=== PATIENT | female | born 1965 | race Caucasian/White ===

== ENCOUNTER 2016-12-26 16:21 | Emergency (ER) | payer OTHER ==
[~2016-12-26] VITALS: Ht 170.2 cm; Wt 87.0 kg
[~2016-12-26 16:21] MED LIST: ARIC5TAB PO; ASPI325T PO; BUSP30TA PO; MECL-62 PO; PROZ20CA11 PO; TRAZ100 PO
[2016-12-26 16:24] VITALS: BP 158/86; PULSE 83; RESP 14; TEMP 98.4; O2SAT 96
--- NOTE | 2016-12-27 22:37 | EKG ---
Date Performed: 12/26/2016 Time Performed: 17:28:30 PTAGE: 51 years EKG: Sinus rhythm POSSIBLE LEFT ATRIAL ENLARGEMENT BORDERLINE ECG PREVIOUS TRACING : 07/17/2016 10.08 Compared to the previous tracing, previously ST changes not ed DOCTOR: Nelson Peterson Interpretating Date/Time 12/27/2016 22:36:35
== END 2016-12-26 17:33 | disposition left against medical advice (07) ==
LOC: NED 16:21
DX: R07.9 Chest pain, unspecified (principal); R94.31 Abnormal electrocardiogram [ECG] [EKG]
CPT/HCPCS: 93005; 99281

== ENCOUNTER 2017-02-01 10:28 | Emergency (ER) | payer OTHER ==
[~2017-02-01] VITALS: Ht 170.2 cm; Wt 86.0 kg
[2017-02-01 10:32] VITALS: BP 159/92; PULSE 78; RESP 20; TEMP 97.7; O2SAT 97
[2017-02-01] MEDS ORDERED: LIDOCAINE HCL 2% JELLY 5 ML SYRINGE TOPICAL ONE (11:00)
[2017-02-01] MEDS ORDERED: ACETAMINOPHEN/HYDROcodone 325 MG/5 MG TAB PO ONE (11:00)
[2017-02-01 11:34] LABS: AUTOMATED NEUTROPHIL # 4.7 TH/MM3 (1.8-7.7); BASOPHIL # 0.1 TH/MM3 (0-0.2); BASOPHIL % 1.1 % (0.0-2.0); EOSINOPHIL # 0.4 TH/MM3 (0-0.4); EOSINOPHIL % 5.2 % (0.0-4.0); HEMATOCRIT 40.3 % (35.0-46.0); HEMO FLAGS DIFF FINAL; LYMPH % 24.6 % (9.0-44.0); LYMPHOCYTE # 1.8 TH/MM3 (1.0-4.8); MEAN CELL VOLUME 91.5 FL (80.0-100.0); MEAN CORPUSCULAR HEMOGLOBIN 29.9 PG (27.0-34.0); MEAN CORPUSCULAR HGB CONC 32.6 % (32.0-36.0); MONO % 5.8 % (0.0-8.0); NEUT % 63.3 % (16.0-70.0); PLATELET COUNT 329 TH/MM3 (150-450); RED CELL DISTRIBUTION WIDTH 13.5 % (11.6-17.2); WHITE BLOOD COUNT 7.4 TH/MM3 (4.0-11.0)
[2017-02-01] MEDS ORDERED: LIDO2GEL11 TOPICAL (12:06)
[2017-02-01] MEDS ORDERED: HYDR-3533 PO (12:06)
[2017-02-01] MEDS ORDERED: COLA100C3 PO (12:06)
--- NOTE | 2017-02-01 12:06 | PD ---
HPI Chief Complaint: GI Complaint Time Seen by Provider: 10:47 Travel History International Travel<30 days: No Contact w/Intl Traveler<30days: No Traveled to known affect area: No History of Present Illness HPI Patient is a 51-year-old female who comes in complaining of painful hemorrhoids. She says that she has had hemorrhoids for the past month, but recently they've become more painful and today she has noticed a lot of blood. She says it is hard for her to have a bowel movement, but she is able to. She denies any abdominal pain. She denies nausea or vomiting. She denies dizziness , palpitations, shortness of breath. PFSH Past Medical History Hx Anticoagulant Therapy: Yes (ASA) Bipolar Disorder: Yes Depression: Yes Cardiovascular Problems: Yes (HTN) Cerebrovascular Accident: Yes Hypertension: Yes Musculoskeletal: Yes (knee reeplacement) Respiratory: Yes (COPD) ?: Not Menopausal: Yes : 3 Past Surgical History Appendectomy: Yes Cholecystectomy: Yes Hysterectomy: Yes Neurologic Surgery: Yes (COILED ANEURYSM) Tonsillectomy: Yes Social History Alcohol Use: No Tobacco Use: Yes (1/2PPD) Substance Use: No Allergies-Medications (Allergen,Severity, Reaction): Coded Allergies: Bee Sting (Verified Allergy, Severe, SOB, 02/01/17) Sulfa (Verified Allergy, Severe, SOB, 02/01/17) Ceftin (Verified Allergy, Intermediate, SOB, 02/01/17) Cipro (Verified Allergy, Intermediate, SOB, 02/01/17) Reported Meds & Prescriptions Reported Meds & Active Scripts Active Colace (Docusate Sodium) 100 Mg Cap 100 Mg PO BID 10 Days Lortab (Hydrocodone-Acetaminophen) 5-325 Mg Tab 1 Tab PO Q6H PRN Lidocaine Topical (Lidocaine HCl) 2 % Jel 1 Applic TOPICAL QID 7 Days Meclizine Hcl (Meclizine HCl) 25 Mg Tab 25 Mg PO TID 30 Days Reported Aspirin 325 mg (Aspirin) 325 Mg Tab 325 Mg PO DAILY Buspar (Buspirone HCl) 30 Mg Tab 30 Mg PO BID Trazodone HCl 100 Mg Tab 100 Mg PO HS Aricept (Donepezil HCl) 5 Mg Tab 10 Mg PO DAILY Prozac (Fluoxetine HCl) 20 Mg Cap 20 Mg PO DAILY Review of Systems Except as stated in HPI: all other systems reviewed are Neg General / Constitutional: No: Fever, Chills HENT: No: Headaches, Lightheadedness Cardiovascular: No: Chest Pain or Discomfort Respiratory: No: Shortness of Breath Gastrointestinal: Positive: Constipation, No: Nausea, Vomiting, Abdominal Pain Genitourinary: No: Dysuria Skin: No Change in Pigmentation Neurologic: No: Weakness, Dizziness Physical Exam Narrative GENERAL: Awake and alert, in no acute distress. SKIN: Warm and dry. HEAD: Atraumatic. Normocephalic. EYES: Pupils equal and round. No scleral icterus. ENT: Mucous membranes pink and moist. NECK: Trachea midline. No JVD. CARDIOVASCULAR: Regular rate and rhythm. No murmur appreciated. RESPIRATORY: No accessory muscle use. Clear to auscultation. Breath sounds equal bilaterally. GASTROINTESTINAL: Abdomen soft, non-tender, nondistended. Rectal: Large hemorrhoid, soft to the touch, dried blood around the hemorrhoid. MUSCULOSKELETAL: No obvious deformities. No clubbing. No cyanosis. No edema. NEUROLOGICAL: Awake and alert. No obvious cranial nerve deficits. Motor grossly within normal limits. Normal speech. PSYCHIATRIC: Appropriate mood and affect; insight and judgment normal. Data Data Last Documented VS Vital Signs Date Time Temp Pulse Resp B/P Pulse Ox O2 Delivery O2 Flow Rate FiO2 02/01/17 10:43 18 02/01/17 10:32 97.7 78 159/92 97 Room Air Orders Complete Blood Count With Diff (02/01/17 10:56) Lidocaine 2% Jelly (Xylocaine 2% Jelly) (02/01/17 11:00) Acetamin-Hydrocod 325-5 Mg (Nenzel 5-325 (02/01/17 11:00) Labs Laboratory Tests Test 02/01/17 11:20 White Blood Count 7.4 TH/MM3 Red Blood Count 4.40 MIL/MM3 Hemoglobin 13.1 GM/DL Hematocrit 40.3 % Mean Corpuscular Volume 91.5 FL Mean Corpuscular Hemoglobin 29.9 PG Mean Corpuscular Hemoglobin 32.6 % Concent Red Cell Distribution Width 13.5 % Platelet Count 329 TH/MM3 Mean Platelet Volume 8.2 FL Neutrophils (%) (Auto) 63.3 % Lymphocytes (%) (Auto) 24.6 % Monocytes (%) (Auto) 5.8 % Eosinophils (%) (Auto) 5.2 % Basophils (%) (Auto) 1.1 % Neutrophils # (Auto) 4.7 TH/MM3 Lymphocytes # (Auto) 1.8 TH/MM3 Monocytes # (Auto) 0.4 TH/MM3 Eosinophils # (Auto) 0.4 TH/MM3 Basophils # (Auto) 0.1 TH/MM3 CBC Comment DIFF FINAL Differential Comment MDM Medical Decision Making Medical Screen Exam Complete: Yes Emergency Medical Condition: Yes Medical Record Reviewed: Yes Differential Diagnosis Hemorrhoids versus GI bleed versus anal fissure Narrative Course Patient is a 51-year-old female comes in complaining of rectal bleeding and painful hemorrhoids. Exam shows a large soft hemorrhoid with some bleeding around it. CBC sent to check hemoglobin, shows hemoglobin within normal limits. Patient given lidocaine jelly, pain medicine. Given prescriptions for lidocaine jelly as well as pain medicine. Advised to use sitz baths. Advised follow-up with colorectal surgery. Advised to return to the ED as needed for any worsening symptoms. Diagnosis Primary Impression: Bleeding hemorrhoid Referrals: Pierre Muñoz MD call for appointment Patient Instructions: General Instructions, Hemorrhoids (ED) Additional Instructions: Follow up with colorectal surgery. Use sitz baths and lidocaine jelly for pain relief. Take Lortab as needed for severe pain. Return to the ED as needed for any worsening symptoms. Scripts Docusate Sodium (Colace)100 Mg Nxz120 Mg PO BID 10 Days Ref 0 Prov:Shilpi Chu MD 02/01/17 Hydrocodone-Acetaminophen (Lortab)5-325 Mg Tab1 Tab PO Q6H PRN (PAIN) #10 TAB Ref 0 Prov:Shilpi Chu MD 02/01/17 Lidocaine Topical 2 % Jel1 Applic TOPICAL QID 7 Days Ref 0 Prov:Shilpi Chu MD 02/01/17 Disposition: 01 DISCHARGE HOME Condition: Stable Shilpi Chu MD Feb 01, 2017 12:06
== END 2017-02-01 12:41 | disposition home or self-care (01) ==
LOC: NEPE 10:28
DX: K64.4 Residual hemorrhoidal skin tags (principal); I10 Essential (primary) hypertension; J44.9 Chronic obstructive pulmonary disease, unspecified
CPT/HCPCS: 85025; 99283

== ENCOUNTER 2017-02-03 19:18 | Emergency (ER) | payer OTHER, MEDICAID ==
[~2017-02-03] VITALS: Ht 175.3 cm; Wt 95.0 kg
[~2017-02-03 19:18] MED LIST changes: +COLA100C3 PO; +HYDR-3533 PO; +LIDO2GEL11 TOPICAL
--- NOTE | 2017-02-03 19:28 | PD ---
HPI Chief Complaint: Alcohol/Drug Intoxication Time Seen by Provider: 19:28 Travel History International Travel<30 days: No Contact w/Intl Traveler<30days: No Traveled to known affect area: No History of Present Illness HPI 51-year-old female came to the emergency room brought by EMS with history of significant alcohol intoxication and a fall and head injury. Patient wakes up upon calling her name and tries to answer questions appropriately but with a heavy slur. She is following commands. She is not sure what happened. She remembers coming out of the bar and walking towards her car. Patient was found just outside her car on the ground with her face covered in blood. Bystanders called 911. Vital signs were stable on route. GCS was 13 throughout. Patient admits to drinking alcohol. She told me Amriann and something else which she doesn't remember. She told me she is not a chronic alcoholic and drank today because she is under stress. She takes 1 regular strength aspirin every day. PFSH Past Medical History Narrative Medical List of her past medical, surgical, social and family history was reviewed from the nursing note. Hx Anticoagulant Therapy: Yes (ASA) Bipolar Disorder: Yes Depression: Yes Cardiovascular Problems: Yes (HTN) Cerebrovascular Accident: Yes Hypertension: Yes Musculoskeletal: Yes (knee reeplacement) Respiratory: Yes (COPD) Menopausal: Yes : 3 Past Surgical History Appendectomy: Yes Cholecystectomy: Yes Hysterectomy: Yes Neurologic Surgery: Yes (COILED ANEURYSM) Tonsillectomy: Yes Social History Alcohol Use: No Tobacco Use: Yes (1/2PPD) Substance Use: No Allergies-Medications (Allergen,Severity, Reaction): Coded Allergies: Bee Sting (Verified Allergy, Severe, SOB, 02/03/17) Sulfa (Verified Allergy, Severe, SOB, 02/03/17) Ceftin (Verified Allergy, Intermediate, SOB, 02/03/17) Cipro (Verified Allergy, Intermediate, SOB, 02/03/17) Comments List of allergies reviewed from the nursing note. Reported Meds & Prescriptions Reported Meds & Active Scripts Active Keflex (Cephalexin) 500 Mg Cap 500 Mg PO Q8H Lortab (Hydrocodone-Acetaminophen) 5-325 Mg Tab 1 Tab PO Q6H PRN Reported [place] Carbonate 300 Mg Cap 300 Mg PO BID Clonazepam 0.5 Mg Tab 0.5 Mg PO BID Atorvastatin (Atorvastatin Calcium) 20 Mg Tab 20 Mg PO HS Meclizine (Meclizine HCl) 25 Mg Tab 25 Mg PO TID PRN Amlodipine (Amlodipine Besylate) 5 Mg Tab 5 Mg PO DAILY Escitalopram (Escitalopram Oxalate) 20 Mg Tab 20 Mg PO DAILY Sumatriptan (Sumatriptan Succinate) 50 Mg Tab 50 Mg PO Q6HR PRN If a satisfactory response has not been obtained at 2 hours, a second dose may be administered Trazodone (Trazodone HCl) 100 Mg Tab 100 Mg PO HS Narrative Medication List of her home medications reviewed from the nursing note. Review of Systems Except as stated in HPI: all other systems reviewed are Neg Physical Exam Narrative GENERAL: A significant intoxication, wakes up on calling her name slurred speech SKIN: Warm and dry. Dried blood and dirt covered on her face and hair. HEAD: 1 cm laceration over the right eyebrow. Bleeding is controlled EYES: Pupils equal and round. No scleral icterus. No injection or drainage. ENT: No nasal bleeding or discharge. Mucous membranes pink and moist. NECK: Trachea midline. No JVD. CARDIOVASCULAR: Regular rate and rhythm. No murmur appreciated. RESPIRATORY: No accessory muscle use. Clear to auscultation. Breath sounds equal bilaterally. GASTROINTESTINAL: Abdomen soft, non-tender, nondistended. Hepatic and splenic margins not palpable. MUSCULOSKELETAL: No obvious deformities. No clubbing. No cyanosis. No edema. NEUROLOGICAL: Intoxicated, GCS of 13. No obvious cranial nerve deficits. Motor grossly within normal limits. Slurred speech. PSYCHIATRIC: Appropriate mood and affect; insight and judgment normal. Data Data Last Documented VS Vital Signs Date Time Temp Pulse Resp B/P Pulse Ox O2 Delivery O2 Flow Rate FiO2 02/03/17 23:00 70 14 119/80 99 Nasal Cannula 2 02/03/17 19:[address] Brain W/O Iv Contrast(Rout) (02/03/17 ) Tetanus/Diphtheria Tox Adult (Tetanus/Di (02/03/17 19:30) Cefazolin 2 Gm Premix (Ancef 2 Gm Premix (02/03/17 19:30) Sodium Chlor 0.9% 1000 Ml Inj (Ns 1000 M (02/03/17 19:30) Alcohol (Ethanol) (02/03/17 19:28) Electrocardiogram (02/03/17 19:28) Basic Metabolic Panel (Bmp) (02/03/17 19:28) Ckmb (Isoenzyme) Profile (02/03/17 19:28) Complete Blood Count With Diff (02/03/17:) Magnesium (Mg) (02/03/17 19:28) Prothrombin Time / Inr (Pt) (02/03/17 19:28) Act Partial Throm Time (Ptt) (02/03/17:28) Troponin I (02/03/17:) Chest, Single Ap (02/03/17:28) Ecg Monitoring (02/03/17:28) Bilateral Bp Monitoring (02/03/17:) Iv Access Insert/Monitor (02/03/17:) Oximetry (02/03/17) Oxygen Administration (02/03/17:) Sodium Chloride 0.9% Flush (Ns Flush) (02/03/17 19:30) ^ Cleanse Wound With (02/03/17 19:30) Potassium Chloride (Kcl) (02/03/17 20:30) Potassium Chlor 20 Meq Premix (Kcl 20 Me (02/03/17 20:30) Thiamine Inj (Thiamine Inj) (02/03/17 20:30) Lidocai-Epi 1%-1:100,000 Inj (Xylocaine- (02/03/17 21:00) Labs Laboratory Tests Test 02/03/17 19:40 White Blood Count 9.2 TH/MM3 Red Blood Count 4.52 MIL/MM3 Hemoglobin 13.8 GM/DL Hematocrit 41.3 % Mean Corpuscular Volume 91.3 FL Mean Corpuscular Hemoglobin 30.5 PG Mean Corpuscular Hemoglobin 33.4 % Concent Red Cell Distribution Width 13.6 % Platelet Count 354 TH/MM3 Mean Platelet Volume 8.0 FL Neutrophils (%) (Auto) 53.1 % Lymphocytes (%) (Auto) 35.8 % Monocytes (%) (Auto) 7.0 % Eosinophils (%) (Auto) 3.6 % Basophils (%) (Auto) 0.5 % Neutrophils # (Auto) 4.9 TH/MM3 Lymphocytes # (Auto) 3.3 TH/MM3 Monocytes # (Auto) 0.6 TH/MM3 Eosinophils # (Auto) 0.3 TH/MM3 Basophils # (Auto) 0.0 TH/MM3 CBC Comment DIFF FINAL Differential Comment Prothrombin Time 10.5 SEC Prothromb Time International 1.0 RATIO Ratio Activated Partial 25.1 SEC Thromboplast Time Sodium Level 141 MEQ/L Potassium Level 2.7 MEQ/L Chloride Level 105 MEQ/L Carbon Dioxide Level 22.2 MEQ/L Anion Gap 14 MEQ/L Blood Urea Nitrogen 14 MG/DL Creatinine 1.01 MG/DL Estimat Glomerular Filtration 57 ML/MIN Rate Random Glucose 80 MG/DL Calcium Level 8.4 MG/DL Magnesium Level 2.2 MG/DL Total Creatine Kinase 46 U/L Troponin I LESS THAN 0.02 NG/ML Ethyl Alcohol Level 219 MG/DL [facility] Medical Decision Making Medical Screen Exam Complete: Yes Emergency Medical Condition: Yes Medical Record Reviewed: Yes Interpretation(s) Twelve-lead EKG was reviewed by me. Normal sinus rhythm, normal axis, first- degree AV block, nonspecific ST-T wave changes. Heart rate of 68 bpm Differential Diagnosis Acute alcohol intoxication, intracranial bleed, ACS, fall, syncope Narrative Course 7:39 PM patient said that her last tetanus shot was within 10 years but does not know if it was within 5 years. She is getting tetanus and Ancef. She is getting IV fluid bolus. Awaiting for blood test and CAT scan result. 8:51 PM blood test results and the CAT scan and x-ray results are back. CT scan shows an old cortical in ICA. No acute injuries. Chest x-ray shows bibasilar atelectasis probably from inefficient respirations while being intoxicated. White blood cell count is within normal limit and patient does not have a fever. She will not be treated as a pneumonia. Potassium is being replaced. Alcohol level is high. I have medically cleared her however. There is family members in the room. I will have to take care of her laceration on the forehead. After which patient will be discharged home. 9:42 PM the laceration was repaired by the PA. Please refer to his procedure Notes. Patient will be discharged home. Procedures EKG Prior to Arrival: No Diagnosis Primary Impression: Acute alcohol intoxication Qualified Code: F10.129 - Acute alcohol intoxication, with unspecified complication Additional Impressions: Fall Qualified Code: W19.XXXA - Fall, initial encounter Head injury Qualified Code: S09.90XA - Head injury, initial encounter Facial laceration Qualified Code: S01.81XA - Facial laceration, initial encounter Referrals: Primary Care Physician 2 days Additional Instructions: Please return to the ER if the condition worsens or any other new concerns. The stitches need to come out in 1 week to 10 days. Drink alcohol in moderation. Follow up with her primary care in couple days. Med/Other Pt SpecificInfo: Prescription(s) given Scripts Cephalexin (Keflex)500 Mg Nym041 Mg PO Q8H #30 CAP Ref 0 Prov:Kiara Atkins MD 02/03/17 Disposition: 01 DISCHARGE HOME Condition: Stable Kiara Atkins MD Feb 03, 2017 19:28
[2017-02-03 19:29] VITALS: BP 116/72; PULSE 73; RESP 14; TEMP 97.9; O2SAT 97
[2017-02-03] MEDS ORDERED: SODIUM CHLOR 0.9% 1000 ML INJ 1,000 ML IV ONE (19:30)
[2017-02-03] MEDS ORDERED: SODIUM CHLORIDE 0.9% FLUSH 5 ML FLUSH IVF PRN (19:30)
[2017-02-03] MEDS ORDERED: TETANUS/DIPHTHERIA TOXOID ADULT 0.5 ML VIAL IM ONE (19:30)
[2017-02-03 19:52] LABS: AUTOMATED NEUTROPHIL # 4.9 TH/MM3 (1.8-7.7); BASOPHIL % 0.5 % (0.0-2.0); EOSINOPHIL # 0.3 TH/MM3 (0-0.4); EOSINOPHIL % 3.6 % (0.0-4.0); HEMATOCRIT 41.3 % (35.0-46.0); HEMO FLAGS DIFF FINAL; LYMPH % 35.8 % (9.0-44.0); LYMPHOCYTE # 3.3 TH/MM3 (1.0-4.8); MEAN CELL VOLUME 91.3 FL (80.0-100.0); MEAN CORPUSCULAR HEMOGLOBIN 30.5 PG (27.0-34.0); MEAN CORPUSCULAR HGB CONC 33.4 % (32.0-36.0); NEUT % 53.1 % (16.0-70.0); PLATELET COUNT 354 TH/MM3 (150-450); RED BLOOD COUNT 4.52 MIL/MM3 (4.00-5.30); RED CELL DISTRIBUTION WIDTH 13.6 % (11.6-17.2); WHITE BLOOD COUNT 9.2 TH/MM3 (4.0-11.0)
[2017-02-03] MEDS: ceFAZolin 2 GM PREMIX 50 ML IV ONE ×2 (19:55→21:17)
[2017-02-03 19:59] LABS: APTT (PATIENT) 25.1 SEC (24.3-30.1); PROTHROMBIN TIME - PATIENT 10.5 SEC (9.8-11.6)
[2017-02-03 20:07] LABS: ANION GAP 14 MEQ/L (5-15); BICARBONATE 22.2 MEQ/L (21.0-32.0); BLOOD UREA NITROGEN 14 MG/DL (7-18); CHLORIDE 105 MEQ/L (98-107); GLOMERULAR FILTRATION RATE 57 ML/MIN (>89); MAGNESIUM 2.2 MG/DL (1.5-2.5); SODIUM (NA) 141 MEQ/L (136-145)
[2017-02-03 20:08] LABS: POTASSIUM 2.7 MEQ/L (3.5-5.1)
[2017-02-03 20:16] LABS: CREATINE KINASE 46 U/L (26-192)
--- NOTE | 2017-02-03 20:21 | RADRPT ---
EXAM DATE/TIME: 02/03/2017 19:57 [facility] COMPARISON: No previous studies available for comparison. INDICATIONS : Short of Breath, Apparent Chest Pain. MEDICAL HISTORY : Aneurysm, intracranial. Cerebrovascular disease. Cardiovascular disease SURGICAL HISTORY : Aneurysm coil. ENCOUNTER: Initial ACUITY: 1 day PAIN SCORE: Non-responsive. LOCATION: Bilateral chest FINDINGS: A single view of the chest demonstrates minimal bibasilar densities. Heart mildly enlarged.. The car diomediastinal contours are unremarkable. Osseous structures are intact. CONCLUSION: Cardiomegaly with bibasilar densities which could be atelectasis/infiltrate. Jose Charles MD on February 03, 2017 at 20:18 Board Certified Radiologist. This report was verified electronically.
[2017-02-03] MEDS ORDERED: POTASSIUM CHLOR 20 MEQ PREMIX 100 ML IV ONE (20:30)
[2017-02-03] MEDS ORDERED: POTASSIUM CHLORIDE 20 MEQ CONTROLLED RELEASE TAB PO ONE (20:30)
[2017-02-03] MEDS ORDERED: THIAMINE HCL 200 MG/2 ML VIAL IM ONE (20:30)
--- NOTE | 2017-02-03 20:37 | RADRPT ---
EXAM DATE/TIME: 02/03/2017 20:32 [facility] COMPARISON: CT BRAIN W/O CONTRAST, July 17, 2016, 10:46. INDICATIONS : Found on ground, laceration to right side of head. Complains of headache. ETOH. RADIATION DOSE: 36.13 CTDIvol (mGy) MEDICAL HISTORY : Hypertension. CVA. SURGICAL HISTORY : Tonsillectomy. Coiled aneurysm ENCOUNTER: Initial ACUITY: 1 day PAIN SCALE: 6/10 LOCATION: cranial TECHNIQUE: Multiple contiguous axial images were obtained of the head. Using automated exposure control and adj ustment of the mA and/or kV according to patient size, radiation dose was kept as low as reasonably a chievable to obtain optimal diagnostic quality images. FINDINGS: CEREBRUM: There is evidence of coils in the distal left internal carotid artery. The ventricles are normal for age. No evidence of midline shift, mass lesion, hemorrhage or acute infarction. No extra-axial flui d collections are seen. POSTERIOR FOSSA: The cerebellum and brainstem are intact. The 4th ventricle is midline. The cerebellopontine angle i s unremarkable. EXTRACRANIAL: The visualized portion of the orbits is intact. SKULL: The calvaria is intact. No evidence of skull fracture. CONCLUSION: 1. No acute intracranial abnormality. 2. Status post coiling of distal left ICA. Jose Charles MD on February 03, 2017 at 20:35 Board Certified Radiologist. This report was verified electronically.
[2017-02-03] MEDS ORDERED: LIDOCAINE 1%/EPINEPHrine 1:100,000 SOLN 20 ML VIAL INFIL ONE (21:00)
--- NOTE | 2017-02-03 21:28 | PD ---
Physical Exam Date Seen by Provider: Feb 03, 2017 Time Seen by Provider: 21:27 Narrative Asked to do laceration repair to the right brow. Patient seen by Dr. Atkins. Data Data Last Documented VS Vital Signs Date Time Temp Pulse Resp B/P Pulse Ox O2 Delivery O2 Flow Rate FiO2 02/03/17 19:29 14 91 Nasal Cannula 2 02/03/17 19:29 97.9 73 116/[address] Brain W/O Iv Contrast(Rout) (02/03/17 ) Tetanus/Diphtheria Tox Adult (Tetanus/Di (02/03/17 19:30) Cefazolin 2 Gm Premix (Ancef 2 Gm Premix (02/03/17 19:30) Sodium Chlor 0.9% 1000 Ml Inj (Ns 1000 M (02/03/17 19:30) Alcohol (Ethanol) (02/03/17 19:28) Electrocardiogram (02/03/17 19:28) Basic Metabolic Panel (Bmp) (02/03/17 19:28) Ckmb (Isoenzyme) Profile (02/03/17 19:28) Complete Blood Count With Diff (02/03/17 19:28) Magnesium (Mg) (02/03/17 19:28) Prothrombin Time / Inr (Pt) (02/03/17 19:28) Act Partial Throm Time (Ptt) (02/03/17 19:28) Troponin I (02/03/17 19:28) Chest, Single Ap (02/03/17 19:28) Ecg Monitoring (02/03/17 19:28) Bilateral Bp Monitoring (02/03/17 19:28) Iv Access Insert/Monitor (02/03/17 19:28) Oximetry (02/03/17 19:28) Oxygen Administration (02/03/17 19:28) Sodium Chloride 0.9% Flush (Ns Flush) (02/03/17 19:30) ^ Cleanse Wound With (02/03/17 19:30) Potassium Chloride (Kcl) (02/03/17 20:30) Potassium Chlor 20 Meq Premix (Kcl 20 Me (02/03/17 20:30) Thiamine Inj (Thiamine Inj) (02/03/17 20:30) Lidocai-Epi 1%-1:100,000 Inj (Xylocaine- (02/03/17 21:00) Labs Laboratory Tests Test 3/18/17 19:40 White Blood Count 9.2 TH/MM3 Red Blood Count 4.52 MIL/MM3 Hemoglobin 13.8 GM/DL Hematocrit 41.3 % Mean Corpuscular Volume 91.3 FL Mean Corpuscular Hemoglobin 30.5 PG Mean Corpuscular Hemoglobin 33.4 % Concent Red Cell Distribution Width 13.6 % Platelet Count 354 TH/MM3 Mean Platelet Volume 8.0 FL Neutrophils (%) (Auto) 53.1 % Lymphocytes (%) (Auto) 35.8 % Monocytes (%) (Auto) 7.0 % Eosinophils (%) (Auto) 3.6 % Basophils (%) (Auto) 0.5 % Neutrophils # (Auto) 4.9 TH/MM3 Lymphocytes # (Auto) 3.3 TH/MM3 Monocytes # (Auto) 0.6 TH/MM3 Eosinophils # (Auto) 0.3 TH/MM3 Basophils # (Auto) 0.0 TH/MM3 CBC Comment DIFF FINAL Differential Comment Prothrombin Time 10.5 SEC Prothromb Time International 1.0 RATIO Ratio Activated Partial 25.1 SEC Thromboplast Time Sodium Level 141 MEQ/L Potassium Level 2.7 MEQ/L Chloride Level 105 MEQ/L Carbon Dioxide Level 22.2 MEQ/L Anion Gap 14 MEQ/L Blood Urea Nitrogen 14 MG/DL Creatinine 1.01 MG/DL Estimat Glomerular Filtration 57 ML/MIN Rate Random Glucose 80 MG/DL Calcium Level 8.4 MG/DL Magnesium Level 2.2 MG/DL Total Creatine Kinase 46 U/L Troponin I LESS THAN 0.02 NG/ML Ethyl Alcohol Level 219 MG/DL [facility] Medical Record Reviewed: Yes Supervised Visit with JANESSA: Yes Differential Diagnosis EtOH intoxication. Fall. Facial laceration. Narrative Course Laceration repaired. Please see procedure note. Procedures Procedure Narrative LACERATION LOCATION: Right lateral brow LENGTH: 1.5 cm NUMBER OF STITCHES/KAYLA: 6 simple interrupted REPAIR: The area of the laceration was prepped with Betadine and sterilely draped. The laceration was infiltrated with mL was 1% lidocaine with epi. The wound was copiously irrigated and explored without evidence of foreign body, tendon injury or neurovascular injury. The wound was closed using 6-0 Prolene. This was a single layer repair. The patient was advised to keep the wound clean and dry. Patient tolerated the procedure well. Condition: Stable Shannon,Pierre F. PA Feb 03, 2017 21:28
[2017-02-03] MEDS ORDERED: CEPH-460 PO (21:49)
[2017-02-03 23:00] VITALS: BP 119/80; PULSE 70; RESP 14; O2SAT 99
--- NOTE | 2017-02-04 08:16 | EKG ---
Date Performed: 02/03/2017 Time Performed: 20:00:45 PTAGE: 51 years EKG: Sinus rhythm WITH FIRST DEGREE AV BLOCK LEFT ATRIAL ENLARGEMENT POSSIBLE RIGHT VENTRICULAR CONDUCTION DELAY ABNOR MAL ECG No significant change from prior electrocardiogram. PREVIOUS TRACING : 12/26/2016 17.28 DOCTOR: Isra Ortega Interpretating Date/Time 02/04/2017 08:15:06
[2017-02-05] MEDS ORDERED: SUMA50TA2 PO (17:55)
[2017-02-05] MEDS ORDERED: LITH300C2 PO (17:55)
[2017-02-05] MEDS ORDERED: TRAZ100T4 PO (17:55)
[2017-02-05] MEDS ORDERED: MECL-62 PO (17:55)
[2017-02-05] MEDS ORDERED: ATOR20TA15 PO (17:55)
[2017-02-05] MEDS ORDERED: CLON0.5T PO (17:55)
[2017-02-05] MEDS ORDERED: ESCI20TA PO (17:55)
[2017-02-05] MEDS ORDERED: AMLO5TAB2 PO (17:55)
== END 2017-02-04 00:07 | disposition home or self-care (01) ==
LOC: NEPC 19:18
DX: S01.111A Laceration without foreign body of right eyelid and periocular area, initial encounter (principal); I10 Essential (primary) hypertension; J44.9 Chronic obstructive pulmonary disease, unspecified; F17.210 Nicotine dependence, cigarettes, uncomplicated; I44.0 Atrioventricular block, first degree; R94.31 Abnormal electrocardiogram [ECG] [EKG]; X58.XXXA Exposure to other specified factors, initial encounter; Y93.89 Activity, other specified; Y92.481 Parking lot as the place of occurrence of the external cause; Y99.9 Unspecified external cause status
CPT/HCPCS: 12011; 70450; 71010; 80048; 80307; 82550; 83735; 84484; 85025; 85610; 85730; 90471; 90714; 93005; 96361; 96365; 96367; 96372; 99285; J0690; J3411; J3480; J7030

== ENCOUNTER 2017-02-05 14:17 | Emergency (ER) | payer OTHER, MEDICAID ==
[~2017-02-05] VITALS: Ht 170.2 cm; Wt 84.0 kg
[~2017-02-05 14:17] MED LIST changes: +CEPH-460 PO
[2017-02-05 14:24] VITALS: BP 136/86; PULSE 84; RESP 20; TEMP 98.2; O2SAT 94
[2017-02-05 17:38] VITALS: BP 180/103; PULSE 61; RESP 18; O2SAT 95
[2017-02-05] MEDS ORDERED: diphenhydrAMINE HCL 50 MG/ML VIAL IVP ONE (17:45)
[2017-02-05] MEDS ORDERED: SODIUM CHLORIDE 0.9% FLUSH 5 ML FLUSH IVF PRN (17:45)
[2017-02-05] MEDS ORDERED: PROCHLORPERAZINE INJ 10 MG/2 ML VIAL IVP ONE (17:45)
--- NOTE | 2017-02-05 17:54 | PD ---
HPI . Headache Chief Complaint: Pain: Acute or Chronic Time Seen by Provider: 17:44 Travel History International Travel<30 days: No Contact w/Intl Traveler<30days: No Traveled to known affect area: No History of Present Illness HPI Patient presents complaining with headache, neck pain and swelling around her right eye. She got drunk and fell flat on her face 2 nights ago. She was seen here at that time. She had a laceration of the right eyebrow. She had a CT of her head which was negative for acute findings. She was eventually discharged home. Patient states she has a history of chronic headaches. She has had a headache since her fall 2 days ago. She states that her headache is unrelieved by her usual triptan. She also now states that she has pain in her neck. And, she is concerned about the swelling around her right eye. [id number]: Head DURATION: 2 days TIMING: Continuous CONTEXT: Following a fall with facial injuries ASSOCIATED SYMPTOMS: Neck pain and swelling around her right eye PFSH Past Medical History Hx Anticoagulant Therapy: Yes (ASA) Bipolar Disorder: Yes Depression: Yes Cardiovascular Problems: Yes (HTN) COPD: Yes Cerebrovascular Accident: Yes (TIA X 2) Diminished Hearing: No Hypertension: Yes Musculoskeletal: Yes (knee reeplacement) Respiratory: Yes (COPD) Immunizations Current: Yes Tetanus Vaccination: < 5 Years Influenza Vaccination: Yes ?: Not Menopausal: Yes : 3 Past Surgical History Appendectomy: Yes Cholecystectomy: Yes Hysterectomy: Yes Neurologic Surgery: Yes (COILED ANEURYSM) Tonsillectomy: Yes Social History Alcohol Use: Yes (OCC) Tobacco Use: Yes (1/2PPD) Substance Use: No Allergies-Medications (Allergen,Severity, Reaction): Coded Allergies: Bee Sting (Verified Allergy, Severe, SOB, 02/03/17) Sulfa (Verified Allergy, Severe, SOB, 02/03/17) Ceftin (Verified Allergy, Intermediate, SOB, 02/03/17) Cipro (Verified Allergy, Intermediate, SOB, 02/03/17) Reported Meds & Prescriptions Reported Meds & Active Scripts Active Keflex (Cephalexin) 500 Mg Cap 500 Mg PO Q8H Lortab (Hydrocodone-Acetaminophen) 5-325 Mg Tab 1 Tab PO Q6H PRN Reported [place] Carbonate 300 Mg Cap 300 Mg PO BID Clonazepam 0.5 Mg Tab 0.5 Mg PO BID Atorvastatin (Atorvastatin Calcium) 20 Mg Tab 20 Mg PO HS Meclizine (Meclizine HCl) 25 Mg Tab 25 Mg PO TID PRN Amlodipine (Amlodipine Besylate) 5 Mg Tab 5 Mg PO DAILY Escitalopram (Escitalopram Oxalate) 20 Mg Tab 20 Mg PO DAILY Sumatriptan (Sumatriptan Succinate) 50 Mg Tab 50 Mg PO Q6HR PRN If a satisfactory response has not been obtained at 2 hours, a second dose may be administered Trazodone (Trazodone HCl) 100 Mg Tab 100 Mg PO HS Review of Systems Except as stated in HPI: all other systems reviewed are Neg Eyes: No: Blurred Vision HENT: Positive: Headaches Musculoskeletal: Positive: Pain (neck pain) Skin: Positive Other (right eyebrow laceration) Physical Exam Narrative GENERAL: Awake and alert and in no acute distress. SKIN: Warm and dry. She has a scab on the right eyebrow. There is no purulent drainage. The surrounding skin is swollen but is not warm to touch. CARDIOVASCULAR: Regular rate and rhythm. RESPIRATORY: No accessory muscle use. MUSCULOSKELETAL: No obvious deformities. No edema. Diffuse tenderness to palpation of his C-spine. NEUROLOGICAL: Awake and alert. No obvious cranial nerve deficits. Motor grossly within normal limits. Normal speech. PSYCHIATRIC: Appropriate mood and affect; insight and judgment normal. Data Data Last Documented VS Vital Signs Date Time Temp Pulse Resp B/P Pulse Ox O2 Delivery O2 Flow Rate FiO2 02/05/17 17:39 57 18 02/05/17 17:38 180/103 95 Room Air 02/05/17 14:24 98.2 Orders Iv Access Insert/Monitor (02/05/17 17:44) Ct Cerv Spine W/O Contrast (02/05/17 17:46) [id number] 325-50-40 Mg (Fioricet 3 (02/05/17 18:45) MDM Medical Decision Making Medical Screen Exam Complete: Yes Emergency Medical Condition: Yes Medical Record Reviewed: Yes (she was seen here 2 days ago and had a CT of her head. She did not have any radiographic studies of her neck.) Differential Diagnosis Differential diagnosis of headache includes but is not limited to migraine, muscle contraction headache, brain tumor, brain bleed Narrative Course Patient presents with headache and neck pain following a blow to her face 2 days ago. He has already had a CT of her head. I have added a CT of her C- spine. She will be given Compazine and Benadryl for her headache. Nursing staff reports inability to obtain IV access. The patient will be given Fioricet instead. CT CONCLUSION: 1. No acute bony fracture. 2. Focal primary degenerative changes at C5-6. 3. Broad-based bulging with disc osteophyte complex at C5-6. The patient's symptoms following her fall are not at all unexpected. Diagnosis Primary Impression: Headache Qualified Code: G44.319 - Acute post-traumatic headache, not intractable Additional Impressions: Cervical strain, acute Qualified Code: S16.1XXA - Cervical strain, acute, initial encounter Encounter for wound re-check Patient Instructions: Acute Headache (DC), Cervical Neck Strain Exercises (GEN) , General Instructions Disposition: 01 DISCHARGE HOME Condition: Stable Marina Burnham MD Feb 05, 2017 17:54
[2017-02-05] MEDS ORDERED: CLON0.5T PO (17:55)
[2017-02-05] MEDS ORDERED: ESCI20TA PO (17:55)
[2017-02-05] MEDS ORDERED: LITH300C2 PO (17:55)
[2017-02-05] MEDS ORDERED: AMLO5TAB2 PO (17:55)
[2017-02-05] MEDS ORDERED: SUMA50TA2 PO (17:55)
[2017-02-05] MEDS ORDERED: ATOR20TA15 PO (17:55)
[2017-02-05] MEDS ORDERED: MECL-62 PO (17:55)
[2017-02-05] MEDS ORDERED: TRAZ100T4 PO (17:55)
--- NOTE | 2017-02-05 18:42 | RADRPT ---
EXAM DATE/TIME: 02/05/2017 18:20 [facility] COMPARISON: No previous studies available for comparison. INDICATIONS : Fall two days ago, neck pain. RADIATION DOSE: 42.37 CTDIvol (mGy) MEDICAL HISTORY : None SURGICAL HISTORY : anuerysm coil ENCOUNTER: Subsequent ACUITY: 2 days PAIN SCALE: 7/10 LOCATION: Bilateral neck TECHNIQUE: Volumetric scanning of the cervical spine was performed. Multiplanar reconstructions in the sagittal, coronal and oblique axial planes were performed. Using automated exposure control and adjustment o f the mA and/or kV according to patient size, radiation dose was kept as low as reasonably achievable to obtain optimal diagnostic quality images. FINDINGS: VERTEBRAE: Normal vertebral body height. No acute bony fracture. There is focal primary degenerative changes wit h disc degeneration and disc space narrowing at C5-6. ALIGNMENT: No evidence of subluxation. C2-C3: The bony spinal canal is normal in size. No evidence of disc bulge or herniation. The neural forami na are bilaterally patent. C3-C4: The bony spinal canal is normal in size. No evidence of disc bulge or herniation. The neural forami na are bilaterally patent. C4-C5: The bony spinal canal is normal in size. No evidence of disc bulge or herniation. The neural forami na are bilaterally patent. C5-C6: Broad-based bulging with disc osteophyte complex. There is narrowing of the right neural foramina. Th e left neural foramen is patent. C6-C7: The bony spinal canal is normal in size. No evidence of disc bulge or herniation. The neural forami na are bilaterally patent. C7-T1: The bony spinal canal is normal in size. No evidence of disc bulge or herniation. The neural forami na are bilaterally patent. CONCLUSION: 1. No acute bony fracture. 2. Focal primary degenerative changes at C5-6. 3. Broad-based bulging with disc osteophyte complex at C5-6. Marek Gamez MD on February 05, 2017 at 18:37 Board Certified Radiologist. This report was verified electronically.
[2017-02-05] MEDS ORDERED: ACETAMIN 325 MG/BUTALBITAL 50 MG/CAFFEINE 40 MG TAB PO ONE (18:45)
[2017-02-05 19:30] VITALS: BP 142/88
== END 2017-02-05 20:00 | disposition home or self-care (01) ==
LOC: NEPA 14:17
DX: G44.319 Acute post-traumatic headache, not intractable (principal); S16.1XXA Strain of muscle, fascia and tendon at neck level, initial encounter; I10 Essential (primary) hypertension; Z90.710 Acquired absence of both cervix and uterus; F17.210 Nicotine dependence, cigarettes, uncomplicated; W19.XXXA Unspecified fall, initial encounter
CPT/HCPCS: 72125

== ENCOUNTER 2017-02-14 11:01 | Emergency (ER) | payer OTHER ==
[~2017-02-14] VITALS: Ht 170.2 cm; Wt 85.0 kg
[~2017-02-14 11:01] MED LIST changes: +AMLO5TAB2 PO; -ARIC5TAB PO; -ASPI325T PO; +ATOR20TA15 PO; -BUSP30TA PO; +CLON0.5T PO; -COLA100C3 PO; +ESCI20TA PO; -LIDO2GEL11 TOPICAL; +LITH300C2 PO; -PROZ20CA11 PO; +SUMA50TA2 PO; -TRAZ100 PO; +TRAZ100T4 PO
[2017-02-14 11:02] VITALS: BP 140/81; PULSE 96; RESP 18; TEMP 98.2; O2SAT 96
[2017-02-14] MEDS ORDERED: DOXY100C PO (11:24)
[2017-02-14] MEDS ORDERED: TRAM50TA PO (11:24)
[2017-02-14] MEDS ORDERED: DICL50TA PO (11:24)
[2017-02-14] MEDS ORDERED: diphenhydrAMINE HCL 50 MG/ML VIAL IV PUSH ONE (12:00)
[2017-02-14] MEDS ORDERED: ASPIRIN 81 MG CHEW TAB CHEW ONE (12:00)
[2017-02-14] MEDS ORDERED: SODIUM CHLORIDE 0.9% FLUSH 10 ML FLUSH IVF PRN (12:00)
[2017-02-14] MEDS ORDERED: PROCHLORPERAZINE INJ 10 MG/2 ML VIAL IV PUSH ONE (12:00)
--- NOTE | 2017-02-14 12:07 | PD ---
HPI . Headaches and chest pain Chief Complaint: Pain: Acute or Chronic Time Seen by Provider: 11:55 Travel History International Travel<30 days: No Contact w/Intl Traveler<30days: No Traveled to known affect area: No History of Present Illness HPI Patient presents stating that she fell and injured her right periorbital region on 02/03. She states she has a history of chronic headaches. She states that she has been having frequent, sharp, stabbing headaches since that time. She reports that she was seen at urgent care yesterday and given a prescription for tramadol for her pain. She states that she was also placed on antibiotics for "infection" of her wound. She presents to us today complaining with continued symptoms. She now has that she has started having chest pain. She states that none of the pain medications that she has been given have helped her. She was given hydrocodone at the time of the initial injury and was given tramadol at urgent care yesterday. [id number]: Right side of her head QUALITY: Sharp SEVERITY: Severe DURATION: Since 02/03 TIMING: Many times a day CONTEXT: Started after a fall on her face MODIFYING FACTORS: No relieving factors ASSOCIATED SYMPTOMS: Now associated with chest pain PFSH Past Medical History Hx Anticoagulant Therapy: Yes (ASA) Bipolar Disorder: Yes Depression: Yes Cardiovascular Problems: Yes (HTN) COPD: Yes Cerebrovascular Accident: Yes Diminished Hearing: No Hypertension: Yes Musculoskeletal: Yes (knee reeplacement) Respiratory: Yes (COPD) Immunizations Current: Yes ?: Not Menopausal: Yes : 3 Past Surgical History Appendectomy: Yes Cholecystectomy: Yes Hysterectomy: Yes Neurologic Surgery: Yes (COILED ANEURYSM) Tonsillectomy: Yes Social History Alcohol Use: No Tobacco Use: Yes Substance Use: No Allergies-Medications (Allergen,Severity, Reaction): Coded Allergies: Bee Sting (Verified Allergy, Severe, SOB, 02/14/17) Sulfa (Verified Allergy, Severe, SOB, 02/14/17) Ceftin (Verified Allergy, Intermediate, SOB, 02/14/17) Cipro (Verified Allergy, Intermediate, SOB, 02/14/17) Reported Meds & Prescriptions Reported Meds & Active Scripts Active Reported Tramadol (Tramadol HCl) 50 Mg Tab 50 Mg PO Q6H PRN Diclofenac Potassium 50 Mg Tab 50 Mg PO BID Doxycycline Hyclate 100 Mg Cap 100 Mg PO BID [place] Carbonate 300 Mg Cap 300 Mg PO BID Clonazepam 0.5 Mg Tab 0.5 Mg PO BID Atorvastatin (Atorvastatin Calcium) 20 Mg Tab 20 Mg PO HS Meclizine (Meclizine HCl) 25 Mg Tab 25 Mg PO TID PRN Amlodipine (Amlodipine Besylate) 5 Mg Tab 5 Mg PO DAILY Sumatriptan (Sumatriptan Succinate) 50 Mg Tab 50 Mg PO Q6HR PRN If a satisfactory response has not been obtained at 2 hours, a second dose may be administered Trazodone (Trazodone HCl) 100 Mg Tab 100 Mg PO HS Review of Systems Except as stated in HPI: all other systems reviewed are Neg General / Constitutional: No: Fever, Chills Eyes: No: Blurred Vision, Photophobia HENT: Positive: Headaches Cardiovascular: Positive: Chest Pain or Discomfort Respiratory: No: Shortness of Breath Gastrointestinal: No: Nausea, Vomiting Physical Exam Narrative GENERAL: Awake and alert and in no acute distress. She will periodically cry out and grab the right side of her face. SKIN: Warm and dry. She has a well-healed laceration of the right eyebrow. No evidence of infection such as redness, warmth or drainage. HEAD: Atraumatic. Normocephalic. EYES: Pupils equal and round. Extraocular movements are intact. ENT: No nasal bleeding or discharge. Mucous membranes pink and moist. NECK: Trachea midline. Neck has full range of motion without pain. CARDIOVASCULAR: Regular rate and rhythm. Heart sounds are normal. RESPIRATORY: No accessory muscle use. Lungs are clear with full air movement throughout. GASTROINTESTINAL: Abdomen soft, non-tender, nondistended. MUSCULOSKELETAL: No obvious deformities. No edema. NEUROLOGICAL: Awake and alert. No obvious cranial nerve deficits. Motor grossly within normal limits. Normal speech. [id number] exam is normal. PSYCHIATRIC: Appropriate mood and affect; insight and judgment normal. Data Data Last Documented VS Vital Signs Date Time Temp Pulse Resp B/P Pulse Ox O2 Delivery O2 Flow Rate FiO2 02/14/17 11:02 98.2 96 18 140/81 96 Room Air Orders Electrocardiogram (02/14/17 11:55) Basic Metabolic Panel (Bmp) (02/14/17 11:55) Ckmb (Isoenzyme) Profile (02/14/17 11:55) Complete Blood Count With Diff (02/14/17 11:55) Magnesium (Mg) (02/14/17 11:55) Troponin I (02/14/17 11:55) Chest, Single Ap (02/14/17 11:55) Ecg Monitoring (02/14/17 11:55) Iv Access Insert/Monitor (02/14/17 11:55) Oximetry (02/14/17 11:55) Sodium Chloride 0.9% Flush (Ns Flush) (02/14/17 12:00) Prochlorperazine Inj (Compazine Inj) (02/14/17 12:00) Diphenhydramine Inj (Benadryl Inj) (02/14/17 12:00) Aspirin Chew (Aspirin Chew) (02/14/17 12:00) CKMB (02/14/17 12:35) CKMB% (02/14/17 12:35) Mri Brain W/O Contrast (02/14/17 11:55) Labs Laboratory Tests Test 02/14/17 12:35 White Blood Count 8.0 TH/MM3 Red Blood Count 4.56 MIL/MM3 Hemoglobin 13.7 GM/DL Hematocrit 41.4 % Mean Corpuscular Volume 90.7 FL Mean Corpuscular Hemoglobin 30.1 PG Mean Corpuscular Hemoglobin 33.2 % Concent Red Cell Distribution Width 13.7 % Platelet Count 288 TH/MM3 Mean Platelet Volume 8.1 FL Neutrophils (%) (Auto) 60.3 % Lymphocytes (%) (Auto) 26.4 % Monocytes (%) (Auto) 5.7 % Eosinophils (%) (Auto) 4.9 % Basophils (%) (Auto) 2.7 % Neutrophils # (Auto) 4.8 TH/MM3 Lymphocytes # (Auto) 2.1 TH/MM3 Monocytes # (Auto) 0.5 TH/MM3 Eosinophils # (Auto) 0.4 TH/MM3 Basophils # (Auto) 0.2 TH/MM3 CBC Comment DIFF FINAL Differential Comment Sodium Level 140 MEQ/L Potassium Level 4.9 MEQ/L Chloride Level 109 MEQ/L Carbon Dioxide Level 25.4 MEQ/L Anion Gap 6 MEQ/L Blood Urea Nitrogen 12 MG/DL Creatinine 0.80 MG/DL Estimat Glomerular Filtration 75 ML/MIN Rate Random Glucose 79 MG/DL Calcium Level 8.8 MG/DL Magnesium Level 2.0 MG/DL Total Creatine Kinase 142 U/L Creatine Kinase MB LESS THAN 0.5 NG/ML Troponin I LESS THAN 0.02 NG/ML MDM Medical Decision Making Medical Screen Exam Complete: Yes Emergency Medical Condition: Yes Medical Record Reviewed: Yes (patient had a CT of her head done on 02/03 which was -3. She subsequently had a CT of her C-spine on 02/05 showed degenerative changes.) Interpretation(s) EKG shows a sinus rhythm with no ST segment elevation or depression. Differential Diagnosis Differential diagnosis of headache includes but is not limited to migraine, muscle contraction headache, brain tumor, brain bleed Differential diagnosis of chest pain includes but is not limited to musculoskeletal pain, pulmonary embolism, acute coronary syndrome, pneumonia, pleurisy Narrative Course Patient presents complaining with headache since a fall with an injury to her face on 02/03. She has had a negative CT. I have ordered an MRI today but I am not sure that that can be done. 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 I have initiated a chest pain workup. I have a low index of suspicion for acute problem today. CBC & BMP Diagram 02/14/17 12:35 Carrie neg. Chest x-ray has been read as negative by the radiologist. Chest x-ray was independently viewed by me. MRI of the brain is negative. Diagnosis Primary Impression: Headache Qualified Code: R51 - Acute nonintractable headache, unspecified headache type Additional Impression: Chest pain Qualified Code: R07.9 - Chest pain, unspecified type Patient Instructions: Acute Headache (DC), Chest Pain (DC), General Instructions Disposition: 01 DISCHARGE HOME Condition: Stable Marina Burnham MD Feb 14, 2017 12:07
[2017-02-14 12:49] LABS: AUTOMATED NEUTROPHIL # 4.8 TH/MM3 (1.8-7.7); BASOPHIL # 0.2 TH/MM3 (0-0.2); BASOPHIL % 2.7 % (0.0-2.0); EOSINOPHIL # 0.4 TH/MM3 (0-0.4); EOSINOPHIL % 4.9 % (0.0-4.0); HEMATOCRIT 41.4 % (35.0-46.0); HEMO FLAGS DIFF FINAL; LYMPH % 26.4 % (9.0-44.0); LYMPHOCYTE # 2.1 TH/MM3 (1.0-4.8); MEAN CELL VOLUME 90.7 FL (80.0-100.0); MEAN CORPUSCULAR HEMOGLOBIN 30.1 PG (27.0-34.0); MEAN CORPUSCULAR HGB CONC 33.2 % (32.0-36.0); MONO % 5.7 % (0.0-8.0); NEUT % 60.3 % (16.0-70.0); PLATELET COUNT 288 TH/MM3 (150-450); RED BLOOD COUNT 4.56 MIL/MM3 (4.00-5.30); RED CELL DISTRIBUTION WIDTH 13.7 % (11.6-17.2)
--- NOTE | 2017-02-14 13:04 | RADRPT ---
EXAM DATE/TIME: 02/14/2017 12:01 [facility] COMPARISON: CHEST SINGLE AP, February 03, 2017, 19:57. INDICATIONS : Patient fell two weeks ago and hit head on sidewalk. Patient is having chest pain that started today along with a headache. MEDICAL HISTORY : Hypertension. Stroke two times. SURGICAL HISTORY : anuerysm coil ENCOUNTER: Initial ACUITY: 1 day PAIN SCORE: 8/10 LOCATION: Bilateral chest FINDINGS: A single view of the chest demonstrates the lungs to be symmetrically aerated without evidence of mas s, infiltrate or effusion. The cardiomediastinal contours are unremarkable. Osseous structures are intact. CONCLUSION: No acute disease. Mike Chambers MD FACR on February 14, 2017 at 13:02 Board Certified Radiologist. This report was verified electronically.
[2017-02-14 13:12] LABS: ANION GAP 6 MEQ/L (5-15); BICARBONATE 25.4 MEQ/L (21.0-32.0); BLOOD UREA NITROGEN 12 MG/DL (7-18); CHLORIDE 109 MEQ/L (98-107); GLOMERULAR FILTRATION RATE 75 ML/MIN (>89); POTASSIUM 4.9 MEQ/L (3.5-5.1); SODIUM (NA) 140 MEQ/L (136-145)
[2017-02-14 13:14] LABS: CREATINE KINASE 142 U/L (26-192)
[2017-02-14 13:35] LABS: CKMB LESS THAN 0.5 NG/ML (0.5-3.6)
--- NOTE | 2017-02-14 16:44 | RADRPT ---
EXAM DATE/TIME: 02/14/2017 15:54 [facility] COMPARISON: No previous studies available for comparison. INDICATIONS : Cephalgia. MEDICAL HISTORY : Hypertension. SURGICAL HISTORY : Cholecystectomy. Tonsillectomy. Brain coiling. ENCOUNTER: Initial ACUITY: 2 day PAIN SCORE: 2/10 LOCATION: head TECHNIQUE: Multiplanar, multisequence MRI of the brain was performed without contrast. FINDINGS: MRI of the brain is performed in sagittal, axial and coronal planes. The craniocervical junction and midline structures are unremarkable. Diffusion weighted images demonstrate no abnormality. There is n o evidence of acute cortical infarction, acute hemorrhage, mass effect or midline shift is seen. 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 Residual aneurysm cannot be evaluated on this study. Th ere is benign-appearing mucosal disease in the right maxillary sinus. Posterior fossa structures are unremarkable. CONCLUSION: 1. No evidence of acute intracranial pathology. No masses are identified. Postsurgical changes as abo ve. Phillip Hahn MD on February 14, 2017 at 16:40 Board Certified Radiologist. This report was verified electronically.
--- NOTE | 2017-02-15 13:28 | EKG ---
Date Performed: 02/14/2017 Time Performed: 13:51:48 PTAGE: 51 years EKG: SINUS BRADYCARDIA POSSIBLE LEFT ATRIAL ENLARGEMENT PROLONGED QT INTERVAL ABNORMAL ECG PREVIOUS TRACING : 02/03/2017 20.00 Compared to prior tracing no significant change DOCTOR: Phillip Tamez Interpretating Date/Time 02/15/2017 13:27:37
== END 2017-02-14 17:39 | disposition home or self-care (01) ==
LOC: NEPA 11:01
DX: R51 Headache (principal); R07.9 Chest pain, unspecified; R94.31 Abnormal electrocardiogram [ECG] [EKG]; I10 Essential (primary) hypertension; Z72.0 Tobacco use; Z79.82 Long term (current) use of aspirin; Z86.59 Personal history of other mental and behavioral disorders; Z86.79 Personal history of other diseases of the circulatory system; Z87.09 Personal history of other diseases of the respiratory system; Z87.39 Personal history of other diseases of the musculoskeletal system and connective tissue
CPT/HCPCS: 70551; 71010; 80048; 82550; 82552; 83735; 84484; 85025; 93005; 96374; 96375; 99285; J0780; J1200

== ENCOUNTER 2017-03-27 13:59 | Observation (INO) | payer OTHER ==
[2017-03-27] VITALS (14 sets, daily range): BP systolic 112–182; BP diastolic 71–94; PULSE 63–82; RESP 18–24; TEMP 97.5–98.8; O2SAT 92–99
[~2017-03-27] VITALS: Ht 170.2 cm; Wt 86.0 kg
[~2017-03-27 13:59] MED LIST changes: -CEPH-460 PO; +DICL50TA PO; +DOXY100C PO; -ESCI20TA PO; -HYDR-3533 PO; +TRAM50TA PO
[2017-03-27] MEDS: RESP: ALBUTEROL 2.5 MG/IPRATROPIUM 0.5 MG NEB (SCH) INH (14:28)
[2017-03-27] MEDS ORDERED: methylPREDNISolone SOD SUCC 125 MG/2 ML VIAL IVP ONE (14:30)
[2017-03-27] MEDS ORDERED: SODIUM CHLORIDE 0.9% FLUSH 10 ML FLUSH IVF PRN (14:30)
[2017-03-27] MEDS ORDERED: SODIUM CHLORID 0.9% 500 ML INJ 500 ML IV ONE (14:30)
--- NOTE | 2017-03-27 14:44 | PD ---
HPI Chief Complaint: Chest Pain Time Seen by Provider: 14:25 Travel History International Travel<30 days: No Contact w/Intl Traveler<30days: No Traveled to known affect area: No History of Present Illness HPI Patient is a 51-year-old female presenting to emergency for evaluation of chest pain. Patient states that started 15 minutes prior to arrival, midsternal in nature and 8 out of 10 pain scale. Patient states that she feel short of breath , has a nonproductive cough and has been wheezing. She has a history of COPD but is not on any current inhalers. She states she has not needed these in over 2 years. Patient reports feeling dizzy as well, the chest pain is worse with inspiration. Patient was sedentary when the chest pain started. Patient' s past medical history significant for CVA 2, COPD, hypertension, neuropathy, bipolar disorder, anxiety. Patient states she's had a lot of stress in her home due to family issues, she had an argument with her daughter's boyfriend last night and feels this could be part of the problem. Patient denies any radiation of the pain, nausea, headache, abdominal pain. PFSH Past Medical History Hx Anticoagulant Therapy: Yes (ASA) Bipolar Disorder: Yes Depression: Yes COPD: Yes Cerebrovascular Accident: Yes Diminished Hearing: No Hypertension: Yes Neurologic: Yes (peripheral neuropathy) Immunizations Current: Yes ?: Not Menopausal: Yes : 3 Past Surgical History Appendectomy: Yes Cholecystectomy: Yes Hysterectomy: Yes Neurologic Surgery: Yes (COILED ANEURYSM) Tonsillectomy: Yes Social History Alcohol Use: No Tobacco Use: Yes Substance Use: No Allergies-Medications (Allergen,Severity, Reaction): Coded Allergies: Bee Sting (Verified Allergy, Severe, SOB, 02/14/17) Sulfa (Verified Allergy, Severe, SOB, 02/14/17) Ceftin (Verified Allergy, Intermediate, SOB, 02/14/17) Cipro (Verified Allergy, Intermediate, SOB, 02/14/17) Reported Meds & Prescriptions Reported Meds & Active Scripts Active Reported Diclofenac Potassium 50 Mg Tab 50 Mg PO BID [place] Carbonate 300 Mg Cap 300 Mg PO BID Clonazepam 0.5 Mg Tab 0.5 Mg PO BID Atorvastatin (Atorvastatin Calcium) 20 Mg Tab 20 Mg PO HS Amlodipine (Amlodipine Besylate) 5 Mg Tab 5 Mg PO DAILY Sumatriptan (Sumatriptan Succinate) 50 Mg Tab 50 Mg PO Q6HR PRN If a satisfactory response has not been obtained at 2 hours, a second dose may be administered Trazodone (Trazodone HCl) 100 Mg Tab 100 Mg PO HS Review of Systems Except as stated in HPI: all other systems reviewed are Neg HENT: No: Headaches Cardiovascular: Positive: Chest Pain or Discomfort, Dyspnea on exertion Respiratory: Positive: Cough, Shortness of Breath, Wheezing, Pleuritic Pain Gastrointestinal: No: Nausea, Vomiting, Diarrhea, Abdominal Pain Musculoskeletal: No: Myalgias Neurologic: Positive: Dizziness, No: Weakness, Syncope Physical Exam Narrative GENERAL: Well-developed, well-nourished, alert female. Appears uncomfortable, in no acute distress. SKIN: Focused skin assessment warm/dry. HEAD: Atraumatic. Normocephalic. EYES: Pupils equal and round. No scleral icterus. No injection or drainage. ENT: No nasal bleeding or discharge. Mucous membranes pink and moist. NECK: Trachea midline. No JVD. CARDIOVASCULAR: Regular rate and rhythm. No murmur appreciated. RESPIRATORY: No accessory muscle use. Diminished breath sounds in bases with coarse breath sounds on the left and expiratory wheezing throughout. GASTROINTESTINAL: Abdomen soft, non-tender, nondistended. Hepatic and splenic margins not palpable. MUSCULOSKELETAL: No obvious deformities. No clubbing. No cyanosis. No edema. NEUROLOGICAL: Awake and alert. No obvious cranial nerve deficits. Motor grossly within normal limits. Normal speech. PSYCHIATRIC: Appropriate mood and affect; insight and judgment normal. Data Data Last Documented VS Vital Signs Date Time Temp Pulse Resp B/P Pulse Ox O2 Delivery O2 Flow Rate FiO2 03/27/17 17:35 92 Room Air 03/27/17 16:26 82 18 128/78 2 03/27/17 14:01 97.8 Orders Electrocardiogram (03/27/17 ) Electrocardiogram (03/27/17 14:16) B-Type Natriuretic Peptide (03/27/17 14:16) Ckmb (Isoenzyme) Profile (03/27/17 14:16) Complete Blood Count With Diff (03/27/17 14:16) Comprehensive Metabolic Panel (03/27/17 14:16) Magnesium (Mg) (03/27/17 14:16) Prothrombin Time / Inr (Pt) (03/27/17 14:16) Act Partial Throm Time (Ptt) (03/27/17 14:16) Troponin I (03/27/17 14:16) Chest, Single Ap (03/27/17 14:16) Ecg Monitoring (03/27/17 14:16) Bilateral Bp Monitoring (03/27/17 14:16) Iv Access Insert/Monitor (03/27/17 14:16) Oximetry (03/27/17 14:16) Oxygen Administration (03/27/17 14:16) Sodium Chloride 0.9% Flush (Ns Flush) (03/27/17 14:30) Sodium Chlorid 0.9% 500 Ml Inj (Ns 500 M (03/27/17 14:30) Methylprednisolone So Succ Inj (Solumedr (03/27/17 14:30) Albuterol-Ipratropium Neb (Duoneb Neb) (03/27/17 14:30) Ondansetron Inj (Zofran Inj) (03/27/17 15:00) Nitroglycerin Sl (Nitrostat Sl) (03/27/17 15:30) Morphine Inj (Morphine Inj) (03/27/17 15:30) Budesonide Neb (Pulmicort Respule Neb) (03/27/17 16:00) Resp Request For Service (03/27/17 ) Troponin I (03/27/17 17:21) Electrocardiogram (03/27/17 ) Admit Order (Ed Use Only) (03/27/17 17:35) Labs Laboratory Tests Test 03/27/17 14:29 White Blood Count 8.5 TH/MM3 Red Blood Count 4.51 MIL/MM3 Hemoglobin 13.8 GM/DL Hematocrit 40.6 % Mean Corpuscular Volume 90.0 FL Mean Corpuscular Hemoglobin 30.6 PG Mean Corpuscular Hemoglobin 34.0 % Concent Red Cell Distribution Width 13.6 % Platelet Count 306 TH/MM3 Mean Platelet Volume 9.0 FL Neutrophils (%) (Auto) 66.4 % Lymphocytes (%) (Auto) 25.7 % Monocytes (%) (Auto) 5.0 % Eosinophils (%) (Auto) 1.9 % Basophils (%) (Auto) 1.0 % Neutrophils # (Auto) 5.7 TH/MM3 Lymphocytes # (Auto) 2.2 TH/MM3 Monocytes # (Auto) 0.4 TH/MM3 Eosinophils # (Auto) 0.2 TH/MM3 Basophils # (Auto) 0.1 TH/MM3 CBC Comment DIFF FINAL Differential Comment Prothrombin Time 10.3 SEC Prothromb Time International 0.9 RATIO Ratio Activated Partial 25.4 SEC Thromboplast Time Sodium Level 139 MEQ/L Potassium Level 3.4 MEQ/L Chloride Level 109 MEQ/L Carbon Dioxide Level 21.2 MEQ/L Anion Gap 9 MEQ/L Blood Urea Nitrogen 11 MG/DL Creatinine 0.70 MG/DL Estimat Glomerular Filtration 88 ML/MIN Rate Random Glucose 75 MG/DL Calcium Level 9.0 MG/DL Magnesium Level 1.9 MG/DL Total Bilirubin 0.4 MG/DL Aspartate Amino Transf 16 U/L (AST/SGOT) Alanine Aminotransferase 15 U/L (ALT/SGPT) Alkaline Phosphatase 75 U/L Total Creatine Kinase 60 U/L Troponin I LESS THAN 0.02 NG/ML B-Type Natriuretic Peptide 54 PG/ML Total Protein 6.7 GM/DL Albumin 3.2 GM/DL MDM Medical Decision Making Medical Screen Exam Complete: Yes Emergency Medical Condition: Yes Interpretation(s) Last Impressions Chest X-Ray 03/27/17 1416 Signed Impressions: Service Date/Time: Monday, March 27, 2017 14:23 - CONCLUSION: No acute disease. Elvis Acosta MD Laboratory Tests Test 03/27/17 14:29 White Blood Count 8.5 TH/MM3 Red Blood Count 4.51 MIL/MM3 Hemoglobin 13.8 GM/DL Hematocrit 40.6 % Mean Corpuscular Volume 90.0 FL Mean Corpuscular Hemoglobin 30.6 PG Mean Corpuscular Hemoglobin 34.0 % Concent Red Cell Distribution Width 13.6 % Platelet Count 306 TH/MM3 Mean Platelet Volume 9.0 FL Neutrophils (%) (Auto) 66.4 % Lymphocytes (%) (Auto) 25.7 % Monocytes (%) (Auto) 5.0 % Eosinophils (%) (Auto) 1.9 % Basophils (%) (Auto) 1.0 % Neutrophils # (Auto) 5.7 TH/MM3 Lymphocytes # (Auto) 2.2 TH/MM3 Monocytes # (Auto) 0.4 TH/MM3 Eosinophils # (Auto) 0.2 TH/MM3 Basophils # (Auto) 0.1 TH/MM3 CBC Comment DIFF FINAL Differential Comment Prothrombin Time 10.3 SEC Prothromb Time International 0.9 RATIO Ratio Activated Partial 25.4 SEC Thromboplast Time Sodium Level 139 MEQ/L Potassium Level 3.4 MEQ/L Chloride Level 109 MEQ/L Carbon Dioxide Level 21.2 MEQ/L Anion Gap 9 MEQ/L Blood Urea Nitrogen 11 MG/DL Creatinine 0.70 MG/DL Estimat Glomerular Filtration 88 ML/MIN Rate Random Glucose 75 MG/DL Calcium Level 9.0 MG/DL Magnesium Level 1.9 MG/DL Total Bilirubin 0.4 MG/DL Aspartate Amino Transf 16 U/L (AST/SGOT) Alanine Aminotransferase 15 U/L (ALT/SGPT) Alkaline Phosphatase 75 U/L Total Creatine Kinase 60 U/L Troponin I LESS THAN 0.02 NG/ML B-Type Natriuretic Peptide 54 PG/ML Total Protein 6.7 GM/DL Albumin 3.2 GM/DL Vital Signs Date Time Temp Pulse Resp B/P Pulse Ox O2 Delivery O2 Flow Rate FiO2 03/27/17 14:32 98 Nasal Cannula 2.00 03/27/17 14:32 79 18 95 Nasal Cannula 2 03/27/17 14:31 97 Nasal Cannula 2 03/27/17 14:30 97 Nasal Cannula 2 03/27/17 14:01 97.8 79 24 156/93 95 Differential Diagnosis COPD exacerbation versus OK versus pneumonia versus congestive heart failure versus pleurisy versus other Narrative Course Patient's 51-year-old female presenting to the emergency department evaluation of chest pain, shortness of breath, wheezing, cough. Patient's current daily smoker, she is not currently using any inhalers for management of her COPD. Initial assessment seems more consistent with a respiratory etiology than cardiac however cardiac workup has been initiated. Patient will be given DuoNeb , Solu-Medrol as well. IV access established, patient placed on telemetry monitoring and continuous pulse oximetry. Initial EKG shows sinus rhythm with a rate of 72. CBC is unremarkable BNP is 64, troponin is negative, chemistry with a potassium of 3.4 otherwise unremarkable. Coags are normal Patient has a long-standing history of tobacco use, hypertension, CVA. Due to her risk factors patient will be placed in the chest pain unit for observation. Patient is agreeable to plan. Walking O2 sat on room air completed, patient's O2 sat was 92%. Additionally patient needs to be evaluated for COPD . Diagnosis Primary Impression: Chest pain Qualified Code: R07.9 - Chest pain, unspecified type Admitting Information Admitting Physician Requests: Observation Condition: Stable Michelle Dyer March 27, 2017 14:44
[2017-03-27] MEDS ORDERED: ONDANSETRON HCL 4 MG/2 ML VIAL IV PUSH ONE (15:00)
[2017-03-27 15:06] LABS: AUTOMATED NEUTROPHIL # 5.7 TH/MM3 (1.8-7.7); BASOPHIL # 0.1 TH/MM3 (0-0.2); EOSINOPHIL # 0.2 TH/MM3 (0-0.4); EOSINOPHIL % 1.9 % (0.0-4.0); HEMATOCRIT 40.6 % (35.0-46.0); HEMO FLAGS DIFF FINAL; LYMPH % 25.7 % (9.0-44.0); LYMPHOCYTE # 2.2 TH/MM3 (1.0-4.8); MEAN CORPUSCULAR HEMOGLOBIN 30.6 PG (27.0-34.0); NEUT % 66.4 % (16.0-70.0); PLATELET COUNT 306 TH/MM3 (150-450); RED BLOOD COUNT 4.51 MIL/MM3 (4.00-5.30); RED CELL DISTRIBUTION WIDTH 13.6 % (11.6-17.2); WHITE BLOOD COUNT 8.5 TH/MM3 (4.0-11.0)
[2017-03-27 15:10] LABS: APTT (PATIENT) 25.4 SEC (24.3-30.1); INTERNATIONAL NORMALIZED RATIO 0.9 RATIO; PROTHROMBIN TIME - PATIENT 10.3 SEC (9.8-11.6)
[2017-03-27 15:24] LABS: ANION GAP 9 MEQ/L (5-15); AST (GOT) 16 U/L (15-37); BICARBONATE 21.2 MEQ/L (21.0-32.0); CHLORIDE 109 MEQ/L (98-107); GLOMERULAR FILTRATION RATE 88 ML/MIN (>89); MAGNESIUM 1.9 MG/DL (1.5-2.5); POTASSIUM 3.4 MEQ/L (3.5-5.1); SODIUM (NA) 139 MEQ/L (136-145)
[2017-03-27 15:29] LABS: ALKALINE PHOSPHATASE 75 U/L (45-117); ALT (GPT) 15 U/L (10-53); BLOOD UREA NITROGEN 11 MG/DL (7-18); TOTAL BILIRUBIN ADULT 0.4 MG/DL (0.2-1.0)
[2017-03-27] MEDS ORDERED: MORPHINE SULFATE 4 MG/ML INJ IV PUSH ONE (15:30)
[2017-03-27] MEDS ORDERED: NITROGLYCERIN 0.4 MG SL 25 TABS/BTL SL ONE (15:30)
[2017-03-27 15:31] LABS: CREATINE KINASE 60 U/L (26-192)
[2017-03-27] MEDS ORDERED: RESP: BUDESONIDE 0.5 MG/2 ML NEB NEB ONE (16:00)
--- NOTE | 2017-03-27 16:51 | RADRPT ---
EXAM DATE/TIME: 03/27/2017 14:23 [facility] COMPARISON: CHEST SINGLE AP, February 14, 2017, 12:01. INDICATIONS : Shortness of breath and chest pains. MEDICAL HISTORY : Hypertension. Chronic obstructive pulmonary disease. Stroke. Coiled aneurysm. SURGICAL HISTORY : Cholecystectomy. Hysterectomy. ENCOUNTER: Initial ACUITY: 1 day PAIN SCORE: 6/10 LOCATION: Bilateral chest FINDINGS: A single view of the chest demonstrates the lungs to be symmetrically aerated without evidence of mas s, infiltrate or effusion. The cardiomediastinal contours are unremarkable. Osseous structures are intact. CONCLUSION: No acute disease. Elvis Acosta MD on March 27, 2017 at 16:48 Board Certified Radiologist. This report was verified electronically.
[2017-03-27] MEDS ORDERED: ACETAMINOPHEN 500 MG CPLT PO PRN (17:45)
[2017-03-27] MEDS ORDERED: ONDANSETRON HCL 4 MG/2 ML VIAL IV PRN (17:45)
[2017-03-27 22:36] LABS: CREATINE KINASE 40 U/L (26-192)
[2017-03-28 00:12] VITALS: BP 103/60; PULSE 85; RESP 18; TEMP 97; O2SAT 90
[2017-03-28 00:34] VITALS: PULSE 84
[2017-03-28 04:05] VITALS: PULSE 65
[2017-03-28 04:40] VITALS: BP 119/75; PULSE 61; RESP 18; TEMP 96.1; O2SAT 91
--- NOTE | 2017-03-28 05:45 | EKG ---
Date Performed: 03/27/2017 Time Performed: 20:35:38 PTAGE: 51 years EKG: SINUS BRADYCARDIA WITH SINUS ARRHYTHMIA PREVIOUS TRACING : 03/27/2017 17.40 Compared to prior tracing no significant change DOCTOR: Abdulaziz Toro Interpretating Date/Time 03/28/2017 05:44:55
--- NOTE | 2017-03-28 05:53 | EKG ---
Date Performed: 03/27/2017 Time Performed: 17:40:28 PTAGE: 51 years EKG: Sinus rhythm NORMAL ECG PREVIOUS TRACING : 03/27/2017 14.12 Compared to prior tracing no significant change DOCTOR: Abdulaziz Toro Interpretating Date/Time 03/28/2017 05:51:04
--- NOTE | 2017-03-28 06:08 | EKG ---
Date Performed: 03/27/2017 Time Performed: 14:12:45 PTAGE: 51 years EKG: Sinus rhythm POSSIBLE LEFT ATRIAL ENLARGEMENT POSSIBLE RIGHT VENTRICULAR CONDUCTION DELAY BORDERLINE ECG PREVIOUS TRACING : 02/14/2017 13.51 Compared to prior tracing no significant change DOCTOR: Abdulaziz Toro Interpretating Date/Time 03/28/2017 06:06:05
[2017-03-28] MEDS ORDERED: POTASSIUM CHLORIDE 25 MEQ EFFERVESCENT TAB PO ONE (07:45)
[2017-03-28] MEDS ORDERED: ASPIRIN 325 MG TAB PO SCH (09:00)
[2017-03-28] MEDS ORDERED: PANTOPRAZOLE SOD 40 MG DELAYED RELEASE TAB PO SCH (09:00)
[2017-03-28] MEDS ORDERED: LITHIUM CARBONATE 300 MG CAP PO SCH (09:30)
[2017-03-28] MEDS ORDERED: amLODIPine BESYLATE 5 MG TAB PO SCH (09:30)
[2017-03-28] MEDS ORDERED: RESP: ALBUTEROL 2.5 MG/IPRATROPIUM 0.5 MG NEB (PRN) INH (09:30)
[2017-03-28] MEDS ORDERED: clonazePAM 0.5 MG TAB PO SCH (09:30)
[2017-03-28] MEDS ORDERED: RESP: ALBUTEROL 2.5 MG/IPRATROPIUM 0.5 MG NEB (SCH) INH ONE (09:30)
[2017-03-28 09:46] VITALS: O2SAT 94
[2017-03-28] MEDS ORDERED: HYDR-4107 PO (09:52)
[2017-03-28] MEDS ORDERED: ESCI20TA PO (09:52)
[2017-03-28] MEDS ORDERED: MECL-62 PO (09:52)
--- NOTE | 2017-03-28 10:16 | HHI.HP ---
HPI Primary Care Physician Non-Staff Chief Complaint Chest pain History of Present Illness This is a 51-year-old female that presents to the emergency department via private vehicle saying her daughter brought her here to evaluate chest pain. She states she has been arguing with her daughter and her daughter's boyfriend. She states she does not want him in the property that she is on the lease and try to have it removed but her daughter let him come back in which made her more upset. This occurred last night at that time she developed a pressure across her chest lasting 15-20 minutes. She states took her evening medications and went to bed. When she will back off she found that her daughter had left him back in and start having the discomfort again. It is still there. She states it is worse when she starts to talk about her daughter' s boyfriend. She was short of breath with her symptoms. No nausea or diaphoresis. Denies history of CAD. Denies recent illnesses. She has COPD saying she was diagnosed with this 10 years ago but has not needed inhalers recently. She states she does cough in the morning. This is not new. Denies recent travel. (Mando Celeste) Review of Systems General: Patient denies fevers, chills recent, and recent travel HEENT: Patient denies headache, sore throat, difficulty swallowing. Cardiovascular: Has the chest discomfort as mentioned above. Denies sensation of heart beating rapidly or irregularly. No syncope. Denies diaphoresis. Respiratory: She has been short of breath. She has a cough in the morning. Denies inspirational chest discomfort. Denies wheezing or hemoptysis. GI: Patient denies nausea, vomiting, diarrhea, abdominal pain, bloody stools. Musculoskeletal: Patient denies joint pain or edema. Denies calf pain or edema. Neurovascular: Patient denies numbness, tingling, weakness in extremities. Denies headache. Endocrine: Denies polyuria and polydipsia. Hematologic: Denies easy bruising. Skin: Denies rash or itching. (Mando Celeste) Past Family Social History Allergies: Coded Allergies: Bee Sting (Verified Allergy, Severe, SOB, 02/14/17) Sulfa (Verified Allergy, Severe, SOB, 02/14/17) Ceftin (Verified Allergy, Intermediate, SOB, 02/14/17) Cipro (Verified Allergy, Intermediate, SOB, 02/14/17) Past Medical History Hypertension, hyperlipidemia, bipolar disorder, aneurysm with a corneal, CVA 2 , and tobacco abuse. Reported Medications Reported Meds & Active Scripts Active Reported Meclizine (Meclizine HCl) 25 Mg Tab 25 Mg PO TID PRN Escitalopram (Escitalopram Oxalate) 20 Mg Tab 20 Mg PO DAILY Hydrocodone-Acetaminophen 5-300 Mg Tab 1 Tab PO Q6H PRN Diclofenac Potassium 50 Mg Tab 50 Mg PO BID [place] Carbonate 300 Mg Cap 300 Mg PO BID Clonazepam 0.5 Mg Tab 0.5 Mg PO BID Atorvastatin (Atorvastatin Calcium) 20 Mg Tab 20 Mg PO HS Amlodipine (Amlodipine Besylate) 5 Mg Tab 5 Mg PO DAILY Sumatriptan (Sumatriptan Succinate) 50 Mg Tab 50 Mg PO Q6HR PRN If a satisfactory response has not been obtained at 2 hours, a second dose may be administered Trazodone (Trazodone HCl) 100 Mg Tab 100 Mg PO HS Active Ordered Medications Current Medications Medications (Trade) Dose Ordered Sig/Jasson Route Start Time Stop Time Status Last Admin (NS Flush) 2 ml UNSCH PRN IVF 03/27/17 14:30 (Tylenol) 500 mg Q4H PRN PO 03/27/17 17:45 03/27/17 20:37 (Zofran Inj) 4 mg Q6H PRN IV 03/27/17 17:45 (Protonix) 40 mg DAILY PO 03/28/17 09:00 03/28/17 08:43 (Aspirin) 325 mg DAILY PO 03/28/17 09:00 03/28/17 08:43 (Norvasc) 5 mg DAILY PO 03/28/17 09:30 (Lipitor) 20 mg HS PO 03/28/17 21:00 (KlonoPIN) 0.5 mg BID PO 03/28/17 09:30 ([place] Carbonate) 300 mg BID PO 03/28/17 09:30 (Desyrel) 100 mg HS PO 03/28/17 21:00 (Mando Celeste) Physical Exam Vital Signs Vital Signs Date Time Temp Pulse Resp B/P Pulse Ox O2 Delivery O2 Flow Rate FiO2 03/28/17 09:46 94 Nasal Cannula 2.00 03/28/17 04:40 96.1 61 18 119/75 91 03/28/17 04:05 65 03/28/17 00:34 84 03/28/17 00:12 97.0 85 18 103/60 90 03/27/17 20:45 63 03/27/17 20:17 98.4 68 18 112/71 96 03/27/17 20:13 98.8 72 18 182/94 97 03/27/17 19:26 98 Nasal Cannula 2.00 03/27/17 18:54 97.5 68 18 124/73 95 03/27/17 17:50 97.8 70 18 151/78 95 03/27/17 17:46 70 18 140/84 97 Nasal Cannula 2 03/27/17 17:35 92 Room Air 03/27/17 16:26 82 18 128/78 97 Nasal Cannula 2 03/27/17 15:35 79 18 136/75 97 Nasal Cannula 2 03/27/17 15:17 78 18 152/83 99 Nasal Cannula 2 03/27/17 14:32 98 Nasal Cannula 2.00 03/27/17 14:32 79 18 95 Nasal Cannula 2 03/27/17 14:31 97 Nasal Cannula 2 03/27/17 14:30 97 Nasal Cannula 2 03/27/17 14:01 97.8 79 24 156/93 95 Laboratory Laboratory Tests Test 03/27/17 03/27/17 03/27/17 14:29 17:45 21:29 White Blood Count 8.5 Red Blood Count 4.51 Hemoglobin 13.8 Hematocrit 40.6 Mean Corpuscular Volume 90.0 Mean Corpuscular Hemoglobin 30.6 Mean Corpuscular Hemoglobin 34.0 Concent Red Cell Distribution Width 13.6 Platelet Count 306 Mean Platelet Volume 9.0 Neutrophils (%) (Auto) 66.4 Lymphocytes (%) (Auto) 25.7 Monocytes (%) (Auto) 5.0 Eosinophils (%) (Auto) 1.9 Basophils (%) (Auto) 1.0 Neutrophils # (Auto) 5.7 Lymphocytes # (Auto) 2.2 Monocytes # (Auto) 0.4 Eosinophils # (Auto) 0.2 Basophils # (Auto) 0.1 CBC Comment DIFF FINAL Differential Comment Prothrombin Time 10.3 Prothromb Time International 0.9 Ratio Activated Partial 25.4 Thromboplast Time Sodium Level 139 Potassium Level 3.4 Chloride Level 109 Carbon Dioxide Level 21.2 Anion Gap 9 Blood Urea Nitrogen 11 Creatinine 0.70 Estimat Glomerular Filtration 88 Rate Random Glucose 75 Calcium Level 9.0 Magnesium Level 1.9 Total Bilirubin 0.4 Aspartate Amino Transf 16 (AST/SGOT) Alanine Aminotransferase 15 (ALT/SGPT) Alkaline Phosphatase 75 Total Creatine Kinase 60 40 Troponin I LESS THAN 0.02 LESS THAN 0.02 LESS THAN 0.02 B-Type Natriuretic Peptide 54 Total Protein 6.7 Albumin 3.2 (Mando Celeste) Result Diagram: 03/27/17 1429 03/27/17 1429 Assessment and Plan Assessment and Plan Atypical chest pain. Enzymes and E?CG are normal and exam is unremarkable. Will get lexiscan (Phillip Tamez MD) Mando Celeste March 28, 2017 10:16 Phillip Tamez MD March 28, 2017 10:29
[2017-03-28 11:42] VITALS: PULSE 64
[2017-03-28] MEDS ORDERED: REGADENOSON INJ 0.4 MG/5 ML SYR ONE (12:15)
--- NOTE | 2017-03-28 14:27 | TR ---
Date Performed: 03/28/2017 Time Performed: 12:14:48 DOCTOR: Phillip Tamez DRUG LIST: CLINICAL HISTORY: REASON FOR TEST: CHEST PAIN REASON FOR ENDING: OBSERVATION: CONCLUSION: Lexiscan stress test was performed under standard four minute protocol. Radionuclid e was injected one minute prior to ending the test. No electrocardiographic abormalities were present to suggest ischemia. Nuclear imaging and interpretation are pending. COMMENTS:
--- NOTE | 2017-03-28 14:29 | RADRPT ---
EXAM DATE/TIME: 03/28/2017 11:34 [facility] COMPARISON: No previous studies available for comparison. INDICATIONS : Mid chest pain for one day. Angina. DOSE: 25.8 mCi Tc99m Myoview at stress. 8.4 mCi Tc99m Myoview at rest. 0.4 mg Lexiscan STRESS SYMPTOMS: Anxious feeling. EJECTION FRACTION: 51% MEDICAL HISTORY : Hypertension. Chronic obstructive pulmonary disease. SURGICAL HISTORY : Cholecystectomy. Hysterectomy. ENCOUNTER: Initial ACUITY: 1 day PAIN SCALE: 2/10 LOCATION: chest TECHNIQUE: The patient underwent pharmacologic stress with infusion of prescribed dose. Continuous ECG tracing was monitored during stress. Gated SPECT imaging was performed after stress and conventional SPECT i maging was performed at rest. The examination was performed on a SPECT/CT scanner, both attenuation and non-corrected datasets were reviewed. FINDINGS: The best perfused myocardium is the anterior septal wall followed by the inferior wall. There are no fixed defects to suggest infarction. There is no redistribution to suggest ischemia. The ejection fraction is 51%. CONCLUSION: Negative for stress-induced ischemia Ejection fraction 51% with normal wall motion. RISK CATEGORY: Low (<1% Annual Mortality Rate) Mike Chambers MD FACR on March 28, 2017 at 14:26 Board Certified Radiologist. This report was verified electronically.
--- NOTE | 2017-03-28 14:53 | HHI.DCPOC ---
Discharge Care Plan Diagnosis: (1) Chest pain (2) Hypertension (3) Hyperlipidemia (4) Tobacco abuse Goals to Promote Your Health * To prevent worsening of your condition and complications * To maintain your health at the optimal level Directions to Meet Your Goals Take your medications as prescribed Follow your dietary instruction Follow activity as directed Keep your appointments as scheduled Take your immunizations and boosters as scheduled If your symptoms worsen call your PCP, if no PCP go to Urgent Care Center or Emergency Room Smoking is Dangerous to Your Health. Avoid second hand smoke Call the 24-hour hour crisis hotline for domestic abuse at [facility] Cel[facility] March 28, 2017 14:53
[2017-03-28] MEDS ORDERED: traZODone HCL 100 MG TAB PO SCH (21:00)
[2017-03-28] MEDS ORDERED: ATORVASTATIN 20 MG TAB PO SCH (21:00)
== END 2017-03-28 15:48 | disposition home or self-care (01) ==
LOC: NEPC 13:59 → NEDA 17:37 → NEPFCDU 19:05
PROVIDERS: ADMIT Internal Medicine Interventional Cardiology; ATTEND Internal Medicine Interventional Cardiology
DX: R07.89 Other chest pain (principal); I10 Essential (primary) hypertension; E78.5 Hyperlipidemia, unspecified; F31.9 Bipolar disorder, unspecified; G62.9 Polyneuropathy, unspecified; F17.200 Nicotine dependence, unspecified, uncomplicated; Z86.73 Personal history of transient ischemic attack (TIA), and cerebral infarction without residual deficits; Z88.2 Allergy status to sulfonamides; Z88.1 Allergy status to other antibiotic agents; Z91.030 Bee allergy status
CPT/HCPCS: 71010; 78452; 80053; 82550; 83735; 83880; 84484; 85025; 85610; 85730; 93005; 93017; 94640; 94664; 96361; 96374; 96375; 99285; A9502; G0378; J2270; J2405; J2785; J2930; J7040; J7626

== ENCOUNTER 2017-05-06 23:56 | Emergency (ER) | payer OTHER ==
[~2017-05-06] VITALS: Ht 170.2 cm; Wt 87.0 kg
[~2017-05-06 23:56] MED LIST changes: -DOXY100C PO; +ESCI20TA PO; +HYDR-4107 PO; -TRAM50TA PO
[2017-05-06 23:58] VITALS: BP 139/81; PULSE 89; RESP 18; TEMP 98.3; O2SAT 96
[2017-05-07] MEDS ORDERED: TRAZ100T6 PO (00:35)
[2017-05-07] MEDS ORDERED: OXYC-392 PO (00:35)
--- NOTE | 2017-05-07 01:25 | RADRPT ---
EXAM DATE/TIME: 05/07/2017 00:57 [facility] COMPARISON: No previous studies available for comparison. INDICATIONS : Left shoulder pain post fall tonight and shoulder surgery on April 25, 2017. MEDICAL HISTORY : Hypertension. Chronic obstructive pulmonary disease. Stroke. SURGICAL HISTORY : Cholecystectomy. Hysterectomy. Left rotator cuff surgery ENCOUNTER: Initial ACUITY: 1 day PAIN SCORE: 10/10 LOCATION: Left shoulder FINDINGS: No fracture or subluxation of the left shoulder. Focal calcification seen in the subacromial space, probably distal cuff calcific tendinitis. Previous shaving of the undersurface of the acromion and resection of the distal end of the clavicle. CONCLUSION: 1. No fracture or subluxation of the left shoulder. 2. Suspected calcific tendinitis of the distal cuff. 3. Surgical changes. Merlin Joe MD on May 07, 2017 at 1:22 Board Certified Radiologist. This report was verified electronically.
--- NOTE | 2017-05-07 01:37 | PD ---
HPI Chief Complaint: Injury Time Seen by Provider: 01:26 Travel History International Travel<30 days: No Contact w/Intl Traveler<30days: No Traveled to known affect area: No History of Present Illness HPI The patient is a 51-year-old female that had rotator cuff surgery on her left shoulder on the seventh of this month. She has an appointment with her orthopedic physician next month. She is to in about a week to start rehabilitation. She does not exactly when rehabilitation will begin. She complains of left shoulder pain after falling. She had her left shoulder directly with the fall. She denies any other injury. PFSH Past Medical History Hx Anticoagulant Therapy: Yes (ASPIRIN) Bipolar Disorder: Yes Depression: Yes Heart Rhythm Problems: No Cardiac Catheterization: No Cardiovascular Problems: Yes (HTN) High Cholesterol: No Congestive Heart Failure: No COPD: Yes Cerebrovascular Accident: Yes Diabetes: No Diminished Hearing: No Hypertension: Yes Neurologic: Yes (peripheral neuropathy) Immunizations Current: Yes ?: Not Menopausal: Yes : 3 Past Surgical History Appendectomy: Yes Cholecystectomy: Yes Coronary Artery Bypass Graft: No Hysterectomy: Yes Neurologic Surgery: Yes (COILED ANEURYSM) Tonsillectomy: Yes Social History Alcohol Use: No Tobacco Use: Yes Substance Use: No Allergies-Medications (Allergen,Severity, Reaction): Coded Allergies: Bee Sting (Verified Allergy, Severe, SOB, 05/07/17) Sulfa (Verified Allergy, Severe, SOB, 05/07/17) Ceftin (Verified Allergy, Intermediate, SOB, 05/07/17) Cipro (Verified Allergy, Intermediate, SOB, 05/07/17) Reported Meds & Prescriptions Reported Meds & Active Scripts Active Reported Oxycodone (Oxycodone HCl) 5 Mg Tab 5 Mg PO Q6H PRN Trazodone (Trazodone HCl) 100 Mg Tablet 150 Mg PO HS Meclizine (Meclizine HCl) 25 Mg Tab 25 Mg PO TID PRN Escitalopram (Escitalopram Oxalate) 20 Mg Tab 20 Mg PO DAILY [place] Carbonate 300 Mg Cap 300 Mg PO BID Clonazepam 0.5 Mg Tab 0.5 Mg PO BID Atorvastatin (Atorvastatin Calcium) 20 Mg Tab 20 Mg PO HS Amlodipine (Amlodipine Besylate) 5 Mg Tab 5 Mg PO DAILY Sumatriptan (Sumatriptan Succinate) 50 Mg Tab 50 Mg PO Q6HR PRN If a satisfactory response has not been obtained at 2 hours, a second dose may be administered Review of Systems Except as stated in HPI: all other systems reviewed are Neg Physical Exam Narrative GENERAL: Well-nourished, well-developed patient in moderate apparent distress with her left shoulder pain. Her vital signs are normal. SKIN: Focused skin assessment warm/dry. There is some redness on the left shoulder, possible contusion on this area but not associated with any deformity of the shoulder. HEAD: Normocephalic. EYES: No scleral icterus. No injection or drainage. NECK: Supple, trachea midline. No JVD or lymphadenopathy. CARDIOVASCULAR: Regular rate and rhythm without murmurs, gallops, or rubs. RESPIRATORY: Breath sounds equal bilaterally. No accessory muscle use. GASTROINTESTINAL: Abdomen soft, non-tender, nondistended. MUSCULOSKELETAL: No cyanosis, or edema. No deformity is noted on the left shoulder. No obvious bony crepitus is noted. There is no evidence of dislocation present. Good capillary refill and pinprick is present distally on the left hand. BACK: Nontender without obvious deformity. No CVA tenderness. Data Data Last Documented VS Vital Signs Date Time Temp Pulse Resp B/P Pulse Ox O2 Delivery O2 Flow Rate FiO2 05/07/17 00:25 97 Room Air 05/06/17 23:58 98.3 89 18 139/81 Orders Shoulder, Limited(2vws) (05/07/17 ) [facility] Medical Decision Making Medical Screen Exam Complete: Yes Emergency Medical Condition: Yes Medical Record Reviewed: Yes Interpretation(s) X-rays of the left shoulder show no fracture, dislocation or subluxation. There is calcific tendinitis of the distal cuff and postsurgical changes are noted. Differential Diagnosis Contusion left shoulder, fracture left shoulder, dislocation left shoulder Narrative Course The patient is a contusion of the left shoulder. There is no evidence of any other injury at this time. Diagnosis Primary Impression: Contusion of left shoulder Additional Instructions: I will write the Percocet 5/325, do not drink alcohol or drive on this medication. Follow-up as scheduled with your rehabilitation and with her orthopedic physician. Med/Other Pt SpecificInfo: Prescription(s) given Scripts Oxycodone-Acetaminophen (Percocet)5-325 mg Tab1 Tab PO Q4H PRN (PAIN) #30 TAB Ref 0 Prov:Bran Okeefe MD 05/07/17 Disposition: 01 DISCHARGE HOME Condition: Stable Bran Okeefe MD May 07, 2017 01:36
[2017-05-07] MEDS ORDERED: PERC5TAB12 PO (01:42)
[2017-05-07] MEDS ORDERED: oxyCODONE/ACETAMINOPHEN 7.5 MG/325 MG TAB PO ONE (01:45)
== END 2017-05-07 01:57 | disposition home or self-care (01) ==
LOC: NEPC 23:56
DX: S40.012A Contusion of left shoulder, initial encounter (principal); F31.9 Bipolar disorder, unspecified; I10 Essential (primary) hypertension; J44.9 Chronic obstructive pulmonary disease, unspecified; G62.9 Polyneuropathy, unspecified; Z86.73 Personal history of transient ischemic attack (TIA), and cerebral infarction without residual deficits; Z79.899 Other long term (current) drug therapy; Z72.0 Tobacco use; W19.XXXA Unspecified fall, initial encounter
CPT/HCPCS: 73030; 99283

== ENCOUNTER 2017-06-10 14:24 | Emergency (ER) | payer OTHER, MEDICAID ==
[~2017-06-10] VITALS: Ht 170.2 cm; Wt 80.0 kg
[~2017-06-10 14:24] MED LIST changes: -DICL50TA PO; -HYDR-4107 PO; +OXYC-392 PO; +PERC5TAB12 PO; -TRAZ100T4 PO; +TRAZ100T6 PO
[2017-06-10 14:26] VITALS: BP 152/101; PULSE 94; RESP 20; TEMP 97.7; O2SAT 95
--- NOTE | 2017-06-10 14:42 | PD ---
HPI Chief Complaint: Chest Pain Time Seen by Provider: 14:30 Travel History International Travel<30 days: No Contact w/Intl Traveler<30days: No Traveled to known affect area: No History of Present Illness HPI This is a 51-year-old female who reports a history of anxiety, bipolar disorder , COPD, CVA. She presents for evaluation of chest pain. Symptoms started just prior to arrival. She reports that she was at home when her daughter's boyfriend arrived and caused a lot of anxiety. She began having left-sided chest pain that radiates down the left arm during this time. The pain is a pressure type pain which is aggravated by anxiety. She endorses a cough since yesterday as well. Denies acute shortness of breath, abdominal pain, nausea or vomiting, recent illness, recent travel or surgery. This patient was admitted into the chest pain center on March 27 of this year. She had a myocardial perfusion scan on March 28 which was low risk. Her symptoms and history at that time were similar to her presenting symptoms and history today. PFSH Past Medical History Hx Anticoagulant Therapy: Yes (ASPIRIN) Bipolar Disorder: Yes Depression: Yes Heart Rhythm Problems: No Cardiac Catheterization: No Cardiovascular Problems: Yes (HTN) High Cholesterol: No Congestive Heart Failure: No COPD: Yes Cerebrovascular Accident: Yes Diabetes: No Diminished Hearing: No Hypertension: Yes Neurologic: Yes (peripheral neuropathy) Immunizations Current: Yes Menopausal: Yes : 3 Past Surgical History Appendectomy: Yes Cholecystectomy: Yes Coronary Artery Bypass Graft: No Hysterectomy: Yes Neurologic Surgery: Yes (COILED ANEURYSM) Tonsillectomy: Yes Social History Alcohol Use: No Tobacco Use: Yes Substance Use: No Allergies-Medications (Allergen,Severity, Reaction): Coded Allergies: Bee Sting (Verified Allergy, Severe, SOB, 06/10/17) Sulfa (Verified Allergy, Severe, SOB, 06/10/17) Ceftin (Verified Allergy, Intermediate, SOB, 06/10/17) Cipro (Verified Allergy, Intermediate, SOB, 06/10/17) Reported Meds & Prescriptions Reported Meds & Active Scripts Active Percocet (Oxycodone-Acetaminophen) 5-325 mg Tab 1 Tab PO Q4H PRN Reported Gabapentin 100 Mg Cap 100 Mg PO TID Trazodone (Trazodone HCl) 100 Mg Tablet 200 Mg PO HS Meclizine (Meclizine HCl) 25 Mg Tab 25 Mg PO TID PRN Escitalopram (Escitalopram Oxalate) 20 Mg Tab 20 Mg PO DAILY [place] Carbonate 300 Mg Cap 300 Mg PO BID Atorvastatin (Atorvastatin Calcium) 20 Mg Tab 20 Mg PO HS Amlodipine (Amlodipine Besylate) 5 Mg Tab 5 Mg PO DAILY Sumatriptan (Sumatriptan Succinate) 50 Mg Tab 50 Mg PO Q6HR PRN If a satisfactory response has not been obtained at 2 hours, a second dose may be administered Review of Systems Except as stated in HPI: all other systems reviewed are Neg Physical Exam Narrative GENERAL: Well-developed well-nourished female who appears anxious on initial examination. SKIN: Warm and dry. HEAD: Atraumatic. Normocephalic. EYES: Pupils equal and round. No scleral icterus. No injection or drainage. ENT: No nasal bleeding or discharge. Mucous membranes pink and moist. NECK: Trachea midline. No JVD. CARDIOVASCULAR: Regular rate and rhythm. No murmur appreciated. RESPIRATORY: No accessory muscle use. Clear to auscultation. Breath sounds equal bilaterally. GASTROINTESTINAL: Abdomen soft, non-tender, nondistended. Hepatic and splenic margins not palpable. MUSCULOSKELETAL: No obvious deformities. No clubbing. No cyanosis. No edema. NEUROLOGICAL: Awake and alert. No obvious cranial nerve deficits. Motor grossly within normal limits. Normal speech. PSYCHIATRIC: Appropriate mood and affect; insight and judgment normal. Anxious. Data Data Last Documented VS Vital Signs Date Time Temp Pulse Resp B/P Pulse Ox O2 Delivery O2 Flow Rate FiO2 06/10/17 17:30 63 18 136/80 97 Room Air 06/10/17 14:26 97.7 Orders Electrocardiogram (06/10/17 ) Basic Metabolic Panel (Bmp) (06/10/17 14:34) Ckmb (Isoenzyme) Profile (06/10/17 14:34) Complete Blood Count With Diff (06/10/17 14:34) Magnesium (Mg) (06/10/17 14:34) Troponin I (06/10/17 14:34) Chest, Single Ap (06/10/17 14:34) Ecg Monitoring (06/10/17 14:34) Bilateral Bp Monitoring (06/10/17 14:34) Iv Access Insert/Monitor (06/10/17 14:34) Oximetry (06/10/17 14:34) Oxygen Administration (06/10/17 14:34) Sodium Chloride 0.9% Flush (Ns Flush) (06/10/17 14:45) Nitroglycerin Sl (Nitrostat Sl) (06/10/17 14:45) Lorazepam Inj (Ativan Inj) (06/10/17 14:45) Troponin I (06/10/17 18:00) Electrocardiogram (06/10/17 18:00) Labs Laboratory Tests Test 06/10/17 06/10/17 14:50 18:00 White Blood Count 8.2 TH/MM3 Red Blood Count 4.57 MIL/MM3 Hemoglobin 14.2 GM/DL Hematocrit 41.7 % Mean Corpuscular Volume 91.2 FL Mean Corpuscular Hemoglobin 31.1 PG Mean Corpuscular Hemoglobin 34.1 % Concent Red Cell Distribution Width 13.8 % Platelet Count 317 TH/MM3 Mean Platelet Volume 8.6 FL Neutrophils (%) (Auto) 63.5 % Lymphocytes (%) (Auto) 28.8 % Monocytes (%) (Auto) 4.5 % Eosinophils (%) (Auto) 1.9 % Basophils (%) (Auto) 1.3 % Neutrophils # (Auto) 5.2 TH/MM3 Lymphocytes # (Auto) 2.4 TH/MM3 Monocytes # (Auto) 0.4 TH/MM3 Eosinophils # (Auto) 0.2 TH/MM3 Basophils # (Auto) 0.1 TH/MM3 CBC Comment DIFF FINAL Differential Comment Sodium Level 142 MEQ/L Potassium Level 3.6 MEQ/L Chloride Level 106 MEQ/L Carbon Dioxide Level 25.7 MEQ/L Anion Gap 10 MEQ/L Blood Urea Nitrogen 11 MG/DL Creatinine 0.71 MG/DL Estimat Glomerular Filtration 86 ML/MIN Rate Random Glucose 82 MG/DL Calcium Level 9.0 MG/DL Magnesium Level 2.0 MG/DL Total Creatine Kinase 29 U/L Troponin I LESS THAN 0.02 LESS THAN 0.02 NG/ML NG/ML MDM Medical Decision Making Medical Screen Exam Complete: Yes Emergency Medical Condition: Yes Medical Record Reviewed: Yes Differential Diagnosis Anxiety, acute coronary syndrome, angina, costochondritis, pneumothorax, hemothorax, pericarditis, myocarditis, PE Narrative Course 51-year-old female presents with several minutes of left-sided chest pain that radiates down the left arm. Symptoms were initiated by anxiety related to her interactions with her daughter's boyfriend. She had similar pain in March of this year under similar circumstances and was admitted into her chest pain center. Reassuringly she had negative cardiac enzymes and a negative myocardial perfusion scan. Plan today is for basic lab work, 12-lead EKG, ECG monitoring and pulse oximetry. She will be given nitroglycerin and Ativan. She took a full dose aspirin earlier today. Reassuring with the patient's initial cardiac enzymes are negative and given her very recent negative stress test the plan is for repeat EKG and troponin after the initial set. A second troponin was negative and therefore the patient was discharged home to follow up close with primary care physician. Procedures EKG Prior to Arrival: Yes Diagnosis Primary Impression: Chest pain Qualified Code: R07.9 - Chest pain, unspecified type Additional Impression: Anxiety Additional Instructions: Follow-up closely with primary care physician and return for any acutely new or worsening symptoms. Med/Other Pt SpecificInfo: No Change to Meds Disposition: 01 DISCHARGE HOME Condition: Stable Jasiel Moctezuma Jun 10, 2017 14:42
[2017-06-10] MEDS ORDERED: SODIUM CHLORIDE 0.9% FLUSH 10 ML FLUSH IVF PRN (14:45)
[2017-06-10] MEDS ORDERED: LORazepam 2 MG/ML VIAL IV PUSH ONE (14:45)
[2017-06-10] MEDS ORDERED: NITROGLYCERIN 0.4 MG SL 25 TABS/BTL SL ONE (14:45)
[2017-06-10 14:54] VITALS: BP 127/94; PULSE 76; RESP 40; O2SAT 96
--- NOTE | 2017-06-10 14:55 | RADRPT ---
EXAM DATE/TIME: 06/10/2017 14:31 [facility] COMPARISON: CHEST SINGLE AP, March 27, 2017, 14:23. INDICATIONS : Left sided chest pain radiating down left arm and lower extremity weakness. MEDICAL HISTORY : Stroke. Hypertension. Chronic obstructive pulmonary disease. Coiled aneurysm. SURGICAL HISTORY : None. ENCOUNTER: Initial ACUITY: 1 day PAIN SCORE: 6/10 LOCATION: Left chest FINDINGS: The lungs are clear without infiltrate, nodule, or mass. There is no appreciable pleural effusion fo r technique. Heart and mediastinum are unremarkable. CONCLUSION: No acute cardiopulmonary disease. Huang Ma MD on June 10, 2017 at 14:54 Board Certified Radiologist. This report was verified electronically.
[2017-06-10 15:19] LABS: AUTOMATED NEUTROPHIL # 5.2 TH/MM3 (1.8-7.7); BASOPHIL # 0.1 TH/MM3 (0-0.2); BASOPHIL % 1.3 % (0.0-2.0); EOSINOPHIL # 0.2 TH/MM3 (0-0.4); EOSINOPHIL % 1.9 % (0.0-4.0); HEMATOCRIT 41.7 % (35.0-46.0); HEMO FLAGS DIFF FINAL; LYMPH % 28.8 % (9.0-44.0); LYMPHOCYTE # 2.4 TH/MM3 (1.0-4.8); MEAN CELL VOLUME 91.2 FL (80.0-100.0); MEAN CORPUSCULAR HEMOGLOBIN 31.1 PG (27.0-34.0); MEAN CORPUSCULAR HGB CONC 34.1 % (32.0-36.0); MONO % 4.5 % (0.0-8.0); NEUT % 63.5 % (16.0-70.0); PLATELET COUNT 317 TH/MM3 (150-450); RED BLOOD COUNT 4.57 MIL/MM3 (4.00-5.30); RED CELL DISTRIBUTION WIDTH 13.8 % (11.6-17.2); WHITE BLOOD COUNT 8.2 TH/MM3 (4.0-11.0)
[2017-06-10 15:43] LABS: ANION GAP 10 MEQ/L (5-15); BICARBONATE 25.7 MEQ/L (21.0-32.0); BLOOD UREA NITROGEN 11 MG/DL (7-18); CHLORIDE 106 MEQ/L (98-107); GLOMERULAR FILTRATION RATE 86 ML/MIN (>89); POTASSIUM 3.6 MEQ/L (3.5-5.1); SODIUM (NA) 142 MEQ/L (136-145)
[2017-06-10 15:55] LABS: CREATINE KINASE 29 U/L (26-192)
[2017-06-10 15:58] VITALS: BP 126/78; PULSE 67; RESP 16; O2SAT 97
[2017-06-10] MEDS ORDERED: GABA100C4 PO (16:34)
[2017-06-10 17:30] VITALS: BP 136/80; PULSE 63; RESP 18; O2SAT 97
--- NOTE | 2017-06-10 18:48 | EKG ---
Date Performed: 06/10/2017 Time Performed: 14:40:46 PTAGE: 51 years EKG: Sinus rhythm POSSIBLE RIGHT ATRIAL ENLARGEMENT POSSIBLE LEFT ATRIAL ENLARGEMENT NONSPECIFIC INFERIOR ST ELEVATION BORDERLINE ECG PREVIOUS TRACING : 03/27/2017 20.35 Compared to previous tracing, nonspecific inferior ST eleva tion is now present. DOCTOR: Carmine Ruffin Interpretating Date/Time 06/10/2017 18:47:51
--- NOTE | 2017-06-10 21:31 | EKG ---
Date Performed: 06/10/2017 Time Performed: 18:07:11 PTAGE: 51 years EKG: Sinus rhythm PROLONGED QT INTERVAL ABNORMAL ECG PREVIOUS TRACING : 06/10/2017 14.40 No significant change from previous tracing noted. DOCTOR: Carmine Ruffin Interpretating Date/Time 06/10/2017 21:29:47
== END 2017-06-10 19:12 | disposition home or self-care (01) ==
LOC: NEPE 14:24
DX: R07.9 Chest pain, unspecified (principal); F41.9 Anxiety disorder, unspecified; I45.81 Long QT syndrome; R94.31 Abnormal electrocardiogram [ECG] [EKG]; F31.9 Bipolar disorder, unspecified; J44.9 Chronic obstructive pulmonary disease, unspecified; I10 Essential (primary) hypertension; G62.9 Polyneuropathy, unspecified; Z86.73 Personal history of transient ischemic attack (TIA), and cerebral infarction without residual deficits
CPT/HCPCS: 71010; 80048; 82550; 83735; 84484; 85025; 93005; 96374; 99285; J2060

== ENCOUNTER 2017-07-23 21:02 | Inpatient (IN) | payer OTHER, MEDICAID, MEDICARE ==
[~2017-07-23] VITALS: Ht 170.2 cm; Wt 81.7 kg
[~2017-07-23 21:02] MED LIST changes: -CLON0.5T PO; +GABA100C4 PO; -OXYC-392 PO
[2017-07-23 21:05] VITALS: BP 136/86; PULSE 78; RESP 16; TEMP 98.9; O2SAT 94
[2017-07-23 21:22] VITALS: BP 139/90; PULSE 66; RESP 18; O2SAT 98
[2017-07-23] MEDS ORDERED: SODIUM CHLOR 0.9% 1000 ML INJ 1,000 ML IV SCH (21:28)
[2017-07-23] MEDS ORDERED: MORPHINE SULFATE 4 MG/ML INJ IV PUSH ONE (21:30)
[2017-07-23] MEDS ORDERED: SODIUM CHLORIDE 0.9% FLUSH 10 ML FLUSH IV FLUSH PRN (21:30)
[2017-07-23] MEDS ORDERED: ONDANSETRON HCL 4 MG/2 ML VIAL IVP ONE (21:30)
--- NOTE | 2017-07-23 21:38 | PD ---
HPI Chief Complaint: Abdominal Pain Time Seen by Provider: 21:19 Travel History International Travel<30 days: No Contact w/Intl Traveler<30days: No Traveled to known affect area: No History of Present Illness HPI 52-year-old female with PMH of anxiety, depression, bipolar, hypertension, COPD , CVA 2, bowel obstruction presents to the ED for evaluation 2 week history of lower quadrant abdominal pain. Rated 8/10 on presentation. Worsened by eating. Accompanied by nausea, multiple loose stools daily. Patient states that bowel movements do not improve the pain. She states that she had a few episodes of nonbloody, nonbilious vomiting today. She endorses increased urinary urgency. She denies fevers, chills, chest pain, palpitations, melena, hematochezia, dysuria. She endorses colonoscopy "about 3 years ago." She states this was normal at the time. PFSH Past Medical History Hx Anticoagulant Therapy: Yes (ASPIRIN) Arthritis: Yes Bipolar Disorder: Yes Anxiety: Yes Depression: Yes Heart Rhythm Problems: No Cardiac Catheterization: No Cardiovascular Problems: Yes (HTN) High Cholesterol: No Congestive Heart Failure: No COPD: Yes Cerebrovascular Accident: Yes (x2) Diabetes: No Diminished Hearing: No Heparin Induced Thrombocytopen: No Hypertension: Yes Musculoskeletal: Yes (knee reeplacement) Neurologic: Yes (peripheral neuropathy) Respiratory: Yes (COPD) Immunizations Current: Yes ?: Not Menopausal: Yes : 3 Para: 3 Miscarriage: 0 : 0 Past Surgical History Appendectomy: Yes Cholecystectomy: Yes Coronary Artery Bypass Graft: No Hysterectomy: Yes Neurologic Surgery: Yes (COILED ANEURYSM) Tonsillectomy: Yes Social History Alcohol Use: No Tobacco Use: Yes (1/2PPD) Substance Use: No Allergies-Medications (Allergen,Severity, Reaction): Coded Allergies: Sulfa (Sulfonamide Antibiotics) (Unverified Allergy, Severe, SOB, 07/03/17) bee venom protein (honey bee) (Unverified Allergy, Severe, SOB, 07/03/17) cefuroxime (Unverified Allergy, Intermediate, SOB, 07/03/17) ciprofloxacin (Unverified Allergy, Intermediate, SOB, 07/03/17) Reported Meds & Prescriptions Reported Meds & Active Scripts Active Percocet (Oxycodone-Acetaminophen) 5-325 mg Tab 1 Tab PO Q4H PRN Reported Trazodone (Trazodone HCl) 100 Mg Tablet 200 Mg PO HS Meclizine (Meclizine HCl) 25 Mg Tab 25 Mg PO TID PRN Escitalopram (Escitalopram Oxalate) 20 Mg Tab 20 Mg PO DAILY [place] Carbonate 300 Mg Cap 300 Mg PO BID Atorvastatin (Atorvastatin Calcium) 20 Mg Tab 20 Mg PO HS Amlodipine (Amlodipine Besylate) 5 Mg Tab 5 Mg PO DAILY Sumatriptan (Sumatriptan Succinate) 50 Mg Tab 50 Mg PO Q6HR PRN If a satisfactory response has not been obtained at 2 hours, a second dose may be administered Review of Systems Except as stated in HPI: all other systems reviewed are Neg Physical Exam Narrative GENERAL: Well-nourished, well-developed white female in no acute distress. SKIN: Focused skin assessment warm/dry. Large midline abdominal scar without signs of infection. HEAD: Normocephalic. EYES: No scleral icterus. No injection or drainage. NECK: Supple, trachea midline. No JVD or lymphadenopathy. CARDIOVASCULAR: Regular rate and rhythm without murmurs, gallops, or rubs. RESPIRATORY: Breath sounds clear and equal bilaterally. No accessory muscle use. GASTROINTESTINAL: Abdomen soft, nondistended. Tender to palpation in all quadrants. No palpable masses. Active bowel sounds. MUSCULOSKELETAL: No cyanosis, or edema. BACK: Nontender without obvious deformity. No CVA tenderness. Data Data Last Documented VS Vital Signs Date Time Temp Pulse Resp B/P (MAP) Pulse Ox O2 Delivery O2 Flow Rate FiO2 07/24/17 01:30 78 18 120/78 (92) 98 Room Air 07/23/17 21:05 98.9 Orders Orders Complete Blood Count With Diff (07/23/17 21:28) Comprehensive Metabolic Panel (07/23/17 21:28) Lipase (07/23/17 21:28) Lactic Acid (07/23/17 21:28) Prothrombin Time / Inr (Pt) (07/23/17 21:28) Act Partial Throm Time (Ptt) (07/23/17 21:28) Urinalysis - C+S If Indicated (07/23/17 21:28) Ct Abd/Pel W Iv Contrast(Rout) (07/23/17 21:28) Iv Access Insert/Monitor (07/23/17 21:28) Ecg Monitoring (07/23/17 21:28) Oximetry (07/23/17 21:28) NPO (07/23/17 21:28) Morphine Inj (Morphine Inj) (07/23/17 21:30) Ondansetron Inj (Zofran Inj) (07/23/17 21:30) Sodium Chlor 0.9% 1000 Ml Inj (Ns 1000 M (07/23/17 21:28) Sodium Chloride 0.9% Flush (Ns Flush) (07/23/17 21:30) Iohexol 350 Inj (Omnipaque 350 Inj) (07/23/17 23:27) Admit Order (Ed Use Only) (07/24/17 01:32) Labs Laboratory Tests Test 07/23/17 21:35 07/24/17 00:50 Prothrombin Time 10.6 SEC Prothromb Time International Ratio 1.0 RATIO Activated Partial Thromboplast Time 23.1 SEC Urine Color LIGHT-YELLOW Urine Turbidity CLEAR Urine pH 5.5 Urine Specific [place] 1.006 Urine Protein NEG mg/dL Urine Glucose (UA) NEG mg/dL Urine Ketones NEG mg/dL Urine Occult Blood MOD Urine Nitrite NEG Urine Bilirubin NEG Urine Urobilinogen LESS THAN 2.0 MG/DL Urine Leukocyte Esterase NEG Urine RBC 2 /hpf Urine WBC LESS THAN 1 /hpf Microscopic Urinalysis Comment CULT NOT INDICATED White Blood Count 8.2 TH/MM3 Red Blood Count 4.52 MIL/MM3 Hemoglobin 13.7 GM/DL Hematocrit 42.2 % Mean Corpuscular Volume 93.2 FL Mean Corpuscular Hemoglobin 30.4 PG Mean Corpuscular Hemoglobin Concent 32.6 % Red Cell Distribution Width 14.0 % Platelet Count 269 TH/MM3 Mean Platelet Volume 8.2 FL Neutrophils (%) (Auto) 49.4 % Lymphocytes (%) (Auto) 36.4 % Monocytes (%) (Auto) 8.0 % Eosinophils (%) (Auto) 5.9 % Basophils (%) (Auto) 0.3 % Neutrophils # (Auto) 4.1 TH/MM3 Lymphocytes # (Auto) 3.0 TH/MM3 Monocytes # (Auto) 0.7 TH/MM3 Eosinophils # (Auto) 0.5 TH/MM3 Basophils # (Auto) 0.0 TH/MM3 CBC Comment DIFF FINAL Differential Comment Blood Urea Nitrogen 12 MG/DL Creatinine 0.75 MG/DL Random Glucose 87 MG/DL Total Protein 6.0 GM/DL Albumin 3.0 GM/DL Calcium Level 8.0 MG/DL Alkaline Phosphatase 67 U/L Aspartate Amino Transf (AST/SGOT) 9 U/L Alanine Aminotransferase (ALT/SGPT) 15 U/L Total Bilirubin 0.2 MG/DL Sodium Level 141 MEQ/L Potassium Level 3.3 MEQ/L Chloride Level 111 MEQ/L Carbon Dioxide Level 24.3 MEQ/L Anion Gap 6 MEQ/L Estimat Glomerular Filtration Rate 81 ML/MIN Lactic Acid Level 0.6 mmol/L Lipase 3429 U/L [facility] Medical Decision Making Medical Screen Exam Complete: Yes Emergency Medical Condition: Yes Differential Diagnosis Bowel obstruction versus ventral hernia versus diverticulitis versus IBS versus electrolyte abnormality versus other Narrative Course 52-year-old female with PMH of anxiety, depression, bipolar, hypertension, COPD , CVA 2, bowel obstruction presents to the ED for evaluation 2 week history of 8/10 lower quadrant abdominal pain. Worsened by eating. Accompanied by nausea , multiple loose stools daily. Bowel movements do not improve the pain. She states that she had a few episodes of nonbloody, nonbilious vomiting today. She endorses increased urinary urgency. She denies fevers, chills, chest pain, palpitations, melena, hematochezia, dysuria. She endorses colonoscopy "about 3 years ago." Vitals reviewed. Physical exam reveals a nontoxic-appearing white female in no acute distress. There is tenderness to palpation of the bilateral lower abdominal quadrants. IVs established. Patient was administered 1 L normal saline, 4 mg Zofran, [address], lab work pending. Disposition per Dr. Enciso. Saige Bruno Jul 23, 2017 21:38
[2017-07-23 22:36] LABS: BLOOD, URINE MOD (NEG); COMMENT (UR) CULT NOT INDICATED; CULTURE IF INDICATED CULT NOT INDICATED; GLUCOSE,URINE NEG (NEG); KETONE, URINE NEG (NEG); NITRITE,URINE NEG (NEG); PH, URINE 5.5 (5.0-8.5); URINE COLOR LIGHT-YELLOW (YELLW/STRAW)
[2017-07-23 22:47] VITALS: BP 136/85; PULSE 62; RESP 18; O2SAT 97
--- NOTE | 2017-07-23 23:20 | PD ---
Data Data Last Documented VS Vital Signs Date Time Temp Pulse Resp B/P (MAP) Pulse Ox O2 Delivery O2 Flow Rate FiO2 07/24/17 01:30 78 18 120/78 (92) 98 Room Air 07/23/17 21:05 98.9 Orders Orders Complete Blood Count With Diff (07/23/17 21:28) Comprehensive Metabolic Panel (07/23/17 21:28) Lipase (07/23/17 21:28) Lactic Acid (07/23/17 21:28) Prothrombin Time / Inr (Pt) (07/23/17 21:28) Act Partial Throm Time (Ptt) (07/23/17 21:28) Urinalysis - C+S If Indicated (07/23/17 21:28) Ct Abd/Pel W Iv Contrast(Rout) (07/23/17 21:28) Iv Access Insert/Monitor (07/23/17 21:28) Ecg Monitoring (07/23/17 21:28) Oximetry (07/23/17 21:28) NPO (07/23/17 21:28) Morphine Inj (Morphine Inj) (07/23/17 21:30) Ondansetron Inj (Zofran Inj) (07/23/17 21:30) Sodium Chlor 0.9% 1000 Ml Inj (Ns 1000 M (07/23/17 21:28) Sodium Chloride 0.9% Flush (Ns Flush) (07/23/17 21:30) Iohexol 350 Inj (Omnipaque 350 Inj) (07/23/17 23:27) Admit Order (Ed Use Only) (07/24/17 01:32) Labs Laboratory Tests Test 07/23/17 21:35 07/24/17 00:50 Prothrombin Time 10.6 SEC Prothromb Time International Ratio 1.0 RATIO Activated Partial Thromboplast Time 23.1 SEC Urine Color LIGHT-YELLOW Urine Turbidity CLEAR Urine pH 5.5 Urine Specific [place] 1.006 Urine Protein NEG mg/dL Urine Glucose (UA) NEG mg/dL Urine Ketones NEG mg/dL Urine Occult Blood MOD Urine Nitrite NEG Urine Bilirubin NEG Urine Urobilinogen LESS THAN 2.0 MG/DL Urine Leukocyte Esterase NEG Urine RBC 2 /hpf Urine WBC LESS THAN 1 /hpf Microscopic Urinalysis Comment CULT NOT INDICATED White Blood Count 8.2 TH/MM3 Red Blood Count 4.52 MIL/MM3 Hemoglobin 13.7 GM/DL Hematocrit 42.2 % Mean Corpuscular Volume 93.2 FL Mean Corpuscular Hemoglobin 30.4 PG Mean Corpuscular Hemoglobin Concent 32.6 % Red Cell Distribution Width 14.0 % Platelet Count 269 TH/MM3 Mean Platelet Volume 8.2 FL Neutrophils (%) (Auto) 49.4 % Lymphocytes (%) (Auto) 36.4 % Monocytes (%) (Auto) 8.0 % Eosinophils (%) (Auto) 5.9 % Basophils (%) (Auto) 0.3 % Neutrophils # (Auto) 4.1 TH/MM3 Lymphocytes # (Auto) 3.0 TH/MM3 Monocytes # (Auto) 0.7 TH/MM3 Eosinophils # (Auto) 0.5 TH/MM3 Basophils # (Auto) 0.0 TH/MM3 CBC Comment DIFF FINAL Differential Comment Blood Urea Nitrogen 12 MG/DL Creatinine 0.75 MG/DL Random Glucose 87 MG/DL Total Protein 6.0 GM/DL Albumin 3.0 GM/DL Calcium Level 8.0 MG/DL Alkaline Phosphatase 67 U/L Aspartate Amino Transf (AST/SGOT) 9 U/L Alanine Aminotransferase (ALT/SGPT) 15 U/L Total Bilirubin 0.2 MG/DL Sodium Level 141 MEQ/L Potassium Level 3.3 MEQ/L Chloride Level 111 MEQ/L Carbon Dioxide Level 24.3 MEQ/L Anion Gap 6 MEQ/L Estimat Glomerular Filtration Rate 81 ML/MIN Lactic Acid Level 0.6 mmol/L Lipase 3429 U/L [facility] Medical Record Reviewed: Yes Supervised Visit with JANESSA: No Interpretation(s) Last Impressions Abdomen/Pelvis CT 07/23/172127 Signed Impressions: Service Date/Time: Sunday, July 23, 2017 23:17 - CONCLUSION: 1. 2.2 x 2.2 cm heterogeneously hypodense mass in superior segment 5 of the liver extending to the liver capsule. This lesion can be further characterized with multiphase liver mass protocol MRI or CT exam. 2. Status post cholecystectomy with likely reservoir effect mild intra-and extra hepatic ductal dilatation. 3. Post surgical features in the anterior abdominal wall with very small midline midanterior abdominal wall collection measuring 0.9 x 3.1 cm, likely chronic. 4. Status post appendectomy and hysterectomy. 1. Erich Gooden MD Narrative Course During the course of the patients emergency department visit, the patients history, examination, and differential diagnosis were reviewed with the patient by Saige. The patient had IV access obtained and blood work sent for analysis. The patient was placed on a groundwater monitoring technician with oximetry and blood pressure monitoring. The patient was initially seen by Saige. Please see her complete history and physical. The patient's case was checked out to me at the conclusion of her shift with pending blood work and CT scan of the abdomen and pelvis. The patient reports a history of abdominal pain with diarrhea. The patient was initially provided normal saline 1 L IV fluid bolus, morphine 4 mg IV for pain, Zofran 4 mg IV for nausea. The patient's chemistry panel was repeatedly re-collected delay her evaluation. The patients laboratory studies were reviewed and remarkable for a white count of 8.2, hemoglobin 13.7, platelets 269 with 5.9 eosinophils, CMP is remarkable for a potassium of 3.3, chloride 111, GFR of 81, calcium 8.0, AST 9, total protein 6, albumin 3.0, lipase 3429, PT 10.6, PTT 23.1, urinalysis shows moderate occult blood, otherwise unremarkable. CT scan of the abdomen and pelvis revealed a 2.2 x 2.2 cm heterogeneously hypodense mass in the superior segment 5 of the liver extending to the liver capsule. This lesion can be further visualized with multiphase liver mass protocol MRI or CT scan. The patient is status post cholecystectomy. Postsurgical features in the anterior abdominal wall with very small midline mid anterior abdominal wall collection measuring 0.9 x 3.1 cm that is likely chronic. The patient is status post appendectomy and hysterectomy. The patient will be admitted to the hospital for acute pancreatitis and additional workup of the liver mass. The patients results were discussed with the patient, including the plan of care. I explained that further testing and/ or monitoring is indicated based on the patients history, examination, and/ or laboratory findings. Therefore, I recommended admission for additional evaluation. The patient expressed understanding and was agreeable with this plan. The patient was admitted to the hospital in stable condition and [facility] Physician Communication Physician Communication The patient's case was discussed with Dr. Frausto who did agree to admit the patient for further evaluation and treatment at this time. Diagnosis Primary Impression: Acute pancreatitis Qualified Codes: K85.90 - Acute pancreatitis without necrosis or infection, unspecified Additional Impression: Liver mass Admitting Information Admitting Physician Requests: Admit Cristel Enciso MD Jul 23, 2017 23:20
[2017-07-23] MEDS ORDERED: IOHEXOL 350 MG/ML 10 ML VIAL (for RAD DIAG) IVCONTRAST ONE (23:27)
[2017-07-24] VITALS (10 sets, daily range): BP systolic 112–135; BP diastolic 63–90; PULSE 60–98; RESP 16–21; TEMP 95.7–97.5; O2SAT 92–99
--- NOTE | 2017-07-24 00:29 | RADRPT ---
EXAM DATE/TIME: 07/23/2017 23:17 [place] COMPARISON: No previous studies available for comparison. INDICATIONS : Abdominal pain. IV CONTRAST: 96 cc Omnipaque 350 (iohexol) IV ORAL CONTRAST: No oral contrast ingested. RADIATION DOSE: 9.96 CTDIvol (mGy) MEDICAL HISTORY : Hypertension. Cerebrovascular disease. Chronic obstructive pulmonary disease. SURGICAL HISTORY : Appendectomy. Cholecystectomy.Hysterectomy.Bilateral knees ENCOUNTER: Initial ACUITY: 1 day PAIN SCALE: 8/10 LOCATION: abdomen TECHNIQUE: Volumetric scanning of the abdomen and pelvis was performed. Using automated exposure control and ad justment of the mA and/or kV according to patient size, radiation dose was kept as low as reasonably achievable to obtain optimal diagnostic quality images. DICOM format image data is available electro nically for review and comparison. FINDINGS: LOWER LUNGS: Mild by basilar airspace disease which may reflect atelectasis. LIVER: Gallbladder is surgically absent. There is mild diffuse intra-and extrahepatic ductal dilatation whic h may reflect reservoir effect. There is an ill-defined heterogeneously hypodense mass in segment 5 o f the liver superiorly measuring 2.2 x 2.2 cm. This extends to the liver capsule. No additional focal lesions are noted. SPLEEN: Normal size without lesion. PANCREAS: Within normal limits. KIDNEYS: Kidneys demonstrate symmetrical enhancement without evidence of hydronephrosis or radiopaque renal ca lculi. Small subcentimeter cystic lesions in both kidneys are too small to fully characterize. ADRENAL GLANDS: Within normal limits. VASCULAR: Moderate diffuse atherosclerotic calcifications without aneurysm. Heavily calcified common iliac andrew blanca bilaterally. BOWEL/MESENTERY: Appendix is surgically absent. Bowel appears unremarkable without significant bowel wall thickening o r evidence for obstruction. No free air or drainable fluid collections. ABDOMINAL WALL: Postsurgical features with eduardo in the anterior mid abdomen. There is a very small collection in t he mid anterior abdominal wall measuring 0.9 x 3.1 cm. No significant inflammatory stranding in this region. RETROPERITONEUM: There is no lymphadenopathy. BLADDER: Bladder is distended but otherwise unremarkable. REPRODUCTIVE: Uterus is surgically absent. INGUINAL: There is no lymphadenopathy or hernia. MUSCULOSKELETAL: No abnormal focal lytic or blastic bony lesions. CONCLUSION: 1. 2.2 x 2.2 cm heterogeneously hypodense mass in superior segment 5 of the liver extending to the li alexandre capsule. This lesion can be further characterized with multiphase liver mass protocol MRI or CT e xam. 2. Status post cholecystectomy with likely reservoir effect mild intra-and extra hepatic ductal dilat ation. 3. Post surgical features in the anterior abdominal wall with very small midline midanterior abdomina l wall collection measuring 0.9 x 3.1 cm, likely chronic. 4. Status post appendectomy and hysterectomy. 1. Erich Gooden MD on July 24, 2017 at 0:19 Board Certified Radiologist. This report was verified electronically.
[2017-07-24 01:14] LABS: AUTOMATED NEUTROPHIL # 4.1 TH/MM3 (1.8-7.7); BASOPHIL % 0.3 % (0.0-2.0); EOSINOPHIL # 0.5 TH/MM3 (0-0.4); EOSINOPHIL % 5.9 % (0.0-4.0); HEMATOCRIT 42.2 % (35.0-46.0); HEMO FLAGS DIFF FINAL; LYMPH % 36.4 % (9.0-44.0); MEAN CELL VOLUME 93.2 FL (80.0-100.0); MEAN CORPUSCULAR HEMOGLOBIN 30.4 PG (27.0-34.0); MEAN CORPUSCULAR HGB CONC 32.6 % (32.0-36.0); NEUT % 49.4 % (16.0-70.0); PLATELET COUNT 269 TH/MM3 (150-450); RED BLOOD COUNT 4.52 MIL/MM3 (4.00-5.30); WHITE BLOOD COUNT 8.2 TH/MM3 (4.0-11.0)
[2017-07-24 01:15] LABS: PROTHROMBIN TIME - PATIENT 10.6 SEC (9.8-11.6)
[2017-07-24 01:16] LABS: APTT (PATIENT) 23.1 SEC (24.3-30.1)
[2017-07-24 01:22] LABS: ALT (GPT) 15 U/L (10-53); AST (GOT) 9 U/L (15-37); BLOOD UREA NITROGEN 12 MG/DL (7-18); GLOMERULAR FILTRATION RATE 81 ML/MIN (>89); SODIUM (NA) 141 MEQ/L (136-145)
[2017-07-24 01:23] LABS: ANION GAP 6 MEQ/L (5-15); BICARBONATE 24.3 MEQ/L (21.0-32.0); CHLORIDE 111 MEQ/L (98-107); POTASSIUM 3.3 MEQ/L (3.5-5.1)
[2017-07-24 01:27] LABS: ALKALINE PHOSPHATASE 67 U/L (45-117); TOTAL BILIRUBIN ADULT 0.2 MG/DL (0.2-1.0)
[2017-07-24] MEDS ORDERED: SODIUM CHLORIDE 0.9% FLUSH 10 ML FLUSH IV FLUSH PRN (02:30)
[2017-07-24] MEDS: HEPARIN SODIUM - SQ 10,000 UNITS/ML VIAL SQ SCH ×3 (03:06→18:18)
[2017-07-24] MEDS: MORPHINE SULFATE 4 MG/ML INJ IV PUSH PRN ×5 (03:07→22:12)
[2017-07-24] MEDS: SODIUM CHLOR 0.9% 1000 ML INJ 1,000 ML IV SCH ×5 (03:07→22:12)
--- NOTE | 2017-07-24 05:42 | HHI.HP ---
[facility] Service [facility] ([place], [place])ists Primary Care Physician Unknown Admission Diagnosis Acute pancreatitis, liver mass Diagnoses: Chief Complaint: Severe abdominal pain Travel History International Travel<30 Days: No Contact w/Intl Traveler <30 Da: No Traveled to Known Affected Are: No History of Present Illness 52 years old female with past medical history of COPD CVA 2 bipolar, hypertension depression anxiety, bowel obstruction presented to the ED complaining of 2 weekH/O abdominal pain mostly on the epigastric area and lower abdomen. 8-9 out of 10 with nausea vomiting and diarrhea especially after eating (multiple loose stool) no alleviating factor no blood in the stool or the vomit. Patient denied any fever or chills chest pain short of breath occupation, dysuria. In ED lab work showed increased lipase to 3000, CT scan of the abdomen showed1. 2.2 x 2.2 cm heterogeneously hypodense mass in superior segment 5 of the liver extending to the liver capsule. This lesion can be further characterized with multiphase liver mass protocol MRI or CT exam. 2. Status post cholecystectomy with likely reservoir effect mild intra-and extra hepatic ductal dilatation. Review of Systems All systems reviewed and was positive for what is mentioned in history of present illness otherwise negative Past Family Social History Past Medical History Bipolar, anxiety, depression,H/O aneurysm status post coiling, hypertension Past Surgical History TKR 2, SBO status post resection Hysterectomy Abdomen the Allergies: Coded Allergies: Sulfa (Sulfonamide Antibiotics) (Unverified Allergy, Severe, SOB, 07/03/17) bee venom protein (honey bee) (Unverified Allergy, Severe, SOB, 07/03/17) cefuroxime (Unverified Allergy, Intermediate, SOB, 07/03/17) ciprofloxacin (Unverified Allergy, Intermediate, SOB, 07/03/17) Family History Diabetes mellitus hypertension Social History Smoke one pack per day for 30 years, no alcohol or illicit drug abuse Physical Exam Vital Signs Vital Signs Date Time Temp Pulse Resp B/P (MAP) Pulse Ox O2 Delivery O2 Flow Rate FiO2 07/24/17 03:04 69 18 114/64 (81) 98 Room Air 07/24/17 01:30 78 18 120/78 (92) 98 Room Air 07/24/17 00:00 60 16 135/80 (98) 96 Room Air 07/23/17 22:47 62 18 136/85 (102) 97 Room Air 07/23/17 21:22 66 18 139/90 (106) 98 Room Air 07/23/17 21:05 98.9 78 16 136/86 (103) 94 Physical Exam GENERAL: This is a well-nourished, well-developed patient, in no apparent distress. SKIN: No rashes, warm and dry HEAD: Atraumatic. Normocephalic. EYES: Pupils equal round and reactive. Extraocular motions intact. No scleral icterus. ENT: Nose without bleeding, or drainage, Airway patent. NECK: Trachea midline. Supple CARDIOVASCULAR: Regular rate and rhythm without murmurs, gallops, or rubs. RESPIRATORY: Fair air entry bilaterally. No wheezes, rales, or rhonchi. GASTROINTESTINAL: Abdomen soft, tender to palpation in epigastric area, nondistended. Positive bowel sounds MUSCULOSKELETAL: Extremities without clubbing, cyanosis, or edema. Pedal pulses appreciated NEUROLOGICAL: Awake and alert. Moves all extremity. Normal speech.no focal neurological deficit Laboratory Laboratory Tests Test 07/23/17 21:35 07/24/17 00:50 Prothrombin Time 10.6 Prothromb Time International Ratio 1.0 Activated Partial Thromboplast Time 23.1 Urine Color LIGHT-YELLOW Urine Turbidity CLEAR Urine pH 5.5 Urine Specific [place] 1.006 Urine Protein NEG Urine Glucose (UA) NEG Urine Ketones NEG Urine Occult Blood MOD Urine Nitrite NEG Urine Bilirubin NEG Urine Urobilinogen LESS THAN 2.0 Urine Leukocyte Esterase NEG Urine RBC 2 Urine WBC LESS THAN 1 Microscopic Urinalysis Comment CULT NOT INDICATED White Blood Count 8.2 Red Blood Count 4.52 Hemoglobin 13.7 Hematocrit 42.2 Mean Corpuscular Volume 93.2 Mean Corpuscular Hemoglobin 30.4 Mean Corpuscular Hemoglobin Concent 32.6 Red Cell Distribution Width 14.0 Platelet Count 269 Mean Platelet Volume 8.2 Neutrophils (%) (Auto) 49.4 Lymphocytes (%) (Auto) 36.4 Monocytes (%) (Auto) 8.0 Eosinophils (%) (Auto) 5.9 Basophils (%) (Auto) 0.3 Neutrophils # (Auto) 4.1 Lymphocytes # (Auto) 3.0 Monocytes # (Auto) 0.7 Eosinophils # (Auto) 0.5 Basophils # (Auto) 0.0 CBC Comment DIFF FINAL Differential Comment Blood Urea Nitrogen 12 Creatinine 0.75 Random Glucose 87 Total Protein 6.0 Albumin 3.0 Calcium Level 8.0 Alkaline Phosphatase 67 Aspartate Amino Transf (AST/SGOT) 9 Alanine Aminotransferase (ALT/SGPT) 15 Total Bilirubin 0.2 Sodium Level 141 Potassium Level 3.3 Chloride Level 111 Carbon Dioxide Level 24.3 Anion Gap 6 Estimat Glomerular Filtration Rate 81 Lactic Acid Level 0.6 Lipase 3429 Result Diagram: 07/24/174907/24/1749 Imaging Last Impressions Abdomen/Pelvis CT 07/23/172127 Signed Impressions: Service Date/Time: Sunday, July 23, 2017 23:17 - CONCLUSION: 1. 2.2 x 2.2 cm heterogeneously hypodense mass in superior segment 5 of the liver extending to the liver capsule. This lesion can be further characterized with multiphase liver mass protocol MRI or CT exam. 2. Status post cholecystectomy with likely reservoir effect mild intra-and extra hepatic ductal dilatation. 3. Post surgical features in the anterior abdominal wall with very small midline midanterior abdominal wall collection measuring 0.9 x 3.1 cm, likely chronic. 4. Status post appendectomy and hysterectomy. 1. MD Robert Pineda VTE Risk Assessment Caprini VTE Risk Assessment: Mod/High Risk (score >= 2) Caprini Risk Assessment Model Point Value = 1 Point Value = 2 Point Value = 3 Point Value = 5 Age 41-60 Minor surgery BMI > 25 kg/m2 Swollen legs Varicose veins or History of unexplained or recurrent spontaneous Oral contraceptives or hormone replacement Sepsis (< 1 month) Serious lung disease, including pneumonia (< 1 month) Abnormal pulmonary function Acute myocardial infarction Congestive heart failure (< 1 month) History of inflammatory bowel disease Medical patient at bed rest Age 61-74 Arthroscopic surgery Major open surgery (> 45 min) Laparoscopic surgery (> 45 min) Malignancy Confined to bed (> 72 hours) Immobilizing plaster cast Central venous access Age >= 75 History of VTE Family history of VTE Factor V Leiden Prothrombin [id number] Lupus anticoagulant Anticardiolipin antibodies Elevated serum homocysteine Heparin-induced thrombocytopenia Other congenital or acquired thrombophilia Stroke (< 1 month) Elective arthroplasty Hip, pelvis, or leg fracture Acute spinal cord injury (< 1 month) Prophylaxis Regimen Total Risk Factor Score Risk Level Prophylaxis Regimen 0-1 Low Early ambulation 2 Moderate Order ONE of the following: *Sequential Compression Device (SCD) *Heparin 5000 units SQ BID 3-4 Higher Order ONE of the following medications: *Heparin 5000 units SQ TID *Enoxaparin/Lovenox 40 mg SQ daily (WT < 150 kg, CrCl > 30 mL/min) *Enoxaparin/Lovenox 30 mg SQ daily (WT < 150 kg, CrCl > 10-29 mL/min) *Enoxaparin/Lovenox 30 mg SQ BID (WT < 150 kg, CrCl > 30 mL/min) AND/OR *Sequential Compression Device (SCD) 5 or more Highest Order ONE of the following medications: *Heparin 5000 units SQ TID (Preferred with Epidurals) *Enoxaparin/Lovenox 40 mg SQ daily (WT < 150 kg, CrCl > 30 mL/min) *Enoxaparin/Lovenox 30 mg SQ daily (WT < 150 kg, CrCl > 10-29 mL/min) *Enoxaparin/Lovenox 30 mg SQ BID (WT < 150 kg, CrCl > 30 mL/min) AND *Sequential Compression Device (SCD) Assessment and Plan Assessment and Plan 52 years old female presented with Acute epigastric and lower abdominal pain History of hypertension History of bipolar History of CVA with coiling DVT prophylaxis Plan: Admit to telemetry floor Iv Protonix Consul GI O2 to keep O2 sat above 92% Resume home meds for the rest of medical sales consultant consultation Discussed Condition With Patient in ED physician Physician Certification 2 Midnight Certification Type: Admission for Inpatient Services Order for Inpatient Services The services are ordered in accordance with Medicare regulations or non- Medicare payer requirements, as applicable. In the case of services not specified as inpatient-only, they are appropriately provided as inpatient services in accordance with the 2-midnight benchmark. Estimated LOS (days): 2 days is the estimated time the patient will need to remain in the hospital, assuming treatment plan goals are met and no additional complications. Post-Hospital Plan: Not yet determined Allison Frausto MD Jul 24, 2017 05:42
[2017-07-24] MEDS: ONDANSETRON HCL 4 MG/2 ML VIAL IV PRN (06:40)
[2017-07-24 06:56] LABS: GLUCOSE,FASTING 74 MG/DL (74-99)
[2017-07-24] MEDS: SODIUM CHLORIDE 0.9% FLUSH 10 ML FLUSH IV FLUSH SCH ×2 (09:35→19:44)
--- NOTE | 2017-07-24 12:08 | PD.CONS ---
HPI History of Present Illness This is a 52 year old female who presented to the ER for evaluation of nausea, vomiting, and abdominal pain. She started having an intermittent abdominal pain on her left side, that she describes as a dull ache radiating to her LLQ, left side, and occasionally to her back. Yesterday, she began having nausea and vomiting with non-digested food, but no hematemesis. She also reports multiple loose stools throughout the day. She denies any fevers or chills. Her symptoms are aggravated by any oral intake- with nausea/vomiting/diarrhea starting about 5 minutes after taking anything by mouth. CT scan abdomen and pelvis with iv contrast (07/23/17)-----> 2.2 x 2.2 cm heterogeneously hypodense mass in superior segment 5 of the liver extending to the liver capsule. This lesion can be further characterized with multiphase liver mass protocol MRI or CT exam. Status post cholecystectomy with likely reservoir effect mild intra- and extrahepatic ductal dilatation. Postsurgical features in the anterior abdominal wall with very small midline mid anterior abdominal wall collection measuring 0.9 x 3.1 cm, likely chronic. Status post appendectomy and hysterectomy. Lipase was 3429 on admission. The patient denies any history of pancreatitis. She does not have her gallbladder. She does not drink alcohol. She denies any new medications or herbal supplements. She denies any autoimmune disease or liver disease in herself or family members. She last had a colonoscopy about 3 years ago. PFSH Past Medical History Bipolar disorder Anxiety/depression Aneurysm, status post coiling Hypertension Past Surgical History TKR 2 Small bowel resection secondary to obstruction Hysterectomy Cholecystectomy Colonoscopy Coded Allergies: Sulfa (Sulfonamide Antibiotics) (Unverified Allergy, Severe, SOB, 07/03/17) bee venom protein (honey bee) (Unverified Allergy, Severe, SOB, 07/03/17) cefuroxime (Unverified Allergy, Intermediate, SOB, 07/03/17) ciprofloxacin (Unverified Allergy, Intermediate, SOB, 07/03/17) Medications Allergies Coded Allergies Type Severity Reaction Last Updated Verified Sulfa (Sulfonamide Antibiotics) Allergy Severe SOB 07/03/17 No bee venom protein (honey bee) Allergy Severe SOB 07/03/17 No cefuroxime Allergy Intermediate SOB 07/03/17 No ciprofloxacin Allergy Intermediate SOB 07/03/17 No Active Scripts Medications Dose Route/Sig Max Daily Dose Days Date Category Dose Instructions Percocet (Oxycodone-Acetaminophen) 5-325 mg Tab 1 Tab PO Q4H PRN 05/07/17 Rx Trazodone (Trazodone HCl) 100 Mg Tablet 200 Mg PO HS 05/07/17 Reported Meclizine (Meclizine HCl) 25 Mg Tab 25 Mg PO TID PRN 03/28/17 Reported Escitalopram (Escitalopram Oxalate) 20 Mg Tab 20 Mg PO DAILY 03/28/17 Reported [place] Moon Carbonate 300 Mg Cap 300 Mg PO BID 02/05/17 Reported Atorvastatin (Atorvastatin Calcium) 20 Mg Tab 20 Mg PO HS 02/05/17 Reported Amlodipine (Amlodipine Besylate) 5 Mg Tab 5 Mg PO DAILY 02/05/17 Reported Sumatriptan (Sumatriptan Succinate) 50 Mg Tab 50 Mg PO Q6HR PRN 02/05/17 Reported If a satisfactory response has not been obtained at 2 hours, a second dose may be administered Family History Multiple family members (uncles on mother's sided) with DM. Denies any known family history of autoimmune disease, pancreatitis, or liver disease. Social History Smoke one pack per day for 30 years, no alcohol or illicit drug abuse Review of Systems Constitutional: DENIES: Fatigue, Fever, Weight loss, Chills, Change in appetite Respiratory: DENIES: Cough Cardiovascular: DENIES: Chest pain Gastrointestinal: COMPLAINS OF: Abdominal pain, Diarrhea, Nausea, Vomiting, DENIES: Black stools, Bloody stools, Constipation, Swelling of Abdomen, Heartburn Musculoskeletal: COMPLAINS OF: Back pain, DENIES: Joint pain Integumentary: DENIES: Abnormal pigmentation Hematologic/lymphatic: DENIES: Bruising Neurologic: DENIES: Headache Psychiatric: DENIES: Confusion GI Exam Vitals I&O Vital Signs Date Time Temp Pulse Resp B/P (MAP) Pulse Ox O2 Delivery O2 Flow Rate FiO2 07/24/17 08:45 92 21 07/24/17 08:00 96.3 70 21 134/86 (102) 93 07/24/17 05:51 07/24/17 03:04 69 18 114/64 (81) 98 Room Air 07/24/17 01:30 78 18 120/78 (92) 98 Room Air 07/24/17 00:00 60 16 135/80 (98) 96 Room Air 07/23/17 22:47 62 18 136/85 (102) 97 Room Air 07/23/17 21:22 66 18 139/90 (106) 98 Room Air 07/23/17 21:05 98.9 78 16 136/86 (103) 94 I/O 07/23/17 07/23/17 07/23/17 07/24/17 07/24/17 07/24/17 07:00 15:00 23:00 07:00 15:00 23:00 Intake Total 1000 ml 800 ml Balance 1000 ml 800 ml Intake IV Total 1000 ml 800 ml Imaging Last Impressions Abdomen/Pelvis CT 07/23/172127 Signed Impressions: Service Date/Time: Sunday, July 23, 2017 23:17 - CONCLUSION: 1. 2.2 x 2.2 cm heterogeneously hypodense mass in superior segment 5 of the liver extending to the liver capsule. This lesion can be further characterized with multiphase liver mass protocol MRI or CT exam. 2. Status post cholecystectomy with likely reservoir effect mild intra-and extra hepatic ductal dilatation. 3. Post surgical features in the anterior abdominal wall with very small midline midanterior abdominal wall collection measuring 0.9 x 3.1 cm, likely chronic. 4. Status post appendectomy and hysterectomy. 1. Erich Gooden MD Laboratory Test 07/23/17 21:35 07/24/17 00:50 07/24/17 04:13 07/24/17 04:15 Prothrombin Time 10.6 SEC Prothromb Time International Ratio 1.0 RATIO Activated Partial Thromboplast Time 23.1 SEC Urine Color LIGHT-YELLOW Urine Turbidity CLEAR Urine pH 5.5 Urine Specific [place] 1.006 Urine Protein NEG mg/dL Urine Glucose (UA) NEG mg/dL Urine Ketones NEG mg/dL Urine Occult Blood MOD Urine Nitrite NEG Urine Bilirubin NEG Urine Urobilinogen LESS THAN 2.0 MG/DL Urine Leukocyte Esterase NEG Urine RBC 2 /hpf Urine WBC LESS THAN 1 /hpf Microscopic Urinalysis Comment CULT NOT INDICATED White Blood Count 8.2 TH/MM3 Red Blood Count 4.52 MIL/MM3 Hemoglobin 13.7 GM/DL Hematocrit 42.2 % Mean Corpuscular Volume 93.2 FL Mean Corpuscular Hemoglobin 30.4 PG Mean Corpuscular Hemoglobin Concent 32.6 % Red Cell Distribution Width 14.0 % Platelet Count 269 TH/MM3 Mean Platelet Volume 8.2 FL Neutrophils (%) (Auto) 49.4 % Lymphocytes (%) (Auto) 36.4 % Monocytes (%) (Auto) 8.0 % Eosinophils (%) (Auto) 5.9 % Basophils (%) (Auto) 0.3 % Neutrophils # (Auto) 4.1 TH/MM3 Lymphocytes # (Auto) 3.0 TH/MM3 Monocytes # (Auto) 0.7 TH/MM3 Eosinophils # (Auto) 0.5 TH/MM3 Basophils # (Auto) 0.0 TH/MM3 CBC Comment DIFF FINAL Differential Comment Blood Urea Nitrogen 12 MG/DL Creatinine 0.75 MG/DL Random Glucose 87 MG/DL Total Protein 6.0 GM/DL Albumin 3.0 GM/DL Calcium Level 8.0 MG/DL Alkaline Phosphatase 67 U/L Aspartate Amino Transf (AST/SGOT) 9 U/L Alanine Aminotransferase (ALT/SGPT) 15 U/L Total Bilirubin 0.2 MG/DL Sodium Level 141 MEQ/L Potassium Level 3.3 MEQ/L Chloride Level 111 MEQ/L Carbon Dioxide Level 24.3 MEQ/L Anion Gap 6 MEQ/L Estimat Glomerular Filtration Rate 81 ML/MIN Lactic Acid Level 0.6 mmol/L Lipase 3429 U/L Fasting Glucose 74 MG/DL Magnesium Level 2.0 MG/DL Triglycerides Level 58 MG/DL Physical Examination HEENT: Normocephalic; atraumatic; no jaundice. CHEST: CTA CARDIAC: RRR ABDOMEN: Soft, nondistended, LUQ/Epigastric/Mid/LLQ tenderness- mild to moderate on exam; no hepatosplenomegaly; bowel sounds are present in all four quadrants. EXTREMITIES: No clubbing, cyanosis, or edema. SKIN: Normal; no rash; no jaundice. CHOCOLATE PACKER: No focal deficits; alert and oriented times three. Assessment and Plan Plan ASSESSMENT: - Acute pancreatitis, unclear etiology. No prior hx of pancreatitis, denies etoh use, new meds, herbal supplements, family hx of pancreatitis or autoimmune d/o. CT scan abdomen and pelvis with iv contrast (07/23/17)-----> 2.2 x 2.2 cm heterogeneously hypodense mass in superior segment 5 of the liver extending to the liver capsule. This lesion can be further characterized with multiphase liver mass protocol MRI or CT exam. Status post cholecystectomy with likely reservoir effect mild intra-and extrahepatic ductal dilatation. Postsurgical features in the anterior abdominal wall with very small midline mid anterior abdominal wall collection measuring 0.9 x 3.1 cm, likely chronic. Status post appendectomy and hysterectomy. Lipase 3429 on admission. MRCP pending. IVF. NPO. - Abnormal imaging with liver mass noted on CT. MRCP pending- will call and change to MRCP with and without contrast to also evaluate liver mass. Will get AFP, liver workup to further evaluate. - Hypokalemia. K+ 3.3. - Bipolar d/o, anxiety/depression, HTN per attending. PLAN: - Clear liquids after MRCP - Change MRCP to with and without contrast to also evaluate liver mass as well as bile ducts for obstruction - CBD, Lipase in am - IVF - Supportive care - Further recommendations to follow based on results of above - Pt seen and examined by Dr. Pacheco and myself and this note is written on his behalf Jessica Hernandez Jul 24, 2017 12:08
[2017-07-24] MEDS: DICYCLOMINE HCL 20 MG TAB PO PRN ×2 (12:57→19:43)
[2017-07-24] MEDS: PANTOPRAZOLE SODIUM 40 MG VIAL IV PUSH SCH (13:01)
[2017-07-24] MEDS ORDERED: GADODIAMIDE PF 287 MG/ML 20 ML VIAL (for RAD MRI) IV PUSH ONE (16:05)
--- NOTE | 2017-07-24 16:10 | RADRPT ---
EXAM DATE/TIME: 07/24/2017 14:00 [facility] COMPARISON: CT ABDOMEN & PELVIS W CONTRAST, July 23, 2017, 23:17. INDICATIONS : Abdominal pain. Liver mass. CONTRAST: 15 cc Omniscan (gadodiamide) IV MEDICAL HISTORY : Hypertension. SURGICAL HISTORY : Hysterectomy. Cholecystectomy. Brain coil. ENCOUNTER: Initial ACUITY: 2 day PAIN SCORE: 3/10 LOCATION: abdomen TECHNIQUE: Multiplanar, multisequence magnetic resonance imaging of the abdomen was performed. High-resolution 3D dataset was utilized to reconstruct maximum-intensity projection (MIP) images. FINDINGS: There is a mass laterally in the intersegment of the right hepatic lobe that has MRI characteristics of a benign hemangioma. It measures approximately 3.6 cm in size. Mild intrahepatic and extrahepatic biliary distention noted. The common bile duct measures approximat ivan 12 mm. No stone or other filling defect demonstrated. Patient is status post cholecystectomy. The re is no pancreatic duct dilatation. CONCLUSION: 1. Benign hemangioma of the liver. 2. In the absence of any clinical or laboratory evidence of biliary obstruction, the mild intrahepati c and extrahepatic biliary distention is most likely reservoir type affect after cholecystectomy. No stones or masses are demonstrated. Merlin Joe MD on July 24, 2017 at 16:04 Board Certified Radiologist. This report was verified electronically.
[2017-07-25] MEDS: SODIUM CHLOR 0.9% 1000 ML INJ 1,000 ML IV SCH ×5 (02:21→23:24)
[2017-07-25] MEDS: HEPARIN SODIUM - SQ 10,000 UNITS/ML VIAL SQ SCH ×3 (02:22→18:32)
[2017-07-25] MEDS: MORPHINE SULFATE 4 MG/ML INJ IV PUSH PRN ×5 (02:25→20:03)
[2017-07-25] MEDS: DICYCLOMINE HCL 20 MG TAB PO PRN ×3 (05:27→18:32)
[2017-07-25 08:00] VITALS: BP 158/91; PULSE 57; RESP 19; TEMP 96.4; O2SAT 99
[2017-07-25] MEDS: SODIUM CHLORIDE 0.9% FLUSH 10 ML FLUSH IV FLUSH SCH ×2 (08:52→21:00)
[2017-07-25 10:10] LABS: AUTOMATED NEUTROPHIL # 3.9 TH/MM3 (1.8-7.7); BASOPHIL # 0.1 TH/MM3 (0-0.2); BASOPHIL % 1.2 % (0.0-2.0); EOSINOPHIL # 0.2 TH/MM3 (0-0.4); EOSINOPHIL % 2.5 % (0.0-4.0); HEMATOCRIT 41.3 % (35.0-46.0); HEMO FLAGS DIFF FINAL; LYMPH % 28.7 % (9.0-44.0); LYMPHOCYTE # 1.8 TH/MM3 (1.0-4.8); MEAN CELL VOLUME 94.3 FL (80.0-100.0); MEAN CORPUSCULAR HEMOGLOBIN 30.9 PG (27.0-34.0); MEAN CORPUSCULAR HGB CONC 32.8 % (32.0-36.0); MONO % 7.4 % (0.0-8.0); NEUT % 60.2 % (16.0-70.0); PLATELET COUNT 233 TH/MM3 (150-450); RED BLOOD COUNT 4.38 MIL/MM3 (4.00-5.30); RED CELL DISTRIBUTION WIDTH 13.8 % (11.6-17.2); WHITE BLOOD COUNT 6.4 TH/MM3 (4.0-11.0)
[2017-07-25 10:43] LABS: BICARBONATE 23.6 MEQ/L (21.0-32.0); POTASSIUM 3.3 MEQ/L (3.5-5.1)
--- NOTE | 2017-07-25 11:46 | HHI.GIFU ---
Subjective Remarks Resting in bed. Nausea without vomiting. Tolerating clears. Still with abdominal pain- about the same. D/W patient MRCP results. Objective Vitals I&O Vital Signs Date Time Temp Pulse Resp B/P (MAP) Pulse Ox O2 Delivery O2 Flow Rate FiO2 07/25/17 05:31 16 07/25/17 04:15 Room Air 07/24/17 23:15 96.7 98 18 122/90 (101) 96 07/24/17 19:09 97.5 60 18 118/63 (81) 99 07/24/17 16:00 95.7 60 20 112/70 (84) 95 07/24/17 14:00 95.7 60 20 112/70 (84) 95 07/24/17 12:00 96.7 63 20 117/77 (90) 96 I/O 07/24/17 07/24/17 07/24/17 07/25/17 07/25/17 07/25/17 07:00 15:00 23:00 07:00 15:00 23:00 Intake Total 800 ml 1395 ml 360 ml Balance 800 ml 1395 ml 360 ml Intake Oral 480 ml 360 ml IV Total 800 ml 915 ml # Voids 4 4 # Bowel Movements 0 0 Laboratory Laboratory Tests Test 07/25/17 07:53 White Blood Count 6.4 Red Blood Count 4.38 Hemoglobin 13.5 Hematocrit 41.3 Mean Corpuscular Volume 94.3 Mean Corpuscular Hemoglobin 30.9 Mean Corpuscular Hemoglobin Concent 32.8 Red Cell Distribution Width 13.8 Platelet Count 233 Mean Platelet Volume 8.9 Neutrophils (%) (Auto) 60.2 Lymphocytes (%) (Auto) 28.7 Monocytes (%) (Auto) 7.4 Eosinophils (%) (Auto) 2.5 Basophils (%) (Auto) 1.2 Neutrophils # (Auto) 3.9 Lymphocytes # (Auto) 1.8 Monocytes # (Auto) 0.5 Eosinophils # (Auto) 0.2 Basophils # (Auto) 0.1 CBC Comment DIFF FINAL Differential Comment Blood Urea Nitrogen 4 Creatinine 0.50 Random Glucose 68 Albumin 2.7 Calcium Level 8.0 Phosphorus Level 2.8 Sodium Level 143 Potassium Level 3.3 Chloride Level 112 Carbon Dioxide Level 23.6 Anion Gap 7 Estimat Glomerular Filtration Rate 129 Lipase 604 Imaging Last Impressions Cholangiopancreatography MRI 9/5/17 0000 Signed Impressions: Service Date/Time: Monday, July 24, 2017 14:00 - CONCLUSION: 1. Benign hemangioma of the liver. 2. In the absence of any clinical or laboratory evidence of biliary obstruction, the mild intrahepatic and extrahepatic biliary distention is most likely reservoir type affect after cholecystectomy. No stones or masses are demonstrated. Merlin Joe MD Abdomen/Pelvis CT 07/23/178 Signed Impressions: Service Date/Time: Sunday, July 23, 2017 23:17 - CONCLUSION: 1. 2.2 x 2.2 cm heterogeneously hypodense mass in superior segment 5 of the liver extending to the liver capsule. This lesion can be further characterized with multiphase liver mass protocol MRI or CT exam. 2. Status post cholecystectomy with likely reservoir effect mild intra-and extra hepatic ductal dilatation. 3. Post surgical features in the anterior abdominal wall with very small midline midanterior abdominal wall collection measuring 0.9 x 3.1 cm, likely chronic. 4. Status post appendectomy and hysterectomy. 1. Erich Gooden MD Physical Exam HEENT: Normocephalic; atraumatic; no jaundice. CHEST: CTA CARDIAC: RRR. ABDOMEN: Soft, nondistended, mild mid/epigastric tenderness; no hepatosplenomegaly; bowel sounds are present in all four quadrants. EXTREMITIES: No clubbing, cyanosis, or edema. SKIN: Normal; no rash; no jaundice. SOCIAL WORKER CLINICAL: No focal deficits; alert and oriented times three. Assessment and Plan Plan ASSESSMENT: - Acute pancreatitis, unclear etiology. No prior hx of pancreatitis, denies etoh use, new meds, herbal supplements, family hx of pancreatitis or autoimmune d/o. CT scan abdomen and pelvis with iv contrast (07/23/17)-----> 2.2 x 2.2 cm heterogeneously hypodense mass in superior segment 5 of the liver extending to the liver capsule. This lesion can be further characterized with multiphase liver mass protocol MRI or CT exam. Status post cholecystectomy with likely reservoir effect mild intra-and extrahepatic ductal dilatation. Postsurgical features in the anterior abdominal wall with very small midline mid anterior abdominal wall collection measuring 0.9 x 3.1 cm, likely chronic. Status post appendectomy and hysterectomy. Lipase 3429---> 604. MRCP with and without contrast (07/24/17)----> benign hemangioma of the liver, in the absence of any clinical or laboratory evidence of biliary obstruction, but mild intrahepatic and extrahepatic biliary distention is most likely reservoir type effect after cholecystectomy. No stones or masses are demonstrated. IVF. Tolerating clear liquids, okay to advance to full liquids. - Abnormal imaging with liver mass noted on CT. MRCP with contrast---> benign hemangioma of the liver. - Hypokalemia. K+ 3.3. - Bipolar d/o, anxiety/depression, HTN per attending. PLAN: - Full liquids - PPI - Bentyl - IVF - Supportive care - Further recommendations to follow based on results of above - Pt seen and examined by Dr. Pacheco and myself and this note is written on his behalf Jessica Hernandez Jul 25, 2017 11:46
[2017-07-25 12:00] VITALS: BP 141/83; PULSE 51; RESP 18; TEMP 97; O2SAT 95
[2017-07-25] MEDS: PANTOPRAZOLE SODIUM 40 MG VIAL IV PUSH SCH (12:31)
[2017-07-25 13:30] VITALS: O2SAT 96
[2017-07-25 16:00] VITALS: BP 151/83; PULSE 50; RESP 18; TEMP 96.7; O2SAT 96
[2017-07-25 20:36] VITALS: BP 175/87; PULSE 51; RESP 18; TEMP 96.2; O2SAT 96
[2017-07-25] MEDS ORDERED: POTASSIUM CHLOR 10 MEQ PREMIX 100 ML IV SCH (22:45)
--- NOTE | 2017-07-25 22:49 | HHI.PR ---
Subjective Remarks Patient seen this morning around 11 AM. She says that nausea is slightly better. She would like to try eating. Denies any chest pain or shortness of breath. Objective Vital Signs Date Time Temp Pulse Resp B/P (MAP) Pulse Ox O2 Delivery O2 Flow Rate FiO2 07/25/17 20:36 96.2 51 18 175/87 (116) 96 07/25/17 20:08 18 07/25/17 16:00 96.7 50 18 151/83 (105) 96 07/25/17 13:30 96 07/25/17 12:00 97.0 51 18 141/83 (102) 95 07/25/17 09:30 Room Air 07/25/17 08:00 96.4 57 19 158/91 (113) 99 07/25/17 04:15 Room Air 07/24/17 23:15 96.7 98 18 122/90 (101) 96 I/O 07/24/17 07/24/17 07/24/17 07/25/17 07/25/17 07/25/17 07:00 15:00 23:00 07:00 15:00 23:00 Intake Total 800 ml 1395 ml 360 ml 1507 ml 1080 ml Balance 800 ml 1395 ml 360 ml 1507 ml 1080 ml Intake Oral 480 ml 360 ml 1080 ml IV Total 800 ml 915 ml 1507 ml # Voids 4 4 7 # Bowel Movements 0 0 0 Result Diagram: 07/25/17 0753 07/25/17 0753 Objective Remarks GENERAL: patient sitting up in bed. Appears comfortable. Alert and oriented 3. SKIN: Warm and dry. HEAD: Normocephalic. EYES: No scleral icterus. No injection or drainage. NECK: Supple, trachea midline. No JVD or lymphadenopathy. CARDIOVASCULAR: Regular rate and rhythm without murmurs, gallops, or rubs. RESPIRATORY: Breath sounds equal bilaterally. No accessory muscle use. GASTROINTESTINAL: Abdomen soft, non-tender, nondistended. MUSCULOSKELETAL: No cyanosis, or edema. BACK: Nontender without obvious deformity. No CVA tenderness. A/P Assessment and Plan == 07/25/17. Pancreatitis slightly better. Diet advanced per GI. Continue IV fluids Hypokalemia. Potassium 3.3. Replaced. Labs ordered for tomorrow. 52 years old female presented with //Acute pancreatitis. -Lipase markedly elevated on admission. Improving. Advancing diet. GI following. cont IV fluids.Appreciate assistance. //History of hypertension -Systolic blood pressure elevated in the 170s. Restart amlodipine. //History of bipolar -Restart lithium. -Level ordered and pending. //History of depression. Restart trazodone. //History of CVA with coiling. Restart amlodipine. //DVT prophylaxis. Continue heparin. Discharge Planning home when cleared by Adriano Fenton MD Jul 25, 2017 22:49
[2017-07-25] MEDS ORDERED: amLODIPine BESYLATE 5 MG TAB PO ONE (23:00)
[2017-07-26 00:05] VITALS: BP 125/69; PULSE 50; RESP 17; TEMP 96.7; O2SAT 96
[2017-07-26] MEDS: MORPHINE SULFATE 4 MG/ML INJ IV PUSH PRN ×6 (00:18→22:00)
[2017-07-26] MEDS: HEPARIN SODIUM - SQ 10,000 UNITS/ML VIAL SQ SCH ×3 (03:41→17:41)
[2017-07-26] MEDS: SODIUM CHLOR 0.9% 1000 ML INJ 1,000 ML IV SCH (04:24)
[2017-07-26 07:29] LABS: AUTOMATED NEUTROPHIL # 3.5 TH/MM3 (1.8-7.7); BASOPHIL # 0.1 TH/MM3 (0-0.2); BASOPHIL % 1.1 % (0.0-2.0); EOSINOPHIL # 0.2 TH/MM3 (0-0.4); HEMATOCRIT 39.3 % (35.0-46.0); HEMO FLAGS DIFF FINAL; LYMPH % 31.2 % (9.0-44.0); LYMPHOCYTE # 1.9 TH/MM3 (1.0-4.8); MEAN CELL VOLUME 91.8 FL (80.0-100.0); MEAN CORPUSCULAR HEMOGLOBIN 31.2 PG (27.0-34.0); MONO % 5.4 % (0.0-8.0); NEUT % 58.3 % (16.0-70.0); PLATELET COUNT 242 TH/MM3 (150-450); RED BLOOD COUNT 4.28 MIL/MM3 (4.00-5.30); RED CELL DISTRIBUTION WIDTH 13.4 % (11.6-17.2)
[2017-07-26 08:00] VITALS: BP 146/83; PULSE 50; RESP 18; TEMP 98.1; O2SAT 95
[2017-07-26 08:10] LABS: BICARBONATE 28.3 MEQ/L (21.0-32.0); MAGNESIUM 1.6 MG/DL (1.5-2.5)
[2017-07-26 08:23] LABS: POTASSIUM 2.9 MEQ/L (3.5-5.1)
[2017-07-26] MEDS: SODIUM CHLORIDE 0.9% FLUSH 10 ML FLUSH IV FLUSH SCH ×2 (09:25→21:00)
[2017-07-26] MEDS: POTASSIUM CHLOR 10 MEQ PREMIX 100 ML IV SCH ×3 (09:27→12:20)
[2017-07-26] MEDS: NS + KCL 20 MEQ INJ 1,000 ML IV SCH ×2 (09:28→15:39)
[2017-07-26] MEDS: DICYCLOMINE HCL 20 MG TAB PO PRN ×2 (09:31→17:41)
[2017-07-26] MEDS: LITHIUM CARBONATE 300 MG CAP PO SCH ×2 (09:32→21:33)
[2017-07-26] MEDS: amLODIPine BESYLATE 5 MG TAB PO SCH (09:32)
[2017-07-26] MEDS ORDERED: POTASSIUM CHLORIDE 20 MEQ CONTROLLED RELEASE TAB PO ONE (10:00)
[2017-07-26] MEDS ORDERED: MAGNESIUM SULFATE 1 GM PREMIX 100 ML IV ONE (10:00)
[2017-07-26 12:00] VITALS: BP 123/68; PULSE 59; RESP 18; TEMP 96.7; O2SAT 94
[2017-07-26] MEDS: PANTOPRAZOLE SODIUM 40 MG VIAL IV PUSH SCH (12:16)
--- NOTE | 2017-07-26 14:29 | HHI.GIFU ---
Subjective Remarks Resting in bed. Slightly improved. Tolerating diet. Still with abdominal pain , but controlled and slightly improved from yesterday. (Jessica Hernandez) Objective Vitals I&O Vital Signs Date Time Temp Pulse Resp B/P (MAP) Pulse Ox O2 Delivery O2 Flow Rate FiO2 07/26/17 12:00 96.7 59 18 123/68 (86) 94 07/26/17 08:00 98.1 50 18 146/83 (104) 95 07/26/17 03:50 18 07/26/17 01:54 Room Air 07/26/17 00:05 96.7 50 17 125/69 (87) 96 07/25/17 20:36 96.2 51 18 175/87 (116) 96 07/25/17 16:00 96.7 50 18 151/83 (105) 96 I/O 07/25/17 07/25/17 07/25/17 07/26/17 07/26/17 07/26/17 07:00 15:00 23:00 07:00 15:00 23:00 Intake Total 360 ml 1507 ml 1560 ml 220 ml 300 ml Balance 360 ml 1507 ml 1560 ml 220 ml 300 ml Intake Oral 360 ml 1560 ml 120 ml IV Total 1507 ml 100 ml 300 ml # Voids 4 9 2 # Bowel Movements 0 0 0 Laboratory Laboratory Tests Test 07/26/17 06:32 White Blood Count 6.0 Red Blood Count 4.28 Hemoglobin 13.4 Hematocrit 39.3 Mean Corpuscular Volume 91.8 Mean Corpuscular Hemoglobin 31.2 Mean Corpuscular Hemoglobin Concent 34.0 Red Cell Distribution Width 13.4 Platelet Count 242 Mean Platelet Volume 9.2 Neutrophils (%) (Auto) 58.3 Lymphocytes (%) (Auto) 31.2 Monocytes (%) (Auto) 5.4 Eosinophils (%) (Auto) 4.0 Basophils (%) (Auto) 1.1 Neutrophils # (Auto) 3.5 Lymphocytes # (Auto) 1.9 Monocytes # (Auto) 0.3 Eosinophils # (Auto) 0.2 Basophils # (Auto) 0.1 CBC Comment DIFF FINAL Differential Comment Blood Urea Nitrogen 4 Creatinine 0.50 Random Glucose 86 Albumin 3.0 Calcium Level 8.3 Phosphorus Level 3.2 Magnesium Level 1.6 Sodium Level 143 Potassium Level 2.9 Chloride Level 107 Carbon Dioxide Level 28.3 Anion Gap 8 Estimat Glomerular Filtration Rate 129 Guys Level 0.1 Imaging Last Impressions Cholangiopancreatography MRI 07/24/17 0000 Signed Impressions: Service Date/Time: Monday, July 24, 2017 14:00 - CONCLUSION: 1. Benign hemangioma of the liver. 2. In the absence of any clinical or laboratory evidence of biliary obstruction, the mild intrahepatic and extrahepatic biliary distention is most likely reservoir type affect after cholecystectomy. No stones or masses are demonstrated. Merlin Joe MD Abdomen/Pelvis CT 07/23/172127 Signed Impressions: Service Date/Time: Sunday, July 23, 2017 23:17 - CONCLUSION: 1. 2.2 x 2.2 cm heterogeneously hypodense mass in superior segment 5 of the liver extending to the liver capsule. This lesion can be further characterized with multiphase liver mass protocol MRI or CT exam. 2. Status post cholecystectomy with likely reservoir effect mild intra-and extra hepatic ductal dilatation. 3. Post surgical features in the anterior abdominal wall with very small midline midanterior abdominal wall collection measuring 0.9 x 3.1 cm, likely chronic. 4. Status post appendectomy and hysterectomy. 1. Erich Gooden MD Physical Exam HEENT: Normocephalic; atraumatic; no jaundice. CHEST: CTA CARDIAC: RRR. ABDOMEN: Soft, nondistended, mild mid/epigastric tenderness; no hepatosplenomegaly; bowel sounds are present in all four quadrants. EXTREMITIES: No clubbing, cyanosis, or edema. SKIN: Normal; no rash; no jaundice. 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 (Jessica Hernandez) Assessment and Plan Plan ASSESSMENT: - Acute pancreatitis, unclear etiology. No prior hx of pancreatitis, denies etoh use, new meds, herbal supplements, family hx of pancreatitis or autoimmune d/o. CT scan abdomen and pelvis with iv contrast (07/23/17)-----> 2.2 x 2.2 cm heterogeneously hypodense mass in superior segment 5 of the liver extending to the liver capsule. This lesion can be further characterized with multiphase liver mass protocol MRI or CT exam. Status post cholecystectomy with likely reservoir effect mild intra-and extrahepatic ductal dilatation. Postsurgical features in the anterior abdominal wall with very small midline mid anterior abdominal wall collection measuring 0.9 x 3.1 cm, likely chronic. Status post appendectomy and hysterectomy. Lipase 3429---> 604. MRCP with and without contrast (07/24/17)----> benign hemangioma of the liver, in the absence of any clinical or laboratory evidence of biliary obstruction, but mild intrahepatic and extrahepatic biliary distention is most likely reservoir type effect after cholecystectomy. No stones or masses are demonstrated. IVF. Tolerating full liquids - Abnormal imaging with liver mass noted on CT. MRCP with contrast---> benign hemangioma of the liver. - Hypokalemia. K+ 3.3. - Bipolar d/o, anxiety/depression, HTN per attending. PLAN: - Heart healthy low fat diet - PPI - Bentyl - IVF - Lipase in am - Supportive care - Further recommendations to follow based on results of above - Pt seen and examined by Dr. Cano and myself and this note is written on his behalf (Jessica Hernandez) Plan Patient was seen and examined, agree with the above noted, no sign of common bile duct stone, tolerating diet but still complaining of pain and we will check lipase tomorrow (Ofelia Cano MD) Jessica Hernandez Jul 26, 2017 14:29 Ofelia Cano MD Jul 26, 2017 22:03
[2017-07-26 16:00] VITALS: BP 108/64; PULSE 55; RESP 18; TEMP 96.5; O2SAT 97
[2017-07-26 20:07] VITALS: BP 118/74; PULSE 56; RESP 18; TEMP 97.4; O2SAT 96
[2017-07-26] MEDS: traZODone HCL 100 MG TAB PO SCH (21:33)
--- NOTE | 2017-07-26 22:46 | HHI.PR ---
Subjective Remarks Sincerely this morning around 10 AM. Says she is feeling slightly better, however still with nausea and vomiting. Does not feel she'll be up to go home. Discussed with nurse. Potassium 2.9. Replace. Objective Vital Signs Date Time Temp Pulse Resp B/P (MAP) Pulse Ox O2 Delivery O2 Flow Rate FiO2 07/26/17 20:07 97.4 56 18 118/74 (89) 96 07/26/17 16:00 96.5 55 18 108/64 (79) 97 07/26/17 12:00 96.7 59 18 123/68 (86) 94 07/26/17 08:00 98.1 50 18 146/83 (104) 95 07/26/17 03:50 18 07/26/17 01:54 Room Air 07/26/17 00:05 96.7 50 17 125/69 (87) 96 I/O 07/25/17 07/25/17 07/25/17 07/26/17 07/26/17 07/26/17 06:59 14:59 22:59 06:59 14:59 22:59 Intake Total 360 ml 1507 ml 1560 ml 220 ml 300 ml 3388 ml Balance 360 ml 1507 ml 1560 ml 220 ml 300 ml 3388 ml Intake Oral 360 ml 1560 ml 120 ml 1440 ml IV Total 1507 ml 100 ml 300 ml 1948 ml # Voids 4 9 2 10 # Bowel Movements 0 0 0 1 Result Diagram: 07/26/17 0632 07/26/17 0632 Objective Remarks GENERAL: patient sitting up in bed.sleeping, wakes up for exam. Appears comfortable. Alert and oriented 3. SKIN: Warm and dry. HEAD: Normocephalic. EYES: No scleral icterus. No injection or drainage. NECK: Supple, trachea midline. No JVD. CARDIOVASCULAR: Regular rate and rhythm without murmurs, gallops, or rubs. RESPIRATORY: Breath sounds equal bilaterally. No accessory muscle use. GASTROINTESTINAL: Abdomen soft, non-tender, nondistended. MUSCULOSKELETAL: No cyanosis, or edema. BACK: Nontender without obvious deformity. No CVA tenderness. A/P Assessment and Plan == 07/26/17. Pancreatitis improving slowly. Lipase much improved however. Continue IV fluids. GI to plan endoscopy tomorrow. Hypokalemia. Potassium 2.9 today. Replaced. Magnesium 1.6, replaced as well. Labs ordered for tomorrow. -[place] level 0.1. Low. No psychiatric decompensation. Restart. 52 years old female presented with //Acute pancreatitis. -Lipase markedly elevated on admission. Improving. Advancing diet. GI following. cont IV fluids.Appreciate assistance. //History of hypertension -Systolic blood pressure elevated in the 170s. Restart amlodipine. //History of bipolar -Continue lithium. -Level 0.1 on 07/26. Ordered and pending. //History of depression. Restart trazodone. //History of CVA with coiling. Restart amlodipine. //DVT prophylaxis. Continue heparin. Discharge Planning home when cleared by Adriano Fenton MD Jul 26, 2017 22:46
[2017-07-27] VITALS: BP 106/56; PULSE 57; RESP 18; TEMP 96.9; O2SAT 96
[2017-07-27] MEDS: NS + KCL 20 MEQ INJ 1,000 ML IV SCH ×6 (00:22→21:00)
[2017-07-27] MEDS: HEPARIN SODIUM - SQ 10,000 UNITS/ML VIAL SQ SCH ×3 (02:30→18:39)
[2017-07-27 08:00] VITALS: BP 107/74; PULSE 54; RESP 17; TEMP 95.9; O2SAT 93
[2017-07-27] MEDS: LITHIUM CARBONATE 300 MG CAP PO SCH ×2 (08:28→21:32)
[2017-07-27] MEDS: DICYCLOMINE HCL 20 MG TAB PO PRN ×2 (08:28→18:39)
[2017-07-27] MEDS: MORPHINE SULFATE 4 MG/ML INJ IV PUSH PRN ×4 (08:29→21:33)
[2017-07-27] MEDS: SODIUM CHLORIDE 0.9% FLUSH 10 ML FLUSH IV FLUSH SCH ×2 (08:35→21:00)
[2017-07-27] MEDS: amLODIPine BESYLATE 5 MG TAB PO SCH (08:35)
[2017-07-27 10:31] LABS: AUTOMATED NEUTROPHIL # 3.9 TH/MM3 (1.8-7.7); BASOPHIL # 0.1 TH/MM3 (0-0.2); BASOPHIL % 1.4 % (0.0-2.0); EOSINOPHIL # 0.3 TH/MM3 (0-0.4); EOSINOPHIL % 4.7 % (0.0-4.0); HEMATOCRIT 40.9 % (35.0-46.0); HEMO FLAGS DIFF FINAL; LYMPH % 17.8 % (9.0-44.0); MEAN CELL VOLUME 92.6 FL (80.0-100.0); MEAN CORPUSCULAR HGB CONC 33.4 % (32.0-36.0); MONO % 4.8 % (0.0-8.0); NEUT % 71.3 % (16.0-70.0); PLATELET COUNT 214 TH/MM3 (150-450); RED BLOOD COUNT 4.42 MIL/MM3 (4.00-5.30); RED CELL DISTRIBUTION WIDTH 13.5 % (11.6-17.2); WHITE BLOOD COUNT 5.5 TH/MM3 (4.0-11.0)
[2017-07-27 10:39] LABS: APTT (PATIENT) 25.4 SEC (24.3-30.1); INTERNATIONAL NORMALIZED RATIO 0.9 RATIO; PROTHROMBIN TIME - PATIENT 10.3 SEC (9.8-11.6)
[2017-07-27 10:48] LABS: MAGNESIUM 1.8 MG/DL (1.5-2.5)
[2017-07-27 12:00] VITALS: BP 105/65; PULSE 60; RESP 17; TEMP 97.3; O2SAT 94
--- NOTE | 2017-07-27 12:02 | HHI.GIFU ---
Subjective Remarks Resting in bed. States she is hungry and wants to eat, but is NPO for procedure later today. (Jessica Hernandez) Objective Vitals I&O Vital Signs Date Time Temp Pulse Resp B/P (MAP) Pulse Ox O2 Delivery O2 Flow Rate FiO2 07/27/17 08:00 95.9 54 17 107/74 (85) 93 07/27/17 00:00 96.9 57 18 106/56 (73) 96 07/26/17 20:07 97.4 56 18 118/74 (89) 96 07/26/17 16:00 96.5 55 18 108/64 (79) 97 07/26/17 12:00 96.7 59 18 123/68 (86) 94 I/O 07/26/17 07/26/17 07/26/17 07/27/17 07/27/17 07/27/17 07:00 15:00 23:00 07:00 15:00 23:00 Intake Total 220 ml 300 ml 3388 ml 0 ml Balance 220 ml 300 ml 3388 ml 0 ml Intake Oral 120 ml 1440 ml 0 ml IV Total 100 ml 300 ml 1948 ml # Voids 2 10 3 # Bowel Movements 0 1 0 Laboratory Laboratory Tests Test 07/27/17 09:49 White Blood Count 5.5 Red Blood Count 4.42 Hemoglobin 13.7 Hematocrit 40.9 Mean Corpuscular Volume 92.6 Mean Corpuscular Hemoglobin 31.0 Mean Corpuscular Hemoglobin Concent 33.4 Red Cell Distribution Width 13.5 Platelet Count 214 Mean Platelet Volume 8.4 Neutrophils (%) (Auto) 71.3 Lymphocytes (%) (Auto) 17.8 Monocytes (%) (Auto) 4.8 Eosinophils (%) (Auto) 4.7 Basophils (%) (Auto) 1.4 Neutrophils # (Auto) 3.9 Lymphocytes # (Auto) 1.0 Monocytes # (Auto) 0.3 Eosinophils # (Auto) 0.3 Basophils # (Auto) 0.1 CBC Comment DIFF FINAL Differential Comment Prothrombin Time 10.3 Prothromb Time International Ratio 0.9 Activated Partial Thromboplast Time 25.4 Blood Urea Nitrogen 6 Creatinine 0.51 Random Glucose 94 Albumin 2.6 Calcium Level 8.2 Phosphorus Level 3.3 Magnesium Level 1.8 Sodium Level 144 Potassium Level 4.0 Chloride Level 113 Carbon Dioxide Level 27.0 Anion Gap 4 Estimat Glomerular Filtration Rate 126 Lipase 133 Imaging Last Impressions Cholangiopancreatography MRI 07/24/17 0000 Signed Impressions: Service Date/Time: Monday, July 24, 2017 14:00 - CONCLUSION: 1. Benign hemangioma of the liver. 2. In the absence of any clinical or laboratory evidence of biliary obstruction, the mild intrahepatic and extrahepatic biliary distention is most likely reservoir type affect after cholecystectomy. No stones or masses are demonstrated. Merlin Joe MD Abdomen/Pelvis CT 07/23/172127 Signed Impressions: Service Date/Time: Sunday, July 23, 2017 23:17 - CONCLUSION: 1. 2.2 x 2.2 cm heterogeneously hypodense mass in superior segment 5 of the liver extending to the liver capsule. This lesion can be further characterized with multiphase liver mass protocol MRI or CT exam. 2. Status post cholecystectomy with likely reservoir effect mild intra-and extra hepatic ductal dilatation. 3. Post surgical features in the anterior abdominal wall with very small midline midanterior abdominal wall collection measuring 0.9 x 3.1 cm, likely chronic. 4. Status post appendectomy and hysterectomy. 1. Erich Gooden MD Physical Exam HEENT: Normocephalic; atraumatic; no jaundice. CHEST: CTA CARDIAC: RRR. ABDOMEN: Soft, nondistended, mild mid/epigastric tenderness; no hepatosplenomegaly; bowel sounds are present in all four quadrants. EXTREMITIES: No clubbing, cyanosis, or edema. SKIN: Normal; no rash; no jaundice. BURIAL VAULT SETTER: No focal deficits; alert and oriented times three. (Jessica HernandezP) Assessment and Plan Plan ASSESSMENT: - Acute pancreatitis, unclear etiology. No prior hx of pancreatitis, denies etoh use, new meds, herbal supplements, family hx of pancreatitis or autoimmune d/o. CT scan abdomen and pelvis with iv contrast (07/23/17)-----> 2.2 x 2.2 cm heterogeneously hypodense mass in superior segment 5 of the liver extending to the liver capsule. This lesion can be further characterized with multiphase liver mass protocol MRI or CT exam. Status post cholecystectomy with likely reservoir effect mild intra-and extrahepatic ductal dilatation. Postsurgical features in the anterior abdominal wall with very small midline mid anterior abdominal wall collection measuring 0.9 x 3.1 cm, likely chronic. Status post appendectomy and hysterectomy. Lipase 3429---> 604. MRCP with and without contrast (07/24/17)----> benign hemangioma of the liver, in the absence of any clinical or laboratory evidence of biliary obstruction, but mild intrahepatic and extrahepatic biliary distention is most likely reservoir type effect after cholecystectomy. No stones or masses are demonstrated. IVF. Tolerated low fat diet yesterday, but states she is npo for procedure today. She is hungry and wants to eat. Still with abdominal pain, although controlled and lipase has decreased to 133. - Abnormal imaging with liver mass noted on CT. MRCP with contrast---> benign hemangioma of the liver. - Hypokalemia. K+ 4.0 - Bipolar d/o, anxiety/depression, HTN per attending. PLAN: - Plan for egd today - Obtain consents - NPO for procedure - PPI - Bentyl - IVF - Supportive care - Further recommendations to follow based on results of above - Pt seen and examined by Dr. Cano and myself and this note is written on his behalf (Jessica Hernandez) Physician Comments Patient is laying in bed seems to be comfortable blaming on her form, she is immediately start saying that she is having pain mostly after eating. I explained to her that this could be related to pancreatitis she already ate today we will consider doing upper endoscopy if her symptoms doesn't subside in the next 2 days (Ofelia Cano MD) Jessica Hernandez Jul 27, 2017 12:02 Ofelia Cano MD Jul 27, 2017 21:32
[2017-07-27] MEDS: PANTOPRAZOLE SODIUM 40 MG VIAL IV PUSH SCH (13:01)
[2017-07-27 16:00] VITALS: BP 102/68; PULSE 54; RESP 17; TEMP 97.2; O2SAT 99
[2017-07-27 20:06] VITALS: BP 149/76; PULSE 62; RESP 18; TEMP 97.3; O2SAT 96
[2017-07-27] MEDS: traZODone HCL 100 MG TAB PO SCH (21:34)
--- NOTE | 2017-07-27 23:00 | HHI.PR ---
Subjective Remarks Patient seen this morning around 11 AM. Denies any chest pain or shortness of breath. She reports continued abdominal pain after eating, does not feel she can eat very much at all. Objective Vital Signs Date Time Temp Pulse Resp B/P (MAP) Pulse Ox O2 Delivery O2 Flow Rate FiO2 07/27/17 20:06 97.3 62 18 149/76 (100) 96 07/27/17 16:00 97.2 54 17 102/68 (79) 99 07/27/17 12:00 97.3 60 17 105/65 (78) 94 07/27/17 08:00 95.9 54 17 107/74 (85) 93 07/27/17 00:00 96.9 57 18 106/56 (73) 96 I/O 07/26/17 07/26/17 07/26/17 07/27/17 07/27/17 07/27/17 07:00 15:00 23:00 07:00 15:00 23:00 Intake Total 220 ml 300 ml 3388 ml 0 ml 800 ml 1074 ml Balance 220 ml 300 ml 3388 ml 0 ml 800 ml 1074 ml Intake Oral 120 ml 1440 ml 0 ml 800 ml IV Total 100 ml 300 ml 1948 ml 1074 ml # Voids 2 10 3 3 # Bowel Movements 0 1 0 0 Result Diagram: 07/27/1794807/27/17948 Objective Remarks GENERAL: patient sitting up in bed.Appears comfortable. Alert and oriented 3. SKIN: Warm and dry. HEAD: Normocephalic. EYES: No scleral icterus. No injection or drainage. NECK: Supple, trachea midline. No JVD. CARDIOVASCULAR: Regular rate and rhythm without murmurs, gallops, or rubs. RESPIRATORY: Breath sounds equal bilaterally. No accessory muscle use. GASTROINTESTINAL: Abdomen tender to moderate palpation as on previous exams. No worsening.no rebound or guarding. MUSCULOSKELETAL: No cyanosis, or edema. BACK: Nontender without obvious deformity. No CVA tenderness. A/P Assessment and Plan == 07/27/17. Still with pain. Lipase has normalized to 133. Plan per gastroenterology Hypokalemia. Resolved. 4.0 after replacement. 52 years old female presented with //Acute pancreatitis. -Lipase markedly elevated on admission. Improving. Advancing diet. GI following. cont IV fluids.Appreciate assistance. //History of hypertension -Systolic blood pressure elevated in the 170s. Restart amlodipine. //History of bipolar -Continue lithium. -Level 0.1 on 07/26. Ordered and pending. //History of depression. Restart trazodone. //History of CVA with coiling. Restart amlodipine. //DVT prophylaxis. Continue heparin. Discharge Planning home when cleared by Adriano Fenton MD Jul 27, 2017 23:00
[2017-07-28 00:06] VITALS: BP 113/72; PULSE 52; RESP 18; TEMP 97; O2SAT 96
[2017-07-28 08:00] VITALS: BP 109/86; PULSE 56; RESP 18; TEMP 95.6; O2SAT 95
[2017-07-28] MEDS: SODIUM CHLORIDE 0.9% FLUSH 10 ML FLUSH IV FLUSH SCH ×2 (09:00→21:00)
[2017-07-28] MEDS: amLODIPine BESYLATE 5 MG TAB PO SCH (09:18)
[2017-07-28] MEDS: LITHIUM CARBONATE 300 MG CAP PO SCH ×2 (09:18→19:25)
[2017-07-28] MEDS: HEPARIN SODIUM - SQ 10,000 UNITS/ML VIAL SQ SCH ×2 (09:18→18:30)
[2017-07-28] MEDS: MORPHINE SULFATE 4 MG/ML INJ IV PUSH PRN ×5 (09:19→22:29)
[2017-07-28] MEDS: NS + KCL 20 MEQ INJ 1,000 ML IV SCH ×4 (09:23→22:29)
[2017-07-28] MEDS: ONDANSETRON HCL 4 MG/2 ML VIAL IV PRN ×2 (11:47→19:28)
[2017-07-28] MEDS: PANTOPRAZOLE SODIUM 40 MG VIAL IV PUSH SCH (11:50)
[2017-07-28 12:00] VITALS: BP 106/69; PULSE 54; RESP 19; TEMP 96.3; O2SAT 95
[2017-07-28 16:00] VITALS: BP 101/62; PULSE 53; RESP 16; TEMP 96.2; O2SAT 93
[2017-07-28] MEDS: traZODone HCL 100 MG TAB PO SCH (19:25)
[2017-07-28 19:45] VITALS: BP 100/71; PULSE 57; RESP 17; TEMP 96.7; O2SAT 93
--- NOTE | 2017-07-28 23:49 | HHI.PR ---
Subjective Remarks Patient seen this morning around 10a.m. Reports abdominal pain improving, still with significant nausea, unable to tolerate food. Denies any chest pain or shortness of breath. Objective Vital Signs Date Time Temp Pulse Resp B/P (MAP) Pulse Ox O2 Delivery O2 Flow Rate FiO2 07/28/17 16:00 96.2 53 16 101/62 (75) 93 07/28/17 12:00 96.3 54 19 106/69 (81) 95 07/28/17 08:00 95.6 56 18 109/86 (94) 95 07/28/17 00:06 97.0 52 18 113/72 (86) 96 I/O 07/28/17 07/28/17 07/28/17 07/29/17 07/29/17 07/29/17 07:00 15:00 23:00 07:00 15:00 23:00 Intake Total 240 ml 2117 ml Balance 240 ml 2117 ml Intake Oral 240 ml 1200 ml IV Total 917 ml # Voids 4 5 # Bowel Movements 0 1 Result Diagram: 07/27/1794807/27/17948 Objective Remarks GENERAL: patient sitting up in bed.Appears comfortable. Alert and oriented 3.no change on exam from yesterday. SKIN: Warm and dry. HEAD: Normocephalic. EYES: No scleral icterus. No injection or drainage. NECK: Supple, trachea midline. No JVD. CARDIOVASCULAR: Regular rate and rhythm without murmurs, gallops, or rubs. RESPIRATORY: Breath sounds equal bilaterally. No accessory muscle use. GASTROINTESTINAL: Abdomen tender to moderate palpation as on previous exams. No worsening.no rebound or guarding. MUSCULOSKELETAL: No cyanosis, or edema. BACK: Nontender without obvious deformity. No CVA tenderness. A/P Assessment and Plan == 07/28/17. still says she is unable tolerate food. GI planning for EGD on Sunday Hypokalemia. Initially resolved after replacement. Recheck labs tomorrow. 52 years old female presented with //Acute pancreatitis. -Lipase markedly elevated on admission. Improving. Advancing diet. GI following. cont IV fluids.Appreciate assistance. //History of hypertension -Systolic blood pressure elevated in the 170s. Restart amlodipine. //History of bipolar -Continue lithium. -Level 0.1 on 07/26. Ordered and pending. //History of depression. Restart trazodone. //History of CVA with coiling. Restart amlodipine. //DVT prophylaxis. Continue heparin. Discharge Planning home when cleared by Adriano Fenton MD Jul 28, 2017 23:49
[2017-07-28 23:50] VITALS: BP 101/65; PULSE 56; RESP 17; TEMP 96.8; O2SAT 92
[2017-07-29] MEDS: MORPHINE SULFATE 4 MG/ML INJ IV PUSH PRN ×7 (02:47→21:46)
[2017-07-29] MEDS: HEPARIN SODIUM - SQ 10,000 UNITS/ML VIAL SQ SCH ×3 (02:47→18:42)
[2017-07-29] MEDS: ONDANSETRON HCL 4 MG/2 ML VIAL IV PRN ×3 (05:47→21:46)
[2017-07-29] MEDS: NS + KCL 20 MEQ INJ 1,000 ML IV SCH ×4 (05:47→18:42)
[2017-07-29 08:00] VITALS: BP 111/72; PULSE 70; RESP 17; TEMP 96.5; O2SAT 92
[2017-07-29 08:07] LABS: BASOPHIL # 0.1 TH/MM3 (0-0.2); BASOPHIL % 1.2 % (0.0-2.0); EOSINOPHIL # 0.4 TH/MM3 (0-0.4); EOSINOPHIL % 7.4 % (0.0-4.0); HEMATOCRIT 39.6 % (35.0-46.0); HEMO FLAGS DIFF FINAL; MEAN CELL VOLUME 92.6 FL (80.0-100.0); MEAN CORPUSCULAR HEMOGLOBIN 30.6 PG (27.0-34.0); MONO % 6.5 % (0.0-8.0); NEUT % 50.9 % (16.0-70.0); PLATELET COUNT 238 TH/MM3 (150-450); RED BLOOD COUNT 4.28 MIL/MM3 (4.00-5.30); RED CELL DISTRIBUTION WIDTH 13.9 % (11.6-17.2)
[2017-07-29] MEDS: LITHIUM CARBONATE 300 MG CAP PO SCH ×2 (08:09→21:46)
[2017-07-29] MEDS: amLODIPine BESYLATE 5 MG TAB PO SCH (08:09)
[2017-07-29] MEDS: SODIUM CHLORIDE 0.9% FLUSH 10 ML FLUSH IV FLUSH SCH ×2 (08:10→21:00)
[2017-07-29 08:50] LABS: BICARBONATE 28.5 MEQ/L (21.0-32.0); MAGNESIUM 1.7 MG/DL (1.5-2.5); POTASSIUM 4.3 MEQ/L (3.5-5.1)
--- NOTE | 2017-07-29 09:53 | HHI.GIFU ---
Subjective Remarks Tolerating diet. States pain slowly improving, but still there. Concerned about going home and having to come right back for abdominal pain. No GI bleeding. (Jessica Hernandez) Objective Vitals I&O Vital Signs Date Time Temp Pulse Resp B/P (MAP) Pulse Ox O2 Delivery O2 Flow Rate FiO2 07/29/17 08:00 96.5 70 17 111/72 (85) 92 07/28/17 23:50 96.8 56 17 101/65 (77) 92 07/28/17 19:45 96.7 57 17 100/71 (81) 93 07/28/17 16:00 96.2 53 16 101/62 (75) 93 07/28/17 12:00 96.3 54 19 106/69 (81) 95 I/O 07/28/17 07/28/17 07/28/17 07/29/17 07/29/17 07/29/17 07:00 15:00 23:00 07:00 15:00 23:00 Intake Total 240 ml 2117 ml 960 ml 1397 ml Balance 240 ml 2117 ml 960 ml 1397 ml Intake Oral 240 ml 1200 ml 960 ml 480 ml IV Total 917 ml 917 ml # Voids 4 5 6 2 # Bowel Movements 0 1 0 0 Laboratory Laboratory Tests Test 07/29/17 07:50 White Blood Count 6.0 Red Blood Count 4.28 Hemoglobin 13.1 Hematocrit 39.6 Mean Corpuscular Volume 92.6 Mean Corpuscular Hemoglobin 30.6 Mean Corpuscular Hemoglobin Concent 33.0 Red Cell Distribution Width 13.9 Platelet Count 238 Mean Platelet Volume 7.9 Neutrophils (%) (Auto) 50.9 Lymphocytes (%) (Auto) 34.0 Monocytes (%) (Auto) 6.5 Eosinophils (%) (Auto) 7.4 Basophils (%) (Auto) 1.2 Neutrophils # (Auto) 3.0 Lymphocytes # (Auto) 2.0 Monocytes # (Auto) 0.4 Eosinophils # (Auto) 0.4 Basophils # (Auto) 0.1 CBC Comment DIFF FINAL Differential Comment Blood Urea Nitrogen 11 Creatinine 0.67 Random Glucose 90 Albumin 2.6 Calcium Level 9.0 Phosphorus Level 4.3 Magnesium Level 1.7 Sodium Level 139 Potassium Level 4.3 Chloride Level 104 Carbon Dioxide Level 28.5 Anion Gap 7 Estimat Glomerular Filtration Rate 92 Imaging Last Impressions Cholangiopancreatography MRI 07/24/17 0000 Signed Impressions: Service Date/Time: Monday, July 24, 2017 14:00 - CONCLUSION: 1. Benign hemangioma of the liver. 2. In the absence of any clinical or laboratory evidence of biliary obstruction, the mild intrahepatic and extrahepatic biliary distention is most likely reservoir type affect after cholecystectomy. No stones or masses are demonstrated. Merlin Joe MD Abdomen/Pelvis CT 07/23/172127 Signed Impressions: Service Date/Time: Sunday, July 23, 2017 23:17 - CONCLUSION: 1. 2.2 x 2.2 cm heterogeneously hypodense mass in superior segment 5 of the liver extending to the liver capsule. This lesion can be further characterized with multiphase liver mass protocol MRI or CT exam. 2. Status post cholecystectomy with likely reservoir effect mild intra-and extra hepatic ductal dilatation. 3. Post surgical features in the anterior abdominal wall with very small midline midanterior abdominal wall collection measuring 0.9 x 3.1 cm, likely chronic. 4. Status post appendectomy and hysterectomy. 1. Erich Gooden MD Physical Exam HEENT: Normocephalic; atraumatic; no jaundice. CHEST: CTA CARDIAC: RRR. ABDOMEN: Soft, nondistended, mild mid/epigastric tenderness; no hepatosplenomegaly; bowel sounds are present in all four quadrants. EXTREMITIES: No clubbing, cyanosis, or edema. SKIN: Normal; no rash; no jaundice. MACHINE HAND: No focal deficits; alert and oriented times three. (Jessica Hernandez [facility]) Assessment and Plan Plan ASSESSMENT: - Acute pancreatitis, unclear etiology. No prior hx of pancreatitis, denies etoh use, new meds, herbal supplements, family hx of pancreatitis or autoimmune d/o. CT scan abdomen and pelvis with iv contrast (07/23/17)-----> 2.2 x 2.2 cm heterogeneously hypodense mass in superior segment 5 of the liver extending to the liver capsule. This lesion can be further characterized with multiphase liver mass protocol MRI or CT exam. Status post cholecystectomy with likely reservoir effect mild intra-and extrahepatic ductal dilatation. Postsurgical features in the anterior abdominal wall with very small midline mid anterior abdominal wall collection measuring 0.9 x 3.1 cm, likely chronic. Status post appendectomy and hysterectomy. Lipase 3429---> 604. MRCP with and without contrast (07/24/17)----> benign hemangioma of the liver, in the absence of any clinical or laboratory evidence of biliary obstruction, but mild intrahepatic and extrahepatic biliary distention is most likely reservoir type effect after cholecystectomy. No stones or masses are demonstrated. IVF. Tolerating diet. Pain slowly improving. PPI. IVF. - Abnormal imaging with liver mass noted on CT. MRCP with contrast---> benign hemangioma of the liver. - Hypokalemia. Improved. - Bipolar d/o, anxiety/depression, HTN per attending. PLAN: - Low fat diet - PPI - Bentyl - IVF - No ETOH - Supportive care - Further recommendations to follow based on results of above - Pt seen and examined by Dr. Quispe and myself and this note is written on her behalf (Jessica Hernandez) Physician Comments seen, examined agree with above we will add Creon with meals egd Sunday (Keya Quispe MD) Jessica Hernandez Jul 29, 2017 09:53 Keya Quispe MD Jul 29, 2017 18:23
[2017-07-29 12:00] VITALS: BP 122/75; PULSE 50; RESP 16; TEMP 96.6; O2SAT 96
[2017-07-29] MEDS: PANTOPRAZOLE SODIUM 40 MG VIAL IV PUSH SCH (12:15)
[2017-07-29 16:00] VITALS: BP 98/66; PULSE 55; RESP 19; TEMP 95.8; O2SAT 98
[2017-07-29 19:35] VITALS: BP 105/73; PULSE 78; RESP 16; TEMP 96.7; O2SAT 95
--- NOTE | 2017-07-29 20:40 | HHI.PR ---
Subjective Remarks Patient seen this morning around 11 AM. She reports continued nausea, poor appetite, abdominal discomfort. Does not feel like she can eat solid food. Denies any shortness of breath. Denies any chest pain. Objective Vital Signs Date Time Temp Pulse Resp B/P (MAP) Pulse Ox O2 Delivery O2 Flow Rate FiO2 07/29/17 19:18 18 07/29/17 16:00 95.8 55 19 98/66 (77) 98 07/29/17 12:00 96.6 50 16 122/75 (91) 96 07/29/17 08:00 96.5 70 17 111/72 (85) 92 07/28/17 23:50 96.8 56 17 101/65 (77) 92 I/O 07/28/17 07/28/17 07/28/17 07/29/17 07/29/17 07/29/17 07:00 15:00 23:00 07:00 15:00 23:00 Intake Total 240 ml 2117 ml 960 ml 1397 ml 2390 ml Balance 240 ml 2117 ml 960 ml 1397 ml 2390 ml Intake Oral 240 ml 1200 ml 960 ml 480 ml 1440 ml IV Total 917 ml 917 ml 950 ml # Voids 4 5 6 2 6 # Bowel Movements 0 1 0 0 Result Diagram: 07/29/17 0750 07/29/17 0750 Objective Remarks GENERAL: patient sitting up in bed.Appears comfortable. Alert and oriented 3.again, no change on exam from yesterday. SKIN: Warm and dry. HEAD: Normocephalic. EYES: No scleral icterus. No injection or drainage. NECK: Supple, trachea midline. No JVD. CARDIOVASCULAR: Regular rate and rhythm without murmurs, gallops, or rubs. RESPIRATORY: Breath sounds equal bilaterally. No accessory muscle use. GASTROINTESTINAL: Abdomen tender to moderate palpation as on previous exams. No worsening.no rebound or guarding. MUSCULOSKELETAL: No cyanosis, or edema. BACK: Nontender without obvious deformity. No CVA tenderness. A/P Assessment and Plan == 07/29/17. //Intractable nausea and vomiting. //Pancreatitis -Electrolytes reviewed and stable. -GI assistance appreciated. GI has added Creon, we'll plan to do EGD on Sunday. 52 years old female presented with //Acute pancreatitis. -Lipase markedly elevated on admission. Improving. Advancing diet. GI following. cont IV fluids.Appreciate assistance. //History of hypertension -Systolic blood pressure elevated in the 170s. Restart amlodipine. //History of bipolar -Continue lithium. -Level 0.1 on 07/26. Ordered and pending. //History of depression. Restart trazodone. //History of CVA with coiling. Restart amlodipine. //DVT prophylaxis. Continue heparin. Discharge Planning home when cleared by GI -Plan for EGD by gastroenterology on Sunday. [place] going by at this time. Adriano Molina MD Jul 29, 2017 20:40
[2017-07-29] MEDS: traZODone HCL 100 MG TAB PO SCH (21:46)
[2017-07-29 23:35] VITALS: BP 117/69; PULSE 53; RESP 16; TEMP 97; O2SAT 95
[2017-07-30] MEDS: MORPHINE SULFATE 4 MG/ML INJ IV PUSH PRN ×6 (01:06→21:28)
[2017-07-30] MEDS: NS + KCL 20 MEQ INJ 1,000 ML IV SCH ×4 (01:11→23:34)
[2017-07-30] MEDS: HEPARIN SODIUM - SQ 10,000 UNITS/ML VIAL SQ SCH ×3 (02:45→18:25)
[2017-07-30 08:00] VITALS: BP 128/72; PULSE 58; RESP 18; TEMP 97.3; O2SAT 93
[2017-07-30] MEDS: amLODIPine BESYLATE 5 MG TAB PO SCH (08:40)
[2017-07-30] MEDS: LIPASE/PROTEASE/AMYLASE (24,000/76,000/120,000) CAP PO SCH ×3 (08:40→18:00)
[2017-07-30] MEDS: LITHIUM CARBONATE 300 MG CAP PO SCH ×2 (08:41→21:31)
[2017-07-30] MEDS: SODIUM CHLORIDE 0.9% FLUSH 10 ML FLUSH IV FLUSH SCH ×2 (08:44→21:34)
[2017-07-30 12:00] VITALS: BP 114/66; PULSE 93; RESP 18; TEMP 96.2; O2SAT 97
[2017-07-30] MEDS: PANTOPRAZOLE SODIUM 40 MG VIAL IV PUSH SCH (12:17)
[2017-07-30 16:00] VITALS: BP 160/78; PULSE 64; RESP 18; TEMP 96.8; O2SAT 95
[2017-07-30] MEDS: ONDANSETRON HCL 4 MG/2 ML VIAL IV PRN (16:41)
[2017-07-30 20:25] VITALS: BP 132/78; PULSE 56; RESP 18; TEMP 96.7; O2SAT 96
[2017-07-30] MEDS: traZODone HCL 100 MG TAB PO SCH (21:28)
--- NOTE | 2017-07-30 23:54 | HHI.PR ---
Subjective Remarks Patient seen this morning around 11 AM. She is trying to eat. Reports continued abdominal pain. GI following for EGD procedure tomorrow. Objective Vital Signs Date Time Temp Pulse Resp B/P (MAP) Pulse Ox O2 Delivery O2 Flow Rate FiO2 07/30/17 21:33 18 07/30/17 20:25 96.7 56 18 132/78 (96) 96 07/30/17 16:00 96.8 64 18 160/78 (105) 95 07/30/17 12:00 96.2 93 18 114/66 (82) 97 07/30/17 08:02 Room Air 07/30/17 08:00 97.3 58 18 128/72 (90) 93 07/30/17 04:21 Room Air I/O 07/30/17 07/30/17 07/30/17 07/31/17 07/31/17 07/31/17 07:00 15:00 23:00 07:00 15:00 23:00 Intake Total 1480 ml 600 ml 3024 ml Balance 1480 ml 600 ml 3024 ml Intake Oral 480 ml 600 ml 480 ml IV Total 1000 ml 2544 ml # Voids 6 7 4 # Bowel Movements 0 0 0 Result Diagram: 07/29/17 0750 07/29/17 0750 Objective Remarks GENERAL: patient sitting up in bed.appears to be trying to eat breakfast.Appears comfortable. Alert and oriented 3.again, no change on exam from yesterday. SKIN: Warm and dry. HEAD: Normocephalic. EYES: No scleral icterus. No injection or drainage. NECK: Supple, trachea midline. No JVD. CARDIOVASCULAR: Regular rate and rhythm without murmurs, gallops, or rubs. RESPIRATORY: Breath sounds equal bilaterally. No accessory muscle use. GASTROINTESTINAL: Abdomen tender to moderate palpation as on previous exams. No worsening.no rebound or guarding. MUSCULOSKELETAL: No cyanosis, or edema. BACK: Nontender without obvious deformity. No CVA tenderness. A/P Assessment and Plan == 07/30/17. //Intractable nausea and vomiting. //Pancreatitis -continued nausea, abdominal pain. -continue Creon. plan to do EGD on Sunday. 52 years old female presented with //Acute pancreatitis. -Lipase markedly elevated on admission. Improving. Advancing diet. GI following. cont IV fluids.Appreciate assistance. //History of hypertension -Systolic blood pressure elevated in the 170s. Restart amlodipine. //History of bipolar -Continue lithium. -Level 0.1 on 07/26. Ordered and pending. //History of depression. Restart trazodone. //History of CVA with coiling. Restart amlodipine. //DVT prophylaxis. Continue heparin. Discharge Planning home when cleared by GI -Plan for EGD by gastroenterology on Sunday. [place] going by at this time. Adriano Molina MD Jul 30, 2017 23:54
[2017-07-31] VITALS (7 sets, daily range): BP systolic 96–126; BP diastolic 57–78; PULSE 50–81; RESP 16–18; TEMP 95.9–98; O2SAT 92–96
[2017-07-31] MEDS: MORPHINE SULFATE 4 MG/ML INJ IV PUSH PRN ×7 (00:35→21:54)
[2017-07-31] MEDS: HEPARIN SODIUM - SQ 10,000 UNITS/ML VIAL SQ SCH ×3 (02:35→18:39)
[2017-07-31] MEDS: SODIUM CHLORIDE 0.9% FLUSH 10 ML FLUSH IV FLUSH SCH ×2 (08:24→21:54)
[2017-07-31] MEDS: NS + KCL 20 MEQ INJ 1,000 ML IV SCH ×5 (08:24→20:00)
[2017-07-31] MEDS: LIPASE/PROTEASE/AMYLASE (24,000/76,000/120,000) CAP PO SCH ×3 (08:32→18:39)
[2017-07-31] MEDS: LITHIUM CARBONATE 300 MG CAP PO SCH ×2 (08:32→21:54)
[2017-07-31] MEDS: amLODIPine BESYLATE 5 MG TAB PO SCH (08:36)
[2017-07-31] MEDS: PANTOPRAZOLE SODIUM 40 MG VIAL IV PUSH SCH (12:09)
[2017-07-31] MEDS ORDERED: PROPOFOL 200 MG/20 ML AMP IV PUSH ONE (13:48)
--- NOTE | 2017-07-31 13:54 | GIPROC ---
[facility] [address] [facility]. [facility], [address] EGD PROCEDURE REPORT EXAM DATE: 07/31/2017 PATIENT NAME: Natacha Hernandez MR #: [id number] BIRTHDATE: 1965 ATTENDING: Keya Quispe MD ORDER #: [id number] BOARD OPERATOR: Italia Peña and Fan Espinoza STATUS: inpatient INDICATIONS: The patient is a 52 yr old female here for an EGD due to abdominal pain PROCEDURE PERFORMED: EGD w/ biopsy MEDICATIONS: None and Per Anesthesia. TOPICAL ANESTHETIC: none CONSENT: The patient understands the risks and benefits of the procedure and understands that these risks include, but are not limited to: sedation, allergic reaction, infection, perforation and/or bleeding. Alternative means of evaluation and treatment include, among others: physical exam, x-rays, and/or surgical intervention. The patient elects to proceed with this endoscopic procedure. medical equipment was checked for proper function. Hand hygiene and appropriate measures for infection prevention was taken. After the risks, benefits and alternatives of the procedure were thoroughly explained, Informed consent was verified, confirmed and timeout was successfully executed by the treatment team. The patient was anesthetized with topical anesthesia and the Pentax EG-[id number] endoscope was introduced through the mouth and advanced to the second portion of the duodenum. Retroflexed views revealed a hiatal hernia The gastroscope was then slowly withdrawn and removed. Esophagitis distal esophagus -biopsy gastritis antrum-biopsy duodenitis duodenal bulb-biopsy. ADVERSE EVENTS: There were no complications. IMPRESSIONS: 1. Esophagitis distal esophagus -biopsy gastritis antrum-biopsy duodenitis duodenal bulb-biopsy 2. Retroflexed views revealed a hiatal hernia RECOMMENDATIONS: 1. Await biopsy results. Biopsy results will not be ready for 7-10 days. If you don't hear from us in two weeks, call our office for biopsy results. 2. Anti-reflux regimen 3. Continue PPI 4. Avoid NSAIDS 5. If no improvement after starting creon-consider gastric emptying study PATIENT CONDITION: stable DISPOSITION: Inpatient REPEAT EXAM: EGD pending biopsy results Keya Quispe MD eSigned: Keya Quispe MD 07/31/2017 1:54 PM cc: PATIENT NAME: Natacha Hernandez MR#: [id number]
[2017-07-31] MEDS: ONDANSETRON HCL 4 MG/2 ML VIAL IV PRN (16:12)
--- NOTE | 2017-07-31 21:14 | HHI.PR ---
Subjective Remarks Patient seen this morning prior to EGD. Patient reports that bowel pain about the same as yesterday. Denies any chest pain or shortness of breath. Discharge home when cleared by gastroenterology. Objective Vital Signs Date Time Temp Pulse Resp B/P (MAP) Pulse Ox O2 Delivery O2 Flow Rate FiO2 07/31/17 19:00 97.1 72 16 96/67 (77) 96 07/31/17 18:49 18 07/31/17 16:00 95.9 67 17 117/69 (85) 93 07/31/17 14:00 97.0 55 18 120/65 (83) 96 07/31/17 12:00 97.4 64 18 101/78 (86) 94 07/31/17 08:00 96.2 54 17 100/63 (75) 92 07/31/17 04:34 96.8 57 18 114/59 (77) 96 07/31/17 00:10 96.9 65 18 116/59 (78) 96 I/O 07/30/17 07/30/17 07/30/17 07/31/17 07/31/17 07/31/17 06:59 14:59 22:59 06:59 14:59 22:59 Intake Total 1480 ml 600 ml 3024 ml 0 ml 1052 ml Balance 1480 ml 600 ml 3024 ml 0 ml 1052 ml Intake Oral 480 ml 600 ml 480 ml 0 ml 420 ml IV Total 1000 ml 2544 ml 332 ml Other 300 ml # Voids 6 7 4 2 4 # Bowel Movements 0 0 0 0 0 Result Diagram: 07/29/17 0750 07/29/17 0750 Objective Remarks GENERAL: patient lyiing in bed.Appears comfortable. Alert and oriented 3.again , no change on exam from yesterday. SKIN: Warm and dry. HEAD: Normocephalic. EYES: No scleral icterus. No injection or drainage. NECK: Supple, trachea midline. No JVD. CARDIOVASCULAR: Regular rate and rhythm without murmurs, gallops, or rubs. RESPIRATORY: Breath sounds equal bilaterally. No accessory muscle use. GASTROINTESTINAL: Abdomen tender to moderate palpation as on previous exams. No worsening.no rebound or guarding. MUSCULOSKELETAL: No cyanosis, or edema. BACK: Nontender without obvious deformity. No CVA tenderness. A/P Assessment and Plan == 07/31/17. //Intractable nausea and vomiting. //Pancreatitis -EGD today. continue Creon. Follow-up electrolytes tomorrow.Discharge when cleared by gastroenterology. 52 years old female presented with //Acute pancreatitis. -Lipase markedly elevated on admission. Improving. Advancing diet. GI following. cont IV fluids.Appreciate assistance. //History of hypertension -Systolic blood pressure elevated in the 170s. Restart amlodipine. //History of bipolar -Continue lithium. -Level 0.1 on 07/26. Ordered and pending. //History of depression. Restart trazodone. //History of CVA with coiling. Restart amlodipine. //DVT prophylaxis. Continue heparin. Discharge Planning status post EGD 07/31. Discharge when cleared by gastroenterology. Adriano Molina MD Jul 31, 2017 21:14
[2017-07-31] MEDS: traZODone HCL 100 MG TAB PO SCH (21:54)
[2017-08-01] MEDS: MORPHINE SULFATE 4 MG/ML INJ IV PUSH PRN ×4 (03:42→21:26)
[2017-08-01] MEDS: HEPARIN SODIUM - SQ 10,000 UNITS/ML VIAL SQ SCH ×3 (03:43→17:47)
[2017-08-01] MEDS: NS + KCL 20 MEQ INJ 1,000 ML IV SCH ×5 (03:43→20:14)
[2017-08-01 04:00] VITALS: BP 95/58; PULSE 64; RESP 15; TEMP 96.5; O2SAT 94
[2017-08-01 08:00] VITALS: BP 119/80; PULSE 59; RESP 18; TEMP 96.6; O2SAT 92
[2017-08-01] MEDS: amLODIPine BESYLATE 5 MG TAB PO SCH (09:00)
[2017-08-01] MEDS: SODIUM CHLORIDE 0.9% FLUSH 10 ML FLUSH IV FLUSH SCH ×2 (09:08→20:14)
[2017-08-01] MEDS: LIPASE/PROTEASE/AMYLASE (24,000/76,000/120,000) CAP PO SCH ×3 (09:08→17:47)
[2017-08-01] MEDS: LITHIUM CARBONATE 300 MG CAP PO SCH ×2 (09:09→20:14)
[2017-08-01 11:09] LABS: AUTOMATED NEUTROPHIL # 2.7 TH/MM3 (1.8-7.7); BASOPHIL # 0.1 TH/MM3 (0-0.2); BASOPHIL % 1.4 % (0.0-2.0); EOSINOPHIL # 0.5 TH/MM3 (0-0.4); EOSINOPHIL % 9.6 % (0.0-4.0); HEMATOCRIT 40.7 % (35.0-46.0); HEMO FLAGS DIFF FINAL; LYMPH % 29.1 % (9.0-44.0); LYMPHOCYTE # 1.5 TH/MM3 (1.0-4.8); MEAN CELL VOLUME 93.8 FL (80.0-100.0); MEAN CORPUSCULAR HGB CONC 33.1 % (32.0-36.0); NEUT % 51.9 % (16.0-70.0); PLATELET COUNT 243 TH/MM3 (150-450); RED BLOOD COUNT 4.34 MIL/MM3 (4.00-5.30); WHITE BLOOD COUNT 5.1 TH/MM3 (4.0-11.0)
[2017-08-01 11:12] LABS: BICARBONATE 30.1 MEQ/L (21.0-32.0); POTASSIUM 4.6 MEQ/L (3.5-5.1)
[2017-08-01 12:00] VITALS: BP 121/68; PULSE 57; RESP 18; TEMP 96; O2SAT 94
[2017-08-01] MEDS: PANTOPRAZOLE SODIUM 40 MG VIAL IV PUSH SCH (12:38)
--- NOTE | 2017-08-01 15:47 | HHI.PR ---
Subjective Remarks Patient continues to complain of abdominal pain that is worse after eating. Pancreatic enzymes have decreased. No new complaints. Objective Vital Signs Date Time Temp Pulse Resp B/P (MAP) Pulse Ox O2 Delivery O2 Flow Rate FiO2 08/01/17 12:00 96.0 57 18 121/68 (85) 94 08/01/17 08:00 96.6 59 18 119/80 (93) 92 08/01/17 04:00 96.5 64 15 95/58 (70) 94 07/31/17 23:52 96.0 50 17 126/57 (80) 95 07/31/17 19:00 97.1 72 16 96/67 (77) 96 07/31/17 18:49 18 07/31/17 16:00 95.9 67 17 117/69 (85) 93 I/O 07/31/17 07/31/17 07/31/17 08/01/17 08/01/17 08/01/17 07:00 15:00 23:00 07:00 15:00 23:00 Intake Total 0 ml 1052 ml 480 ml 400 ml Output Total 240 ml Balance 0 ml 1052 ml 480 ml 160 ml Intake Oral 0 ml 420 ml 480 ml 400 ml IV Total 332 ml Other 300 ml Output Urine Total 240 ml # Voids 2 4 3 # Bowel Movements 0 0 0 0 Result Diagram: 08/01/17 1012 08/01/17 1012 Objective Remarks GENERAL: NAD, A&Ox3 HEAD: Normocephalic. NECK: Supple, trachea midline. No lymphadenopathy. EYES: No scleral icterus. No injection or drainage. CARDIOVASCULAR: Regular rate and rhythm without murmurs, gallops, or rubs. RESPIRATORY: Breath sounds equal bilaterally. No accessory muscle use. GASTROINTESTINAL: Abdomen soft, non-tender, nondistended. MUSCULOSKELETAL: No cyanosis, or edema. SKIN: Warm and dry. NEURO: No focal neurological deficitis. A/P Problem List: (1) Acute pancreatitis ICD Code: K85.90 - Acute pancreatitis without necrosis or infection, unspecified (2) Abdominal pain ICD Code: R10.9 - Unspecified abdominal pain Status: Acute (3) Anxiety ICD Code: F41.9 - Anxiety disorder, unspecified Status: Acute (4) Hyperlipidemia ICD Code: E78.5 - Hyperlipidemia, unspecified Status: Acute Assessment and Plan Assessment and Plan 52-year-old female admitted secondary to pancreatitis Acute pancreatitis Continue Creon for now Continue PPI Lipase has normalized Continue IV hydration Follow on a regular diet Monitor for improved tolerance of diet Hypertension Continue amlodipine Follow blood pressures Bipolar disorder Depression Continue Librium Continue trazodone History of CVA History of coiling Follow clinically DVT prophylaxis Continue heparin Discharge planning Monitor for improvement in abdominal symptoms Problem Qualifiers (1) Abdominal pain: Qualified Codes: R10.84 - Generalized abdominal pain Laron Almanzar MD Aug 01, 2017 15:47
[2017-08-01 16:00] VITALS: BP 114/69; PULSE 56; RESP 17; TEMP 95.2; O2SAT 96
--- NOTE | 2017-08-01 17:06 | HHI.GIFU ---
Subjective Remarks Resting in bed. Mild abdominal pain, mild nausea, no vomiting. Toleraitng diet. C/O feeling weak. (Jessica Hernandez) Objective Vitals I&O Vital Signs Date Time Temp Pulse Resp B/P (MAP) Pulse Ox O2 Delivery O2 Flow Rate FiO2 08/01/17 16:00 95.2 56 17 114/69 (84) 96 08/01/17 12:00 96.0 57 18 121/68 (85) 94 08/01/17 08:00 96.6 59 18 119/80 (93) 92 08/01/17 04:00 96.5 64 15 95/58 (70) 94 07/31/17 23:52 96.0 50 17 126/57 (80) 95 07/31/17 19:00 97.1 72 16 96/67 (77) 96 07/31/17 18:49 18 I/O 07/31/17 07/31/17 07/31/17 08/01/17 08/01/17 08/01/17 07:00 15:00 23:00 07:00 15:00 23:00 Intake Total 0 ml 1052 ml 480 ml 400 ml 960 ml Output Total 240 ml Balance 0 ml 1052 ml 480 ml 160 ml 960 ml Intake Oral 0 ml 420 ml 480 ml 400 ml 960 ml IV Total 332 ml Other 300 ml Output Urine Total 240 ml # Voids 2 4 3 6 # Bowel Movements 0 0 0 0 1 Laboratory Laboratory Tests Test 08/01/17 10:12 White Blood Count 5.1 Red Blood Count 4.34 Hemoglobin 13.5 Hematocrit 40.7 Mean Corpuscular Volume 93.8 Mean Corpuscular Hemoglobin 31.0 Mean Corpuscular Hemoglobin Concent 33.1 Red Cell Distribution Width 14.0 Platelet Count 243 Mean Platelet Volume 8.8 Neutrophils (%) (Auto) 51.9 Lymphocytes (%) (Auto) 29.1 Monocytes (%) (Auto) 8.0 Eosinophils (%) (Auto) 9.6 Basophils (%) (Auto) 1.4 Neutrophils # (Auto) 2.7 Lymphocytes # (Auto) 1.5 Monocytes # (Auto) 0.4 Eosinophils # (Auto) 0.5 Basophils # (Auto) 0.1 CBC Comment DIFF FINAL Differential Comment Blood Urea Nitrogen 14 Creatinine 0.76 Random Glucose 87 Calcium Level 8.8 Sodium Level 141 Potassium Level 4.6 Chloride Level 107 Carbon Dioxide Level 30.1 Anion Gap 4 Estimat Glomerular Filtration Rate 79 Imaging Last Impressions Cholangiopancreatography MRI 07/24/17 0000 Signed Impressions: Service Date/Time: Monday, July 24, 2017 14:00 - CONCLUSION: 1. Benign hemangioma of the liver. 2. In the absence of any clinical or laboratory evidence of biliary obstruction, the mild intrahepatic and extrahepatic biliary distention is most likely reservoir type affect after cholecystectomy. No stones or masses are demonstrated. Merlin Joe MD Abdomen/Pelvis CT [id number]/23/[id number] Signed Impressions: Service Date/Time: Sunday, July 23, 2017 23:17 - CONCLUSION: 1. 2.2 x 2.2 cm heterogeneously hypodense mass in superior segment 5 of the liver extending to the liver capsule. This lesion can be further characterized with multiphase liver mass protocol MRI or CT exam. 2. Status post cholecystectomy with likely reservoir effect mild intra-and extra hepatic ductal dilatation. 3. Post surgical features in the anterior abdominal wall with very small midline midanterior abdominal wall collection measuring 0.9 x 3.1 cm, likely chronic. 4. Status post appendectomy and hysterectomy. 1. Erich Gooden MD Physical Exam HEENT: Normocephalic; atraumatic; no jaundice. CHEST: CTA CARDIAC: RRR. ABDOMEN: Soft, nondistended, mild mid/epigastric tenderness; no hepatosplenomegaly; bowel sounds are present in all four quadrants. EXTREMITIES: No clubbing, cyanosis, or edema. SKIN: Normal; no rash; no jaundice. 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 (Jessica Hernandez) Assessment and Plan Plan ASSESSMENT: - Acute pancreatitis, unclear etiology. No prior hx of pancreatitis, denies etoh use, new meds, herbal supplements, family hx of pancreatitis or autoimmune d/o. CT scan abdomen and pelvis with iv contrast (07/23/17)-----> 2.2 x 2.2 cm heterogeneously hypodense mass in superior segment 5 of the liver extending to the liver capsule. This lesion can be further characterized with multiphase liver mass protocol MRI or CT exam. Status post cholecystectomy with likely reservoir effect mild intra-and extrahepatic ductal dilatation. Postsurgical features in the anterior abdominal wall with very small midline mid anterior abdominal wall collection measuring 0.9 x 3.1 cm, likely chronic. Status post appendectomy and hysterectomy. Lipase 3429---> 604. MRCP with and without contrast (07/24/17)----> benign hemangioma of the liver, in the absence of any clinical or laboratory evidence of biliary obstruction, but mild intrahepatic and extrahepatic biliary distention is most likely reservoir type effect after cholecystectomy. No stones or masses are demonstrated. IVF. Tolerating diet. Creon. Pain slowly improving. PPI. IVF. - Gastritis, Esophagitis, Duodenitis. S/P EGD (07/31/17)---> 1. Esophagitis distal esophagus -biopsy, gastritis antrum-biopsy, duodenitis duodenal bulb- biopsy 2. Retroflexed views revealed a hiatal hernia. Pathology pending. PPI. - Abnormal imaging with liver mass noted on CT. MRCP with contrast---> benign hemangioma of the liver. - Hypokalemia. Improved. - Bipolar d/o, anxiety/depression, HTN per attending. PLAN: - Low fat diet - Await pathology - PPI - Creon - Bentyl - IVF - No ETOH - Supportive care - FU MUNIRA 2 weeks - If continues to have abdominal pain, consider GES - Further recommendations to follow based on results of above - Pt seen and examined by Dr. Quispe and myself and this note is written on her behalf (Jessica Hernandez) Jessica Hernandez Aug 01, 2017 17:05 Keya Quispe MD Aug 02, 2017 05:31
[2017-08-01 19:00] VITALS: BP 122/73; PULSE 56; RESP 16; TEMP 96.2; O2SAT 98
[2017-08-01] MEDS: traZODone HCL 100 MG TAB PO SCH (20:14)
[2017-08-02] VITALS: BP 125/76; PULSE 56; RESP 17; TEMP 97.7; O2SAT 96
[2017-08-02] MEDS: MORPHINE SULFATE 4 MG/ML INJ IV PUSH PRN ×7 (00:41→23:15)
[2017-08-02] MEDS: NS + KCL 20 MEQ INJ 1,000 ML IV SCH ×5 (03:03→20:08)
[2017-08-02] MEDS: HEPARIN SODIUM - SQ 10,000 UNITS/ML VIAL SQ SCH ×3 (03:03→18:37)
[2017-08-02 08:00] VITALS: BP 115/73; PULSE 53; RESP 17; TEMP 96.1; O2SAT 92
[2017-08-02] MEDS: SODIUM CHLORIDE 0.9% FLUSH 10 ML FLUSH IV FLUSH SCH ×2 (09:00→20:04)
[2017-08-02] MEDS: amLODIPine BESYLATE 5 MG TAB PO SCH (09:11)
[2017-08-02] MEDS: LIPASE/PROTEASE/AMYLASE (24,000/76,000/120,000) CAP PO SCH ×3 (09:11→18:36)
[2017-08-02] MEDS: LITHIUM CARBONATE 300 MG CAP PO SCH ×2 (09:12→20:04)
--- NOTE | 2017-08-02 10:57 | HHI.PR ---
Subjective Remarks Continued complaints of abdominal pain. Gastric emptying study ordered. Patient has a history of hysterectomy some beta-hCG is not needed. Objective Vital Signs Date Time Temp Pulse Resp B/P (MAP) Pulse Ox O2 Delivery O2 Flow Rate FiO2 08/02/17 08:00 96.1 53 17 115/73 (87) 92 08/02/17 00:00 97.7 56 17 125/76 (92) 96 08/01/17 19:00 96.2 56 16 122/73 (89) 98 08/01/17 16:00 95.2 56 17 114/69 (84) 96 08/01/17 12:00 96.0 57 18 121/68 (85) 94 I/O 08/01/17 08/01/17 08/01/17 08/02/17 08/02/17 08/02/17 07:00 15:00 23:00 07:00 15:00 23:00 Intake Total 400 ml 2651 ml 1517 ml Output Total 240 ml Balance 160 ml 2651 ml 1517 ml Intake Oral 400 ml 1440 ml 480 ml IV Total 1211 ml 1037 ml Output Urine Total 240 ml # Voids 10 3 # Bowel Movements 0 1 0 Result Diagram: 08/01/17 1012 08/01/17 1012 Objective Remarks GENERAL: NAD, A&Ox3 HEAD: Normocephalic. NECK: Supple, trachea midline. No lymphadenopathy. EYES: No scleral icterus. No injection or drainage. CARDIOVASCULAR: Regular rate and rhythm without murmurs, gallops, or rubs. RESPIRATORY: Breath sounds equal bilaterally. No accessory muscle use. GASTROINTESTINAL: Abdomen soft, non-tender, nondistended. MUSCULOSKELETAL: No cyanosis, or edema. SKIN: Warm and dry. NEURO: No focal neurological deficitis. A/P Problem List: (1) Acute pancreatitis ICD Code: K85.90 - Acute pancreatitis without necrosis or infection, unspecified (2) Abdominal pain ICD Code: R10.9 - Unspecified abdominal pain Status: Acute (3) Anxiety ICD Code: F41.9 - Anxiety disorder, unspecified Status: Acute (4) Hyperlipidemia ICD Code: E78.5 - Hyperlipidemia, unspecified Status: Acute Assessment and Plan Assessment and Plan 52-year-old female admitted secondary to pancreatitis. Abdominal pain present and has not significantly improved. This may be secondary to pancreatitis but a gastric continue study is ordered to evaluate for gastroparesis. Acute pancreatitis Continue Creon for now Continue PPI Lipase has normalized Continue IV hydration Follow on a regular diet Monitor for improved tolerance of diet Gastric continue study ordered Hypertension Continue amlodipine Follow blood pressures Bipolar disorder Depression Continue Librium Continue trazodone History of CVA History of coiling Follow clinically DVT prophylaxis Continue heparin Discharge planning Monitor for improvement in abdominal symptoms Problem Qualifiers (1) Abdominal pain: Qualified Codes: R10.84 - Generalized abdominal pain Laron Almanzar MD Aug 02, 2017 10:57
[2017-08-02 12:00] VITALS: BP 118/72; PULSE 50; RESP 18; TEMP 96.4; O2SAT 93
[2017-08-02] MEDS: PANTOPRAZOLE SODIUM 40 MG VIAL IV PUSH SCH (12:19)
[2017-08-02] MEDS ORDERED: METOCLOPRAMIDE HCL 10 MG/2 ML VIAL ONE (15:14)
[2017-08-02 16:00] VITALS: BP 120/60; PULSE 55; RESP 17; TEMP 97.2; O2SAT 93
--- NOTE | 2017-08-02 16:21 | RADRPT ---
EXAM DATE/TIME: 08/02/2017 13:40 [facility] COMPARISON: MYOCARDIAL PERF PHARM SPECT, GATED W/EF, March 28, 2017, 11:34. INDICATIONS : Abdominal pain. DOSE: 1.1 mCi Tc99m Sulfur Colloid Labeled Whole egg PO MEDICATONS: 1.) 5 mg Reglan IV at 90 minutes IMAGIN hrs MEDICAL HISTORY : Diabetes mellitus type 2. Pancreatitis. SURGICAL HISTORY : Cholecystectomy. ENCOUNTER: Initial ACUITY: 1 day PAIN SCALE: 4/10 LOCATION: Bilateral Abdominal. TECHNIQUE: Following the oral ingestion of radiotracer-labeled meal, dynamic sequential images in the URDU projec tion were acquired with simultaneous computer acquisition. The data set was decay-corrected. FINDINGS: LAG PHASE: There is approximately 80 minutes before onset of gastric emptying. EMPTYING: The unaugmented gastric emptying half time is significantly longer than 90 minutes. (Normal for this lab is 45- 90 minutes.). There is essentially no gastric emptying until Reglan as administered at 90 minutes. Following the administration of Reglan there is brisk gastric emptying with a new half-life calculated at approximately 15 minutes. INTERVENTION: Reglan was administered at 90 minutes with brisk response. CONCLUSION: 1. The exam demonstrates findings suggesting gastroparesis. There is essentially no emptying until Re glan was administered at 90 minutes. Following Reglan administration there is dumping of the gastric content. Laron Chambers MD on August 02, 2017 at 16:16 Board Certified Radiologist. This report was verified electronically.
--- NOTE | 2017-08-02 18:24 | HHI.GIFU ---
GI Follow-up Note Consult Follow-up Subjective: Patient laying in bed comfortably.Feeling better, but still having abdominal pain.Gastric emptying study noted-discussed with her Objective: PHYSICAL EXAMINATION: Vitals signs stable No fever Vital Signs Date Time Temp Pulse Resp B/P (MAP) Pulse Ox O2 Delivery O2 Flow Rate FiO2 08/02/17 12:00 96.4 50 18 118/72 (87) 93 HEENT: Pupils round and reactive to light; normocephalic; atraumatic; no jaundice. Throat is clear. NECK: Neck is supple, no JVD, no lymphadenopathy. CHEST: Chest is clear to auscultation and percussion. CARDIAC: Regular rate and rhythm with no murmur gallop or rubs. ABDOMEN: Soft, nondistended, nontender; no hepatosplenomegaly; bowel sounds are present in all four quadrants. EXTREMITIES: No clubbing, cyanosis, or edema. SKIN: Normal; no rash; no jaundice. 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 Available Data (labs, X- Rays, Procedues) : Laboratory Tests Test 08/01/17 10:12 White Blood Count 5.1 TH/MM3 Red Blood Count 4.34 MIL/MM3 Hemoglobin 13.5 GM/DL Hematocrit 40.7 % Mean Corpuscular Volume 93.8 FL Mean Corpuscular Hemoglobin 31.0 PG Mean Corpuscular Hemoglobin Concent 33.1 % Red Cell Distribution Width 14.0 % Platelet Count 243 TH/MM3 Mean Platelet Volume 8.8 FL Neutrophils (%) (Auto) 51.9 % Lymphocytes (%) (Auto) 29.1 % Monocytes (%) (Auto) 8.0 % Eosinophils (%) (Auto) 9.6 % Basophils (%) (Auto) 1.4 % Neutrophils # (Auto) 2.7 TH/MM3 Lymphocytes # (Auto) 1.5 TH/MM3 Monocytes # (Auto) 0.4 TH/MM3 Eosinophils # (Auto) 0.5 TH/MM3 Basophils # (Auto) 0.1 TH/MM3 CBC Comment DIFF FINAL Differential Comment Blood Urea Nitrogen 14 MG/DL Creatinine 0.76 MG/DL Random Glucose 87 MG/DL Calcium Level 8.8 MG/DL Sodium Level 141 MEQ/L Potassium Level 4.6 MEQ/L Chloride Level 107 MEQ/L Carbon Dioxide Level 30.1 MEQ/L Anion Gap 4 MEQ/L Estimat Glomerular Filtration Rate 79 ML/MIN ASSESSMENT/PLAN: abdominal pain-multifactorial - pancreatis, gastroparesis gastroparesis-responding to Reglan liver hemangioma Recommendations gastroparesis diet start Reglan 10 mg pot id pancreatic enzymes with meals avoid etoh, fatty foods fu biopsy if better ok to dc home in am if dc fu office It was a pleasure seeing Natacha Hernandez. Thank you for this consult. Entered by: Keya Carreon MD Aug 02, 2017 18:24
[2017-08-02 20:00] VITALS: BP 131/76; PULSE 68; RESP 16; TEMP 97.7; O2SAT 95
[2017-08-02] MEDS: traZODone HCL 100 MG TAB PO SCH (20:04)
[2017-08-02] MEDS: METOCLOPRAMIDE HCL 10 MG TAB PO SCH (20:04)
[2017-08-02] MEDS ORDERED: BISACODYL EC 5 MG TABEC PO ONE (21:00)
[2017-08-03] VITALS (8 sets, daily range): BP systolic 122–152; BP diastolic 64–81; PULSE 59–85; RESP 16–19; TEMP 95.6–97.5; O2SAT 93–98
[2017-08-03] MEDS: HEPARIN SODIUM - SQ 10,000 UNITS/ML VIAL SQ SCH ×3 (02:45→18:50)
[2017-08-03] MEDS: NS + KCL 20 MEQ INJ 1,000 ML IV SCH ×5 (03:00→22:08)
[2017-08-03] MEDS: MORPHINE SULFATE 4 MG/ML INJ IV PUSH PRN ×6 (03:59→22:07)
[2017-08-03] MEDS: LITHIUM CARBONATE 300 MG CAP PO SCH ×2 (08:59→20:04)
[2017-08-03] MEDS: LIPASE/PROTEASE/AMYLASE (24,000/76,000/120,000) CAP PO SCH ×3 (08:59→18:49)
[2017-08-03] MEDS: amLODIPine BESYLATE 5 MG TAB PO SCH (08:59)
[2017-08-03] MEDS: METOCLOPRAMIDE HCL 10 MG TAB PO SCH ×4 (08:59→20:04)
[2017-08-03] MEDS: SODIUM CHLORIDE 0.9% FLUSH 10 ML FLUSH IV FLUSH SCH ×2 (09:00→20:04)
[2017-08-03] MEDS: PANTOPRAZOLE SODIUM 40 MG VIAL IV PUSH SCH (12:10)
--- NOTE | 2017-08-03 15:22 | HHI.PR ---
Subjective Remarks Complaint of constipation today. Gastric and thinks that he is positive. Reglan initiated as a treatment. Objective Vital Signs Date Time Temp Pulse Resp B/P (MAP) Pulse Ox O2 Delivery O2 Flow Rate FiO2 08/03/17 12:00 96.0 74 18 122/71 (88) 95 08/03/17 09:27 98 21 08/03/17 08:52 Room Air 08/03/17 08:00 95.6 85 18 138/80 (99) 93 08/03/17 04:36 96 08/03/17 04:00 97.3 59 16 122/64 (83) 95 08/03/17 00:00 96.8 81 17 135/70 (91) 95 08/02/17 20:00 97.7 68 16 131/76 (94) 95 08/02/17 16:00 97.2 55 17 120/60 (80) 93 I/O 08/02/17 08/02/17 08/02/17 08/03/17 08/03/17 08/03/17 07:00 15:00 23:00 07:00 15:00 23:00 Intake Total 1517 ml 800 ml 960 ml 2110 ml Balance 1517 ml 800 ml 960 ml 2110 ml Intake Oral 480 ml 800 ml 960 ml 240 ml IV Total 1037 ml 1870 ml # Voids 3 4 3 1 # Bowel Movements 0 1 Result Diagram: 08/01/17 1012 08/01/17 1012 Objective Remarks GENERAL: NAD, A&Ox3 HEAD: Normocephalic. NECK: Supple, trachea midline. No lymphadenopathy. EYES: No scleral icterus. No injection or drainage. CARDIOVASCULAR: Regular rate and rhythm without murmurs, gallops, or rubs. RESPIRATORY: Breath sounds equal bilaterally. No accessory muscle use. GASTROINTESTINAL: Abdomen soft, non-tender, nondistended. MUSCULOSKELETAL: No cyanosis, or edema. SKIN: Warm and dry. NEURO: No focal neurological deficitis. A/P Problem List: (1) Acute pancreatitis ICD Code: K85.90 - Acute pancreatitis without necrosis or infection, unspecified (2) Abdominal pain ICD Code: R10.9 - Unspecified abdominal pain Status: Acute (3) Anxiety ICD Code: F41.9 - Anxiety disorder, unspecified Status: Acute (4) Hyperlipidemia ICD Code: E78.5 - Hyperlipidemia, unspecified Status: Acute Assessment and Plan Assessment and Plan 52-year-old female admitted secondary to pancreatitis. Abdominal pain present and has not significantly improved. Positive for gastroparesis. Treatment initiated, with Reglan. Constipation reported today. Treatments initiated. Gastroparesis Reglan by mouth 3 times a day and at bedtime Follow for improvement clinically Constipation Laxative did not work overnight Glycerin suppository now Repeat laxative after suppository Acute pancreatitis Continue Creon for now Continue PPI Lipase has normalized Continue IV hydration Follow on a regular diet Monitor for improved tolerance of diet Gastric continue study ordered Hypertension Continue amlodipine Follow blood pressures Bipolar disorder Depression Continue Librium Continue trazodone History of CVA History of coiling Follow clinically DVT prophylaxis Continue heparin Discharge planning Monitor for improvement in abdominal symptoms Problem Qualifiers (1) Abdominal pain: Qualified Codes: R10.84 - Generalized abdominal pain Laron Almanzar MD Aug 03, 2017 15:22
[2017-08-03] MEDS ORDERED: GLYCERIN ADULT 2 GM SUPP RECTAL ONE (15:30)
--- NOTE | 2017-08-03 17:30 | HHI.GIFU ---
GI Follow-up Note Consult Follow-up Subjective: Patient laying in bed comfortably, feeling better.Constipation, had a suppository , awaiting results .No nausea,vomiting.Decreased appetite Objective: PHYSICAL EXAMINATION: Vitals signs stable No fever Vital Signs Date Time Temp Pulse Resp B/P (MAP) Pulse Ox O2 Delivery O2 Flow Rate FiO2 08/03/17 16:00 95.9 79 18 140/81 (100) 95 08/03/17 12:00 96.0 74 18 122/71 (88) 95 HEENT: Pupils round and reactive to light; normocephalic; atraumatic; no jaundice. Throat is clear. NECK: Neck is supple, no JVD, no lymphadenopathy. CHEST: Chest is clear to auscultation and percussion. CARDIAC: Regular rate and rhythm with no murmur gallop or rubs. ABDOMEN: Soft, nondistended, nontender; no hepatosplenomegaly; bowel sounds are present in all four quadrants. EXTREMITIES: No clubbing, cyanosis, or edema. SKIN: Normal; no rash; no jaundice. 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 Available Data (labs, X- Rays, Procedues) : ASSESSMENT/PLAN: abdominal coxm-svpwhlhaedkwum-uevqoqurof/gastroparesis gastroparesis -on Reglan, diet constipation Recommendation continue Pantoprazole,Creon Reglan for gastroparesis Lactulose/miralax suppositories if stable can dc in 1-2 days It was a pleasure seeing Natacha Hernandez. Thank you for this consult. Entered by: Keya Carreon MD Aug 03, 2017 17:30
[2017-08-03] MEDS ORDERED: LACTULOSE SYRUP 20 GM/30 ML CUP PO ONE (18:00)
[2017-08-03] MEDS: DOCUSATE SODIUM 100 MG CAP PO SCH (20:04)
[2017-08-03] MEDS: traZODone HCL 100 MG TAB PO SCH (20:04)
[2017-08-04] VITALS: BP 116/62; PULSE 60; RESP 16; TEMP 96.2; O2SAT 96
[2017-08-04] MEDS: HEPARIN SODIUM - SQ 10,000 UNITS/ML VIAL SQ SCH ×2 (03:23→11:39)
[2017-08-04] MEDS: MORPHINE SULFATE 4 MG/ML INJ IV PUSH PRN ×5 (03:24→16:01)
[2017-08-04] MEDS: NS + KCL 20 MEQ INJ 1,000 ML IV SCH ×3 (03:27→12:16)
[2017-08-04 08:00] VITALS: BP 129/78; PULSE 63; RESP 18; TEMP 95.8; O2SAT 98
[2017-08-04] MEDS: SODIUM CHLORIDE 0.9% FLUSH 10 ML FLUSH IV FLUSH SCH (09:00)
[2017-08-04] MEDS: LIPASE/PROTEASE/AMYLASE (24,000/76,000/120,000) CAP PO SCH ×2 (09:06→12:16)
[2017-08-04] MEDS: DOCUSATE SODIUM 100 MG CAP PO SCH (09:06)
[2017-08-04] MEDS: amLODIPine BESYLATE 5 MG TAB PO SCH (09:06)
[2017-08-04] MEDS: METOCLOPRAMIDE HCL 10 MG TAB PO SCH ×3 (09:06→16:00)
[2017-08-04] MEDS: LITHIUM CARBONATE 300 MG CAP PO SCH (09:06)
[2017-08-04] MEDS ORDERED: GLYCERIN ADULT 2 GM SUPP RECTAL ONE (10:00)
[2017-08-04] MEDS ORDERED: MAGNESIUM CITRATE SOLN 300 ML BTL PO ONE (11:00)
[2017-08-04 12:00] VITALS: BP 138/87; PULSE 76; RESP 18; TEMP 96.6; O2SAT 98
[2017-08-04] MEDS: PANTOPRAZOLE SODIUM 40 MG VIAL IV PUSH SCH (12:12)
[2017-08-04] MEDS ORDERED: SOD PHOSPHATE/SOD BIPHOSPHATE (ADULT) ENEMA 133ML RECTAL PRN (13:00)
--- NOTE | 2017-08-04 13:47 | HHI.GIFU ---
Subjective Remarks Resting in bed. States her pain is improving, but because she has a good control on her pain meds. She is tolerating diet and not having n/v. C/O constipation, having some bowel movements, but does not feel that she has had a good bowel movement. S/P dulcolax suppository and 1/2 bottle magnesium citrate. (HernandezJessica Suzi SWATHI) Objective Vitals I&O Vital Signs Date Time Temp Pulse Resp B/P (MAP) Pulse Ox O2 Delivery O2 Flow Rate FiO2 08/04/17 12:00 96.6 76 18 138/87 (104) 98 08/04/17 08:00 95.8 63 18 129/78 (95) 98 08/04/17 00:00 96.2 60 16 116/62 (80) 96 08/03/17 20:00 97.5 68 19 152/74 (100) 97 08/03/17 16:00 95.9 79 18 140/81 (100) 95 I/O 08/03/17 08/03/17 08/03/17 08/04/17 08/04/17 08/04/17 07:00 15:00 23:00 07:00 15:00 23:00 Intake Total 2110 ml 960 ml 472 ml 1521 ml Balance 2110 ml 960 ml 472 ml 1521 ml Intake Oral 240 ml 960 ml 240 ml IV Total 1870 ml 472 ml 1281 ml # Voids 1 6 2 # Bowel Movements 0 Imaging Last Impressions Gastric Emptying Nuclear Medicine 08/02/17 0000 Signed Impressions: Service Date/Time: July 13:40 - CONCLUSION: 1. The exam demonstrates findings suggesting gastroparesis. There is essentially no emptying until Reglan was administered at 90 minutes. Following Reglan administration there is dumping of the gastric content. Laron Chambers MD Cholangiopancreatography MRI 07/24/17 0000 Signed Impressions: Service Date/Time: Monday, July 24, 2017 14:00 - CONCLUSION: 1. Benign hemangioma of the liver. 2. In the absence of any clinical or laboratory evidence of biliary obstruction, the mild intrahepatic and extrahepatic biliary distention is most likely reservoir type affect after cholecystectomy. No stones or masses are demonstrated. Merlin Joe MD Abdomen/Pelvis CT [id number]/23/[id number] Signed Impressions: Service Date/Time: Sunday, July 23, 2017 23:17 - CONCLUSION: 1. 2.2 x 2.2 cm heterogeneously hypodense mass in superior segment 5 of the liver extending to the liver capsule. This lesion can be further characterized with multiphase liver mass protocol MRI or CT exam. 2. Status post cholecystectomy with likely reservoir effect mild intra-and extra hepatic ductal dilatation. 3. Post surgical features in the anterior abdominal wall with very small midline midanterior abdominal wall collection measuring 0.9 x 3.1 cm, likely chronic. 4. Status post appendectomy and hysterectomy. 1. Erich Gooden MD Physical Exam HEENT: Normocephalic; atraumatic; no jaundice. CHEST: CTA CARDIAC: RRR. ABDOMEN: Soft, nondistended, mild mid/epigastric tenderness; no hepatosplenomegaly; bowel sounds are present in all four quadrants. EXTREMITIES: No clubbing, cyanosis, or edema. SKIN: Normal; no rash; no jaundice. CIVIL ENGINEER: No focal deficits; alert and oriented times three. (Jessica Hernandez [facility]) Assessment and Plan Plan ASSESSMENT: - Acute pancreatitis, unclear etiology. No prior hx of pancreatitis, denies etoh use, new meds, herbal supplements, family hx of pancreatitis or autoimmune d/o. CT scan abdomen and pelvis with iv contrast (07/23/17)-----> 2.2 x 2.2 cm heterogeneously hypodense mass in superior segment 5 of the liver extending to the liver capsule. This lesion can be further characterized with multiphase liver mass protocol MRI or CT exam. Status post cholecystectomy with likely reservoir effect mild intra-and extrahepatic ductal dilatation. Postsurgical features in the anterior abdominal wall with very small midline mid anterior abdominal wall collection measuring 0.9 x 3.1 cm, likely chronic. Status post appendectomy and hysterectomy. Lipase 3429---> 604. MRCP with and without contrast (07/24/17)----> benign hemangioma of the liver, in the absence of any clinical or laboratory evidence of biliary obstruction, but mild intrahepatic and extrahepatic biliary distention is most likely reservoir type effect after cholecystectomy. No stones or masses are demonstrated. IVF. Tolerating diet. Creon. PPI. - Gastritis, Esophagitis, Duodenitis. S/P EGD (07/31/17)---> 1. Esophagitis distal esophagus -biopsy, gastritis antrum-biopsy, duodenitis duodenal bulb- biopsy 2. Retroflexed views revealed a hiatal hernia. Pathology duodenal mucosal biopsy without significant histopathologic abnormality negative for duodenitis, villus atrophy and parasitic infestation, gastric antral mucosal bipsy with histopathologic features suggestive of chemical gastropathy as may be seen with bile reflux, nonsteroidal antiinflammatory drugs or other drug induced disease negative for intestinal metaplasia and dysplasia. Esophageal mucosal biopsy with mild eosinophilic esophagitis suggestive for reflux. PPI. - Abnormal gastric empyting scan (08/02/17)---> the exam demonstrate findings suggesting gastroparesis. There is essentially no emptying until Reglan was administered at 90 minutes. Following reglan administration there is dumping of the gastric content. ? unclear how much of this is related to pain meds vs. true gastroparesis. Recommend limiting narcotics. - Abnormal imaging with liver mass noted on CT. MRCP with contrast---> benign hemangioma of the liver. - Hypokalemia. Improved. - Bipolar d/o, anxiety/depression, HTN per attending. PLAN: - Low fat diet - PPI - Creon - Bentyl - No ETOH - FU MUNIRA 2 weeks - Limit narcotics - GI will sign off, please reconsult as needed - Pt seen and examined by Dr. Velasquez and myself and this note is written on his behalf (Jessica Hernandez) Physician Comments Seen and examined with SWATHI, doing better. Gastroparesis may be secondary to pain meds. GI will sign off, gi fu upon dc. Thank you (Warren Velasquez MD) Jessica Hernandez Aug 04, 2017 13:47 Warren Velasquez MD Aug 04, 2017 14:19
[2017-08-04] MEDS ORDERED: PERC5TAB12 PO (16:15)
[2017-08-04] MEDS ORDERED: OMEP20TA PO (16:15)
[2017-08-04] MEDS ORDERED: DICY20TA10 PO (16:15)
[2017-08-04] MEDS ORDERED: DOCU1CAP39 PO (16:15)
[2017-08-04] MEDS ORDERED: REGL5TAB PO (16:15)
[2017-08-04] MEDS ORDERED: CREON24 PO (16:15)
--- NOTE | 2017-08-04 16:20 | HHI.DS ---
Discharge Summary Admission Date Jul 24, 2017 at 01:35 Discharge Date: Aug 04, 2017 Admitting Diagnosis Acute pancreatitis, liver mass (1) Gastroparesis ICD Code: K31.84 - Gastroparesis Diagnosis: Principal (2) Acute pancreatitis ICD Code: K85.90 - Acute pancreatitis without necrosis or infection, unspecified Diagnosis: Principal (3) Abdominal pain ICD Code: R10.9 - Unspecified abdominal pain Diagnosis: Principal Status: Acute Procedures None Brief History - From Admission 52 years old female with past medical history of COPD CVA 2 bipolar, hypertension depression anxiety, bowel obstruction presented to the ED complaining of 2 weekH/O abdominal pain mostly on the epigastric area and lower abdomen. 8-9 out of 10 with nausea vomiting and diarrhea especially after eating (multiple loose stool) no alleviating factor no blood in the stool or the vomit. Patient denied any fever or chills chest pain short of breath occupation, dysuria. In ED lab work showed increased lipase to 3000, CT scan of the abdomen showed1. 2.2 x 2.2 cm heterogeneously hypodense mass in superior segment 5 of the liver extending to the liver capsule. This lesion can be further characterized with multiphase liver mass protocol MRI or CT exam. 2. Status post cholecystectomy with likely reservoir effect mild intra-and extra hepatic ductal dilatation. CBC/BMP: 08/01/17 1012 08/01/17 1012 Hospital Course Mrs. Hernandez is a 52-year-old female. She was admitted secondary to abdominal pain. She is found to have pancreatitis and this was treated with Creon, IV fluids, and time. She's had some improvement in regards to this pain. Further studies included a gastric emptying study. This is found to be positive. She has gastroparesis. Reglan was started. Assess further improved her abdominal pain and GI symptoms. At this point she is improving and tolerating by mouth intake. She has had a bowel movement. She is medically stable for discharge home on recommended GI treatments (Creon, PPI, Bentyl, Reglan). Medically cleared for discharge. Pt Condition on Discharge: Stable Discharge Disposition: Discharge Home Discharge Time: <= 30 minutes Discharge Instructions DIET: Follow Instructions for: As Tolerated, No Restrictions Activities you can perform: Regular-No Restrictions Follow up Referrals: Gastroenterology - 2 Weeks with Keya Quispe MD PCP Follow-up - 2 Weeks New Medications: Metoclopramide (Reglan) 5 Mg Tab 5 MG PO TIDAC for Gastroparesis, #120 TAB 0 Refills Omeprazole (Omeprazole) 20 Mg Tab 20 MG PO DAILY for Dyspepsia, #30 TAB 0 Refills Dicyclomine (Dicyclomine) 20 Mg Tab 20 MG PO TID PRN for abdominal cramping, #60 TAB Docusate Sodium (Dok) 100 Mg Cap 100 MG PO BID for Constipation, #60 CAP Pancrelipase (Creon) 24,000-76,000-120,000 Units Cap 1 CAP PO TID for Pancreatitis, #90 CAP Changed Medications: Oxycodone-Acetaminophen (Percocet) 5-325 mg Tab 1 TAB PO Q6H PRN for PAIN, #30 TAB 0 Refills (Changed from: Q4H) Continued Medications: Amlodipine (Amlodipine) 5 Mg Tab 5 MG PO DAILY for Blood Pressure Management, #30 TAB 0 Refills Atorvastatin (Atorvastatin) 20 Mg Tab 20 MG PO HS for Cholesterol Management, #30 TAB 0 Refills Escitalopram (Escitalopram) 20 Mg Tab 20 MG PO DAILY, #30 TAB 0 Refills [place] Carbonate (Robert Lee Carbonate) 300 Mg Cap 300 MG PO BID, CAP 0 Refills Meclizine (Meclizine) 25 Mg Tab 25 MG PO TID PRN for VERTIGO, TAB 0 Refills Sumatriptan (Sumatriptan) 50 Mg Tab 50 MG PO Q6HR PRN for MIGRAINE HEADACHE, TAB 0 Refills If a satisfactory response has not been obtained at 2 hours, a second dose may be administered Trazodone (Trazodone) 100 Mg Tablet 200 MG PO HS for Control Depression, #30 TAB 0 Refills Laron Almanzar MD Aug 04, 2017 16:20
== END 2017-08-04 17:01 | disposition home or self-care (01) | DRG 391 ==
LOC: NEPC 21:02 → NEDA 07-24 01:35 → N06B 07-24 05:36
PROVIDERS: ADMIT Hospitalist; ATTEND Hospitalist
PROC: 0DB68ZX Excision of Stomach, Via Natural or Artificial Opening Endoscopic, Diagnostic (ICD-10-PCS; 2017-07-31)
PROC: 0DB38ZX Excision of Lower Esophagus, Via Natural or Artificial Opening Endoscopic, Diagnostic (ICD-10-PCS; 2017-07-31)
PROC: 0DB98ZX Excision of Duodenum, Via Natural or Artificial Opening Endoscopic, Diagnostic (ICD-10-PCS; principal; 2017-07-31 13:28)
DX: K31.84 Gastroparesis (principal); K85.90 Acute pancreatitis without necrosis or infection, unspecified; G62.9 Polyneuropathy, unspecified; I10 Essential (primary) hypertension; F41.9 Anxiety disorder, unspecified; F32.9 Major depressive disorder, single episode, unspecified; J44.9 Chronic obstructive pulmonary disease, unspecified; F17.210 Nicotine dependence, cigarettes, uncomplicated; R39.15 Urgency of urination; E87.6 Hypokalemia; K59.00 Constipation, unspecified; D18.03 Hemangioma of intra-abdominal structures; E78.5 Hyperlipidemia, unspecified; K29.70 Gastritis, unspecified, without bleeding; K29.80 Duodenitis without bleeding; K20.0 Eosinophilic esophagitis; K44.9 Diaphragmatic hernia without obstruction or gangrene; Z79.82 Long term (current) use of aspirin; Z86.73 Personal history of transient ischemic attack (TIA), and cerebral infarction without residual deficits; Z90.49 Acquired absence of other specified parts of digestive tract
CPT/HCPCS: 74177; 74183; 76377; 76937; 78264; 80048; 80053; 80069; 80178; 81001; 82330; 82947; 83605; 83690; 83735; 84478; 85025; 85610; 85730; 88305; 96361; 96374; 96375; A9541; A9579; C9113; J1644; J2270; J2405; J2765; J3475; J3480; J7030; Q9967

== ENCOUNTER 2017-08-27 16:21 | Emergency (ER) | payer OTHER, MEDICAID ==
[~2017-08-27] VITALS: Ht 170.2 cm; Wt 70.0 kg
[~2017-08-27 16:21] MED LIST changes: +CREON24 PO; +DICY20TA10 PO; +DOCU1CAP39 PO; -GABA100C4 PO; +OMEP20TA PO; +REGL5TAB PO
[2017-08-27 16:22] VITALS: BP 161/89; PULSE 89; RESP 16; TEMP 98.6; O2SAT 99
[2017-08-27] MEDS ORDERED: SODIUM CHLOR 0.9% 1000 ML INJ 1,000 ML IV SCH (17:42)
[2017-08-27] MEDS ORDERED: MORPHINE SULFATE 4 MG/ML INJ IV PUSH ONE (17:45)
[2017-08-27] MEDS ORDERED: ALUMINUM/MAGNESIUM/SIMETH 30 ML CUP PO ONE (17:45)
[2017-08-27] MEDS ORDERED: LIDOCAINE VISCOUS 2% SOLN 15 ML UDC PO ONE (17:45)
[2017-08-27] MEDS ORDERED: METOCLOPRAMIDE HCL 10 MG/2 ML VIAL IV PUSH ONE (17:45)
--- NOTE | 2017-08-27 17:59 | PD ---
HPI Chief Complaint: Abdominal Pain Time Seen by Provider: 17:25 Travel History International Travel<30 days: No Contact w/Intl Traveler<30days: No Traveled to known affect area: No History of Present Illness HPI This is a 52-year-old female who presents for evaluation of abdominal pain, nausea and vomiting. Symptoms started this morning. She describes it as a sharp pain in the epigastrium which is constant, worse after meals. She endorses nausea and vomiting over the past few days, particularly with meals. She reports feeling of generalized weakness secondary to decreased oral intake. The patient was admitted here in July and after workup she was found to have pancreatitis as well as gastroparesis with a positive gastric emptying study. The patient was eventually discharged on a regimen of Reglan, omeprazole , dicyclomine, Creon, which she has been using as prescribed. She reports that her primary care physician Dr. Franco is in the process of getting her follow- up with gastric neurologist Dr. Quispe. Denies flank pain, fevers or chills, dysuria, chest pain or shortness of breath. She has no other complaints. PFSH Past Medical History Hx Anticoagulant Therapy: Yes (ASPIRIN) Arthritis: Yes Asthma: No Autoimmune Disease: No Bipolar Disorder: Yes Anxiety: Yes Depression: Yes Heart Rhythm Problems: No Cancer: No Cardiac Catheterization: No Cardiovascular Problems: Yes (HTN) High Cholesterol: No Chemotherapy: No Congestive Heart Failure: No COPD: Yes Cerebrovascular Accident: Yes ( left side x 2) Diabetes: No Diminished Hearing: No Endocrine: No GERD: Yes Genitourinary: No Hiatal Hernia: No Heparin Induced Thrombocytopen: No Hypertension: Yes Immune Disorder: No Musculoskeletal: Yes (knee reeplacement) Neurologic: Yes (peripheral neuropathy) Psychiatric: Yes Reproductive: No Respiratory: Yes (COPD) Immunizations Current: Yes Radiation Therapy: No Sickle Cell Disease: No Sleep Apnea: No Thyroid Disease: No Ulcer: No Menopausal: Yes : 3 Para: 3 Miscarriage: 0 : 0 Past Surgical History Abdominal Surgery: Yes Appendectomy: Yes Body Medical Devices: anesyum coil Cardiac Surgery: Yes Cholecystectomy: Yes Coronary Artery Bypass Graft: No Ear Surgery: No Endocrine Surgery: No Eye Surgery: No Genitourinary Surgery: No Gynecologic Surgery: Yes (hysterectomy) Hysterectomy: Yes Neurologic Surgery: Yes (COILED ANEURYSM) Oral Surgery: Yes (wisdom teeth removed) Pacemaker: No Thoracic Surgery: No Tonsillectomy: Yes Social History Alcohol Use: No Tobacco Use: Yes (1/2PPD) Substance Use: No Allergies-Medications (Allergen,Severity, Reaction): Coded Allergies: Sulfa (Sulfonamide Antibiotics) (Unverified Allergy, Severe, SOB, 07/03/17) bee venom protein (honey bee) (Unverified Allergy, Severe, SOB, 07/03/17) cefuroxime (Unverified Allergy, Intermediate, SOB, 07/03/17) ciprofloxacin (Unverified Allergy, Intermediate, SOB, 07/03/17) Reported Meds & Prescriptions Reported Meds & Active Scripts Active Omeprazole 20 Mg Tab 20 Mg PO DAILY Dicyclomine (Dicyclomine HCl) 20 Mg Tab 20 Mg PO TID PRN Reglan (Metoclopramide HCl) 5 Mg Tab 5 Mg PO TIDAC Dok (Docusate Sodium) 100 Mg Cap 100 Mg PO BID Creon (Amylase/Lipase/Protease) 24,000-76,000-120,000 Units Cap 1 Cap PO TID Percocet (Oxycodone-Acetaminophen) 5-325 mg Tab 1 Tab PO Q6H PRN Reported Trazodone (Trazodone HCl) 100 Mg Tablet 200 Mg PO HS Meclizine (Meclizine HCl) 25 Mg Tab 25 Mg PO TID PRN Escitalopram (Escitalopram Oxalate) 20 Mg Tab 20 Mg PO DAILY [place] Carbonate 300 Mg Cap 300 Mg PO BID Atorvastatin (Atorvastatin Calcium) 20 Mg Tab 20 Mg PO HS Amlodipine (Amlodipine Besylate) 5 Mg Tab 5 Mg PO DAILY Sumatriptan (Sumatriptan Succinate) 50 Mg Tab 50 Mg PO Q6HR PRN If a satisfactory response has not been obtained at 2 hours, a second dose may be administered Review of Systems Except as stated in HPI: all other systems reviewed are Neg Physical Exam Narrative GENERAL: Well-developed well-nourished female in no acute distress SKIN: Warm and dry. HEAD: Atraumatic. Normocephalic. EYES: Pupils equal and round. No scleral icterus. No injection or drainage. ENT: No nasal bleeding or discharge. Mucous membranes pink and moist. NECK: Trachea midline. No JVD. CARDIOVASCULAR: Regular rate and rhythm. No murmur appreciated. RESPIRATORY: No accessory muscle use. Clear to auscultation. Breath sounds equal bilaterally. GASTROINTESTINAL: Abdomen soft, tender to palpation in the epigastrium without guarding. MUSCULOSKELETAL: No obvious deformities. No clubbing. No cyanosis. No edema. NEUROLOGICAL: Awake and alert. No obvious cranial nerve deficits. Motor grossly within normal limits. Normal speech. PSYCHIATRIC: Appropriate mood and affect; insight and judgment normal. Data Data Last Documented VS Vital Signs Date Time Temp Pulse Resp B/P (MAP) Pulse Ox O2 Delivery O2 Flow Rate FiO2 08/27/17 18:09 18 08/27/17 16:22 98.6 89 161/89 (113) 99 Orders Orders Complete Blood Count With Diff (08/27/17 17:42) Comprehensive Metabolic Panel (08/27/17 17:42) Lipase (08/27/17 17:42) Urinalysis - C+S If Indicated (08/27/17 17:42) Iv Access Insert/Monitor (08/27/17 17:42) Morphine Inj (Morphine Inj) (08/27/17 17:45) Sodium Chlor 0.9% 1000 Ml Inj (Ns 1000 M (08/27/17 17:42) Electrocardiogram (08/27/17 17:42) Al-Mag Hy-Si 40-40-4 Mg/Ml Liq (Mag-Al P (08/27/17 17:45) Lidocaine 2% Viscous (Xylocaine 2% Visco (08/27/17 17:45) Metoclopramide Inj (Reglan Inj) (08/27/17 17:45) Labs Laboratory Tests Test 08/27/17 17:55 White Blood Count 9.0 TH/MM3 Red Blood Count 4.47 MIL/MM3 Hemoglobin 14.0 GM/DL Hematocrit 41.7 % Mean Corpuscular Volume 93.4 FL Mean Corpuscular Hemoglobin 31.3 PG Mean Corpuscular Hemoglobin Concent 33.5 % Red Cell Distribution Width 13.7 % Platelet Count 291 TH/MM3 Mean Platelet Volume 7.8 FL Neutrophils (%) (Auto) 56.2 % Lymphocytes (%) (Auto) 34.4 % Monocytes (%) (Auto) 5.1 % Eosinophils (%) (Auto) 4.0 % Basophils (%) (Auto) 0.3 % Neutrophils # (Auto) 5.1 TH/MM3 Lymphocytes # (Auto) 3.1 TH/MM3 Monocytes # (Auto) 0.5 TH/MM3 Eosinophils # (Auto) 0.4 TH/MM3 Basophils # (Auto) 0.0 TH/MM3 CBC Comment DIFF FINAL Differential Comment Urine Color LIGHT-YELLOW Urine Turbidity CLEAR Urine pH 6.0 Urine Specific [place] 1.003 Urine Protein TRACE mg/dL Urine Glucose (UA) NEG mg/dL Urine Ketones NEG mg/dL Urine Occult Blood MOD Urine Nitrite NEG Urine Bilirubin NEG Urine Urobilinogen LESS THAN 2.0 MG/DL Urine Leukocyte Esterase NEG Urine RBC 3 /hpf Urine WBC LESS THAN 1 /hpf Urine Squamous Epithelial Cells 1 /hpf Microscopic Urinalysis Comment CULT NOT INDICATED Blood Urea Nitrogen 11 MG/DL Creatinine 0.74 MG/DL Random Glucose 76 MG/DL Total Protein 6.7 GM/DL Albumin 3.3 GM/DL Calcium Level 8.5 MG/DL Alkaline Phosphatase 85 U/L Aspartate Amino Transf (AST/SGOT) 16 U/L Alanine Aminotransferase (ALT/SGPT) 20 U/L Total Bilirubin 0.4 MG/DL Sodium Level 141 MEQ/L Potassium Level 4.0 MEQ/L Chloride Level 107 MEQ/L Carbon Dioxide Level 25.6 MEQ/L Anion Gap 8 MEQ/L Estimat Glomerular Filtration Rate 82 ML/MIN Lipase 267 U/L [facility] Medical Decision Making Medical Screen Exam Complete: Yes Emergency Medical Condition: Yes Medical Record Reviewed: Yes Differential Diagnosis Gastroparesis, pancreatitis, gastritis, biliary colic, cholecystitis, dehydration, electrolyte abnormality Narrative Course The patient will be placed on ECG monitoring and pulse oximetry. Plan is for basic lab work, urinalysis. She will be given IV fluids, Reglan, morphine. The patient's lab work is reassuring. She feels improved after the administration of the above medications. At this point in time the patient was offered admission for observation versus discharge and outpatient follow-up with Dr. Quispe who she was previously scheduled to follow-up with and she would prefer to be discharged which seems reasonable. Diagnosis Primary Impression: Gastroparesis Referrals: Keya Quispe MD Additional Instructions: Advance diet as tolerated. Medications previously prescribed. Follow up with Dr. Quispe and return for any emergent medical conditions. Med/Other Pt SpecificInfo: No Change to Meds Disposition: 01 DISCHARGE HOME Condition: Stable Jasiel Moctezuma Aug 27, 2017 17:59
[2017-08-27 18:09] LABS: AUTOMATED NEUTROPHIL # 5.1 TH/MM3 (1.8-7.7); BASOPHIL % 0.3 % (0.0-2.0); EOSINOPHIL # 0.4 TH/MM3 (0-0.4); HEMATOCRIT 41.7 % (35.0-46.0); HEMO FLAGS DIFF FINAL; LYMPH % 34.4 % (9.0-44.0); LYMPHOCYTE # 3.1 TH/MM3 (1.0-4.8); MEAN CELL VOLUME 93.4 FL (80.0-100.0); MEAN CORPUSCULAR HEMOGLOBIN 31.3 PG (27.0-34.0); MEAN CORPUSCULAR HGB CONC 33.5 % (32.0-36.0); MONO % 5.1 % (0.0-8.0); NEUT % 56.2 % (16.0-70.0); PLATELET COUNT 291 TH/MM3 (150-450); RED BLOOD COUNT 4.47 MIL/MM3 (4.00-5.30); RED CELL DISTRIBUTION WIDTH 13.7 % (11.6-17.2)
[2017-08-27 18:15] LABS: BLOOD, URINE MOD (NEG); COMMENT (UR) CULT NOT INDICATED; CULTURE IF INDICATED CULT NOT INDICATED; GLUCOSE,URINE NEG (NEG); KETONE, URINE NEG (NEG); NITRITE,URINE NEG (NEG); SQUAMOUS EPITHELIAL CELL URINE 1 /hpf (0-5); URINE COLOR LIGHT-YELLOW (YELLW/STRAW)
[2017-08-27 18:30] LABS: ALKALINE PHOSPHATASE 85 U/L (45-117); ALT (GPT) 20 U/L (10-53); TOTAL BILIRUBIN ADULT 0.4 MG/DL (0.2-1.0)
[2017-08-27 18:42] LABS: ANION GAP 8 MEQ/L (5-15); AST (GOT) 16 U/L (15-37); BICARBONATE 25.6 MEQ/L (21.0-32.0); BLOOD UREA NITROGEN 11 MG/DL (7-18); CHLORIDE 107 MEQ/L (98-107); GLOMERULAR FILTRATION RATE 82 ML/MIN (>89); SODIUM (NA) 141 MEQ/L (136-145)
[2017-08-27 19:01] VITALS: BP 124/79; PULSE 61; RESP 16; O2SAT 97
--- NOTE | 2017-08-28 09:57 | EKG ---
Date Performed: 08/27/2017 Time Performed: 18:11:37 PTAGE: 52 years EKG: SINUS BRADYCARDIA WITH SINUS ARRHYTHMIA POSSIBLE LEFT ATRIAL ENLARGEMENT BORDERLINE ECG PREVIOUS TRACING : 06/10/2017 18.07 Compared to prior tracing no significant change DOCTOR: Phillip Tamez Interpretating Date/Time 08/28/2017 09:55:40
== END 2017-08-27 19:39 | disposition home or self-care (01) ==
LOC: NEPE 16:21
DX: K31.84 Gastroparesis (principal); R11.2 Nausea with vomiting, unspecified; R53.1 Weakness; R94.31 Abnormal electrocardiogram [ECG] [EKG]; I10 Essential (primary) hypertension; F17.200 Nicotine dependence, unspecified, uncomplicated; Z79.82 Long term (current) use of aspirin; Z87.39 Personal history of other diseases of the musculoskeletal system and connective tissue; Z86.59 Personal history of other mental and behavioral disorders; Z86.79 Personal history of other diseases of the circulatory system; Z87.09 Personal history of other diseases of the respiratory system; Z87.19 Personal history of other diseases of the digestive system; Z86.69 Personal history of other diseases of the nervous system and sense organs
CPT/HCPCS: 80053; 81001; 83690; 85025; 93005; 96374; 96375; 99284; J2270; J2765; J7030

== ENCOUNTER 2017-09-10 14:50 | Emergency (ER) | payer OTHER, MEDICAID ==
[~2017-09-10] VITALS: Ht 170.2 cm; Wt 77.0 kg
[2017-09-10 14:52] VITALS: BP 146/95; PULSE 76; RESP 14; TEMP 98.4; O2SAT 98
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
[2017-09-10] MEDS ORDERED: IBUPROFEN 600 MG TAB PO ONE (20:00)
[2017-09-10 20:03] VITALS: BP 133/85; PULSE 73; RESP 18; O2SAT 95
--- NOTE | 2017-09-10 21:30 | RADRPT ---
EXAM DATE/TIME: 09/10/2017 20:20 [facility] COMPARISON: No previous studies available for comparison. INDICATIONS : Left wrist pain post fall. MEDICAL HISTORY : None. SURGICAL HISTORY : Prior fracture to left wrist. ENCOUNTER: Initial ACUITY: 1 day PAIN SCORE: 6/10 LOCATION: Left wrist. FINDINGS: There is no evidence of fracture or dislocation. Mineralization is normal. There is ulnar minus varia nce and mild arthritic change present. CONCLUSION: No acute bony injury Merlin Lewis MD on September 10, 2017 at 21:28 Board Certified Radiologist. This report was verified electronically.
--- NOTE | 2017-09-10 21:31 | RADRPT ---
EXAM DATE/TIME: 09/10/2017 20:22 [facility] COMPARISON: WRIST LEFT COMPLETE ([id number]), September 10, 2017, 20:20. INDICATIONS : Left forearm pain post fall. MEDICAL HISTORY : Prior fracture to left wrist. SURGICAL HISTORY : None. ENCOUNTER: Initial ACUITY: 1 day PAIN SCORE: 6/10 LOCATION: Left forearm. FINDINGS: Two view examination of the left forearm demonstrates no evidence of fracture or dislocation. Bony m ineralization is normal. The soft tissue structures are intact. CONCLUSION: Unremarkable examination of the left forearm. Merlin Lewis MD on September 10, 2017 at 21:28 Board Certified Radiologist. This report was verified electronically.
--- NOTE | 2017-09-10 21:31 | RADRPT ---
EXAM DATE/TIME: 09/10/2017 20:22 [facility] COMPARISON: WRIST LEFT COMPLETE ([id number]), September 10, 2017, 20:20. INDICATIONS : Left forearm pain post fall. MEDICAL HISTORY : Prior fracture to left wrist. SURGICAL HISTORY : None. ENCOUNTER: Initial ACUITY: 1 day PAIN SCORE: 6/10 LOCATION: Left forearm. FINDINGS: Two view examination of the left forearm demonstrates no evidence of fracture or dislocation. Bony m ineralization is normal. The soft tissue structures are intact. CONCLUSION: Unremarkable examination of the left forearm. Merlin Lewis MD on September 10, 2017 at 21:28 Board Certified Radiologist. This report was verified electronically.
--- NOTE | 2017-09-10 21:31 | RADRPT ---
EXAM DATE/TIME: 09/10/2017 20:22 [facility] COMPARISON: WRIST LEFT COMPLETE ([id number]), September 10, 2017, 20:20. INDICATIONS : Left forearm pain post fall. MEDICAL HISTORY : Prior fracture to left wrist. SURGICAL HISTORY : None. ENCOUNTER: Initial ACUITY: 1 day PAIN SCORE: 6/10 LOCATION: Left forearm. FINDINGS: Two view examination of the left forearm demonstrates no evidence of fracture or dislocation. Bony m ineralization is normal. The soft tissue structures are intact. CONCLUSION: Unremarkable examination of the left forearm. Merlin Lewis MD on September 10, 2017 at 21:28 Board Certified Radiologist. This report was verified electronically.
--- NOTE | 2017-09-10 21:32 | RADRPT ---
EXAM DATE/TIME: 09/10/2017 20:23 [facility] COMPARISON: No previous studies available for comparison. INDICATIONS : Left elbow pain post fall. MEDICAL HISTORY : None. SURGICAL HISTORY : None. ENCOUNTER: Initial ACUITY: 1 day PAIN SCORE: 6/10 LOCATION: Left elbow. FINDINGS: Multiple view examination of the left elbow demonstrates no soft tissue swelling, joint effusion, or fracture. The osseous structures are in normal alignment. Bony mineralization is normal. CONCLUSION: Unremarkable examination of the left elbow. Merlin Lewis MD on September 10, 2017 at 21:29 Board Certified Radiologist. This report was verified electronically.
[2017-09-10] MEDS ORDERED: IBUP-232 PO (21:54)
== END 2017-09-10 22:11 | disposition home or self-care (01) ==
LOC: NEPC 14:50
DX: S66.912A Strain of unspecified muscle, fascia and tendon at wrist and hand level, left hand, initial encounter (principal); W18.09XA Striking against other object with subsequent fall, initial encounter
CPT/HCPCS: 73080; 73090; 73110; 99284

== ENCOUNTER 2017-10-31 14:06 | Emergency (ER) | payer OTHER, MEDICAID ==
[~2017-10-31 14:06] MED LIST changes: +IBUP-232 PO; -OMEP20TA PO; -PERC5TAB12 PO; +TRAZ100T10 PO; -TRAZ100T6 PO
[2017-10-31 14:07] VITALS: BP 136/101; PULSE 95; RESP 16; TEMP 98.3; O2SAT 99
[2017-10-31] MEDS ORDERED: IOHEXOL 350 MG/ML 50 ML BTL (for RAD DIAG) IVCONTRAST ONE (14:07)
[2017-10-31] MEDS ORDERED: SODIUM CHLOR 0.9% 1000 ML INJ 1,000 ML IV SCH (14:52)
[2017-10-31] MEDS ORDERED: ONDANSETRON HCL 4 MG/2 ML VIAL IVP ONE (15:00)
[2017-10-31] MEDS ORDERED: MORPHINE SULFATE 4 MG/ML INJ IV PUSH ONE (15:00)
[2017-10-31] MEDS ORDERED: SODIUM CHLORIDE 0.9% FLUSH 10 ML FLUSH IV FLUSH PRN (15:00)
--- NOTE | 2017-10-31 15:12 | PD ---
HPI Chief Complaint: GI Complaint Time Seen by Provider: 14:34 Travel History International Travel<30 days: No Contact w/Intl Traveler<30days: No Traveled to known affect area: No History of Present Illness HPI Patient is a 52-year-old female presents to emergency room with complaints of abdominal pain. She reports that she was recently hospitalized for treatment of pancreatitis. Reports that she has been following a specialist from [facility] [place]" and was told to go to the ER if abdominal pain worsened. Patient reports that since her discharge from the hospital, she has been having abdominal pain. Reports that she feels nauseous after she eats any foods. She reports that she has had a 35 pound weight loss for the past 2 months. Unsure why she had pancreatitis in the first place, patient reports that she has intractable abdominal pain at this time. Patient denies history of alcohol abuse, reports that she has had a cholecystectomy in the past. Denies fever/chills. Denies dysuria, urinary urgency or frequency. PFSH Past Medical History Hx Anticoagulant Therapy: Yes (ASPIRIN) Arthritis: Yes Asthma: No Autoimmune Disease: No Bipolar Disorder: Yes Anxiety: Yes Depression: Yes Heart Rhythm Problems: No Cancer: No Cardiac Catheterization: No Cardiovascular Problems: Yes (HTN) High Cholesterol: No Chemotherapy: No Congestive Heart Failure: No COPD: Yes Cerebrovascular Accident: Yes (CVA X 2) Diabetes: No Diminished Hearing: No Endocrine: No Gastrointestinal Disorders: Yes GERD: Yes Genitourinary: No Hiatal Hernia: No Heparin Induced Thrombocytopen: No Hypertension: Yes Immune Disorder: No Implanted Vascular Access Dvce: No Musculoskeletal: Yes (knee reeplacement) Neurologic: Yes (peripheral neuropathy) Psychiatric: Yes Reproductive: No Respiratory: Yes (COPD) Immunizations Current: Yes Radiation Therapy: No Sickle Cell Disease: No Sleep Apnea: No Thyroid Disease: No Ulcer: No ?: Not Menopausal: Yes : 3 Para: 3 Miscarriage: 0 : 0 Past Surgical History Abdominal Surgery: Yes Appendectomy: Yes Body Medical Devices: anesyum coil Cardiac Surgery: Yes Cholecystectomy: Yes Coronary Artery Bypass Graft: No Ear Surgery: No Endocrine Surgery: No Eye Surgery: No Genitourinary Surgery: No Gynecologic Surgery: Yes (hysterectomy) Hysterectomy: Yes Neurologic Surgery: Yes (COILED ANEURYSM) Oral Surgery: Yes (wisdom teeth removed) Pacemaker: No Thoracic Surgery: No Tonsillectomy: Yes Other Surgery: Yes Social History Alcohol Use: No Tobacco Use: Yes (PD) Substance Use: No Allergies-Medications (Allergen,Severity, Reaction): Coded Allergies: Sulfa (Sulfonamide Antibiotics) (Unverified Allergy, Severe, SOB, 10/31/17 ) bee venom protein (honey bee) (Unverified Allergy, Severe, SOB, 10/31/17) gabapentin (Verified Allergy, Severe, MIGRAINES, 10/31/17) cefuroxime (Unverified Allergy, Intermediate, SOB, 10/31/17) ciprofloxacin (Unverified Allergy, Intermediate, SOB, 10/31/17) Reported Meds & Prescriptions Reported Meds & Active Scripts Active Ibuprofen 600 Mg Tab 600 Mg PO Q6H PRN Dicyclomine (Dicyclomine HCl) 20 Mg Tab 20 Mg PO TID PRN Reglan (Metoclopramide HCl) 5 Mg Tab 5 Mg PO TIDAC Dok (Docusate Sodium) 100 Mg Cap 100 Mg PO BID Creon (Amylase/Lipase/Protease) 24,000-76,000-120,000 Units Cap 1 Cap PO TID Reported Trazodone (Trazodone HCl) 100 Mg Tablet 200 Mg PO HS Meclizine (Meclizine HCl) 25 Mg Tab 25 Mg PO TID PRN Escitalopram (Escitalopram Oxalate) 20 Mg Tab 20 Mg PO DAILY [place] Carbonate 300 Mg Cap 300 Mg PO BID Atorvastatin (Atorvastatin Calcium) 20 Mg Tab 20 Mg PO HS Amlodipine (Amlodipine Besylate) 5 Mg Tab 5 Mg PO DAILY Sumatriptan (Sumatriptan Succinate) 50 Mg Tab 50 Mg PO Q6HR PRN If a satisfactory response has not been obtained at 2 hours, a second dose may be administered Review of Systems General / Constitutional: No: Fever, Chills Eyes: No: Visual changes HENT: No: Headaches Cardiovascular: No: Chest Pain or Discomfort Respiratory: No: Shortness of Breath Gastrointestinal: Positive: Nausea, Vomiting, Abdominal Pain Genitourinary: No: Dysuria Musculoskeletal: No: Pain Skin: No Rash Neurologic: No: Weakness Psychiatric: No: Depression Endocrine: No: Polydipsia Hematologic/Lymphatic: No: Easy Bruising Physical Exam Narrative GENERAL: moderate distress SKIN: Focused skin assessment warm/dry. HEAD: Atraumatic. Normocephalic. EYES: Pupils equal and round. No scleral icterus. No injection or drainage. ENT: No nasal bleeding or discharge. Mucous membranes pink and moist. NECK: Trachea midline. No JVD. CARDIOVASCULAR: Regular rate and rhythm. No murmur appreciated. RESPIRATORY: No accessory muscle use. Clear to auscultation. Breath sounds equal bilaterally. GASTROINTESTINAL: Abdomen soft, diffusely tender with guarding on exam, nondistended. Hepatic and splenic margins not palpable. MUSCULOSKELETAL: No obvious deformities. No clubbing. No cyanosis. No edema. NEUROLOGICAL: Awake and alert. No obvious cranial nerve deficits. Motor grossly within normal limits. Normal speech. PSYCHIATRIC: Appropriate mood and affect; insight and judgment normal. Data Data Last Documented VS Vital Signs Date Time Temp Pulse Resp B/P (MAP) Pulse Ox O2 Delivery O2 Flow Rate FiO2 10/31/17 15:14 97 Room Air 10/31/17 14:07 98.3 95 16 Orders Orders Complete Blood Count With Diff (10/31/17 14:52) Comprehensive Metabolic Panel (10/31/17 14:52) Lipase (10/31/17 14:52) Prothrombin Time / Inr (Pt) (10/31/17 14:52) Act Partial Throm Time (Ptt) (10/31/17 14:52) Urinalysis - C+S If Indicated (10/31/17 14:52) Ct Abd/Pel W Iv Contrast(Rout) (10/31/17 14:52) Iv Access Insert/Monitor (10/31/17 14:52) Ecg Monitoring (10/31/17 14:52) Oximetry (10/31/17 14:52) Morphine Inj (Morphine Inj) (10/31/17 15:00) Ondansetron Inj (Zofran Inj) (10/31/17 15:00) Sodium Chlor 0.9% 1000 Ml Inj (Ns 1000 M (10/31/17 14:52) Sodium Chloride 0.9% Flush (Ns Flush) (10/31/17 15:00) Iohexol 350 Inj (Omnipaque 350 Inj) (10/31/17 14:07) Labs Laboratory Tests Test 10/31/17 15:00 White Blood Count 7.8 TH/MM3 Red Blood Count 4.62 MIL/MM3 Hemoglobin 14.4 GM/DL Hematocrit 43.4 % Mean Corpuscular Volume 93.8 FL Mean Corpuscular Hemoglobin 31.2 PG Mean Corpuscular Hemoglobin Concent 33.3 % Red Cell Distribution Width 14.0 % Platelet Count 302 TH/MM3 Mean Platelet Volume 8.4 FL Neutrophils (%) (Auto) 57.9 % Lymphocytes (%) (Auto) 33.3 % Monocytes (%) (Auto) 5.2 % Eosinophils (%) (Auto) 2.4 % Basophils (%) (Auto) 1.2 % Neutrophils # (Auto) 4.5 TH/MM3 Lymphocytes # (Auto) 2.6 TH/MM3 Monocytes # (Auto) 0.4 TH/MM3 Eosinophils # (Auto) 0.2 TH/MM3 Basophils # (Auto) 0.1 TH/MM3 CBC Comment DIFF FINAL Differential Comment Prothrombin Time 10.1 SEC Prothromb Time International Ratio 1.0 RATIO Activated Partial Thromboplast Time 24.1 SEC Urine Color LIGHT-YELLOW Urine Turbidity CLEAR Urine pH 6.0 Urine Specific [place] 1.004 Urine Protein 30 mg/dL Urine Glucose (UA) NEG mg/dL Urine Ketones NEG mg/dL Urine Occult Blood MOD Urine Nitrite NEG Urine Bilirubin NEG Urine Urobilinogen LESS THAN 2.0 MG/DL Urine Leukocyte Esterase NEG Urine RBC 8 /hpf Urine WBC 1 /hpf Urine Squamous Epithelial Cells <1 /hpf Microscopic Urinalysis Comment CULT NOT INDICATED Blood Urea Nitrogen 10 MG/DL Creatinine 0.81 MG/DL Random Glucose 81 MG/DL Total Protein 7.0 GM/DL Albumin 3.6 GM/DL Calcium Level 8.8 MG/DL Alkaline Phosphatase 77 U/L Aspartate Amino Transf (AST/SGOT) 9 U/L Alanine Aminotransferase (ALT/SGPT) 12 U/L Total Bilirubin 0.4 MG/DL Sodium Level 140 MEQ/L Potassium Level 3.4 MEQ/L Chloride Level 105 MEQ/L Carbon Dioxide Level 28.3 MEQ/L Anion Gap 7 MEQ/L Estimat Glomerular Filtration Rate 74 ML/MIN Lipase 187 U/L [facility] Medical Decision Making Medical Screen Exam Complete: Yes Emergency Medical Condition: Yes Medical Record Reviewed: Yes Interpretation(s) Vital Signs Date Time Temp Pulse Resp B/P (MAP) Pulse Ox O2 Delivery O2 Flow Rate FiO2 10/31/17 14:07 98.3 95 16 136/101 (113) 99 Differential Diagnosis Acute pancreatitis, gastroenteritis, gastritis, electrolyte abnormality Narrative Course During the course of the patients emergency department visit, the patients history, examination, and differential diagnosis were reviewed with the patient. The patient was placed on a charging car operator with oximetry and frequent blood pressure monitoring. The patient had an IV access obtained and blood work sent for analysis. The patient was initially provided IVF as well as IV morphine for pain and IV zofran for nausea The patients laboratory studies were reviewed and remarkable for Laboratory Tests Test 10/31/17 15:00 White Blood Count 7.8 TH/MM3 (4.0-11.0) Red Blood Count 4.62 MIL/MM3 (4.00-5.30) Hemoglobin 14.4 GM/DL (11.6-15.3) Hematocrit 43.4 % (35.0-46.0) Mean Corpuscular Volume 93.8 FL (80.0-100.0) Mean Corpuscular Hemoglobin 31.2 PG (27.0-34.0) Mean Corpuscular Hemoglobin Concent 33.3 % (32.0-36.0) Red Cell Distribution Width 14.0 % (11.6-17.2) Platelet Count 302 TH/MM3 (150-450) Mean Platelet Volume 8.4 FL (7.0-11.0) Neutrophils (%) (Auto) 57.9 % (16.0-70.0) Lymphocytes (%) (Auto) 33.3 % (9.0-44.0) Monocytes (%) (Auto) 5.2 % (0.0-8.0) Eosinophils (%) (Auto) 2.4 % (0.0-4.0) Basophils (%) (Auto) 1.2 % (0.0-2.0) Neutrophils # (Auto) 4.5 TH/MM3 (1.8-7.7) Lymphocytes # (Auto) 2.6 TH/MM3 (1.0-4.8) Monocytes # (Auto) 0.4 TH/MM3 (0-0.9) Eosinophils # (Auto) 0.2 TH/MM3 (0-0.4) Basophils # (Auto) 0.1 TH/MM3 (0-0.2) CBC Comment DIFF FINAL Differential Comment Prothrombin Time 10.1 SEC (9.8-11.6) Prothromb Time International Ratio 1.0 RATIO Activated Partial Thromboplast Time 24.1 SEC (24.3-30.1) Urine Color LIGHT-YELLOW (YELLW/STRAW) Urine Turbidity CLEAR (CLEAR) Urine pH 6.0 (5.0-8.5) Urine Specific [place] 1.004 (1.002-1.035) Urine Protein 30 mg/dL (NEG-TRACE) Urine Glucose (UA) NEG mg/dL (NEG) Urine Ketones NEG mg/dL (NEG) Urine Occult Blood MOD (NEG) Urine Nitrite NEG (NEG) Urine Bilirubin NEG (NEG) Urine Urobilinogen LESS THAN 2.0 MG/DL (LESS Urine Leukocyte Esterase NEG (NEG) Urine RBC 8 /hpf (0-3) Urine WBC 1 /hpf (0-5) Urine Squamous Epithelial Cells <1 /hpf (0-5) Microscopic Urinalysis Comment CULT NOT INDICATED Blood Urea Nitrogen 10 MG/DL (7-18) Creatinine 0.81 MG/DL (0.50-1.00) Random Glucose 81 MG/DL (74-106) Total Protein 7.0 GM/DL (6.4-8.2) Albumin 3.6 GM/DL (3.4-5.0) Calcium Level 8.8 MG/DL (8.5-10.1) Alkaline Phosphatase 77 U/L (45-117) Aspartate Amino Transf (AST/SGOT) 9 U/L (15-37) Alanine Aminotransferase (ALT/SGPT) 12 U/L (10-53) Total Bilirubin 0.4 MG/DL (0.2-1.0) Sodium Level 140 MEQ/L (136-145) Potassium Level 3.4 MEQ/L (3.5-5.1) Chloride Level 105 MEQ/L (98-107) Carbon Dioxide Level 28.3 MEQ/L (21.0-32.0) Anion Gap 7 MEQ/L (5-15) Estimat Glomerular Filtration Rate 74 ML/MIN (>89) Lipase 187 U/L (73-393) cbc: wnl bmp: Sodium 140, potassium 3.4, BUN 10, creatinine 0.81, LFT's wnl, lipase 187 UA: neg wbc, neg leuk esteraste, neg nitrite Diagnosis Primary Impression: Abdominal pain Qualified Codes: R10.9 - Unspecified abdominal pain Patient Instructions: General Instructions, Narcotic given in the ED Additional Instructions: Please provide patient with a copy of their lab work and studies at discharge* * Please follow up with your primary care doctor in 2-3 days Return to the ER if symptoms worsen or progress Return to the ER as needed Please follow up with your smoke chaser as soon as possible Corrie Grant DO Oct 31, 2017 15:12
[2017-10-31 15:14] VITALS: O2SAT 97
[2017-10-31 15:21] LABS: AUTOMATED NEUTROPHIL # 4.5 TH/MM3 (1.8-7.7); BASOPHIL # 0.1 TH/MM3 (0-0.2); BASOPHIL % 1.2 % (0.0-2.0); EOSINOPHIL # 0.2 TH/MM3 (0-0.4); EOSINOPHIL % 2.4 % (0.0-4.0); HEMATOCRIT 43.4 % (35.0-46.0); HEMO FLAGS DIFF FINAL; LYMPH % 33.3 % (9.0-44.0); LYMPHOCYTE # 2.6 TH/MM3 (1.0-4.8); MEAN CELL VOLUME 93.8 FL (80.0-100.0); MEAN CORPUSCULAR HEMOGLOBIN 31.2 PG (27.0-34.0); MEAN CORPUSCULAR HGB CONC 33.3 % (32.0-36.0); MONO % 5.2 % (0.0-8.0); NEUT % 57.9 % (16.0-70.0); PLATELET COUNT 302 TH/MM3 (150-450); RED BLOOD COUNT 4.62 MIL/MM3 (4.00-5.30); WHITE BLOOD COUNT 7.8 TH/MM3 (4.0-11.0)
[2017-10-31 15:23] LABS: BLOOD, URINE MOD (NEG); COMMENT (UR) CULT NOT INDICATED; CULTURE IF INDICATED CULT NOT INDICATED; GLUCOSE,URINE NEG (NEG); KETONE, URINE NEG (NEG); NITRITE,URINE NEG (NEG); SQUAMOUS EPITHELIAL CELL URINE <1 /hpf (0-5); URINE COLOR LIGHT-YELLOW (YELLW/STRAW)
[2017-10-31 15:31] LABS: APTT (PATIENT) 24.1 SEC (24.3-30.1); PROTHROMBIN TIME - PATIENT 10.1 SEC (9.8-11.6)
[2017-10-31 15:52] LABS: ALT (GPT) 12 U/L (10-53); AST (GOT) 9 U/L (15-37); BICARBONATE 28.3 MEQ/L (21.0-32.0); BLOOD UREA NITROGEN 10 MG/DL (7-18); GLOMERULAR FILTRATION RATE 74 ML/MIN (>89)
[2017-10-31 16:30] LABS: ALKALINE PHOSPHATASE 77 U/L (45-117); TOTAL BILIRUBIN ADULT 0.4 MG/DL (0.2-1.0)
[2017-10-31 16:33] LABS: ANION GAP 7 MEQ/L (5-15); CHLORIDE 105 MEQ/L (98-107); POTASSIUM 3.4 MEQ/L (3.5-5.1); SODIUM (NA) 140 MEQ/L (136-145)
[2017-10-31] MEDS ORDERED: POTASSIUM CHLORIDE 10 MEQ CONTROLLED RELEASE TAB PO ONE (17:00)
--- NOTE | 2017-10-31 17:06 | RADRPT ---
EXAM DATE/TIME: 10/31/2017 16:27 [facility] COMPARISON: MRCP W & W/O CONTRAST, July 24, 2017, 14:00. CT ABDOMEN & PELVIS W CONTRAST, July 23, 2017 , 23:17. INDICATIONS : Abdomen pain with nausea. History of pancreatitis. IV CONTRAST: 95 cc Omnipaque 350 (iohexol) IV ORAL CONTRAST: No oral contrast ingested. RADIATION DOSE: 7.50 CTDIvol (mGy) MEDICAL HISTORY : Hypertension. Cardiovascular disease Pancreatitis.COPD SURGICAL HISTORY : Hysterectomy. Appendectomy. ENCOUNTER: Initial ACUITY: 1 day PAIN SCALE: 8/10 LOCATION: Bilateral upper abdomen TECHNIQUE: Volumetric scanning of the abdomen and pelvis was performed. Using automated exposure control and ad justment of the mA and/or kV according to patient size, radiation dose was kept as low as reasonably achievable to obtain optimal diagnostic quality images. DICOM format image data is available electro nically for review and comparison. FINDINGS: LOWER LUNGS: Mild ground glass opacities at the lung bases likely reflecting volume loss. LIVER: Redemonstration of a stable 2.6 x 2.1 cm hemangioma in segment 5 of the liver. Mild diffuse intra-and extra hepatic ductal dilatation similar to prior examination. Gallbladder surgically absent SPLEEN: Normal size without lesion. PANCREAS: Stable in appearance. KIDNEYS: Symmetrical enhancement without evidence for radiopaque renal calculi or hydronephrosis. Small bilate ral subcentimeter cystic lesions are too small to fully characterize. ADRENAL GLANDS: Within normal limits. VASCULAR: There is no aortic aneurysm. BOWEL/MESENTERY: Appendix is surgically absent. Surgical suture line in the rectosigmoid colon. Bowel is stable in jaimee earance without evidence for obstruction. ABDOMINAL WALL: Postsurgical features with eduardo in the anterior mid abdomen. Stable small collection in the midant erior abdominal wall. No significant inflammatory change. RETROPERITONEUM: There is no lymphadenopathy. BLADDER: No wall thickening or mass. REPRODUCTIVE: Within normal limits. INGUINAL: There is no lymphadenopathy or hernia. MUSCULOSKELETAL: Within normal limits for patient age. CONCLUSION: 1. Stable CT examination without evidence for acute abnormality in the abdomen or pelvis. 2. Status post cholecystectomy with stable mild diffuse intra-and extrahepatic biliary ductal dilatat ion consistent with reservoir effect. 3. Stable postsurgical features in the anterior abdominal wall with stable chronic small midanterior abdominal wall collection, likely old hematoma. Erich Gooden MD on October 31, 2017 at 16:54 Board Certified Radiologist. This report was verified electronically.
--- NOTE | 2017-10-31 18:20 | PD ---
Data Data Last Documented VS Vital Signs Date Time Temp Pulse Resp B/P (MAP) Pulse Ox O2 Delivery O2 Flow Rate FiO2 10/31/17 15:14 97 Room Air 10/31/17 14:07 98.3 95 16 Orders Orders Complete Blood Count With Diff (10/31/17 14:52) Comprehensive Metabolic Panel (10/31/17 14:52) Lipase (10/31/17 14:52) Prothrombin Time / Inr (Pt) (10/31/17 14:52) Act Partial Throm Time (Ptt) (10/31/17 14:52) Urinalysis - C+S If Indicated (10/31/17 14:52) Ct Abd/Pel W Iv Contrast(Rout) (10/31/17 14:52) Iv Access Insert/Monitor (10/31/17 14:52) Ecg Monitoring (10/31/17 14:52) Oximetry (10/31/17 14:52) Morphine Inj (Morphine Inj) (10/31/17 15:00) Ondansetron Inj (Zofran Inj) (10/31/17 15:00) Sodium Chlor 0.9% 1000 Ml Inj (Ns 1000 M (10/31/17 14:52) Sodium Chloride 0.9% Flush (Ns Flush) (10/31/17 15:00) Iohexol 350 Inj (Omnipaque 350 Inj) (10/31/17 14:07) Potassium Chloride (Kcl) (10/31/17 17:00) Labs Laboratory Tests Test 10/31/17 15:00 White Blood Count 7.8 TH/MM3 Red Blood Count 4.62 MIL/MM3 Hemoglobin 14.4 GM/DL Hematocrit 43.4 % Mean Corpuscular Volume 93.8 FL Mean Corpuscular Hemoglobin 31.2 PG Mean Corpuscular Hemoglobin Concent 33.3 % Red Cell Distribution Width 14.0 % Platelet Count 302 TH/MM3 Mean Platelet Volume 8.4 FL Neutrophils (%) (Auto) 57.9 % Lymphocytes (%) (Auto) 33.3 % Monocytes (%) (Auto) 5.2 % Eosinophils (%) (Auto) 2.4 % Basophils (%) (Auto) 1.2 % Neutrophils # (Auto) 4.5 TH/MM3 Lymphocytes # (Auto) 2.6 TH/MM3 Monocytes # (Auto) 0.4 TH/MM3 Eosinophils # (Auto) 0.2 TH/MM3 Basophils # (Auto) 0.1 TH/MM3 CBC Comment DIFF FINAL Differential Comment Prothrombin Time 10.1 SEC Prothromb Time International Ratio 1.0 RATIO Activated Partial Thromboplast Time 24.1 SEC Urine Color LIGHT-YELLOW Urine Turbidity CLEAR Urine pH 6.0 Urine Specific [place] 1.004 Urine Protein 30 mg/dL Urine Glucose (UA) NEG mg/dL Urine Ketones NEG mg/dL Urine Occult Blood MOD Urine Nitrite NEG Urine Bilirubin NEG Urine Urobilinogen LESS THAN 2.0 MG/DL Urine Leukocyte Esterase NEG Urine RBC 8 /hpf Urine WBC 1 /hpf Urine Squamous Epithelial Cells <1 /hpf Microscopic Urinalysis Comment CULT NOT INDICATED Blood Urea Nitrogen 10 MG/DL Creatinine 0.81 MG/DL Random Glucose 81 MG/DL Total Protein 7.0 GM/DL Albumin 3.6 GM/DL Calcium Level 8.8 MG/DL Alkaline Phosphatase 77 U/L Aspartate Amino Transf (AST/SGOT) 9 U/L Alanine Aminotransferase (ALT/SGPT) 12 U/L Total Bilirubin 0.4 MG/DL Sodium Level 140 MEQ/L Potassium Level 3.4 MEQ/L Chloride Level 105 MEQ/L Carbon Dioxide Level 28.3 MEQ/L Anion Gap 7 MEQ/L Estimat Glomerular Filtration Rate 74 ML/MIN Lipase 187 U/L MDM Supervised Visit with JANESSA: No Narrative Course This case is checked out to me at [address] Grant. I have reevaluated the patient and review the results with her. She was sound asleep when I went into reevaluate her. Her pain is gone. CBC and comp has a metabolic profile and urinalysis are all normal CT scan is compared to prior and is stable. No acute findings noted Incidental findings are noted and the patient should discuss them with her family physician and GI follow-ups Diagnosis Primary Impression: Abdominal pain Qualified Codes: R10.9 - Unspecified abdominal pain Patient Instructions: General Instructions, Narcotic given in the ED Additional Instruction: The patient was advised to follow up with their physician and return if they worsen. Disposition: 01 DISCHARGE HOME Condition: Stable Boston Roberts MD Oct 31, 2017 18:20
== END 2017-10-31 18:36 | disposition home or self-care (01) ==
LOC: NEPD 14:06
DX: R10.9 Unspecified abdominal pain (principal); R11.2 Nausea with vomiting, unspecified; M19.90 Unspecified osteoarthritis, unspecified site; F31.9 Bipolar disorder, unspecified; I10 Essential (primary) hypertension; K21.9 Gastro-esophageal reflux disease without esophagitis; J44.9 Chronic obstructive pulmonary disease, unspecified; G62.9 Polyneuropathy, unspecified; F41.9 Anxiety disorder, unspecified
CPT/HCPCS: 74177; 80053; 81001; 83690; 85025; 85610; 85730; 96361; 96374; 96375; 99285; J2270; J2405; J7030; Q9967

== ENCOUNTER 2017-12-12 17:20 | Emergency (ER) | payer OTHER, MEDICAID ==
[~2017-12-12] VITALS: Ht 170.2 cm; Wt 72.7 kg
[2017-12-12 17:22] VITALS: BP 139/92; PULSE 84; RESP 14; TEMP 97.8; O2SAT 97
--- NOTE | 2017-12-12 17:55 | RADRPT ---
EXAM DATE/TIME: 12/12/2017 17:27 [facility] COMPARISON: CT BRAIN W/O CONTRAST, July 17, 2016, 10:46. MRI BRAIN W/O CONTRAST, February 14, 2017, 15:54. CT BR AIN W/O CONTRAST, February 03, 2017, 20:32. INDICATIONS : Headaches for two weeks. RADIATION DOSE: 56.35 CTDIvol (mGy) MEDICAL HISTORY : Cardiovascular disease. Hypertension. Chronic obstructive pulmonary disease.CVA x2 SURGICAL HISTORY : Hysterectomy. History of aneurysm coiling ENCOUNTER: Initial ACUITY: 2 weeks PAIN SCALE: 9/10 LOCATION: Bilateral cranial TECHNIQUE: Multiple contiguous axial images were obtained of the head. Using automated exposure control and adj ustment of the mA and/or kV according to patient size, radiation dose was kept as low as reasonably a chievable to obtain optimal diagnostic quality images. DICOM format image data is available electro nically for review and comparison. FINDINGS: Evidence for previous aneurysm coiling seen on the left. Intracranial contents unremarkable. There is no parenchymal hemorrhage, acute infarction or mass lesion. No extra-axial fluid collections appr eciated. Posterior fossa is normal. CONCLUSION: Previous aneurysm colon otherwise negative. Delayed subarachnoid hemorrhage cannot b e excluded. Mike Chambers MD FACR on December 12, 2017 at 17:46 Board Certified Radiologist. This report was verified electronically.
[2017-12-12 18:11] VITALS: BP 127/82; PULSE 74; RESP 16; TEMP 97.8; O2SAT 97
[2017-12-12] MEDS ORDERED: SODIUM CHLOR 0.9% 1000 ML INJ 1,000 ML IV ONE (18:14)
[2017-12-12] MEDS ORDERED: diphenhydrAMINE HCL 50 MG/ML VIAL IVP ONE (18:15)
[2017-12-12] MEDS ORDERED: SODIUM CHLORIDE 0.9% FLUSH 10 ML FLUSH IVF PRN (18:15)
[2017-12-12] MEDS ORDERED: METOCLOPRAMIDE HCL 10 MG/2 ML VIAL IVP ONE (18:15)
[2017-12-12 18:18] VITALS: RESP 16; O2SAT 98
--- NOTE | 2017-12-12 18:23 | PD ---
HPI Chief Complaint: Headache Time Seen by Provider: 18:01 Travel History International Travel<30 days: No Contact w/Intl Traveler<30days: No Traveled to known affect area: No History of Present Illness HPI Patient comes into the emergency department complaining of headache ongoing for 2 weeks. Patient states pain started on her frontal lobe and now radiates throughout her head. Patient reports that she had one episode of nonbloody nonbilious vomiting today. Patient reports that has associated dizziness that could be coming from her vertigo but she took her meclizine as well this morning and 2 hours later she took her Imitrex with no improvement of symptoms. Patient is concerned states she's had an aneurysm in the past 8 years ago. Patient denies any chest pain, shortness of breath, fevers, weakness, numbness or tingling anywhere, neck pain, or abdominal pain. Denies any loss or change in bowel or bladder. Patient reports headache is similar to previous headaches she's had in the past and is not the worst headache of her life. PFSH Past Medical History Hx Anticoagulant Therapy: Yes (ASPIRIN) Arthritis: Yes Asthma: No Autoimmune Disease: No Bipolar Disorder: Yes Anxiety: Yes Depression: Yes Heart Rhythm Problems: No Cancer: No Cardiac Catheterization: No Cardiovascular Problems: Yes (HTN) High Cholesterol: No Chemotherapy: No Congestive Heart Failure: No COPD: Yes Cerebrovascular Accident: Yes (CVA X 2) Diabetes: No Diminished Hearing: No Endocrine: No Gastrointestinal Disorders: Yes GERD: Yes Genitourinary: No Hiatal Hernia: No Heparin Induced Thrombocytopen: No Hypertension: Yes Immune Disorder: No Implanted Vascular Access Dvce: No Musculoskeletal: Yes (knee reeplacement) Neurologic: Yes (peripheral neuropathy) Psychiatric: Yes Reproductive: No Respiratory: Yes (COPD) Immunizations Current: Yes Radiation Therapy: No Sickle Cell Disease: No Sleep Apnea: No Thyroid Disease: No Ulcer: No Tetanus Vaccination: < 5 Years Influenza Vaccination: Yes ?: Not Menopausal: Yes : 3 Para: 3 Miscarriage: 0 : 0 Past Surgical History Abdominal Surgery: Yes Appendectomy: Yes Body Medical Devices: anesyum coil Cardiac Surgery: Yes Cholecystectomy: Yes Coronary Artery Bypass Graft: No Ear Surgery: No Endocrine Surgery: No Eye Surgery: No Genitourinary Surgery: No Gynecologic Surgery: Yes (hysterectomy) Hysterectomy: Yes Neurologic Surgery: Yes (COILED ANEURYSM) Oral Surgery: Yes (wisdom teeth removed) Pacemaker: No Thoracic Surgery: No Tonsillectomy: Yes Other Surgery: Yes Social History Alcohol Use: No Tobacco Use: Yes (2PPD) Substance Use: No Allergies-Medications (Allergen,Severity, Reaction): Coded Allergies: Sulfa (Sulfonamide Antibiotics) (Verified Allergy, Severe, itching, ) bee venom protein (honey bee) (Verified Allergy, Severe, itching, 12/12/17) cefuroxime (Verified Allergy, Intermediate, itching, 12/12/17) ciprofloxacin (Verified Allergy, Intermediate, itching, 12/12/17) gabapentin (Verified Adverse Reaction, Severe, MIGRAINES, 12/12/17) Reported Meds & Prescriptions Reported Meds & Active Scripts Active Ibuprofen 600 Mg Tab 600 Mg PO Q6H PRN Dicyclomine (Dicyclomine HCl) 20 Mg Tab 20 Mg PO TID PRN Reglan (Metoclopramide HCl) 5 Mg Tab 5 Mg PO TIDAC Creon (Amylase/Lipase/Protease) 24,000-76,000-120,000 Units Cap 1 Cap PO TID Reported Trazodone (Trazodone HCl) 100 Mg Tablet 200 Mg PO HS Meclizine (Meclizine HCl) 25 Mg Tab 25 Mg PO TID PRN Escitalopram (Escitalopram Oxalate) 20 Mg Tab 20 Mg PO DAILY [place] Carbonate 300 Mg Cap 300 Mg PO BID Atorvastatin (Atorvastatin Calcium) 20 Mg Tab 20 Mg PO HS Amlodipine (Amlodipine Besylate) 5 Mg Tab 5 Mg PO DAILY Sumatriptan (Sumatriptan Succinate) 50 Mg Tab 50 Mg PO Q6HR PRN If a satisfactory response has not been obtained at 2 hours, a second dose may be administered Review of Systems Except as stated in HPI: all other systems reviewed are Neg Physical Exam Narrative GENERAL: Well-developed, overly nourished, in no acute distress, and non-ill appearing. SKIN: Focused skin assessment warm and dry. HEAD: Atraumatic. Normocephalic. EYES: Pupils equal and round. EOMI. No scleral icterus. No injection or drainage. ENT: No nasal bleeding or discharge. Mucous membranes pink and moist. NECK: Trachea midline. Supple. No nuclear rigidity. CARDIOVASCULAR: Regular rate and rhythm. No murmur appreciated. RESPIRATORY: No accessory muscle use. No respiratory distress. Clear to auscultation. Breath sounds equal bilaterally. MUSCULOSKELETAL: No obvious deformities. No clubbing. No cyanosis. No edema. Full range of motion. NEUROLOGICAL: Awake and alert. No obvious cranial nerve deficits. Motor grossly within normal limits. Normal speech. PSYCHIATRIC: Appropriate mood and affect; insight and judgment normal. Data Data Last Documented VS Vital Signs Date Time Temp Pulse Resp B/P (MAP) Pulse Ox O2 Delivery O2 Flow Rate FiO2 12/12/17 19:21 12/12/17 18:18 16 98 Room Air 12/12/17 18:11 97.8 74 Orders Orders Complete Blood Count With Diff (12/12/17 17:24) Comprehensive Metabolic Panel (12/12/17 17:24) Prothrombin Time / Inr (Pt) (12/12/17 17:24) Act Partial Throm Time (Ptt) (12/12/17 17:24) Ct Brain W/O Iv Contrast(Rout) (12/12/17 17:24) Ecg Monitoring (12/12/17 18:14) Iv Access Insert/Monitor (12/12/17 18:14) Oximetry (12/12/17 18:14) Sodium Chloride 0.9% Flush (Ns Flush) (12/12/17 18:15) Diphenhydramine Inj (Benadryl Inj) (12/12/17 18:15) Metoclopramide Inj (Reglan Inj) (12/12/17 18:15) Sodium Chlor 0.9% 1000 Ml Inj (Ns 1000 M (12/12/17 18:14) Ed Discharge Order (12/12/17 19:48) Labs Laboratory Tests Test 12/12/17 18:00 White Blood Count 9.0 TH/MM3 Red Blood Count 4.71 MIL/MM3 Hemoglobin 14.8 GM/DL Hematocrit 43.0 % Mean Corpuscular Volume 91.3 FL Mean Corpuscular Hemoglobin 31.5 PG Mean Corpuscular Hemoglobin Concent 34.5 % Red Cell Distribution Width 13.0 % Platelet Count 301 TH/MM3 Mean Platelet Volume 7.9 FL Neutrophils (%) (Auto) 64.3 % Lymphocytes (%) (Auto) 26.8 % Monocytes (%) (Auto) 5.2 % Eosinophils (%) (Auto) 2.3 % Basophils (%) (Auto) 1.4 % Neutrophils # (Auto) 5.8 TH/MM3 Lymphocytes # (Auto) 2.4 TH/MM3 Monocytes # (Auto) 0.5 TH/MM3 Eosinophils # (Auto) 0.2 TH/MM3 Basophils # (Auto) 0.1 TH/MM3 CBC Comment DIFF FINAL Differential Comment Prothrombin Time 11.9 SEC Prothromb Time International Ratio 1.2 RATIO Activated Partial Thromboplast Time 25.7 SEC Blood Urea Nitrogen 10 MG/DL Creatinine 0.70 MG/DL Random Glucose 77 MG/DL Total Protein 6.6 GM/DL Albumin 3.3 GM/DL Calcium Level 8.8 MG/DL Alkaline Phosphatase 84 U/L Aspartate Amino Transf (AST/SGOT) 10 U/L Alanine Aminotransferase (ALT/SGPT) 18 U/L Total Bilirubin 0.3 MG/DL Sodium Level 141 MEQ/L Potassium Level 3.6 MEQ/L Chloride Level 110 MEQ/L Carbon Dioxide Level 27.7 MEQ/L Anion Gap 3 MEQ/L Estimat Glomerular Filtration Rate 87 ML/MIN MDM Medical Decision Making Medical Screen Exam Complete: Yes Emergency Medical Condition: Yes Interpretation(s) Last Impressions Head CT 12/12/171723 Signed Impressions: Service Date/Time: Tuesday, December 12, 2017 17:27 - CONCLUSION: Previous aneurysm colon otherwise negative. Delayed subarachnoid hemorrhage cannot be excluded. Mike Chambers MD FACR Differential Diagnosis Headache, migraine, mass, hemorrhage, dehydration, metabolic disturbance Narrative Course The patient looks great and is in no significant objective discomfort currently. Headache appears consistent with patients typical migraine. Exam is unremarkable. The patient is in no distress and the patients neurological exam is normal, neck is supple and without meningismus. The headache is not consistent with meningitis or infection, nor is it consistent with intracranial bleed (SAH etc.), carotid dissection, nor mass by history and examination. Medication and instructions to rest in a cool dark quite place were discussed with the patient. Also, outpatient follow up was instructed. The patient was instructed to return as needed or if symptoms changed or worsened, fever developed or inability to tolerate fluids. The patient agreed with plan. Patient in no obvious distress upon re-evaluation. Patient is not wanting to have her urine checked and is just wanting to be discharged. All pertinent laboratory/Radiology result(s) discussed with patient. Discussed patient with Dr. Rodriguez, who saw and evaluated the patient and is in agreement with plan of care and disposition. Any questions/concerns in reference to patient diagnosis/condition discussed and clarified prior to patient's discharge. Reinforced sheer importance of close follow up with patient's primary physician or primary care clinic. Instructed patient to return to ED immediately, if symptoms return/worsen. Patient showed understanding of above instructions. Further instructions and recommendations were detailed in discharge paperwork. Patient ambulated without difficulty out of ED at discharge. Diagnosis Primary Impression: Cephalgia Qualified Codes: R51 - Headache Referrals: Michael Humphrey MD Patient Instructions: General Instructions, Migraine Headache (ED) Additional Instructions: Follow-up with your primary care physician and/or neurologist in 2-5 days for reevaluation. Return to the emergency department if symptoms get worse. Disposition: 01 DISCHARGE HOME Condition: Stable Wisam Vivas Dec 12, 2017 18:23
[2017-12-12 18:27] LABS: AUTOMATED NEUTROPHIL # 5.8 TH/MM3 (1.8-7.7); BASOPHIL # 0.1 TH/MM3 (0-0.2); BASOPHIL % 1.4 % (0.0-2.0); EOSINOPHIL # 0.2 TH/MM3 (0-0.4); EOSINOPHIL % 2.3 % (0.0-4.0); HEMOGLOBIN 14.8 GM/DL (11.6-15.3); LYMPH % 26.8 % (9.0-44.0); LYMPHOCYTE # 2.4 TH/MM3 (1.0-4.8); MEAN CELL VOLUME 91.3 FL (80.0-100.0); MEAN CORPUSCULAR HEMOGLOBIN 31.5 PG (27.0-34.0); MEAN CORPUSCULAR HGB CONC 34.5 % (32.0-36.0); MEAN PLATELET VOLUME 7.9 FL (7.0-11.0); MONO % 5.2 % (0.0-8.0); MONOCYTE # 0.5 TH/MM3 (0-0.9); NEUT % 64.3 % (16.0-70.0); PLATELET COUNT 301 TH/MM3 (150-450); RED BLOOD COUNT 4.71 MIL/MM3 (4.00-5.30)
[2017-12-12 18:41] LABS: INTERNATIONAL NORMALIZED RATIO 1.2 RATIO; PROTHROMBIN TIME - PATIENT 11.9 SEC (9.8-11.6)
[2017-12-12 18:54] LABS: ALBUMIN 3.3 GM/DL (3.4-5.0); AST (GOT) 10 U/L (15-37); BICARBONATE 27.7 MEQ/L (21.0-32.0); BLOOD UREA NITROGEN 10 MG/DL (7-18); CALCIUM 8.8 MG/DL (8.5-10.1); CHLORIDE 110 MEQ/L (98-107); GLOMERULAR FILTRATION RATE 87 ML/MIN (>89); GLUCOSE,RANDOM 77 MG/DL (74-106); SODIUM (NA) 141 MEQ/L (136-145)
[2017-12-12 18:55] LABS: ALT (GPT) 18 U/L (10-53)
[2017-12-12 18:57] LABS: ALKALINE PHOSPHATASE 84 U/L (45-117); TOTAL BILIRUBIN ADULT 0.3 MG/DL (0.2-1.0); TOTAL PROTEIN 6.6 GM/DL (6.4-8.2)
--- NOTE | 2017-12-12 19:25 | PD ---
Physical Exam Date Seen by Provider: Dec 12, 2017 Time Seen by Provider: 19:21 Narrative The patient is a 52-year-old female was initially evaluate by the mid-level provider. Please refer to the initial history, physical, diagnostic evaluation , and treatment modality plan. Data Data Last Documented VS Vital Signs Date Time Temp Pulse Resp B/P (MAP) Pulse Ox O2 Delivery O2 Flow Rate FiO2 12/12/17 18:18 16 98 Room Air 12/12/17 18:11 97.8 74 Orders Orders Complete Blood Count With Diff (12/12/17 17:24) Comprehensive Metabolic Panel (12/12/17 17:24) Prothrombin Time / Inr (Pt) (12/12/17 17:24) Act Partial Throm Time (Ptt) (12/12/17 17:24) Ct Brain W/O Iv Contrast(Rout) (12/12/17 17:24) Ecg Monitoring (12/12/17 18:14) Iv Access Insert/Monitor (12/12/17 18:14) Oximetry (12/12/17 18:14) Sodium Chloride 0.9% Flush (Ns Flush) (12/12/17 18:15) Diphenhydramine Inj (Benadryl Inj) (12/12/17 18:15) Metoclopramide Inj (Reglan Inj) (12/12/17 18:15) Sodium Chlor 0.9% 1000 Ml Inj (Ns 1000 M (12/12/17 18:14) Urinalysis - C+S If Indicated (12/12/17 18:23) Labs Laboratory Tests Test 12/12/17 18:00 White Blood Count 9.0 TH/MM3 Red Blood Count 4.71 MIL/MM3 Hemoglobin 14.8 GM/DL Hematocrit 43.0 % Mean Corpuscular Volume 91.3 FL Mean Corpuscular Hemoglobin 31.5 PG Mean Corpuscular Hemoglobin Concent 34.5 % Red Cell Distribution Width 13.0 % Platelet Count 301 TH/MM3 Mean Platelet Volume 7.9 FL Neutrophils (%) (Auto) 64.3 % Lymphocytes (%) (Auto) 26.8 % Monocytes (%) (Auto) 5.2 % Eosinophils (%) (Auto) 2.3 % Basophils (%) (Auto) 1.4 % Neutrophils # (Auto) 5.8 TH/MM3 Lymphocytes # (Auto) 2.4 TH/MM3 Monocytes # (Auto) 0.5 TH/MM3 Eosinophils # (Auto) 0.2 TH/MM3 Basophils # (Auto) 0.1 TH/MM3 CBC Comment DIFF FINAL Differential Comment Prothrombin Time 11.9 SEC Prothromb Time International Ratio 1.2 RATIO Activated Partial Thromboplast Time 25.7 SEC Blood Urea Nitrogen 10 MG/DL Creatinine 0.70 MG/DL Random Glucose 77 MG/DL Total Protein 6.6 GM/DL Albumin 3.3 GM/DL Calcium Level 8.8 MG/DL Alkaline Phosphatase 84 U/L Aspartate Amino Transf (AST/SGOT) 10 U/L Alanine Aminotransferase (ALT/SGPT) 18 U/L Total Bilirubin 0.3 MG/DL Sodium Level 141 MEQ/L Potassium Level 3.6 MEQ/L Chloride Level 110 MEQ/L Carbon Dioxide Level 27.7 MEQ/L Anion Gap 3 MEQ/L Estimat Glomerular Filtration Rate 87 ML/MIN [facility] Medical Record Reviewed: Yes Supervised Visit with JANESSA: Yes Interpretation(s) Last Impressions Head CT 12/12/17 [id number] Signed Impressions: Service Date/Time: Tuesday, December 12, 2017 17:27 - CONCLUSION: Previous aneurysm colon otherwise negative. Delayed subarachnoid hemorrhage cannot be excluded. Mike Chambers MD FACR Laboratory Tests Test 12/12/17 18:00 White Blood Count 9.0 TH/MM3 Red Blood Count 4.71 MIL/MM3 Hemoglobin 14.8 GM/DL Hematocrit 43.0 % Mean Corpuscular Volume 91.3 FL Mean Corpuscular Hemoglobin 31.5 PG Mean Corpuscular Hemoglobin Concent 34.5 % Red Cell Distribution Width 13.0 % Platelet Count 301 TH/MM3 Mean Platelet Volume 7.9 FL Neutrophils (%) (Auto) 64.3 % Lymphocytes (%) (Auto) 26.8 % Monocytes (%) (Auto) 5.2 % Eosinophils (%) (Auto) 2.3 % Basophils (%) (Auto) 1.4 % Neutrophils # (Auto) 5.8 TH/MM3 Lymphocytes # (Auto) 2.4 TH/MM3 Monocytes # (Auto) 0.5 TH/MM3 Eosinophils # (Auto) 0.2 TH/MM3 Basophils # (Auto) 0.1 TH/MM3 CBC Comment DIFF FINAL Differential Comment Prothrombin Time 11.9 SEC Prothromb Time International Ratio 1.2 RATIO Activated Partial Thromboplast Time 25.7 SEC Blood Urea Nitrogen 10 MG/DL Creatinine 0.70 MG/DL Random Glucose 77 MG/DL Total Protein 6.6 GM/DL Albumin 3.3 GM/DL Calcium Level 8.8 MG/DL Alkaline Phosphatase 84 U/L Aspartate Amino Transf (AST/SGOT) 10 U/L Alanine Aminotransferase (ALT/SGPT) 18 U/L Total Bilirubin 0.3 MG/DL Sodium Level 141 MEQ/L Potassium Level 3.6 MEQ/L Chloride Level 110 MEQ/L Carbon Dioxide Level 27.7 MEQ/L Anion Gap 3 MEQ/L Estimat Glomerular Filtration Rate 87 ML/MIN Differential Diagnosis Differential diagnosis includes subarachnoid hemorrhage, aneurysm, intracranial hemorrhage, tension headache, migraine, tumor, temporal arteritis, glaucoma. Narrative Course I, Dr. Rodriguez, have reviewed the advance practice practitioner's documentation and am in agreement, met with the patient face to face, made the diagnosis, and the medical decision making was done by me. *My assessment and Findings: The patient is a 52-year-old female who presents emergency department for headache is mostly over the right aspect of the head, the right temporal parietal area is tender to palpation, however, the headache does extend generally. The patient does have a history of aneurysm that was clipped 8 years ago. The patient states she had headaches at that time underwent a workup, was diagnosed with an aneurysm. She denies any known history of subarachnoid hemorrhage. She has had similar headaches in the last 8 years that she states is worse with stress, she's had this headache intermittently for the last couple weeks. The patient saw her primary physician and was placed on medicines. She denies any significant posterior neck pain, photophobia, or fever. Physical examination reveals no meningeal signs. The patient is afebrile, sitting back, appears relaxed. CT was negative , radiologist did state that the patient could have a delayed subarachnoid hemorrhage that they cannot rule out on CT. I had a discussion with the patient regarding the risk and benefits of performing a lumbar puncture. The patient does not want a lumbar puncture after discussion, I did state we cannot rule out a small subarachnoid hemorrhage and/or aneurysm leak without lumbar puncture. She would prefer to wait on the LP. The patient will be provided pain medications prior to discharge. Diagnosis Primary Impression: Cephalgia Condition: Stable Luiz Rodriguez MD Dec 12, 2017 19:25
== END 2017-12-12 20:05 | disposition home or self-care (01) ==
LOC: NEPC 17:20
DX: R51 Headache (principal); R42 Dizziness and giddiness; M19.90 Unspecified osteoarthritis, unspecified site; F31.9 Bipolar disorder, unspecified; I10 Essential (primary) hypertension; J44.9 Chronic obstructive pulmonary disease, unspecified; Z86.73 Personal history of transient ischemic attack (TIA), and cerebral infarction without residual deficits; K21.9 Gastro-esophageal reflux disease without esophagitis; G62.9 Polyneuropathy, unspecified
CPT/HCPCS: 70450; 80053; 85025; 85610; 85730; 96361; 96374; 96375; 99285; J1200; J2765; J7030

== ENCOUNTER 2018-03-08 20:30 | Emergency (ER) | payer OTHER, MEDICAID ==
[~2018-03-08 20:30] MED LIST changes: -DOCU1CAP39 PO
[2018-03-08 20:40] VITALS: BP 152/82; PULSE 83; RESP 18; TEMP 98.3; O2SAT 95
--- NOTE | 2018-03-08 22:33 | RADRPT ---
EXAM DATE/TIME: 03/08/2018 21:18 [facility] COMPARISON: CHEST SINGLE AP, June 10, 2017, 14:31. INDICATIONS : Chest pain. MEDICAL HISTORY : Stroke. Hypertension SURGICAL HISTORY : Left shoulder. ENCOUNTER: Initial ACUITY: 1 day PAIN SCORE: 7/10 LOCATION: Right chest FINDINGS: A single view of the chest demonstrates the lungs to be symmetrically aerated without evidence of mas s, infiltrate or effusion. The cardiomediastinal contours are unremarkable. Osseous structures are intact. CONCLUSION: No acute disease. Merlin Henning MD on March 08, 2018 at 22:30 Board Certified Radiologist. This report was verified electronically.
[2018-03-08] MEDS ORDERED: ACETAMINOPHEN/HYDROcodone 325 MG/5 MG TAB PO ONE (23:00)
--- NOTE | 2018-03-08 23:05 | PD ---
HPI Chief Complaint: Dizziness Time Seen by Provider: 22:49 Travel History International Travel<30 days: No Contact w/Intl Traveler<30days: No Traveled to known affect area: No History of Present Illness HPI 52-year-old female complains of headache, dizziness, chest pain, shortness of breath. Patient states that the symptoms started this evening. Patient has history of CVA about 6 years ago in [place]. Patient has history of a hole in her heart and on aspirin 325 mg daily. Patient states that headache started this evening at home. Patient states headache is aching headache diffuse over the head. Patient denies any visual change. Patient denies any neck pain. Patient states that she started having dizziness and chest pain subsequently. Patient states that the chest pain is sharp stabbing pain localized the right-sided chest. Patient denies any pain radiation. Patient states the pain is worse with deep breathing. Patient denies palpitation. Patient states that she has sweating and feeling clammy this evening. Patient denies any abdominal pain. Patient denies any nausea vomiting diarrhea. Patient has history of brain aneurysm status post coil procedure about 10 years ago. Patient has history of left shoulder surgery recently. Patient has been taking oxycodone for pain. Patient had an MRI of the brain done last year in emergency room which showed no acute pathology. PFSH Past Medical History Hx Anticoagulant Therapy: Yes (ASA) Arthritis: Yes Asthma: No Autoimmune Disease: No Bipolar Disorder: Yes Anxiety: Yes Depression: Yes Heart Rhythm Problems: No Cancer: No Cardiac Catheterization: No Cardiovascular Problems: Yes (HTN) High Cholesterol: No Chemotherapy: No Congestive Heart Failure: No COPD: Yes Cerebrovascular Accident: Yes (CVA X 2) Diabetes: No Diminished Hearing: No Endocrine: No Gastrointestinal Disorders: Yes GERD: Yes Genitourinary: No Hiatal Hernia: No Heparin Induced Thrombocytopen: No Hypertension: Yes Immune Disorder: No Implanted Vascular Access Dvce: No Musculoskeletal: Yes (knee reeplacement) Neurologic: Yes (peripheral neuropathy) Psychiatric: Yes Reproductive: No Respiratory: Yes (COPD) Immunizations Current: Yes Radiation Therapy: No Sickle Cell Disease: No Sleep Apnea: No Thyroid Disease: No Ulcer: No ?: Not Menopausal: Yes : 3 Para: 3 Miscarriage: 0 : 0 Past Surgical History Abdominal Surgery: Yes Appendectomy: Yes Body Medical Devices: anesyum coil Cardiac Surgery: Yes Cholecystectomy: Yes Coronary Artery Bypass Graft: No Ear Surgery: No Endocrine Surgery: No Eye Surgery: No Genitourinary Surgery: No Gynecologic Surgery: Yes (hysterectomy) Hysterectomy: Yes Neurologic Surgery: Yes (COILED ANEURYSM) Oral Surgery: Yes (wisdom teeth removed) Pacemaker: No Thoracic Surgery: No Tonsillectomy: Yes Other Surgery: Yes Social History Alcohol Use: No Tobacco Use: Yes (2PPD) Substance Use: No Allergies-Medications (Allergen,Severity, Reaction): Coded Allergies: Sulfa (Sulfonamide Antibiotics) (Verified Allergy, Severe, itching, ) bee venom protein (honey bee) (Verified Allergy, Severe, itching, 12/12/17) cefuroxime (Verified Allergy, Intermediate, itching, 12/12/17) ciprofloxacin (Verified Allergy, Intermediate, itching, 12/12/17) gabapentin (Verified Adverse Reaction, Severe, MIGRAINES, 12/12/17) Reported Meds & Prescriptions Reported Meds & Active Scripts Active Ibuprofen 600 Mg Tab 600 Mg PO Q6H PRN Dicyclomine (Dicyclomine HCl) 20 Mg Tab 20 Mg PO TID PRN Creon (Amylase/Lipase/Protease) 24,000-76,000-120,000 Units Cap 1 Cap PO TID Reported Aspirin 325 Mg Tab 325 Mg PO DAILY Trazodone (Trazodone HCl) 100 Mg Tablet 200 Mg PO HS Meclizine (Meclizine HCl) 25 Mg Tab 25 Mg PO TID PRN Escitalopram (Escitalopram Oxalate) 20 Mg Tab 20 Mg PO DAILY [place] Carbonate 300 Mg Cap 300 Mg PO BID Atorvastatin (Atorvastatin Calcium) 20 Mg Tab 20 Mg PO HS Amlodipine (Amlodipine Besylate) 5 Mg Tab 5 Mg PO DAILY Sumatriptan (Sumatriptan Succinate) 50 Mg Tab 50 Mg PO Q6HR PRN If a satisfactory response has not been obtained at 2 hours, a second dose may be administered Review of Systems General / Constitutional: No: Fever Eyes: No: Visual changes HENT: Positive: Headaches, Lightheadedness Cardiovascular: Positive: Chest Pain or Discomfort Respiratory: No: Shortness of Breath Gastrointestinal: No: Abdominal Pain Genitourinary: No: Dysuria Musculoskeletal: No: Pain Skin: No Rash Neurologic: No: Weakness Psychiatric: No: Depression Endocrine: No: Polydipsia Hematologic/Lymphatic: No: Easy Bruising Physical Exam Narrative GENERAL: Well-nourished, well-developed patient. SKIN: Focused skin assessment warm/dry. HEAD: Normocephalic. EYES: No scleral icterus. No injection or drainage. Pupils 2 mm equal reactive. NECK: Supple, trachea midline. No JVD or lymphadenopathy. CARDIOVASCULAR: Regular rate and rhythm without murmurs, gallops, or rubs. RESPIRATORY: Breath sounds equal bilaterally. No accessory muscle use. GASTROINTESTINAL: Abdomen soft, non-tender, nondistended. MUSCULOSKELETAL: No cyanosis, or edema. BACK: Nontender without obvious deformity. No CVA tenderness. Neurologic exam: Patient is awake and alert oriented 3. Patient moves all extremity well. No obvious focal neurological deficit. Data Data Last Documented VS Vital Signs Date Time Temp Pulse Resp B/P (MAP) Pulse Ox O2 Delivery O2 Flow Rate FiO2 03/08/18 23:06 96 Room Air 03/08/18 20:40 98.3 83 18 152/82 (105) Orders Orders Electrocardiogram (03/08/18 20:43) Complete Blood Count With Diff (03/08/18 20:43) Basic Metabolic Panel (Bmp) (03/08/18 20:43) Ckmb (Isoenzyme) Profile (03/08/18 20:43) Troponin I (03/08/18 20:43) Iv Access Insert/Monitor (03/08/18 20:43) Ecg Monitoring (03/08/18 20:43) Oxygen Administration (03/08/18 20:43) Oximetry (03/08/18 20:43) Chest, Single Ap (03/08/18 20:43) Acetamin-Hydrocod 325-5 Mg ([place] 5-325 (03/08/18 23:00) Ct Brain W/O Iv Contrast(Rout) (03/09/18 00:14) Labs Laboratory Tests Test 03/08/18 23:10 White Blood Count 9.4 TH/MM3 Red Blood Count 4.66 MIL/MM3 Hemoglobin 15.3 GM/DL Hematocrit 42.8 % Mean Corpuscular Volume 91.9 FL Mean Corpuscular Hemoglobin 32.9 PG Mean Corpuscular Hemoglobin Concent 35.7 % Red Cell Distribution Width 14.0 % Platelet Count 343 TH/MM3 Mean Platelet Volume 8.3 FL Neutrophils (%) (Auto) 52.5 % Lymphocytes (%) (Auto) 34.9 % Monocytes (%) (Auto) 5.8 % Eosinophils (%) (Auto) 4.3 % Basophils (%) (Auto) 2.5 % Neutrophils # (Auto) 4.9 TH/MM3 Lymphocytes # (Auto) 3.3 TH/MM3 Monocytes # (Auto) 0.5 TH/MM3 Eosinophils # (Auto) 0.4 TH/MM3 Basophils # (Auto) 0.2 TH/MM3 CBC Comment DIFF FINAL Differential Comment Blood Urea Nitrogen 14 MG/DL Creatinine 0.79 MG/DL Random Glucose 81 MG/DL Calcium Level 9.0 MG/DL Sodium Level 141 MEQ/L Potassium Level 3.6 MEQ/L Chloride Level 105 MEQ/L Carbon Dioxide Level 28.5 MEQ/L Anion Gap 8 MEQ/L Estimat Glomerular Filtration Rate 76 ML/MIN Total Creatine Kinase 25 U/L Troponin I LESS THAN 0.02 NG/ML MDM Medical Decision Making Medical Screen Exam Complete: Yes Emergency Medical Condition: Yes Interpretation(s) EKG shows sinus rhythm nonspecific ST-T wave change. 12:14 AM. Last Impressions Chest X-Ray 03/08/182042 Signed Impressions: Service Date/Time: Thursday, March 08, 2018 21:18 - CONCLUSION: No acute disease. Merlin Henning MD 12:14 AM. CBC within normal limits. BMP within normal limits. Cardiac enzymes are normal. 1:[address] scan of brain shows no acute pathology. Prior coiling procedure. Differential Diagnosis Differential diagnosis including tension headache, cluster headache, migraine headache, musculoskeletal pain, angina, TN, PE, pneumothorax, electrolyte abnormality. Narrative Course 52-year-old female with headache, right-sided chest pain, dizziness. History of CVA, migraine headache in the past. Lortab 5/325, 1 tablet p.o. given. Diagnosis Primary Impression: Atypical chest pain Additional Impression: Cephalgia Qualified Codes: R51 - Headache Patient Instructions: General Instructions Additional Instructions: Tylenol ibuprofen for headache and chest pain. Follow-up with personal physician. Return if increasing headache, increasing chest pain shortness of breath. Med/Other Pt SpecificInfo: No Change to Meds Disposition: 01 DISCHARGE HOME Condition: Stable Jerome Alas MD Mar 08, 2018 23:05
[2018-03-08 23:06] VITALS: O2SAT 96
[2018-03-08] MEDS ORDERED: ASPI81CH6 CHEW (23:09)
[2018-03-08] MEDS ORDERED: ASPI-183 PO (23:09)
[2018-03-08 23:25] LABS: AUTOMATED NEUTROPHIL # 4.9 TH/MM3 (1.8-7.7); BASOPHIL # 0.2 TH/MM3 (0-0.2); BASOPHIL % 2.5 % (0.0-2.0); EOSINOPHIL # 0.4 TH/MM3 (0-0.4); EOSINOPHIL % 4.3 % (0.0-4.0); HEMATOCRIT 42.8 % (35.0-46.0); HEMOGLOBIN 15.3 GM/DL (11.6-15.3); LYMPH % 34.9 % (9.0-44.0); LYMPHOCYTE # 3.3 TH/MM3 (1.0-4.8); MEAN CELL VOLUME 91.9 FL (80.0-100.0); MEAN CORPUSCULAR HEMOGLOBIN 32.9 PG (27.0-34.0); MEAN CORPUSCULAR HGB CONC 35.7 % (32.0-36.0); MEAN PLATELET VOLUME 8.3 FL (7.0-11.0); MONO % 5.8 % (0.0-8.0); MONOCYTE # 0.5 TH/MM3 (0-0.9); NEUT % 52.5 % (16.0-70.0); PLATELET COUNT 343 TH/MM3 (150-450); RED BLOOD COUNT 4.66 MIL/MM3 (4.00-5.30); WHITE BLOOD COUNT 9.4 TH/MM3 (4.0-11.0)
[2018-03-08 23:49] LABS: BICARBONATE 28.5 MEQ/L (21.0-32.0); BLOOD UREA NITROGEN 14 MG/DL (7-18); CHLORIDE 105 MEQ/L (98-107); CREATININE 0.79 MG/DL (0.50-1.00); GLOMERULAR FILTRATION RATE 76 ML/MIN (>89); GLUCOSE,RANDOM 81 MG/DL (74-106); SODIUM (NA) 141 MEQ/L (136-145)
[2018-03-08 23:52] LABS: TROPONIN I LESS THAN 0.02 NG/ML (0.02-0.05)
--- NOTE | 2018-03-09 00:49 | RADRPT ---
EXAM DATE/TIME: 03/09/2018 00:36 [facility] COMPARISON: CT BRAIN W/O CONTRAST, December 12, 2017, 17:27. INDICATIONS : Headache and dizziness. RADIATION DOSE: 35.60 CTDIvol (mGy) MEDICAL HISTORY : Hypertension. Cerebrovascular disease. SURGICAL HISTORY : Aneurysm coil ENCOUNTER: Initial ACUITY: 1 day PAIN SCALE: 5/10 LOCATION: cranial TECHNIQUE: Multiple contiguous axial images were obtained of the head. Using automated exposure control and adj ustment of the mA and/or kV according to patient size, radiation dose was kept as low as reasonably a chievable to obtain optimal diagnostic quality images. DICOM format image data is available electro nically for review and comparison. FINDINGS: CEREBRUM: A coil pack from prior aneurysm coiling within the suprasellar cistern to the left of midline. The ve ntricles are normal for age. No evidence of midline shift, mass lesion, hemorrhage or acute infarcti on. No extra-axial fluid collections are seen. POSTERIOR FOSSA: The cerebellum and brainstem are intact. The 4th ventricle is midline. The cerebellopontine angle i s unremarkable. EXTRACRANIAL: The visualized portion of the orbits is intact. SKULL: The calvaria is intact. No evidence of skull fracture. CONCLUSION: 1. No acute intracranial abnormality. 2. Prior aneurysm coiling. Jose Angel Mei Jr., MD on March 09, 2018 at 0:46 Board Certified Radiologist. This report was verified electronically.
--- NOTE | 2018-03-09 18:28 | EKG ---
Date Performed: 03/08/2018 Time Performed: 20:50:05 PTAGE: 52 years EKG: Sinus rhythm POSSIBLE RIGHT ATRIAL ENLARGEMENT LEFT ATRIAL ENLARGEMENT Compared to previous tracing, right atrial abnomality new ABNORMAL ECG PREVIOUS TRACING : 08/27/2017 18.11 DOCTOR: Naseem Enciso Interpretating Date/Time 03/09/2018 18:27:38
== END 2018-03-09 01:42 | disposition home or self-care (01) ==
LOC: NEPC 20:30
DX: R07.89 Other chest pain (principal); R51 Headache; F17.200 Nicotine dependence, unspecified, uncomplicated; I10 Essential (primary) hypertension; F31.9 Bipolar disorder, unspecified
CPT/HCPCS: 70450; 71045; 80048; 82550; 84484; 85025; 93005

== ENCOUNTER 2018-03-24 17:08 | Emergency (ER) | payer OTHER, MEDICAID ==
[~2018-03-24] VITALS: Ht 170.2 cm; Wt 68.0 kg
[~2018-03-24 17:08] MED LIST changes: +ASPI-183 PO; -REGL5TAB PO
[2018-03-24] MEDS ORDERED: IOHEXOL 350 MG/ML 10 ML VIAL (for RAD DIAG) IVCONTRAST ONE (17:09)
[2018-03-24 17:16] VITALS: BP 153/98; PULSE 76; RESP 16; TEMP 98; O2SAT 98
[2018-03-24] MEDS ORDERED: SODIUM CHLOR 0.9% 1000 ML INJ 1,000 ML IV SCH (17:45)
[2018-03-24] MEDS ORDERED: SODIUM CHLORIDE 0.9% FLUSH 10 ML FLUSH IV FLUSH PRN (17:45)
[2018-03-24] MEDS ORDERED: ONDANSETRON HCL 4 MG/2 ML VIAL IVP ONE (17:45)
[2018-03-24 17:49] VITALS: RESP 16; O2SAT 98
--- NOTE | 2018-03-24 18:06 | PD ---
HPI Chief Complaint: Dizziness Time Seen by Provider: 17:32 Travel History International Travel<30 days: No Contact w/Intl Traveler<30days: No Traveled to known affect area: No History of Present Illness HPI Patient is a 52 year old female who presents to the ER with multiple complaints. Patient reports that for the past 3 days, she has been having lower abdominal pain with nausea. Reports that she has not been able to keep anything "down" for the past few days and feels dehydrated. Reports that starting around 3PM today, she began to feel dizzy and lightheaded. Reports "I just feel off." Denies fever/chills. Denies chest pain/sob. Patient also reports history of hyperlipidemia, patient reports that she ran out of her medication and has not taken her antilipid medications for the past 2 weeks. PFSH Past Medical History Hx Anticoagulant Therapy: Yes (ASA) Arthritis: Yes Asthma: No Autoimmune Disease: No Bipolar Disorder: Yes Anxiety: Yes Depression: Yes Heart Rhythm Problems: No Cancer: No Cardiac Catheterization: No Cardiovascular Problems: Yes (HTN) High Cholesterol: No Chemotherapy: No Congestive Heart Failure: No COPD: Yes Cerebrovascular Accident: Yes (CVA ) Diabetes: No Diminished Hearing: No Endocrine: No Gastrointestinal Disorders: Yes GERD: Yes Genitourinary: No Hiatal Hernia: No Heparin Induced Thrombocytopen: No Hypertension: Yes Immune Disorder: No Implanted Vascular Access Dvce: No Musculoskeletal: Yes (knee reeplacement) Neurologic: Yes (peripheral neuropathy) Psychiatric: Yes Reproductive: No Respiratory: Yes (COPD) Immunizations Current: Yes Radiation Therapy: No Sickle Cell Disease: No Sleep Apnea: No Thyroid Disease: No Ulcer: No Tetanus Vaccination: < 5 Years Influenza Vaccination: Yes ?: Not Menopausal: Yes : 3 Para: 3 Miscarriage: 0 : 0 Past Surgical History Abdominal Surgery: Yes Appendectomy: Yes Body Medical Devices: anesyum coil Cardiac Surgery: Yes Cholecystectomy: Yes Coronary Artery Bypass Graft: No Ear Surgery: No Endocrine Surgery: No Eye Surgery: No Genitourinary Surgery: No Gynecologic Surgery: Yes (hysterectomy) Hysterectomy: Yes Neurologic Surgery: Yes (COILED ANEURYSM) Oral Surgery: Yes (wisdom teeth removed) Pacemaker: No Thoracic Surgery: No Tonsillectomy: Yes Other Surgery: Yes Social History Alcohol Use: No Tobacco Use: Yes (1/2PPD) Substance Use: No Allergies-Medications (Allergen,Severity, Reaction): Coded Allergies: Sulfa (Sulfonamide Antibiotics) (Verified Allergy, Severe, itching, 03/24/18 ) bee venom protein (honey bee) (Verified Allergy, Severe, itching, 03/24/18) cefuroxime (Verified Allergy, Intermediate, itching, 03/24/18) ciprofloxacin (Verified Allergy, Intermediate, itching, 03/24/18) gabapentin (Verified Adverse Reaction, Severe, MIGRAINES, 03/24/18) Reported Meds & Prescriptions Reported Meds & Active Scripts Active Dicyclomine (Dicyclomine HCl) 20 Mg Tab 20 Mg PO TID PRN Creon (Amylase/Lipase/Protease) 24,000-76,000-120,000 Units Cap 1 Cap PO TID Reported Aspirin 325 Mg Tab 325 Mg PO DAILY Trazodone (Trazodone HCl) 100 Mg Tablet 200 Mg PO HS Meclizine (Meclizine HCl) 25 Mg Tab 25 Mg PO TID PRN Escitalopram (Escitalopram Oxalate) 20 Mg Tab [address] [place] Carbonate 300 Mg Cap 300 Mg PO BID Atorvastatin (Atorvastatin Calcium) 20 Mg Tab 20 Mg PO HS Amlodipine (Amlodipine Besylate) 5 Mg Tab 5 Mg PO DAILY Sumatriptan (Sumatriptan Succinate) 50 Mg Tab 50 Mg PO Q6HR PRN If a satisfactory response has not been obtained at 2 hours, a second dose may be administered Review of Systems General / Constitutional: No: Fever Eyes: No: Visual changes HENT: Positive: Lightheadedness, No: Headaches Cardiovascular: No: Chest Pain or Discomfort Respiratory: No: Shortness of Breath Gastrointestinal: Positive: Nausea, Vomiting, Diarrhea, Abdominal Pain Genitourinary: No: Dysuria Musculoskeletal: Positive: Weakness, No: Pain Skin: No Rash Neurologic: Positive: Dizziness, No: Weakness Psychiatric: No: Depression Endocrine: No: Polydipsia Hematologic/Lymphatic: No: Easy Bruising Physical Exam Narrative GENERAL: Mild distress SKIN: Focused skin assessment warm/dry. HEAD: Atraumatic. Normocephalic. EYES: Pupils equal and round. No scleral icterus. No injection or drainage. ENT: No nasal bleeding or discharge. Mucous membranes pink and moist. NECK: Trachea midline. No JVD. CARDIOVASCULAR: Regular rate and rhythm. No murmur appreciated. RESPIRATORY: No accessory muscle use. Clear to auscultation. Breath sounds equal bilaterally. GASTROINTESTINAL: Abdomen soft, mild tenderness to RLQ with no rebound or guarding, nondistended. Hepatic and splenic margins not palpable. MUSCULOSKELETAL: No obvious deformities. No clubbing. No cyanosis. No edema. NEUROLOGICAL: Awake and alert. No obvious cranial nerve deficits. Motor grossly within normal limits. Normal speech. PSYCHIATRIC: Appropriate mood and affect; insight and judgment normal. Data Data Last Documented VS Vital Signs Date Time Temp Pulse Resp B/P (MAP) Pulse Ox O2 Delivery O2 Flow Rate FiO2 03/24/18 17:49 16 98 Room Air 03/24/18 17:16 98.0 76 153/98 (116) Orders Orders Complete Blood Count With Diff (03/24/18 17:45) Comprehensive Metabolic Panel (03/24/18 17:45) Lipase (03/24/18 17:45) Prothrombin Time / Inr (Pt) (03/24/18 17:45) Act Partial Throm Time (Ptt) (03/24/18 17:45) Urinalysis - C+S If Indicated (03/24/18 17:45) Ct Abd/Pel W Iv Contrast(Rout) (03/24/18 17:45) Iv Access Insert/Monitor (03/24/18 17:45) Ecg Monitoring (03/24/18 17:45) Oximetry (03/24/18 17:45) Ondansetron Inj (Zofran Inj) (03/24/18 17:45) Sodium Chlor 0.9% 1000 Ml Inj (Ns 1000 M (03/24/18 17:45) Sodium Chloride 0.9% Flush (Ns Flush) (03/24/18 17:45) Chest, Single Ap (03/24/18 17:45) Ct Brain W/O Iv Contrast(Rout) (03/24/18 17:48) MDM Medical Decision Making Medical Screen Exam Complete: Yes Emergency Medical Condition: Yes Medical Record Reviewed: Yes Interpretation(s) Vital Signs Date Time Temp Pulse Resp B/P (MAP) Pulse Ox O2 Delivery O2 Flow Rate FiO2 03/24/18 17:49 16 98 Room Air 03/24/18 17:16 98.0 76 16 153/98 (116) 98 Differential Diagnosis Electrolyte abnormality, dehydration, pancreatitis, gastritis, gastroenteritis, colitis Narrative Course During the course of the patients emergency department visit, the patients history, examination, and differential diagnosis were reviewed with the patient. The patient was placed on a cardiac care unit nurse with oximetry and frequent blood pressure monitoring. The patient had an IV access obtained and blood work sent for analysis. The patient was initially provided IVF as well as IV Corrie Guerra DO March 24, 2018 18:06
--- NOTE | 2018-03-24 18:16 | RADRPT ---
EXAM DATE/TIME: 03/24/2018 17:55 [facility] COMPARISON: CHEST SINGLE AP, March 08, 2018, 21:18. INDICATIONS : Chest pain MEDICAL HISTORY : Stroke. Hypertension SURGICAL HISTORY : None. ENCOUNTER: Initial ACUITY: 1 day PAIN SCORE: 4/10 LOCATION: chest FINDINGS: A single view of the chest demonstrates the lungs to be symmetrically aerated without evidence of mas s, infiltrate or effusion. The cardiomediastinal contours are unremarkable. Osseous structures are intact. CONCLUSION: No acute disease. Kenji Cotton MD on March 24, 2018 at 18:14 Board Certified Radiologist. This report was verified electronically.
[2018-03-24 18:28] LABS: BASOPHIL # 0.1 TH/MM3 (0-0.2); BASOPHIL % 1.5 % (0.0-2.0); EOSINOPHIL # 0.2 TH/MM3 (0-0.4); EOSINOPHIL % 2.8 % (0.0-4.0); HEMATOCRIT 43.2 % (35.0-46.0); HEMOGLOBIN 14.6 GM/DL (11.6-15.3); LYMPH % 31.4 % (9.0-44.0); LYMPHOCYTE # 2.6 TH/MM3 (1.0-4.8); MEAN CELL VOLUME 93.2 FL (80.0-100.0); MEAN CORPUSCULAR HEMOGLOBIN 31.6 PG (27.0-34.0); MEAN CORPUSCULAR HGB CONC 33.9 % (32.0-36.0); MEAN PLATELET VOLUME 8.7 FL (7.0-11.0); MONO % 5.2 % (0.0-8.0); MONOCYTE # 0.4 TH/MM3 (0-0.9); NEUT % 59.1 % (16.0-70.0); PLATELET COUNT 287 TH/MM3 (150-450); RED BLOOD COUNT 4.63 MIL/MM3 (4.00-5.30); RED CELL DISTRIBUTION WIDTH 13.4 % (11.6-17.2); WHITE BLOOD COUNT 8.4 TH/MM3 (4.0-11.0)
[2018-03-24 18:40] LABS: PROTHROMBIN TIME - PATIENT 9.9 SEC (9.8-11.6)
[2018-03-24 18:43] LABS: ALBUMIN 3.4 GM/DL (3.4-5.0); AST (GOT) 14 U/L (15-37); BICARBONATE 26.5 MEQ/L (21.0-32.0); BLOOD UREA NITROGEN 13 MG/DL (7-18); CALCIUM 8.8 MG/DL (8.5-10.1); CHLORIDE 109 MEQ/L (98-107); CREATININE 0.84 MG/DL (0.50-1.00); GLOMERULAR FILTRATION RATE 71 ML/MIN (>89); GLUCOSE,RANDOM 90 MG/DL (74-106); SODIUM (NA) 141 MEQ/L (136-145)
[2018-03-24 18:44] LABS: ALKALINE PHOSPHATASE 66 U/L (45-117); ALT (GPT) 13 U/L (10-53); TOTAL BILIRUBIN ADULT 0.1 MG/DL (0.2-1.0); TOTAL PROTEIN 6.7 GM/DL (6.4-8.2)
[2018-03-24] MEDS ORDERED: KETOROLAC TROMETHAMINE 30 MG/ML (IVP) VIAL IV PUSH ONE (18:45)
--- NOTE | 2018-03-24 19:06 | PD ---
Physical Exam Narrative General: The patient is a well-developed well-nourished female in no acute distress. Head and Neck exam: Head is normocephalic atraumatic. Eyes: EOMI, pupils are equal round and reactive to light. Nose: Midline septum with pink mucous membranes Mouth: Dentition unremarkable. Moist mucus membranes. Posterior oropharynx is not erythematous. No tonsillar hypertrophy. Uvula midline. Airway patent. Neck: No palpable lymphadenopathy. No nuchal rigidity. No thyromegaly. Cardiovascular: Regular rate and rhythm without murmurs, gallops, or rubs. Lungs: Clear to auscultation bilaterally. No wheezes, rhonchi, or rales. Abdomen: Soft, without tenderness to palpation in all 4 quadrants of the abdomen. No guarding, rebound, or rigidity. Normal bowel sounds are audible. No tenderness on palpation of McBurney's point. Negative Brooke sign. Extremities: No clubbing, cyanosis, or edema. 2+ pulses in all 4 extremities. Neurologic Exam: Grossly nonfocal. Skin Exam: No rash noted. Intact skin that is warm and dry. Data Data Last Documented VS Vital Signs Date Time Temp Pulse Resp B/P (MAP) Pulse Ox O2 Delivery O2 Flow Rate FiO2 03/24/18 20:24 57 16 154/92 (112) 99 Room Air 03/24/18 17:16 98.0 Orders Orders Complete Blood Count With Diff (03/24/18 17:45) Comprehensive Metabolic Panel (03/24/18 17:45) Lipase (03/24/18 17:45) Prothrombin Time / Inr (Pt) (03/24/18 17:45) Act Partial Throm Time (Ptt) (03/24/18 17:45) Urinalysis - C+S If Indicated (03/24/18 17:45) Ct Abd/Pel W Iv Contrast(Rout) (03/24/18 17:45) Iv Access Insert/Monitor (03/24/18 17:45) Ecg Monitoring (03/24/18 17:45) Oximetry (03/24/18 17:45) Ondansetron Inj (Zofran Inj) (03/24/18 17:45) Sodium Chlor 0.9% 1000 Ml Inj (Ns 1000 M (03/24/18 17:45) Sodium Chloride 0.9% Flush (Ns Flush) (03/24/18 17:45) Chest, Single Ap (03/24/18 17:45) Ct Brain W/O Iv Contrast(Rout) (03/24/18 17:48) Ketorolac Inj (Toradol Inj) (03/24/18 18:45) Iohexol 350 Inj (Omnipaque 350 Inj) (03/24/18 17:09) Ed Discharge Order (03/24/18 20:54) Labs Laboratory Tests Test 03/24/18 18:09 03/24/18 20:25 White Blood Count 8.4 TH/MM3 Red Blood Count 4.63 MIL/MM3 Hemoglobin 14.6 GM/DL Hematocrit 43.2 % Mean Corpuscular Volume 93.2 FL Mean Corpuscular Hemoglobin 31.6 PG Mean Corpuscular Hemoglobin Concent 33.9 % Red Cell Distribution Width 13.4 % Platelet Count 287 TH/MM3 Mean Platelet Volume 8.7 FL Neutrophils (%) (Auto) 59.1 % Lymphocytes (%) (Auto) 31.4 % Monocytes (%) (Auto) 5.2 % Eosinophils (%) (Auto) 2.8 % Basophils (%) (Auto) 1.5 % Neutrophils # (Auto) 5.0 TH/MM3 Lymphocytes # (Auto) 2.6 TH/MM3 Monocytes # (Auto) 0.4 TH/MM3 Eosinophils # (Auto) 0.2 TH/MM3 Basophils # (Auto) 0.1 TH/MM3 CBC Comment DIFF FINAL Differential Comment Prothrombin Time 9.9 SEC Prothromb Time International Ratio 1.0 RATIO Activated Partial Thromboplast Time 20.5 SEC Blood Urea Nitrogen 13 MG/DL Creatinine 0.84 MG/DL Random Glucose 90 MG/DL Total Protein 6.7 GM/DL Albumin 3.4 GM/DL Calcium Level 8.8 MG/DL Alkaline Phosphatase 66 U/L Aspartate Amino Transf (AST/SGOT) 14 U/L Alanine Aminotransferase (ALT/SGPT) 13 U/L Total Bilirubin 0.1 MG/DL Sodium Level 141 MEQ/L Potassium Level 3.7 MEQ/L Chloride Level 109 MEQ/L Carbon Dioxide Level 26.5 MEQ/L Anion Gap 6 MEQ/L Estimat Glomerular Filtration Rate 71 ML/MIN Lipase 263 U/L Urine Color LIGHT-YELLOW Urine Turbidity CLEAR Urine pH 5.5 Urine Specific [place] 1.015 Urine Protein NEG mg/dL Urine Glucose (UA) NEG mg/dL Urine Ketones NEG mg/dL Urine Occult Blood MOD Urine Nitrite NEG Urine Bilirubin NEG Urine Urobilinogen LESS THAN 2.0 MG/DL Urine Leukocyte Esterase NEG Urine RBC 3 /hpf Urine WBC LESS THAN 1 /hpf Microscopic Urinalysis Comment CULT NOT INDICATED MDM Medical Record Reviewed: Yes Supervised Visit with JANESSA: No Narrative Course During the course of the patient's emergency department visit, the patient's history, examination, and differential diagnosis were reviewed with the patient. The patient was placed on a property assessment monitor with oximetry and frequent blood pressure monitoring. The patient had IV access obtained and blood work sent for analysis. The patient's case was checked out to me by Dr. Grant. Please see her complete history and physical. The patient's case was checked out to me at the conclusion of her shift. The patient reports a history of not feeling well over the last few days. She reports having nausea, abdominal pain , fatigue, and diarrhea today. The patient reports concern that she has a history of pancreatitis. She is followed by quality analyst, however she cannot recall the name of the quality analyst. She reports that she is on Creon for the chronic pancreatitis. The patient was initially provided normal saline 1 L IV fluid bolus, Toradol 15 mg IV for pain, Zofran 4 mg IV for nausea. The patient's laboratory studies were reviewed and remarkable for 03/24/18 18:09 Total Protein 6.7, Albumin 3.4, Calcium Level 8.8, Alkaline Phosphatase 66, Aspartate Amino Transf (AST/SGOT) 14 L, Alanine Aminotransferase (ALT/SGPT) 13, Total Bilirubin 0.1 L. Lipase is within normal limits at 263. PT 9.9, PTT 20.5. Urinalysis is unremarkable. Radiology studies were reviewed and remarkable for Last Impressions Head CT [id number]/24/[id number] Signed Impressions: Service Date/Time: Saturday, March 24, 2018 19:39 - CONCLUSION: 1. No acute intracranial abnormality. 2. Nodular mucosal thickening or mucous retention cysts within the right maxillary sinus. Kenji Cotton MD Chest X-Ray 03/24/[id number] Signed Impressions: Service Date/Time: Saturday, March 24, 2018 17:55 - CONCLUSION: No acute disease. Kenji Cotton MD Abdomen/Pelvis CT 5/6/18 1745 Signed Impressions: Service Date/Time: Saturday, March 24, 2018 19:51 - CONCLUSION: 1. Stable 2.5 cm low density lesion within the right lobe of the liver. 2. Tiny stable right renal cyst measuring 5 mm. 3. No acute intra-abdominal process. Kenji Cotton MD The patient was reexamined by me. The patient has no focal tenderness on her abdominal examination with reassuring labs including a normal white blood cell count, reassuring chemistry panel with a normal lipase and no suggestion of acute pancreatitis on CT. The patient will therefore be discharged home for follow-up with her primary care physician and quality analyst. The patient will be given a prescription for nausea medication at discharge. The patient is resting comfortably and feels better, is alert and in no distress. The patient's results and examination findings were discussed with the patient. The repeat examination is unremarkable and benign. The history, exam, diagnostic testing, and current condition do not suggest any significant pathology to warrant further testing, continued ED treatment, admission, or surgical evaluation at this point. The vital signs have been stable. The patient does not have uncontrollable pain, intractable vomiting, or other significant symptoms. The patient's condition is stable and appropriate for discharge. The patient will pursue further outpatient evaluation with a primary care physician or other designated or consulting physician as indicated in the discharge instructions. The patient expressed understanding and was agreeable with this plan. Diagnosis Primary Impression: Abdominal pain Qualified Codes: R10.9 - Unspecified abdominal pain Additional Impression: Diarrhea Qualified Codes: R19.7 - Diarrhea, unspecified Referrals: Primary Care Physician Patient Instructions: Abdominal Pain (ED), Acute Diarrhea (ED), General Instructions Additional Instruction: The patient is instructed that if she develops any new or worsening signs or symptoms, she should report back immediately to the emergency department for reevaluation. Med/Other Pt SpecificInfo: Prescription(s) given Scripts Promethazine (Phenergan) 25 Mg Tablet 25 MG PO Q8HR Y for NAUSEA OR VOMITING, #6 TAB 0 Refills Prov: Cristel Enciso MD 03/24/18 Disposition: 01 DISCHARGE HOME Condition: Stable Cristel Enciso MD March 24, 2018 19:06
--- NOTE | 2018-03-24 19:55 | RADRPT ---
EXAM DATE/TIME: 03/24/2018 19:39 [facility] COMPARISON: CT BRAIN W/O CONTRAST, March 09, 2018, 0:36. INDICATIONS : Cehpalgia and dizziness for 3 days. RADIATION DOSE: 56.35 CTDIvol (mGy) MEDICAL HISTORY : Cerebrovascular disease. Chronic obstructive pulmonary disease. SURGICAL HISTORY : Appendectomy. Hysterectomy.Aneurysm clipping ENCOUNTER: Initial ACUITY: 3 days PAIN SCALE: 4/10 LOCATION: cranial TECHNIQUE: Multiple contiguous axial images were obtained of the head. Using automated exposure control and adj ustment of the mA and/or kV according to patient size, radiation dose was kept as low as reasonably a chievable to obtain optimal diagnostic quality images. DICOM format image data is available electro nically for review and comparison. FINDINGS: CEREBRUM: The ventricles are normal for age. No evidence of midline shift, mass lesion, hemorrhage or acute in farction. No extra-axial fluid collections are seen. Prior aneurysm coiling is again noted and stabl e. POSTERIOR FOSSA: The cerebellum and brainstem are intact. The 4th ventricle is midline. The cerebellopontine angle i s unremarkable. EXTRACRANIAL: The visualized portion of the orbits is intact. Nodular mucosal thickening or mucous retention cysts are noted within the right maxillary sinus. SKULL: The calvaria is intact. No evidence of skull fracture. CONCLUSION: 1. No acute intracranial abnormality. 2. Nodular mucosal thickening or mucous retention cysts within the right maxillary sinus. Kenji Cotton MD on March 24, 2018 at 19:51 Board Certified Radiologist. This report was verified electronically.
--- NOTE | 2018-03-24 20:14 | RADRPT ---
EXAM DATE/TIME: 03/24/2018 19:51 [facility] COMPARISON: CT ABDOMEN & PELVIS W CONTRAST, October 31, 2017, 16:27. INDICATIONS : Lower abdominal pain. IV CONTRAST: 70 cc Omnipaque 350 (iohexol) IV ORAL CONTRAST: No oral contrast ingested. RADIATION DOSE: 7.64 CTDIvol (mGy) MEDICAL HISTORY : Cerebrovascular disease. Chronic obstructive pulmonary disease. SURGICAL HISTORY : Appendectomy. Hysterectomy.Aneurysm clipping ENCOUNTER: Initial ACUITY: 1 day PAIN SCALE: 6/10 LOCATION: Bilateral lower quadrant TECHNIQUE: Volumetric scanning of the abdomen and pelvis was performed. Using automated exposure control and ad justment of the mA and/or kV according to patient size, radiation dose was kept as low as reasonably achievable to obtain optimal diagnostic quality images. DICOM format image data is available electro nically for review and comparison. FINDINGS: LOWER LUNGS: Atelectasis is noted within the right posterior lung base. LIVER: There is a stable low density lesion within the right lobe of the liver measuring 2.5 cm. There is no dilation of the biliary tree. No calcified gallstones. Status post cholecystectomy. SPLEEN: Normal size without lesion. PANCREAS: Within normal limits. KIDNEYS: Normal in size and shape. There is no mass, stone or hydronephrosis. There is a tiny 5 mm cyst withi n the right kidney. ADRENAL GLANDS: Within normal limits. VASCULAR: There is no aortic aneurysm. BOWEL/MESENTERY: The stomach, small bowel, and colon demonstrate no acute abnormality. There is no free intraperitone al air or fluid. ABDOMINAL WALL: Within normal limits. RETROPERITONEUM: There is no lymphadenopathy. BLADDER: No wall thickening or mass. REPRODUCTIVE: Within normal limits. INGUINAL: There is no lymphadenopathy or hernia. MUSCULOSKELETAL: Within normal limits for patient age. CONCLUSION: 1. Stable 2.5 cm low density lesion within the right lobe of the liver. 2. Tiny stable right renal cyst measuring 5 mm. 3. No acute intra-abdominal process. Kenji Cotton MD on March 24, 2018 at 20:07 Board Certified Radiologist. This report was verified electronically.
[2018-03-24 20:24] VITALS: BP 154/92; PULSE 57; RESP 16; O2SAT 99
[2018-03-24] MEDS ORDERED: PROM25TA10 PO (20:33)
[2018-03-24 20:38] LABS: BILIRUBIN, URINE NEG (NEG); BLOOD, URINE MOD (NEG); GLUCOSE,URINE NEG (NEG); KETONE, URINE NEG (NEG); NITRITE,URINE NEG (NEG); PH, URINE 5.5 (5.0-8.5); URINE COLOR LIGHT-YELLOW (YELLW/STRAW); URINE LEUKOCYTE ESTERASE NEG (NEG)
== END 2018-03-24 21:04 | disposition home or self-care (01) ==
LOC: NEPC 17:08
DX: R10.30 Lower abdominal pain, unspecified (principal); R19.7 Diarrhea, unspecified; R11.0 Nausea; E78.5 Hyperlipidemia, unspecified; I10 Essential (primary) hypertension; F31.9 Bipolar disorder, unspecified; F17.200 Nicotine dependence, unspecified, uncomplicated
CPT/HCPCS: 70450; 71045; 74177; 80053; 81001; 83690; 85025; 85610; 85730; 96374; 96375; 99285; J1885; J2405; J7030; Q9967

== ENCOUNTER 2018-05-06 17:51 | Emergency (ER) | payer OTHER, MEDICAID ==
[~2018-05-06] VITALS: Ht 170.2 cm; Wt 75.0 kg
[~2018-05-06 17:51] MED LIST changes: -IBUP-232 PO; +PROM25TA10 PO
[2018-05-06 18:05] VITALS: BP 138/88; PULSE 67; RESP 16; TEMP 97.9; O2SAT 96
[2018-05-06] MEDS ORDERED: SODIUM CHLOR 0.9% 1000 ML INJ 1,000 ML IV SCH (20:44)
[2018-05-06] MEDS ORDERED: ONDANSETRON ODT 4 MG TAB PO ONE (20:45)
[2018-05-06] MEDS ORDERED: KETOROLAC TROMETHAMINE 30 MG/ML (IVP) VIAL IVP ONE (20:45)
[2018-05-06] MEDS ORDERED: SODIUM CHLORIDE 0.9% FLUSH 10 ML FLUSH IV FLUSH PRN (20:45)
[2018-05-06] MEDS ORDERED: METOCLOPRAMIDE HCL 10 MG/2 ML VIAL IV PUSH ONE (21:00)
[2018-05-06 21:19] LABS: AUTOMATED NEUTROPHIL # 4.2 TH/MM3 (1.8-7.7); BASOPHIL # 0.1 TH/MM3 (0-0.2); EOSINOPHIL # 0.3 TH/MM3 (0-0.4); EOSINOPHIL % 3.4 % (0.0-4.0); HEMATOCRIT 42.1 % (35.0-46.0); LYMPH % 35.1 % (9.0-44.0); LYMPHOCYTE # 2.7 TH/MM3 (1.0-4.8); MEAN CELL VOLUME 92.2 FL (80.0-100.0); MEAN CORPUSCULAR HEMOGLOBIN 30.6 PG (27.0-34.0); MEAN CORPUSCULAR HGB CONC 33.2 % (32.0-36.0); MEAN PLATELET VOLUME 8.5 FL (7.0-11.0); MONO % 6.3 % (0.0-8.0); MONOCYTE # 0.5 TH/MM3 (0-0.9); NEUT % 54.2 % (16.0-70.0); PLATELET COUNT 296 TH/MM3 (150-450); RED BLOOD COUNT 4.57 MIL/MM3 (4.00-5.30); RED CELL DISTRIBUTION WIDTH 13.2 % (11.6-17.2); WHITE BLOOD COUNT 7.8 TH/MM3 (4.0-11.0)
[2018-05-06] MEDS ORDERED: DICYCLOMINE HCL 20 MG/2 ML VIAL IM ONE (21:45)
[2018-05-06 21:48] LABS: ALBUMIN 3.2 GM/DL (3.4-5.0); AST (GOT) 12 U/L (15-37); BICARBONATE 25.2 MEQ/L (21.0-32.0); BLOOD UREA NITROGEN 12 MG/DL (7-18); CALCIUM 8.8 MG/DL (8.5-10.1); CHLORIDE 109 MEQ/L (98-107); CREATININE 0.73 MG/DL (0.50-1.00); GLOMERULAR FILTRATION RATE 83 ML/MIN (>89); GLUCOSE,RANDOM 69 MG/DL (74-106); SODIUM (NA) 143 MEQ/L (136-145)
[2018-05-06 21:49] LABS: ALT (GPT) 15 U/L (10-53)
[2018-05-06 21:51] LABS: ALKALINE PHOSPHATASE 66 U/L (45-117); TOTAL BILIRUBIN ADULT 0.3 MG/DL (0.2-1.0); TOTAL PROTEIN 6.4 GM/DL (6.4-8.2)
--- NOTE | 2018-05-06 21:59 | PD ---
HPI Chief Complaint: GI Complaint Time Seen by Provider: 19:50 Travel History International Travel<30 days: No Contact w/Intl Traveler<30days: No Traveled to known affect area: No History of Present Illness HPI Patient is a 52-year-old female presenting to emergency department for evaluation of abdominal pain. Patient states it started 2-3 days ago, she states she feels distended. She reports that it got worse approximately 1 hour prior to her arrival in the emergency department. Patient reports that she has lost 50 pounds in the last 2 months. Patient states that when she eats the food just sits there and makes her feel bloated. She denies any vomiting but reports occasional nausea. She stated that she had a bowel movement today and noticed bright red blood. Patient further denies any fever, chills, headache, shortness of breath, chest pain. Patient states that she has had this abdominal pain intermittently over the last several months. 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 She has not been able to see that in the last 3 months due to transportation issues. She reports that she had pancreatitis last year. PFSH Past Medical History Hx Anticoagulant Therapy: Yes (ASA) Arthritis: Yes Bipolar Disorder: Yes Anxiety: Yes Depression: Yes COPD: Yes Cerebrovascular Accident: Yes Gastrointestinal Disorders: Yes (Gastroparesis) GERD: Yes Hypertension: Yes Neurologic: Yes (peripheral neuropathy) Immunizations Current: Yes Pancreatitis: Yes Tetanus Vaccination: < 5 Years Influenza Vaccination: Yes ?: Not Menopausal: Yes : 3 Para: 3 Miscarriage: 0 : 0 Past Surgical History Abdominal Surgery: Yes Appendectomy: Yes Cardiac Surgery: Yes Cholecystectomy: Yes Hysterectomy: Yes Neurologic Surgery: Yes (COILED ANEURYSM) Oral Surgery: Yes (wisdom teeth removed) Tonsillectomy: Yes Social History Alcohol Use: No Tobacco Use: Yes (1/2PPD) Substance Use: No Allergies-Medications (Allergen,Severity, Reaction): Coded Allergies: Sulfa (Sulfonamide Antibiotics) (Verified Allergy, Severe, itching, ) bee venom protein (honey bee) (Verified Allergy, Severe, itching, 05/06/18) cefuroxime (Verified Allergy, Intermediate, itching, 05/06/18) ciprofloxacin (Verified Allergy, Intermediate, itching, 05/06/18) gabapentin (Verified Adverse Reaction, Severe, MIGRAINES, 05/06/18) Reported Meds & Prescriptions Reported Meds & Active Scripts Active Phenergan (Promethazine HCl) 25 Mg Tablet 25 Mg PO Q8HR PRN Dicyclomine (Dicyclomine HCl) 20 Mg Tab 20 Mg PO TID PRN Creon (Amylase/Lipase/Protease) 24,000-76,000-120,000 Units Cap 1 Cap PO TID Reported Aspirin 325 Mg Tab 325 Mg PO DAILY Trazodone (Trazodone HCl) 100 Mg Tablet 200 Mg PO HS Meclizine (Meclizine HCl) 25 Mg Tab 25 Mg PO TID PRN Escitalopram (Escitalopram Oxalate) 20 Mg Tab 20 Mg PO DAILY [place] Carbonate 300 Mg Cap 300 Mg PO BID Atorvastatin (Atorvastatin Calcium) 20 Mg Tab 20 Mg PO HS Amlodipine (Amlodipine Besylate) 5 Mg Tab 5 Mg PO DAILY Sumatriptan (Sumatriptan Succinate) 50 Mg Tab 50 Mg PO Q6HR PRN If a satisfactory response has not been obtained at 2 hours, a second dose may be administered Review of Systems Except as stated in HPI: all other systems reviewed are Neg HENT: No: Headaches Cardiovascular: No: Chest Pain or Discomfort Respiratory: No: Shortness of Breath Gastrointestinal: Positive: Nausea, Abdominal Pain, No: Vomiting, Diarrhea Physical Exam Narrative GENERAL: Well-developed, well-nourished, alert female. Presenting in no acute distress. SKIN: Warm and dry. HEAD: Atraumatic. Normocephalic. EYES: Pupils equal and round. No scleral icterus. No injection or drainage. ENT: No nasal bleeding or discharge. Mucous membranes pink and moist. NECK: Trachea midline. No JVD. CARDIOVASCULAR: Regular rate and rhythm. RESPIRATORY: No accessory muscle use. Clear to auscultation. Breath sounds equal bilaterally. GASTROINTESTINAL: Abdomen soft, mildly tender, nondistended. Hepatic and splenic margins not palpable. Positive bowel sounds. MUSCULOSKELETAL: Extremities without clubbing, cyanosis, or edema. No obvious deformities. NEUROLOGICAL: Awake and alert. No obvious cranial nerve deficits. Motor grossly within normal limits. Five out of 5 muscle strength in the arms and legs. Normal speech. PSYCHIATRIC: Appropriate mood and affect; insight and judgment normal. Data Data Last Documented VS Vital Signs Date Time Temp Pulse Resp B/P (MAP) Pulse Ox O2 Delivery O2 Flow Rate FiO2 05/06/18 18:05 97.9 67 16 138/88 (105) 96 Orders Orders Complete Blood Count With Diff (05/06/18 20:44) Comprehensive Metabolic Panel (05/06/18 20:44) Lipase (05/06/18 20:44) Urinalysis - C+S If Indicated (05/06/18 20:44) Iv Access Insert/Monitor (05/06/18 20:44) Ecg Monitoring (05/06/18 20:44) Oximetry (05/06/18 20:44) Sodium Chlor 0.9% 1000 Ml Inj (Ns 1000 M (05/06/18 20:44) Sodium Chloride 0.9% Flush (Ns Flush) (05/06/18 20:45) Ketorolac Inj (Toradol Inj) (05/06/18 20:45) Ondansetron Odt (Zofran Odt) (05/06/18 20:45) Metoclopramide Inj (Reglan Inj) (05/06/18 21:00) Dicyclomine Inj (Bentyl Inj) (05/06/18 21:45) Labs Laboratory Tests Test 05/06/18 20:48 05/06/18 21:40 White Blood Count 7.8 TH/MM3 Red Blood Count 4.57 MIL/MM3 Hemoglobin 14.0 GM/DL Hematocrit 42.1 % Mean Corpuscular Volume 92.2 FL Mean Corpuscular Hemoglobin 30.6 PG Mean Corpuscular Hemoglobin Concent 33.2 % Red Cell Distribution Width 13.2 % Platelet Count 296 TH/MM3 Mean Platelet Volume 8.5 FL Neutrophils (%) (Auto) 54.2 % Lymphocytes (%) (Auto) 35.1 % Monocytes (%) (Auto) 6.3 % Eosinophils (%) (Auto) 3.4 % Basophils (%) (Auto) 1.0 % Neutrophils # (Auto) 4.2 TH/MM3 Lymphocytes # (Auto) 2.7 TH/MM3 Monocytes # (Auto) 0.5 TH/MM3 Eosinophils # (Auto) 0.3 TH/MM3 Basophils # (Auto) 0.1 TH/MM3 CBC Comment DIFF FINAL Differential Comment Blood Urea Nitrogen 12 MG/DL Creatinine 0.73 MG/DL Random Glucose 69 MG/DL Total Protein 6.4 GM/DL Albumin 3.2 GM/DL Calcium Level 8.8 MG/DL Alkaline Phosphatase 66 U/L Aspartate Amino Transf (AST/SGOT) 12 U/L Alanine Aminotransferase (ALT/SGPT) 15 U/L Total Bilirubin 0.3 MG/DL Sodium Level 143 MEQ/L Potassium Level 3.6 MEQ/L Chloride Level 109 MEQ/L Carbon Dioxide Level 25.2 MEQ/L Anion Gap 9 MEQ/L Estimat Glomerular Filtration Rate 83 ML/MIN Lipase 165 U/L Urine Color YELLOW Urine Turbidity HAZY Urine pH 6.0 Urine Specific [place] 1.013 Urine Protein 100 mg/dL Urine Glucose (UA) NEG mg/dL Urine Ketones NEG mg/dL Urine Occult Blood MOD Urine Nitrite NEG Urine Bilirubin NEG Urine Urobilinogen LESS THAN 2 mg/dL Urine Leukocyte Esterase NEG Urine RBC 18 /hpf Urine WBC 1 /hpf Urine Squamous Epithelial Cells 1 /hpf Urine Bacteria RARE /hpf Urine Mucus FEW /lpf Microscopic Urinalysis Comment CULT NOT INDICATED MDM Medical Decision Making Medical Screen Exam Complete: Yes Emergency Medical Condition: Yes Medical Record Reviewed: Yes Interpretation(s) Laboratory Tests Test 05/06/18 20:48 05/06/18 21:40 White Blood Count 7.8 TH/MM3 Red Blood Count 4.57 MIL/MM3 Hemoglobin 14.0 GM/DL Hematocrit 42.1 % Mean Corpuscular Volume 92.2 FL Mean Corpuscular Hemoglobin 30.6 PG Mean Corpuscular Hemoglobin Concent 33.2 % Red Cell Distribution Width 13.2 % Platelet Count 296 TH/MM3 Mean Platelet Volume 8.5 FL Neutrophils (%) (Auto) 54.2 % Lymphocytes (%) (Auto) 35.1 % Monocytes (%) (Auto) 6.3 % Eosinophils (%) (Auto) 3.4 % Basophils (%) (Auto) 1.0 % Neutrophils # (Auto) 4.2 TH/MM3 Lymphocytes # (Auto) 2.7 TH/MM3 Monocytes # (Auto) 0.5 TH/MM3 Eosinophils # (Auto) 0.3 TH/MM3 Basophils # (Auto) 0.1 TH/MM3 CBC Comment DIFF FINAL Differential Comment Blood Urea Nitrogen 12 MG/DL Creatinine 0.73 MG/DL Random Glucose 69 MG/DL Total Protein 6.4 GM/DL Albumin 3.2 GM/DL Calcium Level 8.8 MG/DL Alkaline Phosphatase 66 U/L Aspartate Amino Transf (AST/SGOT) 12 U/L Alanine Aminotransferase (ALT/SGPT) 15 U/L Total Bilirubin 0.3 MG/DL Sodium Level 143 MEQ/L Potassium Level 3.6 MEQ/L Chloride Level 109 MEQ/L Carbon Dioxide Level 25.2 MEQ/L Anion Gap 9 MEQ/L Estimat Glomerular Filtration Rate 83 ML/MIN Lipase 165 U/L Urine Color YELLOW Urine Turbidity HAZY Urine pH 6.0 Urine Specific [place] 1.013 Urine Protein 100 mg/dL Urine Glucose (UA) NEG mg/dL Urine Ketones NEG mg/dL Urine Occult Blood MOD Urine Nitrite NEG Urine Bilirubin NEG Urine Urobilinogen LESS THAN 2 mg/dL Urine Leukocyte Esterase NEG Urine RBC 18 /hpf Urine WBC 1 /hpf Urine Squamous Epithelial Cells 1 /hpf Urine Bacteria RARE /hpf Urine Mucus FEW /lpf Microscopic Urinalysis Comment CULT NOT INDICATED Vital Signs Date Time Temp Pulse Resp B/P (MAP) Pulse Ox O2 Delivery O2 Flow Rate FiO2 05/06/18 18:05 97.9 67 16 138/88 (105) 96 Differential Diagnosis Metabolic abnormality versus UTI versus pancreatitis versus gastroenteritis versus gastroparesis versus other Narrative Course Patient is a 52-year-old female presenting to the emergency department for evaluation of abdominal pain. Patient was in the emergency department approximately 6 weeks ago with similar complaints. A CT the abdomen and pelvis was performed at that time and showed no acute abnormality. Additionally patient had a gastric emptying study done in July 2017 that showed gastroparesis. Patient symptoms appear chronic and cyclical nature. She has not attempted to follow-up with her refrigeration technician. Patient's vital signs are stable, will check labs and a urinalysis. Patient was given Toradol, Zofran. She was then given Reglan and Bentyl. She was also given IV fluids. Will reassess. Labs reviewed, no acute findings identified. Urinalysis shows hematuria, this is finding over the last several visits. Patient verbalized that she is aware of this. Discussed findings with patient. Advised her that last July she was diagnosed with gastroparesis, educated on what that was in lifestyle modification she can make to improve. Patient was encouraged to follow-up with her refrigeration technician and primary doctor. Patient verbalized understanding. Findings were discussed with my attending physician as well. Patient is stable for discharge. Diagnosis Primary Impression: Gastroparesis Referrals: Griddle Attendant Primary Care Physician Patient Instructions: Gastroparesis (ED), General Instructions Additional Instructions: Follow-up with your refrigeration technician Follow-up with your primary doctor Eat small, easy to digest meals. Return to emergency department for any new or worsening symptoms Med/Other Pt SpecificInfo: No Change to Meds Disposition: 01 DISCHARGE HOME Condition: Stable Michelle Dyer May 06, 2018 21:59
[2018-05-06 22:01] LABS: BACTERIA, URINE RARE /hpf; BILIRUBIN, URINE NEG (NEG); BLOOD, URINE MOD (NEG); GLUCOSE,URINE NEG (NEG); KETONE, URINE NEG (NEG); MUCUS URINE FEW /lpf (OCC); NITRITE,URINE NEG (NEG); SQUAMOUS EPITHELIAL CELL URINE 1 /hpf (0-5); URINE COLOR YELLOW (YELLW/STRAW); URINE LEUKOCYTE ESTERASE NEG (NEG)
== END 2018-05-06 22:34 | disposition home or self-care (01) ==
LOC: NEPC 17:51
DX: K31.84 Gastroparesis (principal); R31.9 Hematuria, unspecified; F41.8 Other specified anxiety disorders; J44.9 Chronic obstructive pulmonary disease, unspecified; K21.9 Gastro-esophageal reflux disease without esophagitis; I10 Essential (primary) hypertension; G62.9 Polyneuropathy, unspecified; F17.210 Nicotine dependence, cigarettes, uncomplicated; Z88.2 Allergy status to sulfonamides; Z88.1 Allergy status to other antibiotic agents
CPT/HCPCS: 80053; 81001; 83690; 85025; 96361; 96372; 96374; 96375; 99284; J0500; J1885; J2765; J7030

== ENCOUNTER 2018-05-13 13:11 | Emergency (ER) | payer OTHER, MEDICAID ==
[~2018-05-13] VITALS: Ht 170.2 cm; Wt 70.0 kg
[2018-05-13 13:18] VITALS: BP 140/91; PULSE 66; RESP 18; TEMP 97.9; O2SAT 95
[2018-05-13 14:03] LABS: BILIRUBIN, URINE NEG (NEG); BLOOD, URINE MOD (NEG); GLUCOSE,URINE NEG (NEG); KETONE, URINE NEG (NEG); MUCUS URINE FEW /lpf (OCC); NITRITE,URINE NEG (NEG); URINE COLOR Straw (YELLW/STRAW); URINE LEUKOCYTE ESTERASE NEG (NEG)
--- NOTE | 2018-05-13 17:51 | PD ---
HPI Chief Complaint: Flank/Kidney Pain Time Seen by Provider: 17:41 Travel History International Travel<30 days: No Contact w/Intl Traveler<30days: No History of Present Illness HPI 52yo F with PMH of bipolar disorder, pancreatitis presents to the ED with c/o left flank pain since yesterday. Pt was mainly in the back but now radiating to left abdomen. Associated with nausea. Denies any fever, chest pain, sob, vomiting, dysuria, hematuria, vaginal bleeding or discharge. Pt is unsure if she had kidney stones before. PSH include hysterectomy, cholecystectomy, appendectomy. PFSH Past Medical History Hx Anticoagulant Therapy: Yes (ASA) Arthritis: Yes Bipolar Disorder: Yes Anxiety: Yes Depression: Yes COPD: Yes Cerebrovascular Accident: Yes Gastrointestinal Disorders: Yes (Gastroparesis) GERD: Yes Hypertension: Yes Neurologic: Yes (peripheral neuropathy) Immunizations Current: Yes Pancreatitis: Yes Menopausal: Yes : 3 Para: 3 Miscarriage: 0 : 0 Past Surgical History Abdominal Surgery: Yes Appendectomy: Yes Cardiac Surgery: Yes Cholecystectomy: Yes Hysterectomy: Yes Neurologic Surgery: Yes (COILED ANEURYSM) Oral Surgery: Yes (wisdom teeth removed) Tonsillectomy: Yes Social History Alcohol Use: No Tobacco Use: Yes (2PPD) Substance Use: No Allergies-Medications (Allergen,Severity, Reaction): Coded Allergies: Sulfa (Sulfonamide Antibiotics) (Verified Allergy, Severe, itching, ) bee venom protein (honey bee) (Verified Allergy, Severe, itching, 05/06/18) cefuroxime (Verified Allergy, Intermediate, itching, 05/06/18) ciprofloxacin (Verified Allergy, Intermediate, itching, 05/06/18) gabapentin (Verified Adverse Reaction, Severe, MIGRAINES, 05/06/18) Reported Meds & Prescriptions Reported Meds & Active Scripts Active Phenergan (Promethazine HCl) 25 Mg Tablet 25 Mg PO Q8HR PRN Dicyclomine (Dicyclomine HCl) 20 Mg Tab 20 Mg PO TID PRN Creon (Amylase/Lipase/Protease) 24,000-76,000-120,000 Units Cap 1 Cap PO TID Reported Aspirin 325 Mg Tab 325 Mg PO DAILY Trazodone (Trazodone HCl) 100 Mg Tablet 200 Mg PO HS Meclizine (Meclizine HCl) 25 Mg Tab 25 Mg PO TID PRN Escitalopram (Escitalopram Oxalate) 20 Mg Tab 20 Mg PO DAILY Ney Carbonate 300 Mg Cap 300 Mg PO BID Atorvastatin (Atorvastatin Calcium) 20 Mg Tab 20 Mg PO HS Amlodipine (Amlodipine Besylate) 5 Mg Tab 5 Mg PO DAILY Sumatriptan (Sumatriptan Succinate) 50 Mg Tab 50 Mg PO Q6HR PRN If a satisfactory response has not been obtained at 2 hours, a second dose may be administered Review of Systems Except as stated in HPI: all other systems reviewed are Neg Physical Exam Narrative GENERAL: 52yo F in moderate distress. SKIN: Focused skin assessment warm/dry. HEAD: Atraumatic. Normocephalic. EYES: Pupils equal and round. No scleral icterus. No injection or drainage. ENT: No nasal bleeding or discharge. Mucous membranes pink and moist. NECK: Trachea midline. No JVD. CARDIOVASCULAR: Regular rate and rhythm. No murmur appreciated. RESPIRATORY: No accessory muscle use. Clear to auscultation. Breath sounds equal bilaterally. GASTROINTESTINAL: Abdomen soft, +TTP epigastric and left upper and lower abdomen. No rebound tenderness or guarding. BACK: +CVA tenderness on left. MUSCULOSKELETAL: No obvious deformities. No clubbing. No cyanosis. No edema. NEUROLOGICAL: Awake and alert. No obvious cranial nerve deficits. Motor grossly within normal limits. Normal speech. PSYCHIATRIC: Appropriate mood and affect; insight and judgment normal. Data Data Last Documented VS Vital Signs Date Time Temp Pulse Resp B/P (MAP) Pulse Ox O2 Delivery O2 Flow Rate FiO2 05/13/18 13:18 97.9 66 18 140/91 (107) 95 Orders Orders Urinalysis - C+S If Indicated (05/13/18 13:26) Basic Metabolic Panel (Bmp) (05/13/18 17:46) Complete Blood Count With Diff (05/13/18 17:46) Lipase (05/13/18 17:46) Ct Abd/Pel W/O Iv Contrast (05/13/18 17:46) Ketorolac Inj (Toradol Inj) (05/13/18 18:00) Ondansetron Odt (Zofran Odt) (05/13/18 18:00) Morphine Inj (Morphine Inj) (05/13/18 19:45) Labs Laboratory Tests Test 05/13/18 13:33 05/13/18 18:25 Urine Color Straw Urine Turbidity CLEAR Urine pH 6.0 Urine Specific [place] 1.003 Urine Protein 30 mg/dL Urine Glucose (UA) NEG mg/dL Urine Ketones NEG mg/dL Urine Occult Blood MOD Urine Nitrite NEG Urine Bilirubin NEG Urine Urobilinogen LESS THAN 2 mg/dL Urine Leukocyte Esterase NEG Urine RBC 7 /hpf Urine Mucus FEW /lpf Microscopic Urinalysis Comment CULT NOT INDICATED White Blood Count 6.2 TH/MM3 Red Blood Count 4.72 MIL/MM3 Hemoglobin 14.3 GM/DL Hematocrit 43.1 % Mean Corpuscular Volume 91.2 FL Mean Corpuscular Hemoglobin 30.3 PG Mean Corpuscular Hemoglobin Concent 33.2 % Red Cell Distribution Width 13.3 % Platelet Count 281 TH/MM3 Mean Platelet Volume 8.3 FL Neutrophils (%) (Auto) 52.1 % Lymphocytes (%) (Auto) 37.0 % Monocytes (%) (Auto) 6.1 % Eosinophils (%) (Auto) 3.5 % Basophils (%) (Auto) 1.3 % Neutrophils # (Auto) 3.2 TH/MM3 Lymphocytes # (Auto) 2.3 TH/MM3 Monocytes # (Auto) 0.4 TH/MM3 Eosinophils # (Auto) 0.2 TH/MM3 Basophils # (Auto) 0.1 TH/MM3 CBC Comment DIFF FINAL Differential Comment Blood Urea Nitrogen 11 MG/DL Creatinine 0.72 MG/DL Random Glucose 79 MG/DL Calcium Level 8.7 MG/DL Sodium Level 143 MEQ/L Potassium Level 3.6 MEQ/L Chloride Level 107 MEQ/L Carbon Dioxide Level 27.0 MEQ/L Anion Gap 9 MEQ/L Estimat Glomerular Filtration Rate 84 ML/MIN Lipase 114 U/L [facility] Medical Decision Making Medical Screen Exam Complete: Yes Emergency Medical Condition: Yes Differential Diagnosis Nephrolithiasis vs. pyelonephritis vs. pancreatitis vs. colitis Narrative Course 52yo F with left flank pain. Labs reviewed, no leukocytosis. H/H normal. Lipase normal. Creatinine normal. UA showed moderate blood. RBC 7. Culture not indicated. CT a/p showed no acute abnormality is identified to explain the left flank pain. Stable low density lesion in right lobe of liver. Pt given zofran and toradol. Pt said she is no longer nauseous but still with pain. Pt given morphine which helped with pain. Return precautions given. Diagnosis Primary Impression: Left flank pain Patient Instructions: General Instructions Departure Forms: Tests/Procedures Additional Instructions: Please follow up with your primary care physician in 2-3 days. Return to the ED if symptoms worsen. Med/Other Pt SpecificInfo: Prescription(s) given Scripts Acetaminophen (Tylenol) 325 Mg Tab 650 MG PO Q6H Y for PAIN SCALE 1 TO 4, #20 TAB 0 Refills Prov: Courtney Maynard DO 05/13/18 Disposition: 01 DISCHARGE HOME Condition: Stable Courtney Maynard DO May 13, 2018 17:50
[2018-05-13] MEDS ORDERED: KETOROLAC TROMETHAMINE 30 MG/ML (IVP) VIAL IV PUSH ONE (18:00)
[2018-05-13] MEDS ORDERED: ONDANSETRON ODT 4 MG TAB PO ONE (18:00)
[2018-05-13 18:53] LABS: AUTOMATED NEUTROPHIL # 3.2 TH/MM3 (1.8-7.7); BASOPHIL # 0.1 TH/MM3 (0-0.2); BASOPHIL % 1.3 % (0.0-2.0); EOSINOPHIL # 0.2 TH/MM3 (0-0.4); EOSINOPHIL % 3.5 % (0.0-4.0); HEMATOCRIT 43.1 % (35.0-46.0); HEMOGLOBIN 14.3 GM/DL (11.6-15.3); LYMPHOCYTE # 2.3 TH/MM3 (1.0-4.8); MEAN CELL VOLUME 91.2 FL (80.0-100.0); MEAN CORPUSCULAR HEMOGLOBIN 30.3 PG (27.0-34.0); MEAN CORPUSCULAR HGB CONC 33.2 % (32.0-36.0); MEAN PLATELET VOLUME 8.3 FL (7.0-11.0); MONO % 6.1 % (0.0-8.0); MONOCYTE # 0.4 TH/MM3 (0-0.9); NEUT % 52.1 % (16.0-70.0); PLATELET COUNT 281 TH/MM3 (150-450); RED BLOOD COUNT 4.72 MIL/MM3 (4.00-5.30); RED CELL DISTRIBUTION WIDTH 13.3 % (11.6-17.2); WHITE BLOOD COUNT 6.2 TH/MM3 (4.0-11.0)
[2018-05-13 19:10] LABS: CALCIUM 8.7 MG/DL (8.5-10.1); CREATININE 0.72 MG/DL (0.50-1.00)
--- NOTE | 2018-05-13 19:13 | RADRPT ---
EXAM DATE: 05/13/2018 6:46 PM EDT AGE/SEX: 52 years / Female INDICATIONS: Left flank pain for two days. CLINICAL DATA: This is the patient's initial encounter. Patient reports that signs and symptoms have been present for 2 days and indicates a pain score of 7/10. MEDICAL/SURGICAL HISTORY: Pancreatitis. Chronic obstructive pulmonary disease. Gastroesophage al reflux disease. Cholecystectomy. Hysterectomy. Appendectomy. RADIATION DOSE: 10.36 CTDI (mGy) [place] [facility] [place]. [facility] [place]/23/[place]. . TECHNIQUE: Multiple contiguous axial images were obtained through the abdomen. Images were obtained using multiple row detector helical technique. Using automated exposure control and adjustment of the mA and/or kV according to patient size, radiation dose was kept as low as reasonably achievable to o btain optimal diagnostic quality images. DICOM format image data is available electronically for rev iew and comparison. FINDINGS: Lower chest: No acute abnormality is identified. Hepatobiliary: There is a wedge-shaped hypodense lesion in the right liver measuring approximately 2. 3 cm, stable from the prior study. Cholecystectomy clips are present. Kidneys: No hydronephrosis, stone, or mass. Adrenal Glands: Within normal limits. Spleen: Within normal limits. Pancreas: Within normal limits. Vascular: The aorta is nonaneurysmal. There is severe atherosclerotic disease. Bowel/Mesentery: The stomach and small bowel demonstrate no abnormality. No acute colon abnormality i s seen. There is no free intraperitoneal air or fluid. Abdominal Wall: No hernia is visualized. Stable postsurgical changes on the anterior abdominal wall. Retroperitoneum: No lymphadenopathy. Bladder: No wall thickening or mass. Reproductive: Uterus is absent. Inguinal: No lymphadenopathy or hernia. Musculoskeletal: No acute osseous abnormality is identified. There are degenerative changes of the alpa mbar spine. CONCLUSION: 1. No acute abnormality is identified to explain the left flank pain. 2. Stable low-density lesion in the right lobe of the liver. 3. Severe atherosclerotic disease. Electronically signed by: Merlin Jo MD 05/13/2018 7:12 PM EDT
[2018-05-13] MEDS ORDERED: TYLE325T PO (19:36)
[2018-05-13] MEDS ORDERED: MORPHINE SULFATE 4 MG/ML INJ IV PUSH ONE (19:45)
== END 2018-05-13 20:11 | disposition home or self-care (01) ==
LOC: NEPD 13:11
DX: R10.9 Unspecified abdominal pain (principal); F17.200 Nicotine dependence, unspecified, uncomplicated; F31.9 Bipolar disorder, unspecified; I10 Essential (primary) hypertension
CPT/HCPCS: 74176; 80048; 81001; 83690; 85025; 96374; 96375; 99284; J1885; J2270